=== PATIENT | female | born 1945 | race Caucasian/White ===

== ENCOUNTER 2016-10-25 20:34 | Inpatient (IN) | payer MEDICARE ==
[2016-10-25] MEDS ORDERED: PREDNISONE 20 MG TABLET PO ONE (21:24)
[2016-10-25] MEDS ORDERED: IPRATROPIUM/ALBUTEROL 0.5-2.5 MG/3 ML AMPUL NEB ONE (21:24)
[2016-10-25] MEDS ORDERED: ALBUTEROL SULFATE 0.083% NEB 2.5 MG/3 ML AMPUL NEB ONE ×2 (21:26→23:48)
--- NOTE | 2016-10-25 21:33 | ER Document Report ---
ED Respiratory Problem - General Mode of Arrival: Ambulatory Information source: Patient TRAVEL OUTSIDE OF THE [place] IN LAST 30 DAYS: No - HPI Patient complains to provider of: Short of breath Onset: Other - "couple days ago" Context: Hx COPD, Smoker - former Cough: Productive At home treatment: Inhaled steroids Associated symptoms: Other - see above <MARCELLO MURPHY - Last Filed: 10/25/16 21:56> <SHA DESAI - Last Filed: 10/25/16 23:57> - General Chief Complaint: Breathing Difficulty Stated Complaint: DIFFICULTY BREATHING Notes: 71 year old female with history of COPD (non-oxygen dependent), coronary artery disease, DM II, dyslipidemia, and hypertension presents to the ED complaining of shortness of breath that started "a few days ago". Patient sates that she had a fever of 101.4 F yesterday. Patient is also complaining of a non- productive cough, stating that she can the mucus congestion, but is unable to cough it up. Patient states that the last time she was on Prednisone was when she was last seen in the ED on 09/27/2016. Patient denies having a nebulizer at home, but states that she uses an albuterol inhaler. Patient's primary care provider is Dr. Sangita Rodriguez. (MARCELLO MURPHY) - Related Data Allergies/Adverse Reactions: Sulfa (Sulfonamide Antibiotics) Allergy (Unknown, Verified 10/25/16 20:54) levofloxacin [From Levaquin] Allergy (Verified 10/25/16 20:54) morphine [Morphine] Adverse Reaction (Severe, Verified 10/25/16 20:54) Past Medical History - General Information source: Patient - Social History Smoking Status: Former Smoker Family History: Reviewed & Not Pertinent - Past Medical History Cardiac Medical History: Reports: Hx Coronary Artery Disease, Hx Hypercholesterolemia, Hx Hypertension Pulmonary Medical History: Reports: Hx COPD Endocrine Medical History: Reports: Hx Diabetes Mellitus Type 2, Hx Hypothyroidism Renal/ Medical History: Reports: Hx End Stage Renal Disease GI Medical History: Reports: Hx Gastroesophageal Reflux Disease Musculoskeltal Medical History: Reports Hx Arthritis Skin Medical History: Reports Hx Eczema Psychiatric Medical History: Reports: Hx Depression Past Surgical History: Reports: Hx Hysterectomy, Other - Bilat cataract and ankle surgery. - Immunizations Hx Diphtheria, Pertussis, Tetanus Vaccination: No <MARCELLO MURPHY - Last Filed: 10/25/16 21:56> EENT Medical History: Reports: None Neurological Medical History: Reports: None Renal/ Medical History: Reports: Hx Renal Insufficiency. Denies: Hx End Stage Renal Disease <SHA DESAI - Last Filed: 10/25/16 23:57> Review of Systems - Review of Systems Constitutional: See HPI, Fever - 101.4F EENT: No symptoms reported Cardiovascular: No symptoms reported Respiratory: See HPI, Cough, Short of breath Gastrointestinal: No symptoms reported Genitourinary: No symptoms reported Female Genitourinary: No symptoms reported Musculoskeletal: No symptoms reported Skin: No symptoms reported Hematologic/Lymphatic: No symptoms reported Neurological/Psychological: No symptoms reported <MARCELLO MURPHY - Last Filed: 10/25/16 21:56> Physical Exam - General General appearance: Alert In distress: None - HEENT Head: Normocephalic, Atraumatic Eyes: Normal Extraocular movements intact: Yes Pupils: PERRL - Respiratory Breath sounds: Rhonchi - Diffuse inspiratory and expiratory. Worsened with coughing., Wheezing - Diffuse inspiratory and expiratory. Worsened with coughing.. No: Normal - Cardiovascular Rhythm: Regular Heart sounds: Normal auscultation - Abdominal Inspection: Normal - Back Back: Normal - Extremities General upper extremity: Normal inspection, Normal ROM General lower extremity: Normal inspection, Normal ROM - Neurological Neuro grossly intact: Yes - Psychological Associated symptoms: Normal affect, Normal mood - Skin Skin Temperature: Warm Skin Moisture: Dry Skin Color: Normal <MARCELLO MURPHY - Last Filed: 10/25/16 21:56> Course - Laboratory Result Diagrams: 10/25/16 22:15 10/25/16 22:15 - Diagnostic Test Radiology reviewed: Image reviewed, Reports reviewed - Chest x-ray shows stable cardiomegaly without failure and without infiltrate. There is no acute process noted. - Consults Dr. Guerra Time consulted: 23:55 Consulted provider: will come to ER <SHA DESAI - Last Filed: 10/25/16 23:57> - Vital Signs Vital signs: Temp Pulse Resp BP Pulse Ox 99.3 F 18 140/68 H 89 L 10/25/16 20:35 10/25/16 23:25 10/25/16 23:25 10/25/16 23:25 (MARCELLO MURPHY) (SHA DESAI) - Laboratory Laboratory results interpreted by me: 10/25/16 10/25/16 10/25/16 22:15 22:15 23:30 WBC 11.9 H Hgb 11.3 L Hct 34.0 L RDW 14.4 H Seg Neutrophils % 79.8 H Lymphocytes % 12.8 L Absolute Neutrophils 9.5 H Sodium 132.5 L Potassium 3.4 L Chloride 95 L BUN 24 H Creatinine 2.19 H Est GFR ( Amer) 27 L Est GFR (Non-Af Amer) 22 L Glucose 220 H Calcium 8.2 L Magnesium 1.3 L Creatine Kinase 288 H Urine Protein 100 H Ur Leukocyte Esterase SMALL H (SHA DESAI) Discharge <MARCELLO MURPHY - Last Filed: 10/25/16 21:56> - Discharge Admitting Provider: Hospitalist Unit Admitted: Telemetry <SHA DESAI - Last Filed: 10/25/16 23:57> - Discharge Clinical Impression: COPD with acute exacerbation, Hypoxia, Diabetes mellitus type 2 in obese, Renal insufficiency Hypothyroid Qualifiers: Hypothyroidism type: unspecified Qualified Code(s): E03.9 - Hypothyroidism, unspecified Condition: Stable Disposition: ADMITTED INPATIENT Scribe Attestation: 10/25/16 23:57 I personally performed the services described in the documentation, reviewed and edited the documentation which was dictated to the scribe in my presence, and it accurately records my words and actions. (SHA DESAI) Scribe Documentation - Scribe Written by Brian:: Brian Talbot, 10/25/2016 21:45 acting as scribe for :: Den <MARCELLO MURPHY - Last Filed: 10/25/16 21:56>
[2016-10-25 22:29] LABS: ABSOLUTE BASOPHILS # (AUTO) 0.1 10^3/uL (0.0-0.2); ABSOLUTE EOSINOPHILS # (AUTO) 0.3 10^3/uL (0.0-0.6); ABSOLUTE LYMPHOCYTES (AUTO) 1.5 10^3/uL (0.5-4.7); ABSOLUTE MONOCYTES (AUTO) 0.5 10^3/uL (0.1-1.4); ABSOLUTE NEUT (AUTO) 9.5 10^3/uL (1.7-8.2); BASOPHILS % (AUTO) 0.6 % (0-2); EOSINOPHILS % (AUTO) 2.4 % (0-6); HEMOGLOBIN 11.3 g/dL (12.0-15.5); HGB HCT DIFFERENCE -0.1; LYMPHOCYTES % (AUTO) 12.8 % (13-45); MEAN CORPUSCULAR HEMOGLOBIN 29.2 pg (27.0-33.4); MEAN CORPUSCULAR HGB CONC 33.1 g/dL (32.0-36.0); MEAN CORPUSCULAR VOLUME 88 fl (80-97); MONOCYTES % (AUTO) 4.4 % (3-13); RED BLOOD COUNT 3.85 10^6/uL (3.72-5.28); RED CELL DISTRIBUTION WIDTH 14.4 % (11.5-14.0); SEGMENTED NEUTROPHILS % (AUTO) 79.8 % (42-78); WHITE BLOOD COUNT 11.9 10^3/uL (4.0-10.5)
[2016-10-25 22:44] LABS: ALANINE AMINOTRANSFERASE 34 U/L (9-52); ALBUMIN 3.9 g/dL (3.5-5.0); ALKALINE PHOSPHATASE 116 U/L (38-126); ANION GAP 16 (5-19); ASPARTATE AMINO TRANSFERASE 29 U/L (14-36); BLOOD UREA NITROGEN 24 mg/dL (7-20); CALCIUM 8.2 mg/dL (8.4-10.2); CARBON DIOXIDE 22 mmol/L (22-30); CHLORIDE 95 mmol/L (98-107); CREATINE KINASE 288 U/L (30-135); CREATININE RESULT 2.19 mg/dL (0.52-1.25); GLUCOSE 220 mg/dL (75-110); MAGNESIUM 1.3 mg/dL (1.6-2.3); POTASSIUM 3.4 mmol/L (3.6-5.0); SODIUM 132.5 mmol/L (137-145); TOTAL PROTEIN 6.9 g/dL (6.3-8.2)
[2016-10-25 23:05] LABS: CREATINE KINASE MB 2.06 ng/mL (<4.55)
[2016-10-25 23:09] LABS: TROPONIN I < 0.012 ng/mL
[2016-10-25 23:48] LABS: APPEARANCE,URINE CLOUDY; BILIRUBIN,URINE NEGATIVE (NEGATIVE); GLUCOSE, URINE NEGATIVE (NEGATIVE); KETONES,URINE NEGATIVE (NEGATIVE); LEUKOCYTE ESTERASE,URINE SMALL (NEGATIVE); NITRITE,URINE NEGATIVE (NEGATIVE); PROTEIN,URINE 100 mg/dL (NEGATIVE); URINE SPECIFIC GRAVITY 1.014; UROBILINOGEN,URINE NEGATIVE mg/dL (<2.0)
[2016-10-26] MEDS ORDERED: DEXTROSE 50%-WATER 25 GM/50 ML DISP.SYRIN IV PRN ×6 (00:59→15:49)
[2016-10-26] MEDS ORDERED: INSULIN LISPRO 100 UNIT/ML 3 ML VIAL SUBCUT PRN (00:59)
[2016-10-26] MEDS ORDERED: DEXTROSE 40% GEL 15 GM TUBE PO PRN ×6 (00:59→15:49)
[2016-10-26] MEDS ORDERED: GLUCAGON,HUMAN RECOMB 1 MG INJ IM PRN ×3 (00:59→15:49)
[2016-10-26] MEDS ORDERED: POTASSIUM CHLORIDE 20 MEQ/15 ML UDCUP PO ONE (01:01)
[2016-10-26] MEDS ORDERED: ALBUTEROL SULFATE 0.083% NEB 2.5 MG/3 ML AMPUL NEB PRN (01:02)
[2016-10-26] MEDS ORDERED: PHARMACY COMMUNICATION ORDER MC SCH (01:15)
[2016-10-26] MEDS ORDERED: VANCOMYCIN HCL 0 MG in DEXTROSE 5%-WATER 250 ML IV NR (01:15)
[2016-10-26] MEDS ORDERED: CEFEPIME 2 GM/D5W RTU 50 ML IV SCH (01:15)
[2016-10-26] MEDS ORDERED: AZTREONAM 2 GM in DEXTROSE 5%-WATER 50 ML IV SCH (01:15)
--- NOTE | 2016-10-26 01:26 | PDOC H&P ---
History of Present Illness Admission Date/PCP: 10/26/16 00:14 REED Wilkerson 1st appt. 10/25/16; name?? Patient complains of: difficulty breathing History of Present Illness: WANG LAWSON is a 71 year old female with nonhome O2 dependent COPD, who presents to the emergency room for evaluation of above complaint. Patient has been discussed with emergency room physician who evaluated the patient. Describes a several day history of slowly progressive shortness of breath, in particular with much of any exertion. Nausea but no vomiting. Fever to 101.4 24 hours ago. Somewhat of a productive cough, but is not able to completely expectorate her sputum. No diarrhea or dysuria, chest or abdominal pain. Positive sick contacts in the persons of her grandchildren No underlying asthma. No prior intubation for respiratory difficulty. Scheduled for her initial office visit with pulmonology on the of this month. She is up-to-date with her flu vaccination; has had one Pneumovax in the past. Hospitalized on our service 09/27 through 09/28/2016, with final diagnoses including acute respiratory failure with hypoxemia, COPD exacerbation, and pneumonia, along with multiple other diagnoses. Discharged with prescriptions for doxycycline and prednisone, which patient states she took as prescribed. Copies of the history and physical and discharge summary have been reviewed. Concomitant medical problems include hypertension, mild depression without suicidal ideation, type II diabetes mellitus, hypothyroidism, overactive bladder , hyperlipidemia, arthritis, stage IV chronic kidney disease, eczema, easy bruising, and mild reflux. [facility] and are reviewed. X-ray summary results are listed below, with full report(s) reviewed. . EKG reviewed and compared to prior tracing from September 26 of last year. Social history/personal habits: . 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 No alcohol or illicit drug use. Family History : Son suffered a myocardial infarction along with a stroke. Patient is an only child. Father of lung cancer. Mother of " embolism in her stomach." Allergies/adverse reactions allergies are reviewed. Home medications are reviewed by discussion with patient and referral to her recent discharge summary and are to be reconciled by nursing staff in [facility]. Patient states medications are the same as those on discharge summary other than obviously the fact she has finished the doxycycline and prednisone. Home medications initially autopopulated into [email or web address] may not accurately reflect patient's true medications, dosages, and/or frequencies. REVIEW OF SYSTEMS: Constitutional: See history and present illness. Eyes: Wears glasses. ENT: No swallowing problems or complaints. No hearing problems or complaints. Pulmonary: See history and present illness. Cardiovascular: No current complaints, including chest pain. Gastrointestinal: See history and present illness. Skin: No current complaints, including rashes. Hematologic: Easy bruising. Neurologic: No current complaints, including numbness or tingling. Musculoskeletal: Joint pain from arthritis. Psychiatric: Mild depression; denies suicidal or homicidal ideation. Endocrine: No current complaints, including polyuria. Genitourinary: No current complaints, including dysuria. PHYSICAL EXAMINATION: Neither height nor weight are recorded on the chart. Temperature 99.3. Blood pressure 137/55. Pulse 107 and regular. 95% saturation on 2 L oxygen per nasal cannula. Respirations are 17 and unlabored. Obese somewhat chronically ill-appearing female who nevertheless appears approximately her stated age. Appears to feel a bit under the weather, so to speak, and perhaps slightly fatigued. Overall however pleasant awake alert and cooperative. No obvious distress otherwise other than perhaps mildly anxious. Daughter is present at her side; patient approves. Female emergency room nurse Nancy is present. Skin is warm and dry. No grossly obvious evidence of rash in areas of skin examined. No subcutaneous nodules palpated. ENT: Hearing grossly normal to normal conversation. Tongue midline on protrusion pink and slightly moist. Eyes: No scleral icterus. Pupils equal and reactive to light at 4 mm. [place] conjunctivae. Neck is supple and nontender to gentle active range of motion and palpation. Midline trachea. No palpable thyroid nodule mass enlargement or tenderness. Lymphatic: No palpable cervical or clavicular nodes. Neck and lymphatic exams limited by patient body habitus. Psychiatric: Reasonable insight into acute and chronic medical issues. Oriented to time location and why here. Lungs: Auscultation reveals equal breath sounds bilaterally. Brief mild expiratory wheezing and very slightly coarse breath sounds in the upper half of each hemithorax. No use of accessory respiratory muscles. Cardiovascular: Heart regular rate and rhythm, without gallop murmur or rub. No carotid or abdominal aortic bruits. No ankle or pedal edema. Faintly palpable dorsalis pedis pulses. Abdomen: soft, somewhat obese, nontender with positive bowel sounds. Unable to adequately evaluate abdomen for masses or organomegaly due to body habitus. Extremities: Feet are warm and dry. No calf tenderness to compression. No grossly obvious visual evidence of calf swelling. Gentle manipulation of lower extremities fails to reveal any obvious evidence of injury or instability to knees hips or ankles. Neurologic: Moves upper extremities grossly normally. Patellar reflexes absent. Absent Babinski. Light touch is intact at feet. Dorsiflexion and plantarflexion of feet 5 / 5 and symmetric. Past Medical History Past Medical History: For more complete description of her past medical history, please refer to history and physical from 09/26/2016. Cardiac Medical History: Reports: Coronary Artery Disease, Hyperlipidema, Hypertension Denies: Congestive Heart Failure, Myocardial Infarction, Heart Murmur Pulmonary Medical History: Reports: Chronic Obstructive Pulmonary Disease (COPD) Denies: Asthma, Bronchitis, Pneumonia, Tuberculosis EENT Medical History: Reports: None Neurological Medical History: Reports: None Denies: Seizures Endocrine Medical History: Reports: Diabetes Mellitus Type 2, Hypothyroidism Denies: Hyperthyroidism Renal/ Medical History: Denies: End Stage Renal Disease GI Medical History: Reports: Gastroesophageal Reflux Disease Denies: Cirrhosis, Hepatitis Musculoskeltal Medical History: Reports: Arthritis Skin Medical History: Reports: Eczema Psychiatric Medical History: Reports: Depression Hematology: Reports: Anemia Past Surgical History Past Surgical History: Reports: Hysterectomy, Other - Bilat cataract and ankle surgery. Denies: Pacemaker Social History Information Source: Patient, Relative, Emergency Med Personnel, [facility] Records Lives with: Family Smoking Status: Former Smoker Frequency of Alcohol Use: None Hx Recreational Drug Use: No Drugs: None - Advance Directive Resuscitation Status: Full Code Surrogate healthcare decision maker:: Her son Family History Family History: Reviewed & Not Pertinent Parental Family History Reviewed: Yes Children Family History Reviewed: Yes Sibling(s) Family History Reviewed.: NA Medication/Allergy Home Medications: RX: Benazepril HCl 1 tab PO DAILY 09/27/16 RX: Citalopram Hydrobromide [Celexa] 40 mg PO DAILY 09/27/16 RX: Fluticasone Furoate [Veramyst] 2 spray IH DAILY 09/27/16 RX: Gabapentin 400 mg PO ASDIR PRN 09/27/16 RX: Glimepiride [Amaryl] 2 mg PO BID 09/27/16 RX: Hydralazine HCl 25 mg PO ASDIR PRN 09/27/16 RX: Levothyroxine Sodium 88 mcg PO DAILY 09/27/16 RX: Methocarbamol 750 mg PO ASDIR PRN 09/27/16 RX: Omeprazole 20 mg PO DAILY 09/27/16 RX: Oxybutynin Chloride [Ditropan Xl] 10 mg PO DAILY 09/27/16 RX: Oxycodone HCl/Acetaminophen [Percocet 7.5-325 mg Tablet] 1 each PO ASDIR PRN 09/27/16 RX: Simvastatin 40 mg PO DAILY 09/27/16 RX: Acetaminophen [Tylenol 325 mg Tablet] 650 mg PO Q4HP PRN tablet 09/28/16 RX: Albuterol Sulfate [Proair HFA Inhalation Aerosol 8.5 gm MDI] 1 puff IH Q4 PRN #1 mdi 09/28/16 RX: Furosemide [Lasix 20 mg Tablet] 40 mg PO DAILY #30 tablet 09/28/16 RX: Prednisone [Deltasone 20 mg Tablet] 20 mg PO DAILY #3 tablet 09/28/16 Allergies/Adverse Reactions: Sulfa (Sulfonamide Antibiotics) Allergy (Unknown, Verified 10/25/16 20:54) levofloxacin [From Levaquin] Allergy (Verified 10/25/16 20:54) morphine [Morphine] Adverse Reaction (Severe, Verified 10/25/16 20:54) Physical Exam Vital Signs: Temp Pulse Resp BP Pulse Ox 99.3 F 18 140/68 H 89 L 10/25/16 20:35 10/25/16 23:25 10/25/16 23:25 10/25/16 23:25 Results Impressions: Chest X-Ray 10/25/16 21:25 IMPRESSION: Stable chest without acute cardiopulmonary disease. Assessment & Plan - Diagnosis (1) Abnormal urinalysis Is this a current diagnosis for this admission?: YesPlan: Urine culture. (2) COPD with acute exacerbation Is this a current diagnosis for this admission?: YesPlan: Patient will be admitted under COPD exacerbation and pneumonia protocol. Incentive spirometry twice a day. Scheduled DuoNeb's. PRN albuterol nebs daily prednisone. Prevacid for gastritis prophylaxis. Antibiotics will consist of intravenous vancomycin, along with cefepime and aztreonam, for suspected hospital-acquired pneumonia. Pharmacy to assist with dosing.. I strongly encouraged patient to notify staff should patient feel that respiratory status is worsening. Patient is a full code. I have strongly encouraged patient not to get out of bed without notifying staff , , to avoid a fall with injury. Knee high SCDs for DVT prophylaxis, along with subcutaneous heparin. Impression and plans were discussed with patient and daughter, both of whom concur. Time spent in evaluation and management of patient: 62 minutes. (3) Hypokalemia Is this a current diagnosis for this admission?: YesPlan: Potassium supplement along with follow-up chemistry. (4) Hypomagnesemia Is this a current diagnosis for this admission?: YesPlan: Magnesium supplement, along with follow-up chemistry. (5) Diabetes mellitus type 2 in obese Is this a current diagnosis for this admission?: YesPlan: Diabetic cardiac prerenal diet. Accu-Cheks with appropriate sliding scale coverage. Resume home medications as appropriate once these have been reviewed. (6) Chronic kidney disease (CKD), stage IV (severe) Is this a current diagnosis for this admission?: Yes (7) Hyperlipidemia Qualifiers: Hyperlipidemia type: unspecified Qualified Code(s): E78.5 - Hyperlipidemia, unspecified Is this a current diagnosis for this admission?: YesPlan: Resume home medications as appropriate once these have been reviewed. (8) Hypothyroid Qualifiers: Hypothyroidism type: unspecified Qualified Code(s): E03.9 - Hypothyroidism, unspecified Is this a current diagnosis for this admission?: YesPlan: TSH level is pending. Resume home medications as appropriate once these have been reviewed. (9) Pneumonia Qualifiers: Pneumonia type: due to unspecified organism Laterality: unspecified laterality Lung location: unspecified part of lung Qualified Code(s) : J18.9 - Pneumonia, unspecified organism Is this a current diagnosis for this admission?: Yes - Inpatient Certification Based on my medical assessment, after consideration of the patient's comorbidities, presenting symptoms, or acuity I expect that the services needed warrant INPATIENT care.: Yes I certify that my determination is in accordance with my understanding of Medicare's requirements for reasonable and necessary INPATIENT services [42 CFR 412.3e].: Yes Medical Necessity: Significant Comorbidiites Make Outpatient Treatment Too Risky , Need Close Monitoring Due to Risk of Patient Decompensation, Need For Continuous Telemetry Monitoring, Need for Nebulizer Therapy and Monitoring of Response, Need for IV Antibiotics, Risk of Complication if Not Cared For in Hospital Post Hospital Care: D/C or Transfer Summary
[2016-10-26] MEDS: MAGNESIUM SULFATE/D5W 100 ML IV SCH ×2 (01:43→04:12)
[2016-10-26] MEDS ORDERED: AZTREONAM INJ 1 GM VIAL INJ PRN (01:57)
[2016-10-26] MEDS ORDERED: AZTREONAM 2 GM in DEXTROSE 5%-WATER 50 ML IV ONE (02:00)
[2016-10-26] MEDS ORDERED: CEFEPIME 2 GM/D5W RTU 2 GM/50 ML RTUPB IV ONE (02:00)
[2016-10-26 05:22] LABS: HEMATOCRIT 32.1 % (36.0-47.0); HEMOGLOBIN 10.4 g/dL (12.0-15.5); HGB HCT DIFFERENCE -0.9; MEAN CORPUSCULAR HEMOGLOBIN 29.3 pg (27.0-33.4); MEAN CORPUSCULAR HGB CONC 32.5 g/dL (32.0-36.0); MEAN CORPUSCULAR VOLUME 90 fl (80-97); RED BLOOD COUNT 3.56 10^6/uL (3.72-5.28); RED CELL DISTRIBUTION WIDTH 14.6 % (11.5-14.0)
[2016-10-26 05:44] LABS: ANION GAP 17 (5-19); BLOOD UREA NITROGEN 28 mg/dL (7-20); CALCIUM 7.9 mg/dL (8.4-10.2); CARBON DIOXIDE 18 mmol/L (22-30); CHLORIDE 93 mmol/L (98-107); CREATININE RESULT 2.39 mg/dL (0.52-1.25); MAGNESIUM 2.2 mg/dL (1.6-2.3); POTASSIUM 3.9 mmol/L (3.6-5.0); SODIUM 128.1 mmol/L (137-145)
[2016-10-26 06:05] LABS: BASOPHILS % (MANUAL) 0 % (0-2); EOSINOPHILS % (MANUAL) 0 % (0-6); LYMPHOCYTES % (MANUAL) 3 % (13-45); TOTAL CELLS COUNTED 100
[2016-10-26 06:08] LABS: ACANTHOCYTES SLIGHT; ANISOCYTOSIS SLIGHT; BURR CELLS 1+; TOXIC GRANULATION SLIGHT
[2016-10-26 06:09] LABS: TEAR DROP CELLS 1+
[2016-10-26] MEDS ORDERED: CEFEPIME 1 GM/D5W RTU 1 GM/50 ML RTUPB IV ONE (06:18)
[2016-10-26] MEDS ORDERED: AZTREONAM INJ 1 GM VIAL ONE ×2 (06:19→06:39)
[2016-10-26] MEDS: LANSOPRAZOLE 30 MG TAB.RAP.DR PO SCH (07:06)
[2016-10-26 07:12] LABS: GLUCOSE 581 mg/dL (75-110)
[2016-10-26] MEDS: GLIMEPIRIDE 1 MG TABLET PO SCH ×2 (07:37→18:25)
[2016-10-26] MEDS: IPRATROPIUM/ALBUTEROL 0.5-2.5 MG/3 ML AMPUL NEB SCH ×3 (07:38→20:56)
[2016-10-26] MEDS ORDERED: NORMAL SALINE 100 ML with INSULIN REGULAR, HUMAN 100 UNIT IV PRN ×2 (07:44)
[2016-10-26] MEDS ORDERED: NORMAL SALINE 1000 ML 1,000 ML IV PRN ×2 (07:44→15:49)
--- NOTE | 2016-10-26 09:15 | EKG REPORT ---
SEVERITY:- ABNORMAL ECG - SINUS TACHYCARDIA LEFT ANTERIOR FASCICULAR BLOCK NONSPECIFIC T ABNORMALITIES, ANT-LAT LEADS : Confirmed by: Hetal Pat 26-Oct-2016 09:15:11
[2016-10-26] MEDS: OXYBUTYNIN CHLORIDE 5 MG TABLET PO SCH ×2 (09:20→21:37)
[2016-10-26] MEDS: CITALOPRAM HYDROBROMIDE 20 MG TABLET PO SCH (09:21)
[2016-10-26] MEDS: BENAZEPRIL HCL 20 MG TABLET PO SCH (09:21)
[2016-10-26] MEDS: LEVOTHYROXINE SODIUM 0.1 MG TABLET PO SCH (09:22)
[2016-10-26] MEDS: FUROSEMIDE 20 MG TABLET PO SCH (09:22)
[2016-10-26] MEDS: HEPARIN SOD (PORCINE) 5,000 UNIT/ML 1 ML SYRINGE SUBCUT SCH ×2 (09:29→21:34)
[2016-10-26] MEDS ORDERED: PREDNISONE 20 MG TABLET PO SCH ×2 (10:00→15:06)
[2016-10-26] MEDS ORDERED: FLUTICASONE FUROATE NASL SCH (10:00)
[2016-10-26] MEDS ORDERED: LEVOTHYROXINE SODIUM 0.088 MG TABLET PO SCH (10:00)
[2016-10-26 10:06] LABS: ANION GAP 18 (5-19); BLOOD UREA NITROGEN 30 mg/dL (7-20); CALCIUM 8.1 mg/dL (8.4-10.2); CARBON DIOXIDE 19 mmol/L (22-30); CHLORIDE 91 mmol/L (98-107); CREATININE RESULT 2.35 mg/dL (0.52-1.25); POTASSIUM 3.7 mmol/L (3.6-5.0); SODIUM 127.7 mmol/L (137-145)
[2016-10-26 10:19] LABS: GLUCOSE 602 mg/dL (75-110)
[2016-10-26] MEDS: ACETAMINOPHEN 325 MG TABLET PO PRN (10:56)
[2016-10-26] MEDS: AZITHROMYCIN 500 MG in DEXTROSE 5%-WATER 250 ML IV SCH (12:04)
[2016-10-26 12:07] LABS: ANION GAP 13 (5-19); BLOOD UREA NITROGEN 31 mg/dL (7-20); CALCIUM 8.2 mg/dL (8.4-10.2); CARBON DIOXIDE 22 mmol/L (22-30); CHLORIDE 94 mmol/L (98-107); POTASSIUM 3.7 mmol/L (3.6-5.0); SODIUM 129.2 mmol/L (137-145)
[2016-10-26 12:24] LABS: GLUCOSE 472 mg/dL (75-110)
--- NOTE | 2016-10-26 15:08 | PDOC PROGRESS REPORT ---
Subjective Progress Note for:: 10/26/16 Subjective:: Patient has continued cough and shortness of breath. She feels generally better than admission. She has had no fevers since admission. She has been hyperglycemic and started on insulin drip today. Physical Exam Vital Signs: Temp Pulse Resp BP Pulse Ox 97.9 F 90 20 125/61 97 10/26/16 11:27 10/26/16 13:33 10/26/16 13:33 10/26/16 11:27 10/26/16 13:33 Intake & Output 10/25/16 10/26/16 10/27/16 06:59 06:59 06:59 Intake Total 400 Balance 400 GENERAL: No acute distress HEENT: Conjunctiva clear, nonicteric, moist mucous membranes, no JVD, midline trachea RESPIRATORY: Bilateral wheezes and scattered rhonchi, good air excursion CARDIAC: Regular rate and rhythm, no murmurs/gallops/rubs ABDOMEN: Soft, nondistended, nontender, positive bowel sounds, no rebound, no guarding EXTREMETIES: No edema, cyanosis, clubbing NEUROLOGIC: Alert, oriented to person/place/time, CN's grossly intact, no focal deficits SKIN: No rash, wounds PSYCH: Normal mood, normal affect Results Laboratory Results: 10/26/16 04:55 10/26/16 11:47 10/26/16 10/26/16 10/26/16 04:55 04:55 08:47 WBC 11.0 H RBC 3.56 L Hgb 10.4 L Hct 32.1 L MCV 90 MCH 29.3 MCHC 32.5 RDW 14.6 H Plt Count 154 Seg Neutrophils % Not Reportable Lymphocytes % Not Reportable Monocytes % Not Reportable Eosinophils % Not Reportable Basophils % Not Reportable Absolute Neutrophils Not Reportable Absolute Lymphocytes Not Reportable Absolute Monocytes Not Reportable Absolute Eosinophils Not Reportable Absolute Basophils Not Reportable Sodium 128.1 L 127.7 L Potassium 3.9 3.7 Chloride 93 L 91 L Carbon Dioxide 18 L 19 L Anion Gap 17 18 BUN 28 H 30 H Creatinine 2.39 H 2.35 H Est GFR ( Amer) 24 L 25 L Est GFR (Non-Af Amer) 20 L 21 L Glucose 581 H* 602 H* Calcium 7.9 L 8.1 L Magnesium 2.2 10/26/16 11:47 WBC RBC Hgb Hct MCV MCH MCHC RDW Plt Count Seg Neutrophils % Lymphocytes % Monocytes % Eosinophils % Basophils % Absolute Neutrophils Absolute Lymphocytes Absolute Monocytes Absolute Eosinophils Absolute Basophils Sodium 129.2 L Potassium 3.7 Chloride 94 L Carbon Dioxide 22 Anion Gap 13 BUN 31 H Creatinine 2.30 H Est GFR ( Amer) 25 L Est GFR (Non-Af Amer) 21 L Glucose 472 H* Calcium 8.2 L Magnesium Impressions: Chest X-Ray 10/25/16 21:25 IMPRESSION: Stable chest without acute cardiopulmonary disease. Assessment & Plan - Diagnosis (1) Acute respiratory failure with hypoxemia Is this a current diagnosis for this admission?: YesPlan: Continue oxygen supplementation. Patient normally does not require home oxygen. (2) COPD with acute exacerbation Is this a current diagnosis for this admission?: YesPlan: Decrease prednisone to 40 mg daily secondary to hyperglycemia. Continue azithromycin. Discontinue cefepime. Continue albuterol. (3) Diabetes mellitus type 2 in obese Is this a current diagnosis for this admission?: YesPlan: Continue insulin drip until blood glucose at least below 200 and convert back to sliding scale coverage. Patient is normally well controlled on Amaryl. (4) Chronic kidney disease (CKD), stage IV (severe) Is this a current diagnosis for this admission?: YesPlan: Likely related to diabetes and hypertension. Continue NATACHA inhibitor. Kidney function about baseline. Patient is normally followed by Dr. Champion of nephrology as an outpatient. (5) Hypothyroid Qualifiers: Hypothyroidism type: unspecified Qualified Code(s): E03.9 - Hypothyroidism, unspecified Is this a current diagnosis for this admission?: YesPlan: Synthroid. (6) Hypertension Is this a current diagnosis for this admission?: YesPlan: Continue Lotensin. - Time Time Spent with patient: 35 or more minutes
[2016-10-26 17:27] LABS: ANION GAP 16 (5-19); BLOOD UREA NITROGEN 32 mg/dL (7-20); CALCIUM 8.3 mg/dL (8.4-10.2); CARBON DIOXIDE 20 mmol/L (22-30); CHLORIDE 96 mmol/L (98-107); CREATININE RESULT 2.18 mg/dL (0.52-1.25); GLUCOSE 191 mg/dL (75-110); POTASSIUM 3.3 mmol/L (3.6-5.0); SODIUM 132.2 mmol/L (137-145)
[2016-10-26] MEDS: INSULIN LISPRO 100 UNIT/ML 3 ML VIAL SUBCUT PRN ×2 (18:26→21:34)
[2016-10-26] MEDS: SIMVASTATIN 40 MG TABLET PO SCH (21:34)
[2016-10-27] MEDS ORDERED: PROMETHAZINE HCL INJ 25 MG/1 ML VIAL IV PRN (03:55)
[2016-10-27] MEDS: GUAIFENESIN SYRP 200 MG/10 ML UDC PO PRN (05:39)
[2016-10-27 05:52] LABS: HEMATOCRIT 31.5 % (36.0-47.0); HEMOGLOBIN 10.5 g/dL (12.0-15.5); MEAN CORPUSCULAR HEMOGLOBIN 29.1 pg (27.0-33.4); MEAN CORPUSCULAR HGB CONC 33.3 g/dL (32.0-36.0); MEAN CORPUSCULAR VOLUME 87 fl (80-97); RED BLOOD COUNT 3.61 10^6/uL (3.72-5.28); RED CELL DISTRIBUTION WIDTH 14.1 % (11.5-14.0)
[2016-10-27 05:56] LABS: ANION GAP 10 (5-19); BLOOD UREA NITROGEN 31 mg/dL (7-20); CALCIUM 8.1 mg/dL (8.4-10.2); CARBON DIOXIDE 23 mmol/L (22-30); CHLORIDE 100 mmol/L (98-107); CREATININE RESULT 1.97 mg/dL (0.52-1.25); GLUCOSE 236 mg/dL (75-110); POTASSIUM 4.1 mmol/L (3.6-5.0); SODIUM 133.1 mmol/L (137-145)
[2016-10-27 06:18] LABS: WHITE BLOOD COUNT 22.8 10^3/uL (4.0-10.5)
[2016-10-27 06:38] LABS: BAND NEUTROPHILS % (MANUAL) 6 % (3-5); BASOPHILS % (MANUAL) 0 % (0-2); EOSINOPHILS % (MANUAL) 0 % (0-6); LYMPHOCYTES % (MANUAL) 5 % (13-45); TOTAL CELLS COUNTED 100
[2016-10-27 06:39] LABS: ANISOCYTOSIS SLIGHT; OVALOCYTES SLIGHT; TOXIC GRANULATION 1+
[2016-10-27] MEDS: IPRATROPIUM/ALBUTEROL 0.5-2.5 MG/3 ML AMPUL NEB SCH ×3 (07:52→20:57)
[2016-10-27] MEDS: GLIMEPIRIDE 1 MG TABLET PO SCH ×2 (08:06→16:55)
[2016-10-27] MEDS: INSULIN LISPRO 100 UNIT/ML 3 ML VIAL SUBCUT PRN ×4 (08:06→21:13)
[2016-10-27] MEDS: BENAZEPRIL HCL 20 MG TABLET PO SCH (09:20)
[2016-10-27] MEDS: OXYBUTYNIN CHLORIDE 5 MG TABLET PO SCH ×2 (09:20→21:14)
[2016-10-27] MEDS: LEVOTHYROXINE SODIUM 0.1 MG TABLET PO SCH (09:20)
[2016-10-27] MEDS: CITALOPRAM HYDROBROMIDE 20 MG TABLET PO SCH (09:21)
[2016-10-27] MEDS: AZITHROMYCIN 500 MG in DEXTROSE 5%-WATER 250 ML IV SCH (09:21)
[2016-10-27] MEDS: FUROSEMIDE 20 MG TABLET PO SCH (09:21)
[2016-10-27] MEDS: HEPARIN SOD (PORCINE) 5,000 UNIT/ML 1 ML SYRINGE SUBCUT SCH ×2 (09:22→21:13)
[2016-10-27] MEDS ORDERED: (PENDING PHARMACY ID) (Oxycodone Hcl/Acetaminophen [Percocet 7.5-325 Mg Tablet] 1 EACH) PO PRN (11:41)
[2016-10-27] MEDS ORDERED: PHARMACY COMMUNICATION ORDER MC NR (11:45)
[2016-10-27] MEDS ORDERED: CEFTRIAXONE 1 GM/D5W RTU 1 GM/50 ML RTUPB IV ONE (13:00)
[2016-10-27] MEDS: METHYLPREDNISOLONE INJ 125 MG/2 ML SDV IV SCH ×2 (13:24→21:13)
[2016-10-27] MEDS: TRAMADOL HCL 50 MG TABLET PO PRN (16:55)
[2016-10-27] MEDS: INSULIN LISPRO 100 UNIT/ML 3 ML VIAL SUBCUT SCH (16:57)
[2016-10-27] MEDS: LACTOBACILLUS ACIDOPHILUS 250 MG TAB PO SCH (17:00)
[2016-10-27] MEDS ORDERED: ONDANSETRON 4 MG TAB.RAPDIS PO PRN (17:23)
[2016-10-27] MEDS ORDERED: PROMETHAZINE HCL 25 MG SUPP.RECT PR PRN (17:23)
[2016-10-27] MEDS ORDERED: HYDRALAZINE HCL 50 MG TABLET PO ONE (21:00)
[2016-10-27] MEDS: SIMVASTATIN 40 MG TABLET PO SCH (21:13)
[2016-10-27] MEDS: FLUTICASONE NASAL SPRAY 50 MCG/SPRY 120 SPRAY/16 GM NASL SCH (21:13)
[2016-10-27] MEDS: LORATADINE 10 MG TABLET PO SCH (21:13)
[2016-10-27] MEDS: GUAIFENESIN 600 MG TABLET.SA PO SCH (21:13)
[2016-10-27] MEDS: INSULIN GLARGINE,HUM.REC.ANLOG 1,000 UNIT/10 ML UNIT SUBCUT SCH (21:13)
[2016-10-27] MEDS ORDERED: INSULIN GLARGINE,HUM.REC.ANLOG 1,000 UNIT/10 ML UNIT SUBCUT SCH (22:00)
[2016-10-27] MEDS: ACETAMINOPHEN 325 MG TABLET PO PRN (23:53)
[2016-10-28] MEDS: HYDRALAZINE HCL 50 MG TABLET PO SCH ×3 (06:43→21:49)
[2016-10-28] MEDS: LANSOPRAZOLE 30 MG TAB.RAP.DR PO SCH (06:43)
[2016-10-28] MEDS: METHYLPREDNISOLONE INJ 125 MG/2 ML SDV IV SCH ×3 (06:43→21:50)
[2016-10-28] MEDS: GUAIFENESIN SYRP 200 MG/10 ML UDC PO PRN (06:43)
[2016-10-28] MEDS: GLIMEPIRIDE 1 MG TABLET PO SCH ×2 (07:29→16:59)
[2016-10-28] MEDS: INSULIN LISPRO 100 UNIT/ML 3 ML VIAL SUBCUT SCH ×3 (07:29→17:01)
[2016-10-28] MEDS: INSULIN LISPRO 100 UNIT/ML 3 ML VIAL SUBCUT PRN ×4 (07:41→21:51)
[2016-10-28] MEDS: OXYBUTYNIN CHLORIDE 5 MG TABLET PO SCH ×2 (09:27→21:52)
[2016-10-28] MEDS: GUAIFENESIN 600 MG TABLET.SA PO SCH ×2 (09:27→21:49)
[2016-10-28] MEDS: CITALOPRAM HYDROBROMIDE 20 MG TABLET PO SCH (09:27)
[2016-10-28] MEDS: FUROSEMIDE 20 MG TABLET PO SCH (09:27)
[2016-10-28] MEDS: CEFTRIAXONE 1 GM/D5W RTU 1 GM/50 ML RTUPB IV SCH (09:28)
[2016-10-28] MEDS: LEVOTHYROXINE SODIUM 0.1 MG TABLET PO SCH (09:28)
[2016-10-28] MEDS: FLUTICASONE NASAL SPRAY 50 MCG/SPRY 120 SPRAY/16 GM NASL SCH ×2 (09:28→21:50)
[2016-10-28] MEDS: LACTOBACILLUS ACIDOPHILUS 250 MG TAB PO SCH ×2 (09:28→17:00)
[2016-10-28] MEDS: HEPARIN SOD (PORCINE) 5,000 UNIT/ML 1 ML SYRINGE SUBCUT SCH ×2 (09:29→21:51)
[2016-10-28] MEDS: IPRATROPIUM/ALBUTEROL 0.5-2.5 MG/3 ML AMPUL NEB SCH ×3 (09:34→19:38)
[2016-10-28] MEDS: AZITHROMYCIN 500 MG in DEXTROSE 5%-WATER 250 ML IV SCH (10:08)
[2016-10-28] MEDS: TRAMADOL HCL 50 MG TABLET PO PRN ×2 (10:15→21:50)
[2016-10-28] MEDS: LORATADINE 10 MG TABLET PO SCH (21:49)
[2016-10-28] MEDS: SIMVASTATIN 40 MG TABLET PO SCH (21:49)
[2016-10-28] MEDS: BENZONATATE 100 MG CAPSULE PO PRN (21:49)
[2016-10-28] MEDS: BENAZEPRIL HCL 20 MG TABLET PO SCH (21:49)
[2016-10-28] MEDS: INSULIN GLARGINE,HUM.REC.ANLOG 1,000 UNIT/10 ML UNIT SUBCUT SCH (21:51)
[2016-10-28] MEDS ORDERED: PHARMACY COMMUNICATION ORDER MC NR (22:30)
[2016-10-28] MEDS ORDERED: LOPERAMIDE HCL 2 MG CAPSULE PO PRN (22:31)
--- NOTE | 2016-10-28 22:39 | PDOC PROGRESS REPORT ---
Subjective Progress Note for:: 10/27/16 Subjective:: Patient continues to have shortness of breath and pleurisy. She complains of cough. Patient denies abdominal pain, nausea, vomiting, fevers, chills, diarrhea, constipation, headache, new onset weakness. Physical Exam Vital Signs: Temp Pulse Resp BP Pulse Ox 98.7 F 88 16 167/64 H 93 10/27/16 03:23 10/27/16 07:52 10/27/16 07:52 10/27/16 03:23 10/27/16 07:52 Intake & Output 10/26/16 10/27/16 10/28/16 06:59 06:59 06:59 Intake Total 400 3776 Output Total 1 Balance 400 3775 Weight 97.5 kg Exam: General: Awake alert and oriented x3, mild respiratory distress HEENT: AT/NC, PERRL, EOMI, oropharynx is moist, pink, no scleral icterus, no conjunctival injection Neck: No JVD, trachea midline Chest: Bilateral diffuse end expiratory wheezes, bilateral rhonchi CV: Regular rate and rhythm, normal S1 and S2, no murmur, rub, or gallop Abdomen: Soft, nontender to palpation, nondistended, active bowel sounds; no rebound, rigidity, or guarding Extremities: No cyanosis, clubbing or edema Neuro: Cranial nerves II through XII are grossly intact without focal deficits; awake alert and oriented x3 Psych: Normal mood and affect Results Laboratory Results: 10/27/16 05:32 10/27/16 05:32 10/26/16 10/26/16 10/26/16 08:47 11:47 15:45 WBC RBC Hgb Hct MCV MCH MCHC RDW Plt Count Seg Neutrophils % Lymphocytes % Monocytes % Eosinophils % Basophils % Absolute Neutrophils Absolute Lymphocytes Absolute Monocytes Absolute Eosinophils Absolute Basophils Sodium 127.7 L 129.2 L 132.2 L Potassium 3.7 3.7 3.3 L Chloride 91 L 94 L 96 L Carbon Dioxide 19 L 22 20 L Anion Gap 18 13 16 BUN 30 H 31 H 32 H Creatinine 2.35 H 2.30 H 2.18 H Est GFR ( Amer) 25 L 25 L 27 L Est GFR (Non-Af Amer) 21 L 21 L 22 L Glucose 602 H* 472 H* 191 H Calcium 8.1 L 8.2 L 8.3 L 10/27/16 10/27/16 05:32 05:32 WBC 22.8 H D RBC 3.61 L Hgb 10.5 L Hct 31.5 L MCV 87 MCH 29.1 MCHC 33.3 RDW 14.1 H Plt Count 172 Seg Neutrophils % Not Reportable Lymphocytes % Not Reportable Monocytes % Not Reportable Eosinophils % Not Reportable Basophils % Not Reportable Absolute Neutrophils Not Reportable Absolute Lymphocytes Not Reportable Absolute Monocytes Not Reportable Absolute Eosinophils Not Reportable Absolute Basophils Not Reportable Sodium 133.1 L Potassium 4.1 Chloride 100 Carbon Dioxide 23 Anion Gap 10 BUN 31 H Creatinine 1.97 H Est GFR ( Amer) 30 L Est GFR (Non-Af Amer) 25 L Glucose 236 H Calcium 8.1 L Impressions: Chest X-Ray 10/25/16 21:25 IMPRESSION: Stable chest without acute cardiopulmonary disease. Assessment & Plan - Diagnosis (1) Pneumonia Qualifiers: Pneumonia type: due to unspecified organism Laterality: unspecified laterality Lung location: unspecified part of lung Qualified Code(s) : J18.9 - Pneumonia, unspecified organism Is this a current diagnosis for this admission?: YesPlan: Patient had recent admission for pneumonia from 01/03 4. Patient was discharged on doxycycline and quick steroid taper. We'll perform a chest CT to see if patient has underlying structural abnormality given her history of COPD and prior smoking. She reports never having a chest ct before. unable to have contrast secondary to renal failure. (2) COPD with acute exacerbation Is this a current diagnosis for this admission?: YesPlan: We'll place patient back on IV Solu-Medrol and stop oral prednisone. It appears as though patient had resolution of her symptomatology after discharge, but sounds as though she has contracted a viral illness leading to COPD exacerbation. (3) Hypertension Is this a current diagnosis for this admission?: YesPlan: Continue to monitor. Continue current medications including benazepril, Lasix, and will consider Norvasc if needed. (4) Hypokalemia Is this a current diagnosis for this admission?: YesPlan: Has been repleted (5) Hypomagnesemia Is this a current diagnosis for this admission?: Yes (6) Diabetes mellitus type 2 in obese Is this a current diagnosis for this admission?: YesPlan: Patient with hemoglobin A1c is 7.6. On Cglimiperide and have started patient on Lantus. (7) Chronic kidney disease (CKD), stage IV (severe) Is this a current diagnosis for this admission?: YesPlan: Renally adjust all medication (8) History of cerebral hemorrhage Is this a current diagnosis for this admission?: Yes - Time Time Spent with patient: 35 or more minutes Medications reviewed and adjusted accordingly: Yes
--- NOTE | 2016-10-28 22:45 | PDOC PROGRESS REPORT ---
Subjective Progress Note for:: 10/28/16 Subjective:: Patient reports she's feeling slightly better but still is short of breath and has pleuritic pain when she coughs. She reports her sinus congestion has improved somewhat. Patient does report some diarrhea. Patient denies abdominal pain, nausea, vomiting, fevers, chills, constipation, headache, new onset weakness. Physical Exam Vital Signs: Temp Pulse Resp BP Pulse Ox 98.1 F 88 19 146/57 H 96 10/28/16 05:36 10/28/16 07:00 10/28/16 05:36 10/28/16 05:36 10/28/16 05:36 Intake & Output 10/27/16 10/28/16 10/29/16 06:59 06:59 06:59 Intake Total 3776 1570 Output Total 1 500 Balance 3775 1070 Weight 97.5 kg Exam: General: Awake alert and oriented x3, mild respiratory distress HEENT: AT/NC, PERRL, EOMI, oropharynx is moist, pink, no scleral icterus, no conjunctival injection Neck: No JVD, trachea midline Chest: Bilateral end expiratory wheezes, bilateral rhonchi; slightly improved over yesterday, good air excursion CV: Regular rate and rhythm, normal S1 and S2, no murmur, rub, or gallop Abdomen: Soft, nontender to palpation, nondistended, active bowel sounds; no rebound, rigidity, or guarding Extremities: No cyanosis, clubbing or edema Neuro: Cranial nerves II through XII are grossly intact without focal deficits; awake alert and oriented x3 Psych: Normal mood and affect Results Laboratory Results: 10/27/16 05:32 10/27/16 05:32 Impressions: Chest X-Ray 10/25/16 21:25 IMPRESSION: Stable chest without acute cardiopulmonary disease. Chest CT 10/27/16 00:00 IMPRESSION: Bilateral airspace disease consistent with clinical history of pneumonia. Assessment & Plan - Diagnosis (1) Pneumonia Qualifiers: Pneumonia type: due to unspecified organism Laterality: unspecified laterality Lung location: unspecified part of lung Qualified Code(s) : J18.9 - Pneumonia, unspecified organism Is this a current diagnosis for this admission?: YesPlan: Concern for healthcare associated pneumonia. Repeat chest x-ray in a.m. feel the patient could also be getting volume overloaded secondary to steroid usage. Encourage sputum specimen. Continue will require toileting. Tessalon Perles and Hycodan for cough. Flutter and incentive spirometry. Jose Rocephin and azithromycin. (2) COPD with acute exacerbation Is this a current diagnosis for this admission?: YesPlan: Continue IV Solu-Medrol at this point. Given patient's severe wheezing, am disinclined to transition her to oral steroids at this point. Scheduled nebulized treatments. (3) Hypertension Qualifiers: Hypertension type: essential hypertension Qualified Code(s): I10 - Essential (primary) hypertension Is this a current diagnosis for this admission?: YesPlan: Add Norvasc (4) Diabetes mellitus type 2 in obese Is this a current diagnosis for this admission?: YesPlan: Patient with hemoglobin A1c is 7.6. On glimiperide and have increased Lantus and initiated every before meals lispro. (5) Acute respiratory failure with hypoxemia Is this a current diagnosis for this admission?: YesPlan: Oxygen as needed (6) Chronic kidney disease (CKD), stage IV (severe) Is this a current diagnosis for this admission?: YesPlan: Renally adjust all medication (7) History of cerebral hemorrhage Is this a current diagnosis for this admission?: Yes (8) Hyperlipidemia Qualifiers: Hyperlipidemia type: unspecified Qualified Code(s): E78.5 - Hyperlipidemia, unspecified Is this a current diagnosis for this admission?: Yes - Time Time Spent with patient: 25-34 minutes Medications reviewed and adjusted accordingly: Yes
[2016-10-29 06:37] LABS: HEMATOCRIT 32.2 % (36.0-47.0); HEMOGLOBIN 10.9 g/dL (12.0-15.5); HGB HCT DIFFERENCE 0.5; MEAN CORPUSCULAR HGB CONC 33.9 g/dL (32.0-36.0); MEAN CORPUSCULAR VOLUME 85 fl (80-97); RED BLOOD COUNT 3.77 10^6/uL (3.72-5.28); RED CELL DISTRIBUTION WIDTH 14.6 % (11.5-14.0); WHITE BLOOD COUNT 16.9 10^3/uL (4.0-10.5)
[2016-10-29 06:46] LABS: ANION GAP 11 (5-19); BLOOD UREA NITROGEN 38 mg/dL (7-20); CALCIUM 8.9 mg/dL (8.4-10.2); CARBON DIOXIDE 26 mmol/L (22-30); CHLORIDE 99 mmol/L (98-107); CREATININE RESULT 1.64 mg/dL (0.52-1.25); GLUCOSE 229 mg/dL (75-110); MAGNESIUM 1.8 mg/dL (1.6-2.3); POTASSIUM 3.8 mmol/L (3.6-5.0); SODIUM 135.7 mmol/L (137-145)
[2016-10-29] MEDS: LANSOPRAZOLE 30 MG TAB.RAP.DR PO SCH (06:57)
[2016-10-29] MEDS: HYDRALAZINE HCL 50 MG TABLET PO SCH ×3 (06:57→22:19)
[2016-10-29] MEDS: METHYLPREDNISOLONE INJ 125 MG/2 ML SDV IV SCH ×2 (06:57→14:08)
[2016-10-29] MEDS: HEPARIN SOD (PORCINE) 5,000 UNIT/ML 1 ML SYRINGE SUBCUT SCH ×3 (07:00→22:20)
[2016-10-29 07:38] LABS: ANISOCYTOSIS SLIGHT; BASOPHILS % (MANUAL) 0 % (0-2); EOSINOPHILS % (MANUAL) 0 % (0-6); LYMPHOCYTES % (MANUAL) 5 % (13-45); POIKILOCYTOSIS SLIGHT; TOTAL CELLS COUNTED 100; TOXIC GRANULATION 1+
[2016-10-29 07:39] LABS: OVALOCYTES SLIGHT
[2016-10-29] MEDS: INSULIN LISPRO 100 UNIT/ML 3 ML VIAL SUBCUT PRN ×4 (08:22→22:20)
[2016-10-29] MEDS: GLIMEPIRIDE 1 MG TABLET PO SCH ×2 (08:22→16:27)
[2016-10-29] MEDS: INSULIN LISPRO 100 UNIT/ML 3 ML VIAL SUBCUT SCH ×3 (08:22→16:28)
[2016-10-29] MEDS: IPRATROPIUM/ALBUTEROL 0.5-2.5 MG/3 ML AMPUL NEB SCH ×3 (08:40→20:40)
[2016-10-29] MEDS: CEFTRIAXONE 1 GM/D5W RTU 1 GM/50 ML RTUPB IV SCH (09:23)
[2016-10-29] MEDS: FLUTICASONE NASAL SPRAY 50 MCG/SPRY 120 SPRAY/16 GM NASL SCH ×2 (09:23→22:21)
[2016-10-29] MEDS: CITALOPRAM HYDROBROMIDE 20 MG TABLET PO SCH (09:24)
[2016-10-29] MEDS: AZITHROMYCIN 250 MG TABLET PO SCH (09:24)
[2016-10-29] MEDS: LACTOBACILLUS ACIDOPHILUS 250 MG TAB PO SCH ×2 (09:24→17:01)
[2016-10-29] MEDS: GUAIFENESIN 600 MG TABLET.SA PO SCH ×2 (09:24→22:19)
[2016-10-29] MEDS: OXYBUTYNIN CHLORIDE 5 MG TABLET PO SCH ×2 (09:28→22:19)
[2016-10-29] MEDS: LEVOTHYROXINE SODIUM 0.1 MG TABLET PO SCH (09:28)
[2016-10-29] MEDS: AMLODIPINE BESYLATE 5 MG TABLET PO SCH ×2 (09:29→22:19)
[2016-10-29] MEDS ORDERED: FUROSEMIDE 20 MG TABLET PO SCH (10:00)
[2016-10-29] MEDS ORDERED: FUROSEMIDE 40 MG TABLET PO SCH (18:00)
--- NOTE | 2016-10-29 18:57 | PDOC PROGRESS REPORT ---
Subjective Progress Note for:: 10/29/16 Subjective:: Patient reports she's feeling better but still is short of breath on exertion and has pleuritic pain when she coughs. She reports her sinus congestion has improved somewhat. Patient does report resolution of diarrhea. Patient denies abdominal pain, nausea, vomiting, fevers, chills, constipation, headache, new onset weakness. Physical Exam Vital Signs: Temp Pulse Resp BP Pulse Ox 98.5 F 103 H 18 164/79 H 96 10/29/16 03:45 10/29/16 07:00 10/29/16 03:45 10/29/16 03:45 10/29/16 03:45 Intake & Output 10/28/16 10/29/16 10/30/16 06:59 06:59 06:59 Intake Total 1570 1815 Output Total 500 Balance 1070 1815 Exam: General: Awake alert and oriented x3, mild respiratory distress HEENT: AT/NC, PERRL, EOMI, oropharynx is moist, pink, no scleral icterus, no conjunctival injection Neck: No JVD, trachea midline Chest: Occasional bilateral rhonchi good air excursion CV: Regular rate and rhythm, normal S1 and S2, no murmur, rub, or gallop Abdomen: Soft, nontender to palpation, nondistended, active bowel sounds; no rebound, rigidity, or guarding Extremities: No cyanosis, clubbing or edema Neuro: Cranial nerves II through XII are grossly intact without focal deficits; awake alert and oriented x3 Psych: Normal mood and affect Results Laboratory Results: 10/29/16 05:40 10/29/16 05:40 10/29/16 10/29/16 05:40 05:40 WBC 16.9 H RBC 3.77 Hgb 10.9 L Hct 32.2 L MCV 85 MCH 29.0 MCHC 33.9 RDW 14.6 H Plt Count 186 Seg Neutrophils % Not Reportable Lymphocytes % Not Reportable Monocytes % Not Reportable Eosinophils % Not Reportable Basophils % Not Reportable Absolute Neutrophils Not Reportable Absolute Lymphocytes Not Reportable Absolute Monocytes Not Reportable Absolute Eosinophils Not Reportable Absolute Basophils Not Reportable Sodium 135.7 L Potassium 3.8 Chloride 99 Carbon Dioxide 26 Anion Gap 11 BUN 38 H Creatinine 1.64 H Est GFR ( Amer) 38 L Est GFR (Non-Af Amer) 31 L Glucose 229 H Calcium 8.9 Magnesium 1.8 10/26/16 21:45 Clean Catch Midstream Urine Culture - Final 3,000 col/ml Impressions: Chest CT 10/27/16 00:00 IMPRESSION: Bilateral airspace disease consistent with clinical history of pneumonia. Assessment & Plan - Diagnosis (1) Pneumonia Qualifiers: Pneumonia type: due to unspecified organism Laterality: unspecified laterality Lung location: unspecified part of lung Qualified Code(s) : J18.9 - Pneumonia, unspecified organism Is this a current diagnosis for this admission?: YesPlan: Repeat chest x-ray reveals improvement in her consolidations. Encourage sputum specimen. Continue will require toileting. Tessalon Perles and Hycodan for cough. Flutter and incentive spirometry. on Rocephin and azithromycin. Have considered healthcare associated pneumonia although sounds as though less likely. (2) COPD with acute exacerbation Is this a current diagnosis for this admission?: YesPlan: Transition to oral prednisone. Scheduled nebulized treatments. Patient reports that she only uses her inhaler every soft and at home. That she's more comfortable treatments (3) Hypertension Qualifiers: Hypertension type: essential hypertension Qualified Code(s): I10 - Essential (primary) hypertension Is this a current diagnosis for this admission?: YesPlan: Improved control with the addition of Norvasc. (4) Diabetes mellitus type 2 in obese Is this a current diagnosis for this admission?: YesPlan: Patient with hemoglobin A1c is 7.6. Hope to see improved control after transitioning patient to oral steroids. (5) Acute respiratory failure with hypoxemia Is this a current diagnosis for this admission?: YesPlan: Oxygen as needed (6) Chronic kidney disease (CKD), stage IV (severe) Is this a current diagnosis for this admission?: YesPlan: Renally adjust all medication (7) History of cerebral hemorrhage Is this a current diagnosis for this admission?: Yes (8) Hyperlipidemia Qualifiers: Hyperlipidemia type: unspecified Qualified Code(s): E78.5 - Hyperlipidemia, unspecified Is this a current diagnosis for this admission?: Yes - Time Time Spent with patient: 25-34 minutes Medications reviewed and adjusted accordingly: Yes Anticipated discharge: Home with Homehealth
[2016-10-29] MEDS: TRAMADOL HCL 50 MG TABLET PO PRN (22:19)
[2016-10-29] MEDS: LORATADINE 10 MG TABLET PO SCH (22:19)
[2016-10-29] MEDS: INSULIN GLARGINE,HUM.REC.ANLOG 1,000 UNIT/10 ML UNIT SUBCUT SCH (22:19)
[2016-10-29] MEDS: BENAZEPRIL HCL 20 MG TABLET PO SCH (22:19)
[2016-10-29] MEDS: HYDROCODONE BIT/HOMATROPINE 5-1.5 MG TABLET PO PRN (23:56)
[2016-10-30] MEDS: LANSOPRAZOLE 30 MG TAB.RAP.DR PO SCH (06:22)
[2016-10-30] MEDS: HEPARIN SOD (PORCINE) 5,000 UNIT/ML 1 ML SYRINGE SUBCUT SCH ×3 (06:22→22:14)
[2016-10-30] MEDS: HYDRALAZINE HCL 50 MG TABLET PO SCH ×3 (06:22→22:14)
[2016-10-30] MEDS: INSULIN LISPRO 100 UNIT/ML 3 ML VIAL SUBCUT SCH ×3 (07:30→17:03)
[2016-10-30] MEDS: GLIMEPIRIDE 1 MG TABLET PO SCH ×2 (07:39→17:00)
[2016-10-30 07:40] LABS: BLOOD UREA NITROGEN 46 mg/dL (7-20); CALCIUM 8.8 mg/dL (8.4-10.2); GLUCOSE 82 mg/dL (75-110)
[2016-10-30 07:41] LABS: ANION GAP 12 (5-19); CARBON DIOXIDE 29 mmol/L (22-30); CHLORIDE 100 mmol/L (98-107); POTASSIUM 3.4 mmol/L (3.6-5.0); SODIUM 140.9 mmol/L (137-145)
[2016-10-30] MEDS ORDERED: DIPHENHYDRAMINE HCL 25 MG CAPSULE PO PRN (07:51)
[2016-10-30] MEDS: IPRATROPIUM/ALBUTEROL 0.5-2.5 MG/3 ML AMPUL NEB SCH ×3 (08:30→20:03)
[2016-10-30] MEDS: LEVOTHYROXINE SODIUM 0.1 MG TABLET PO SCH (09:40)
[2016-10-30] MEDS: CITALOPRAM HYDROBROMIDE 20 MG TABLET PO SCH (09:40)
[2016-10-30] MEDS: AMLODIPINE BESYLATE 5 MG TABLET PO SCH ×2 (09:40→22:14)
[2016-10-30] MEDS: LACTOBACILLUS ACIDOPHILUS 250 MG TAB PO SCH ×2 (09:40→17:01)
[2016-10-30] MEDS: CEFTRIAXONE 1 GM/D5W RTU 1 GM/50 ML RTUPB IV SCH (09:40)
[2016-10-30] MEDS: BUMETANIDE 1 MG TABLET PO SCH ×2 (09:41→17:00)
[2016-10-30] MEDS: AZITHROMYCIN 250 MG TABLET PO SCH (09:41)
[2016-10-30] MEDS: FLUTICASONE NASAL SPRAY 50 MCG/SPRY 120 SPRAY/16 GM NASL SCH ×2 (09:41→22:15)
[2016-10-30] MEDS: HYDROCODONE BIT/HOMATROPINE 5-1.5 MG TABLET PO PRN (09:44)
[2016-10-30] MEDS: OXYBUTYNIN CHLORIDE 5 MG TABLET PO SCH ×2 (09:44→22:14)
[2016-10-30] MEDS: GUAIFENESIN 600 MG TABLET.SA PO SCH ×2 (09:45→22:14)
[2016-10-30] MEDS: PREDNISONE 20 MG TABLET PO SCH ×2 (09:45→17:01)
[2016-10-30] MEDS: POTASSIUM CHLORIDE 10 MEQ TABLET.SA PO SCH (09:46)
[2016-10-30] MEDS: LORATADINE 10 MG TABLET PO SCH (22:14)
[2016-10-30] MEDS: BENAZEPRIL HCL 20 MG TABLET PO SCH (22:14)
[2016-10-30] MEDS: INSULIN GLARGINE,HUM.REC.ANLOG 1,000 UNIT/10 ML UNIT SUBCUT SCH (22:14)
[2016-10-30] MEDS: INSULIN LISPRO 100 UNIT/ML 3 ML VIAL SUBCUT PRN (22:16)
[2016-10-30] MEDS: BENZONATATE 100 MG CAPSULE PO PRN (22:28)
[2016-10-31] MEDS: HEPARIN SOD (PORCINE) 5,000 UNIT/ML 1 ML SYRINGE SUBCUT SCH ×3 (05:16→22:25)
[2016-10-31] MEDS: HYDRALAZINE HCL 50 MG TABLET PO SCH ×3 (05:16→22:24)
[2016-10-31] MEDS: LANSOPRAZOLE 30 MG TAB.RAP.DR PO SCH (05:16)
[2016-10-31] MEDS: BENZONATATE 100 MG CAPSULE PO PRN (06:53)
[2016-10-31] MEDS: IPRATROPIUM/ALBUTEROL 0.5-2.5 MG/3 ML AMPUL NEB SCH ×3 (07:19→19:47)
[2016-10-31 09:05] LABS: ANION GAP 11 (5-19); BLOOD UREA NITROGEN 51 mg/dL (7-20); CALCIUM 8.5 mg/dL (8.4-10.2); CARBON DIOXIDE 29 mmol/L (22-30); CHLORIDE 99 mmol/L (98-107); CREATININE RESULT 1.81 mg/dL (0.52-1.25); GLUCOSE 165 mg/dL (75-110); POTASSIUM 3.7 mmol/L (3.6-5.0); SODIUM 138.7 mmol/L (137-145)
[2016-10-31] MEDS: CITALOPRAM HYDROBROMIDE 20 MG TABLET PO SCH (09:28)
[2016-10-31] MEDS: LEVOTHYROXINE SODIUM 0.1 MG TABLET PO SCH (09:29)
[2016-10-31] MEDS: PREDNISONE 20 MG TABLET PO SCH ×2 (09:29→18:18)
[2016-10-31] MEDS: GUAIFENESIN 600 MG TABLET.SA PO SCH ×2 (09:29→22:23)
[2016-10-31] MEDS: GLIMEPIRIDE 1 MG TABLET PO SCH ×2 (09:29→18:18)
[2016-10-31] MEDS: AMLODIPINE BESYLATE 5 MG TABLET PO SCH ×2 (09:29→22:23)
[2016-10-31] MEDS: POTASSIUM CHLORIDE 10 MEQ TABLET.SA PO SCH (09:30)
[2016-10-31] MEDS: LACTOBACILLUS ACIDOPHILUS 250 MG TAB PO SCH ×2 (09:30→18:18)
[2016-10-31] MEDS: OXYBUTYNIN CHLORIDE 5 MG TABLET PO SCH ×2 (09:30→22:23)
[2016-10-31] MEDS: BUMETANIDE 1 MG TABLET PO SCH (09:30)
[2016-10-31] MEDS: AZITHROMYCIN 250 MG TABLET PO SCH (09:30)
[2016-10-31] MEDS: FLUTICASONE NASAL SPRAY 50 MCG/SPRY 120 SPRAY/16 GM NASL SCH ×2 (09:31→22:25)
[2016-10-31] MEDS: CEFTRIAXONE 1 GM/D5W RTU 1 GM/50 ML RTUPB IV SCH (09:31)
[2016-10-31] MEDS: INSULIN LISPRO 100 UNIT/ML 3 ML VIAL SUBCUT PRN ×2 (11:09→22:27)
--- NOTE | 2016-10-31 13:50 | PDOC PROGRESS REPORT ---
Subjective Progress Note for:: 10/30/16 Subjective:: Patient reports her shortness of breath is somewhat improved with increased diuresis. Patient denies abdominal pain, nausea, vomiting, fevers, chills, diarrhea, constipation, headache, new onset weakness. Physical Exam Vital Signs: Temp Pulse Resp BP Pulse Ox 98.6 F 90 19 146/66 H 94 10/30/16 03:34 10/30/16 03:34 10/30/16 03:34 10/30/16 03:34 10/30/16 03:34 Intake & Output 10/29/16 10/30/16 10/31/16 06:59 06:59 06:59 Intake Total 1815 1110 Balance 1815 1110 Exam: General: Awake alert and oriented x3, mild respiratory distress HEENT: AT/NC, PERRL, EOMI, oropharynx is moist, pink, no scleral icterus, no conjunctival injection Neck: No JVD, trachea midline Chest: Bilateral bibasilar crackles, scattered rhonchi CV: Regular rate and rhythm, normal S1 and S2, no murmur, rub, or gallop Abdomen: Soft, nontender to palpation, nondistended, active bowel sounds; no rebound, rigidity, or guarding Extremities: No cyanosis, clubbing; trace edema Neuro: Cranial nerves II through XII are grossly intact without focal deficits; awake alert and oriented x3 Psych: Normal mood and affect Results Laboratory Results: 10/29/16 05:40 10/30/16 06:36 10/30/16 06:36 Sodium 140.9 Potassium 3.4 L Chloride 100 Carbon Dioxide 29 Anion Gap 12 BUN 46 H Creatinine 1.70 H Est GFR ( Amer) 36 L Est GFR (Non-Af Amer) 30 L Glucose 82 Calcium 8.8 Impressions: Chest CT 10/27/16 00:00 IMPRESSION: Bilateral airspace disease consistent with clinical history of pneumonia. Chest X-Ray 10/29/16 06:00 IMPRESSION: No acute abnormality in the chest. Assessment & Plan - Diagnosis (1) Pneumonia Qualifiers: Pneumonia type: due to unspecified organism Laterality: unspecified laterality Lung location: unspecified part of lung Qualified Code(s) : J18.9 - Pneumonia, unspecified organism Is this a current diagnosis for this admission?: YesPlan: Repeat chest x-ray reveals improvement in her consolidations. Encourage sputum specimen. Continue pulmonary toileting. Tessalon Perles and Hycodan for cough. Flutter and incentive spirometry. On Rocephin and azithromycin. Have considered healthcare associated pneumonia although sounds as though less likely. (2) COPD with acute exacerbation Is this a current diagnosis for this admission?: YesPlan: Transition to oral prednisone. Scheduled nebulized treatments. (3) Hypertension Qualifiers: Hypertension type: essential hypertension Qualified Code(s): I10 - Essential (primary) hypertension Is this a current diagnosis for this admission?: YesPlan: Improved control with the addition of Norvasc. Continue Norvasc, Bumex, benazepril, and hydralazine. Consider adding Coreg. (4) Diabetes mellitus type 2 in obese Is this a current diagnosis for this admission?: YesPlan: Patient with hemoglobin A1c is 7.6. Blood sugar close to optimal this morning. Continue current (5) Acute respiratory failure with hypoxemia Is this a current diagnosis for this admission?: YesPlan: Oxygen as needed (6) Chronic kidney disease (CKD), stage IV (severe) Is this a current diagnosis for this admission?: YesPlan: Renally adjust all medication (7) History of cerebral hemorrhage Is this a current diagnosis for this admission?: Yes (8) Hyperlipidemia Qualifiers: Hyperlipidemia type: unspecified Qualified Code(s): E78.5 - Hyperlipidemia, unspecified Is this a current diagnosis for this admission?: Yes - Time Time Spent with patient: 25-34 minutes Medications reviewed and adjusted accordingly: Yes
--- NOTE | 2016-10-31 14:00 | PDOC PROGRESS REPORT ---
Subjective Progress Note for:: 10/31/16 Subjective:: Patient had episode of hypoglycemia down to the 30s this morning. Patient reports her breathing is about the same. Patient denies abdominal pain, nausea, vomiting, fevers, chills, diarrhea, constipation, headache, new onset weakness. Physical Exam Vital Signs: Temp Pulse Resp BP Pulse Ox 98.7 F 103 H 20 153/74 H 94 10/31/16 04:57 10/31/16 07:19 10/31/16 07:19 10/31/16 04:57 10/31/16 07:19 Intake & Output 10/30/16 10/31/16 11/01/16 06:59 06:59 06:59 Intake Total 1110 670 Balance 1110 670 Exam: General: Awake alert and oriented x3, mild respiratory distress HEENT: AT/NC, PERRL, EOMI, oropharynx is moist, pink, no scleral icterus, no conjunctival injection Neck: No JVD, trachea midline Chest: Coarse bilaterally CV: Regular rate and rhythm, normal S1 and S2, no murmur, rub, or gallop Abdomen: Soft, nontender to palpation, nondistended, active bowel sounds; no rebound, rigidity, or guarding Extremities: No cyanosis, clubbing; trace edema Neuro: Cranial nerves II through XII are grossly intact without focal deficits; awake alert and oriented x3 Psych: Normal mood and affect Results Laboratory Results: 10/29/16 05:40 10/30/16 06:36 10/26/16 01:55 Blood Blood Culture - Final NO GROWTH IN 5 DAYS Impressions: Chest CT 10/27/16 00:00 IMPRESSION: Bilateral airspace disease consistent with clinical history of pneumonia. Chest X-Ray 10/29/16 06:00 IMPRESSION: No acute abnormality in the chest. Assessment & Plan - Diagnosis (1) Pneumonia Qualifiers: Pneumonia type: due to unspecified organism Laterality: unspecified laterality Lung location: unspecified part of lung Qualified Code(s) : J18.9 - Pneumonia, unspecified organism Is this a current diagnosis for this admission?: YesPlan: Will repeat chest x-ray in the morning. Unable to obtain sputum specimen. Continue pulmonary toileting. Tessalon Perles and Hycodan for cough. Flutter and incentive spirometry. Transition to oral Augmentin and azithromycin. Have considered healthcare associated pneumonia although sounds as though less likely. (2) COPD with acute exacerbation Is this a current diagnosis for this admission?: YesPlan: Decrease oral prednisone. Scheduled nebulized treatments. (3) Hypertension Qualifiers: Hypertension type: essential hypertension Qualified Code(s): I10 - Essential (primary) hypertension Is this a current diagnosis for this admission?: YesPlan: Suboptimal control. Continue Norvasc, Bumex, benazepril, and hydralazine. Adding Coreg. (4) Diabetes mellitus type 2 in obese Is this a current diagnosis for this admission?: YesPlan: Discontinue AC insulin and decrease at bedtime Lantus. (5) Acute respiratory failure with hypoxemia Is this a current diagnosis for this admission?: YesPlan: Wean oxygen. (6) Chronic kidney disease (CKD), stage IV (severe) Is this a current diagnosis for this admission?: YesPlan: Renally adjust all medication (7) History of cerebral hemorrhage Is this a current diagnosis for this admission?: Yes (8) Hyperlipidemia Qualifiers: Hyperlipidemia type: unspecified Qualified Code(s): E78.5 - Hyperlipidemia, unspecified Is this a current diagnosis for this admission?: Yes - Time Time Spent with patient: 25-34 minutes Medications reviewed and adjusted accordingly: Yes Anticipated discharge: Home with Homehealth Within: within 48 hours
[2016-10-31] MEDS: AMOXICILLIN TR/POT CLAVULANATE 500-125 MG TAB PO SCH ×2 (15:02→22:21)
[2016-10-31] MEDS ORDERED: INSULIN GLARGINE,HUM.REC.ANLOG 1,000 UNIT/10 ML UNIT SUBCUT SCH ×2 (22:00)
[2016-10-31] MEDS: HYDROCODONE BIT/HOMATROPINE 5-1.5 MG TABLET PO PRN (22:21)
[2016-10-31] MEDS: BENAZEPRIL HCL 20 MG TABLET PO SCH (22:22)
[2016-10-31] MEDS: LORATADINE 10 MG TABLET PO SCH (22:24)
[2016-10-31] MEDS: CARVEDILOL 3.125 MG TABLET PO SCH (22:24)
[2016-11-01] MEDS: HEPARIN SOD (PORCINE) 5,000 UNIT/ML 1 ML SYRINGE SUBCUT SCH ×3 (05:10→21:27)
[2016-11-01] MEDS: HYDRALAZINE HCL 50 MG TABLET PO SCH ×3 (05:11→21:26)
[2016-11-01] MEDS: AMOXICILLIN TR/POT CLAVULANATE 500-125 MG TAB PO SCH ×3 (05:11→21:26)
[2016-11-01] MEDS: LANSOPRAZOLE 30 MG TAB.RAP.DR PO SCH (05:11)
[2016-11-01 05:46] LABS: ANION GAP 9 (5-19); BLOOD UREA NITROGEN 58 mg/dL (7-20); CALCIUM 8.7 mg/dL (8.4-10.2); CARBON DIOXIDE 30 mmol/L (22-30); CHLORIDE 102 mmol/L (98-107); CREATININE RESULT 1.78 mg/dL (0.52-1.25); GLUCOSE 142 mg/dL (75-110); POTASSIUM 4.2 mmol/L (3.6-5.0); SODIUM 141.3 mmol/L (137-145)
[2016-11-01] MEDS: IPRATROPIUM/ALBUTEROL 0.5-2.5 MG/3 ML AMPUL NEB SCH ×3 (08:09→19:53)
[2016-11-01] MEDS ORDERED: BUMETANIDE 1 MG TABLET PO SCH ×2 (10:00)
[2016-11-01] MEDS: GUAIFENESIN 600 MG TABLET.SA PO SCH ×2 (10:31→21:26)
[2016-11-01] MEDS: FLUTICASONE NASAL SPRAY 50 MCG/SPRY 120 SPRAY/16 GM NASL SCH ×2 (10:31→21:26)
[2016-11-01] MEDS: POTASSIUM CHLORIDE 10 MEQ TABLET.SA PO SCH (10:32)
[2016-11-01] MEDS: OXYBUTYNIN CHLORIDE 5 MG TABLET PO SCH ×2 (10:32→21:25)
[2016-11-01] MEDS: CITALOPRAM HYDROBROMIDE 20 MG TABLET PO SCH (10:32)
[2016-11-01] MEDS: LACTOBACILLUS ACIDOPHILUS 250 MG TAB PO SCH ×2 (10:32→17:56)
[2016-11-01] MEDS: AZITHROMYCIN 250 MG TABLET PO SCH (10:32)
[2016-11-01] MEDS: AMLODIPINE BESYLATE 5 MG TABLET PO SCH ×2 (10:33→21:26)
[2016-11-01] MEDS: GLIMEPIRIDE 1 MG TABLET PO SCH ×2 (10:33→17:56)
[2016-11-01] MEDS: CARVEDILOL 3.125 MG TABLET PO SCH ×2 (10:33→21:26)
[2016-11-01] MEDS: PREDNISONE 20 MG TABLET PO SCH ×2 (10:33→17:56)
[2016-11-01] MEDS: LEVOTHYROXINE SODIUM 0.1 MG TABLET PO SCH (10:34)
[2016-11-01] MEDS ORDERED: PHARMACY COMMUNICATION ORDER MC NR (10:45)
[2016-11-01] MEDS: ACYCLOVIR 200 MG CAPSULE PO SCH ×3 (13:53→21:27)
--- NOTE | 2016-11-01 16:37 | PDOC PROGRESS REPORT ---
Subjective Progress Note for:: 11/01/16 Subjective:: Patient denies chest pain, shortness of breath, abdominal pain, nausea, vomiting , fevers, chills, diarrhea, constipation, headache, new onset weakness. Physical Exam Vital Signs: Temp Pulse Resp BP Pulse Ox 97.9 F 86 16 138/74 H 94 11/01/16 04:32 11/01/16 04:32 11/01/16 04:32 11/01/16 04:32 11/01/16 04:50 Intake & Output 10/31/16 11/01/16 11/02/16 06:59 06:59 06:59 Intake Total 670 1013 Balance 670 1013 Exam: General: Awake alert and oriented x3, mild respiratory distress HEENT: AT/NC, PERRL, EOMI, oropharynx is moist, pink, no scleral icterus, no conjunctival injection Neck: No JVD, trachea midline Chest: Clear to auscultation bilaterally CV: Regular rate and rhythm, normal S1 and S2, no murmur, rub, or gallop Abdomen: Soft, nontender to palpation, nondistended, active bowel sounds; no rebound, rigidity, or guarding Extremities: No cyanosis, clubbing; trace edema Neuro: Cranial nerves II through XII are grossly intact without focal deficits; awake alert and oriented x3 Psych: Normal mood and affect Results Laboratory Results: 10/29/16 05:40 11/01/16 04:56 10/31/16 11/01/16 08:29 04:56 Sodium 138.7 141.3 Potassium 3.7 4.2 Chloride 99 102 Carbon Dioxide 29 30 Anion Gap 11 9 BUN 51 H 58 H Creatinine 1.81 H 1.78 H Est GFR ( Amer) 34 L 34 L Est GFR (Non-Af Amer) 28 L 28 L Glucose 165 H 142 H Calcium 8.5 8.7 Impressions: Chest CT 10/27/16 00:00 IMPRESSION: Bilateral airspace disease consistent with clinical history of pneumonia. Chest X-Ray 10/29/16 06:00 IMPRESSION: No acute abnormality in the chest. Assessment & Plan - Diagnosis (1) Pneumonia Qualifiers: Pneumonia type: due to unspecified organism Laterality: unspecified laterality Lung location: unspecified part of lung Qualified Code(s) : J18.9 - Pneumonia, unspecified organism Is this a current diagnosis for this admission?: YesPlan: Repeat chest x-ray reveals resolved failure with atelectasis. Unable to obtain sputum specimen. Continue pulmonary toileting. Tessalon Perles and Hycodan for cough. Flutter and incentive spirometry. Oral Augmentin and azithromycin. Have considered healthcare associated pneumonia although sounds as though less likely. (2) COPD with acute exacerbation Is this a current diagnosis for this admission?: YesPlan: Decrease oral prednisone. Scheduled nebulized treatments. Encourage patient for out of bed activity. (3) Acute on chronic diastolic (congestive) heart failure Is this a current diagnosis for this admission?: YesPlan: Echo done on 07/29/[address] Paulson's office reveals an EF of 65-70% with grade 1 diastolic dysfunction and mild pulmonary hypertension. (4) Hypertension Qualifiers: Hypertension type: essential hypertension Qualified Code(s): I10 - Essential (primary) hypertension Is this a current diagnosis for this admission?: YesPlan: Suboptimal control. Continue Norvasc, Bumex, benazepril, and hydralazine. Since patient is now out of acute failure on Coreg (5) Diabetes mellitus type 2 in obese Is this a current diagnosis for this admission?: YesPlan: Decrease at bedtime Lantus. (6) Acute respiratory failure with hypoxemia Is this a current diagnosis for this admission?: YesPlan: Wean oxygen. Will qualify patient for home oxygen tomorrow or discontinue altogether. (7) Chronic kidney disease (CKD), stage IV (severe) Is this a current diagnosis for this admission?: YesPlan: Renally adjust all medication (8) History of cerebral hemorrhage Is this a current diagnosis for this admission?: Yes (9) Hyperlipidemia Qualifiers: Hyperlipidemia type: unspecified Qualified Code(s): E78.5 - Hyperlipidemia, unspecified Is this a current diagnosis for this admission?: Yes - Time Time Spent with patient: 25-34 minutes Medications reviewed and adjusted accordingly: Yes Anticipated discharge: Home Within: within 24 hours
[2016-11-01] MEDS ORDERED: ACYCLOVIR 800 MG TABLET ONE (20:48)
[2016-11-01] MEDS ORDERED: ACYCLOVIR 200 MG CAPSULE ONE (21:04)
[2016-11-01] MEDS: BENAZEPRIL HCL 20 MG TABLET PO SCH (21:25)
[2016-11-01] MEDS: LORATADINE 10 MG TABLET PO SCH (21:26)
[2016-11-01] MEDS: INSULIN LISPRO 100 UNIT/ML 3 ML VIAL SUBCUT PRN (21:27)
[2016-11-01] MEDS ORDERED: INSULIN GLARGINE,HUM.REC.ANLOG 1,000 UNIT/10 ML UNIT SUBCUT SCH (22:00)
[2016-11-02] MEDS: AMOXICILLIN TR/POT CLAVULANATE 500-125 MG TAB PO SCH ×2 (06:36→13:27)
[2016-11-02] MEDS: LANSOPRAZOLE 30 MG TAB.RAP.DR PO SCH (06:37)
[2016-11-02] MEDS: HYDRALAZINE HCL 50 MG TABLET PO SCH ×2 (06:37→13:27)
[2016-11-02] MEDS: HEPARIN SOD (PORCINE) 5,000 UNIT/ML 1 ML SYRINGE SUBCUT SCH ×2 (06:37→13:27)
[2016-11-02] MEDS: IPRATROPIUM/ALBUTEROL 0.5-2.5 MG/3 ML AMPUL NEB SCH ×2 (07:55→13:11)
[2016-11-02] MEDS ORDERED: FUROSEMIDE 40 MG TABLET PO SCH (10:00)
[2016-11-02] MEDS: FLUTICASONE NASAL SPRAY 50 MCG/SPRY 120 SPRAY/16 GM NASL SCH (10:18)
[2016-11-02] MEDS: GUAIFENESIN 600 MG TABLET.SA PO SCH (10:19)
[2016-11-02] MEDS: GLIMEPIRIDE 1 MG TABLET PO SCH ×2 (10:19→16:04)
[2016-11-02] MEDS: POTASSIUM CHLORIDE 10 MEQ TABLET.SA PO SCH (10:19)
[2016-11-02] MEDS: LACTOBACILLUS ACIDOPHILUS 250 MG TAB PO SCH ×2 (10:19→17:36)
[2016-11-02] MEDS: CARVEDILOL 3.125 MG TABLET PO SCH (10:20)
[2016-11-02] MEDS: AMLODIPINE BESYLATE 5 MG TABLET PO SCH (10:20)
[2016-11-02] MEDS: LEVOTHYROXINE SODIUM 0.1 MG TABLET PO SCH (10:20)
[2016-11-02] MEDS: CITALOPRAM HYDROBROMIDE 20 MG TABLET PO SCH (10:21)
[2016-11-02] MEDS: PREDNISONE 20 MG TABLET PO SCH ×2 (10:21→17:36)
[2016-11-02] MEDS: OXYBUTYNIN CHLORIDE 5 MG TABLET PO SCH (10:21)
[2016-11-02] MEDS: ACYCLOVIR 200 MG CAPSULE PO SCH ×4 (10:27→16:04)
--- NOTE | 2016-11-02 11:00 | PDOC DISCHARGE SUMMARY ---
General - Admit/Disc Date/PCP Admission Date/Primary Care Provider: 10/26/16 01:03 REED Danisha JAIR Discharge Date: 11/02/16 - Discharge Diagnosis (1) Pneumonia Is this a current diagnosis for this admission?: Yes (2) COPD with acute exacerbation Is this a current diagnosis for this admission?: Yes (3) Acute on chronic diastolic (congestive) heart failure Is this a current diagnosis for this admission?: Yes (4) Hypertension Is this a current diagnosis for this admission?: Yes (5) Diabetes mellitus type 2 in obese Is this a current diagnosis for this admission?: Yes (6) Acute respiratory failure with hypoxemia Is this a current diagnosis for this admission?: Yes (7) Chronic kidney disease (CKD), stage IV (severe) Is this a current diagnosis for this admission?: Yes (8) History of cerebral hemorrhage Is this a current diagnosis for this admission?: Yes (9) Hyperlipidemia Is this a current diagnosis for this admission?: Yes (10) Morbid obesity Is this a current diagnosis for this admission?: Yes - Additional Information Resuscitation Status: Full Code Discharge Diet: Cardiac, Diabetic, Other (Comments) Discharge Activity: Activity As Tolerated, Slowly Increase Activity, Walk Frequently, Weigh Daily Home Medications: Benazepril HCl 1 tab PO DAILY 09/27/16 Citalopram Hydrobromide [Celexa] 40 mg PO DAILY 09/27/16 Fluticasone Furoate [Veramyst] 2 spray IH DAILY 09/27/16 Gabapentin 400 mg PO TID 09/27/16 Glimepiride [Amaryl] 2 mg PO BID 09/27/16 Hydralazine HCl 50 mg PO TID 09/27/16 Levothyroxine Sodium 88 mcg PO DAILY 09/27/16 Omeprazole 20 mg PO DAILY 09/27/16 Oxybutynin Chloride [Ditropan Xl] 10 mg PO DAILY 09/27/16 Acetaminophen [Tylenol 325 mg Tablet] 650 mg PO Q4HP PRN tablet 09/28/16 Furosemide [Lasix 20 mg Tablet] 40 mg PO DAILY #30 tablet 09/28/16 Acyclovir [Zovirax 200 mg Capsule] 400 mg PO 5XD #20 capsule 11/02/16 Albuterol Sulfate [Proair HFA Inhalation Aerosol 8.5 gm MDI] 1 puff IH Q4 PRN # 1 mdi 11/02/16 Amlodipine Besylate [Norvasc 5 mg Tablet] 5 mg PO Q12 #60 tablet 11/02/16 Amox Tr/Potassium Clavulanate [Augmentin "500" Tablet] 1 tab PO Q8 #9 tablet Azithromycin 500 mg PO DAILY #3 tablet 11/02/16 Benzonatate [Tessalon Perles 100 mg Capsule] 100 mg PO Q8HP PRN #10 capsule 07/11 Carvedilol [Coreg 3.125 mg Tablet] 3.125 mg PO Q12 #60 tablet 11/02/16 Loratadine [Claritin 10 mg Tablet] 10 mg PO QHS #30 tablet 11/02/16 Prednisone [Deltasone 20 mg Tablet] 20 mg PO BID #6 tablet 11/02/16 Walker [Folding Walker] 1 each MC ASDIR PRN #1 each 11/02/16 History of Present Illness History of Present Illness: Please see H&P for full history of present illness Hospital Course Hospital Course: Patient is a 71-year-old female who had previously been admitted for -09/28 for COPD exacerbation/pneumonia and was discharged on doxycycline and prednisone. Patient reports taking these as prescribed and had been doing well until several days preceding admission when she had increasing shortness of breath, and fever up to 101.4. Patient's grandchildren are sick and she is exposed daily. Patient was found to have healthcare associated pneumonia, COPD exacerbation, acute on chronic diastolic heart failure. Patient was initially started on Levaquin, vancomycin, and cefepime. Patient developed allergic reaction to Levaquin in the form of localized erythema and rash around her IV. This was discontinued and patient was placed on azithromycin and Rocephin. Patient was also transitioned to Rocephin and azithromycin on day 2. On admission, patient initially required IV Solu-Medrol and subsequent insulin drip due to her hyperglycemia. Patient's hyperglycemia rapidly improved by transitioning her to oral steroids. Patient was also placed on Lantus and sliding scale insulin at that time. Patient's he will an A1c was found to be 7.6 lending credence to the idea that this was related to her glucocorticoids. Patient continued to improve; however, she appeared to be quite volume overloaded. Patient admitted to steady increase in weight and leg swelling prior to admission. Echo done on 07/29/[address] Paulson's office reveals an EF of 65-70% with grade 1 diastolic dysfunction and mild pulmonary hypertension. Patient diuresed well with Bumex and was transitioned back to her home Lasix. CHF education was provided for patient and family. On day of discharge, patient was ambulated without oxygen and found not to require any oxygen either at rest or with ambulation. Patient however did have atelectasis on her chest x -ray and she was encouraged to use her incentive spirometer. Patient was discharged home in stable condition with all questions being answered to the best of my ability. Physical Exam Vital Signs: Temp Pulse Resp BP Pulse Ox 98.0 F 93 16 136/57 H 94 11/02/16 05:10 11/02/16 07:55 11/02/16 07:55 11/02/16 05:10 11/02/16 07:55 Intake & Output 11/01/16 11/02/16 11/03/16 06:59 06:59 06:59 Intake Total 1013 820 Balance 1013 820 Exam: General: Awake alert and oriented x3, no acute respiratory distress, obese HEENT: AT/NC, PERRL, EOMI, oropharynx is moist, pink, no scleral icterus, no conjunctival injection Neck: No JVD, trachea midline Chest: Clear to auscultation bilaterally CV: Regular rate and rhythm, normal S1 and S2, no murmur, rub, or gallop Abdomen: Soft, nontender to palpation, nondistended, active bowel sounds; no rebound, rigidity, or guarding Extremities: No cyanosis, clubbing; trace edema Neuro: Cranial nerves II through XII are grossly intact without focal deficits; awake alert and oriented x3 Psych: Normal mood and affect Results Laboratory Results: 10/29/16 05:40 11/01/16 04:56 Impressions: Chest CT 10/27/16 00:00 IMPRESSION: Bilateral airspace disease consistent with clinical history of pneumonia. Chest X-Ray 11/01/16 06:00 IMPRESSION: 1. Stable chest. Relatively similar appearance to prior radiographs, basilar subsegmental atelectasis. No developing or progressive infiltrates. Qualifiers PATEINT BEING DISCHARGED WITH ANY OF THE FOLLOWING DIAGNOSIS?: Heart Failure HF Pt being discharged on ACEI for LVEF less than 40%?: Yes HF Pt being discharged on ARBS for LVEF less than 40%?: No Reason(s) for not prescribing ARBS:: Not indicated - EF greater than 40 HF Pt with Afib discharged with Warfarin?: No Reason(s) for not prescribing Warfarin:: Not indicated - No fib HF Pt discharged on evidence-based Beta Carolyn?: Yes Plan Time Spent: Greater than 30 Minutes
[2016-11-02 17:19] VITALS: BP 142/57
== END 2016-11-02 18:16 | disposition home or self-care (01) | DRG 190 ==
LOC: ER 20:34 → EH 10-26 00:14 → UNDOADMIN 10-26 00:14 → EH 10-26 01:03 → 4S 10-26 02:32
PROVIDERS: ADMIT Family Medicine; ATTEND Family Medicine
DX: J44.0 Chronic obstructive pulmonary disease with (acute) lower respiratory infection (principal); I50.33 Acute on chronic diastolic (congestive) heart failure; J96.01 Acute respiratory failure with hypoxia; J18.1 Lobar pneumonia, unspecified organism; I13.0 Hypertensive heart and chronic kidney disease with heart failure and stage 1 through stage 4 chronic kidney disease, or unspecified chronic kidney disease; N18.4 Chronic kidney disease, stage 4 (severe); J44.1 Chronic obstructive pulmonary disease with (acute) exacerbation; E11.22 Type 2 diabetes mellitus with diabetic chronic kidney disease; I25.10 Atherosclerotic heart disease of native coronary artery without angina pectoris; E87.6 Hypokalemia; E83.42 Hypomagnesemia; E78.5 Hyperlipidemia, unspecified; E03.9 Hypothyroidism, unspecified; K21.9 Gastro-esophageal reflux disease without esophagitis; E66.01 Morbid (severe) obesity due to excess calories; Z68.38 Body mass index [BMI] 38.0-38.9, adult; Z79.84 Long term (current) use of oral hypoglycemic drugs; Z79.52 Long term (current) use of systemic steroids; Z88.2 Allergy status to sulfonamides; Z88.1 Allergy status to other antibiotic agents; Z88.5 Allergy status to narcotic agent; Z87.891 Personal history of nicotine dependence
CPT/HCPCS: 36415; 71010; 71020; 71250; 80048; 80053; 81001; 82550; 82553; 82962; 83036; 83735; 84443; 84484; 85025; 87040; 87086; 87804; 93005; 93010; 94640; 94799; 99285; G8978-GP; G8979-GP; G8980-GP; J0456; J0692; J0696; J1644; J1815; J2550; J2930; J3475; J3490; J7030; J7060; J7512; J7620

== ENCOUNTER → 2016-11-20 | Outpatient (CLI) | payer MEDICARE ==
[2016-11-20 17:11] LABS: APPEARANCE,URINE SLIGHTLY-CLOUDY; BILIRUBIN,URINE NEGATIVE (NEGATIVE); GLUCOSE, URINE NEGATIVE (NEGATIVE); KETONES,URINE NEGATIVE (NEGATIVE); LEUKOCYTE ESTERASE,URINE NEGATIVE (NEGATIVE); NITRITE,URINE NEGATIVE (NEGATIVE); PROTEIN,URINE NEGATIVE (NEGATIVE)
[2016-11-20 17:34] LABS: ANION GAP 9 (5-19); BLOOD UREA NITROGEN 40 mg/dL (7-20); CALCIUM 8.3 mg/dL (8.4-10.2); CARBON DIOXIDE 26 mmol/L (22-30); CHLORIDE 104 mmol/L (98-107); CREATININE RESULT 2.29 mg/dL (0.52-1.25); GLUCOSE 135 mg/dL (75-110); POTASSIUM 4.3 mmol/L (3.6-5.0); SODIUM 139.4 mmol/L (137-145)
[2016-11-22 07:38] LABS: CREATININE URINE 89.5 mg/dL (Not Estab.)
== END ==
LOC: OD 15:09
PROVIDERS: ATTEND Internal Medicine Nephrology
DX: I12.9 Hypertensive chronic kidney disease with stage 1 through stage 4 chronic kidney disease, or unspecified chronic kidney disease (principal); N18.4 Chronic kidney disease, stage 4 (severe); E11.9 Type 2 diabetes mellitus without complications; E87.5 Hyperkalemia
CPT/HCPCS: 36415; 80048; 81001; 82043; 82570

== ENCOUNTER → 2016-11-23 | Outpatient (CLI) | payer MEDICARE ==
[2016-11-23 17:03] LABS: HEMATOCRIT 33.5 % (36.0-47.0); HGB HCT DIFFERENCE -0.5; MEAN CORPUSCULAR HEMOGLOBIN 29.7 pg (27.0-33.4); RED BLOOD COUNT 3.72 10^6/uL (3.72-5.28); RED CELL DISTRIBUTION WIDTH 15.6 % (11.5-14.0); WHITE BLOOD COUNT 3.4 10^3/uL (4.0-10.5)
[2016-11-23 17:51] LABS: MEAN CORPUSCULAR VOLUME 90 fl (80-97)
== END ==
LOC: OD 15:52
PROVIDERS: ATTEND Internal Medicine Nephrology
DX: I12.9 Hypertensive chronic kidney disease with stage 1 through stage 4 chronic kidney disease, or unspecified chronic kidney disease (principal); N18.4 Chronic kidney disease, stage 4 (severe); E11.9 Type 2 diabetes mellitus without complications; E87.5 Hyperkalemia
CPT/HCPCS: 36415; 85027

== ENCOUNTER → 2017-01-15 | Outpatient (CLI) | payer MEDICARE ==
[2017-01-15 12:15] LABS: HEMATOCRIT 34.4 % (36.0-47.0); HEMOGLOBIN 11.4 g/dL (12.0-15.5); HGB HCT DIFFERENCE -0.2; MEAN CORPUSCULAR HGB CONC 33.2 g/dL (32.0-36.0); MEAN CORPUSCULAR VOLUME 87 fl (80-97); RED BLOOD COUNT 3.94 10^6/uL (3.72-5.28); RED CELL DISTRIBUTION WIDTH 14.7 % (11.5-14.0); WHITE BLOOD COUNT 6.5 10^3/uL (4.0-10.5)
[2017-01-15 12:34] LABS: APPEARANCE,URINE CLEAR; BILIRUBIN,URINE NEGATIVE (NEGATIVE); GLUCOSE, URINE NEGATIVE (NEGATIVE); KETONES,URINE NEGATIVE (NEGATIVE); LEUKOCYTE ESTERASE,URINE TRACE (NEGATIVE); NITRITE,URINE NEGATIVE (NEGATIVE); PROTEIN,URINE NEGATIVE (NEGATIVE); URINE SPECIFIC GRAVITY 1.005; UROBILINOGEN,URINE NEGATIVE mg/dL (<2.0)
[2017-01-15 12:37] LABS: ANION GAP 15 (5-19); BLOOD UREA NITROGEN 61 mg/dL (7-20); CALCIUM 9.5 mg/dL (8.4-10.2); CARBON DIOXIDE 27 mmol/L (22-30); CHLORIDE 100 mmol/L (98-107); CREATININE RESULT 2.31 mg/dL (0.52-1.25); GLUCOSE 111 mg/dL (75-110); POTASSIUM 4.2 mmol/L (3.6-5.0); SODIUM 142.3 mmol/L (137-145)
== END ==
LOC: OD 11:02
PROVIDERS: ATTEND Internal Medicine Nephrology
DX: I12.9 Hypertensive chronic kidney disease with stage 1 through stage 4 chronic kidney disease, or unspecified chronic kidney disease (principal); N18.4 Chronic kidney disease, stage 4 (severe); E87.5 Hyperkalemia; E83.42 Hypomagnesemia
CPT/HCPCS: 36415; 80048; 81001; 85027

== ENCOUNTER 2017-03-13 18:17 | Emergency (ER) | payer MEDICARE ==
[2017-03-13] MEDS ORDERED: FENTANYL CITRATE INJ/PF 100 MCG/2 ML AMPUL IV ONE (19:40)
[2017-03-13] MEDS ORDERED: ONDANSETRON HCL INJ/PF 4 MG/2 ML SDV IV ONE (19:40)
[2017-03-13] MEDS ORDERED: NORMAL SALINE 1000 ML 500 ML IV ONE (19:41)
--- NOTE | 2017-03-13 19:46 | ER Document Report ---
ED GI/ - General Chief Complaint: Abdominal Pain Stated Complaint: VOMITING/DIARRHEA Time Seen by Provider: 03/13/17 19:32 Notes: Patient is a 72-year-old female that comes emergency department tonight for chief complaint of abdominal pain and vomiting that started at 4 AM today, she states she has had several episodes of loose stools, she has vomited 8 times. She denies hematemesis or hematochezia. She denies flank pain or dysuria. She denies fever or chills. She has had an appendectomy, hysterectomy, normal colonoscopy 10 years ago. No obvious sick contacts, no recent antibiotics, no suspicious foods. Past medical history of chronic kidney disease, type 2 diabetes, CHF, CESILIA. TRAVEL OUTSIDE OF THE [place] IN LAST 30 DAYS: No - Related Data Allergies/Adverse Reactions: Sulfa (Sulfonamide Antibiotics) Allergy (Unknown, Verified 03/13/17 18:37) levofloxacin [From Levaquin] Allergy (Verified 03/13/17 18:37) morphine [Morphine] Adverse Reaction (Severe, Verified 03/13/17 18:37) aspirin Adverse Reaction (Verified 03/13/17 18:37) Past Medical History - General Information source: Patient - Social History Smoking Status: Never Smoker Frequency of alcohol use: None Drug Abuse: None Lives with: Family Family History: Reviewed & Not Pertinent Patient has suicidal ideation: No Patient has homicidal ideation: No - Past Medical History Cardiac Medical History: Reports: Hx Coronary Artery Disease, Hx Hypercholesterolemia, Hx Hypertension Denies: Hx Congestive Heart Failure, Hx Heart Attack, Hx Heart Murmur Pulmonary Medical History: Reports: Hx COPD Denies: Hx Asthma, Hx Bronchitis, Hx Pneumonia, Hx Tuberculosis Neurological Medical History: Denies: Hx Cerebrovascular Accident, Hx Seizures Endocrine Medical History: Reports: Hx Diabetes Mellitus Type 2, Hx Hypothyroidism. Denies: Hx Hyperthyroidism Renal/ Medical History: Reports: Hx Renal Insufficiency. Denies: Hx End Stage Renal Disease, Hx Peritoneal Dialysis GI Medical History: Reports: Hx Gastroesophageal Reflux Disease. Denies: Hx Cirrhosis, Hx Hepatitis Musculoskeltal Medical History: Reports Hx Arthritis Skin Medical History: Reports Hx Eczema Psychiatric Medical History: Reports: Hx Depression Infectious Medical History: Denies: Hx Hepatitis Past Surgical History: Reports: Hx Hysterectomy, Other - Bilat cataract and ankle surgery.. Denies: Hx Pacemaker - Immunizations Hx Diphtheria, Pertussis, Tetanus Vaccination: No Review of Systems - Review of Systems Constitutional: No symptoms reported EENT: No symptoms reported Cardiovascular: No symptoms reported Respiratory: No symptoms reported Gastrointestinal: See HPI Genitourinary: No symptoms reported Female Genitourinary: No symptoms reported Musculoskeletal: No symptoms reported Skin: No symptoms reported Hematologic/Lymphatic: No symptoms reported Neurological/Psychological: No symptoms reported Physical Exam - Vital signs Vitals: Temp Pulse Resp BP Pulse Ox 99.5 F 81 19 133/54 H 95 03/13/17 18:38 03/13/17 18:38 03/13/17 18:38 03/13/17 18:38 03/13/17 18:38 Interpretation: Normal - General General appearance: Appears well, Alert In distress: None - HEENT Head: Normocephalic, Atraumatic Eyes: Normal Conjunctiva: Normal Extraocular movements intact: Yes Eyelashes: Normal Pupils: PERRL Mouth/Lips: Normal Mucous membranes: Dry Pharynx: Erythema - mild Neck: Normal - Respiratory Respiratory status: No respiratory distress Chest status: Nontender Breath sounds: Normal. No: Decreased air movement, Wheezing Chest palpation: Normal - Cardiovascular Rhythm: Regular Heart sounds: Normal auscultation Murmur: No - Abdominal Inspection: Normal Distension: No distension Bowel sounds: Normal Tenderness: Tender - There is generalized tenderness of the abdomen, slightly increased in the mid to lower left quadrants, no distention or rigidity, no rebound tenderness, no guarding Organomegaly: No organomegaly - Back Back: Normal, Nontender. No: Tender - Extremities General upper extremity: Normal inspection, Nontender, Normal color, Normal ROM , Normal temperature General lower extremity: Normal inspection, Nontender, Normal color, Normal ROM , Normal temperature, Normal weight bearing. No: Abimael's sign - Neurological Neuro grossly intact: Yes Cognition: Normal Orientation: AAOx4 Handley Coma Scale Eye Opening: Spontaneous Cristin Coma Scale Verbal: Oriented Handley Coma Scale Motor: Obeys Commands Cristin Coma Scale Total: 15 Speech: Normal Cranial nerves: Normal Cerebellar coordination: Normal Motor strength normal: LUE, RUE, LLE, RLE Additional motor exam normals: Equal academic tutor Sensory: Normal - Psychological Associated symptoms: Normal affect, Normal mood - Skin Skin Temperature: Warm Skin Moisture: Dry Skin Color: Normal Course - Re-evaluation Re-evalutation: Patient with mild generalized abdominal pain on examination. Patient is reporting repeated vomiting. No fever, no tachycardia, no hypotension. No specific area of guarding. Slightly more tender in the left mid to lower abdomen. CBC unremarkable, chemistry shows chronic kidney disease at patient's baseline, urinalysis pending. Because of pain, patient will be given pain medicine, CAT scan will be performed to rule out inflammatory or obstructive pathology causing patient's symptoms. Cannot give patient contrast because of her renal functioning. Imaging with no acute abnormality. Urinalysis showing positive nitrites, some epithelials, some bacteria. I do not appreciate any CVA tenderness, patient on reevaluation is asymptomatic and before discussing results she and family are asking to leave. I did discuss results, patient agreed to stay and do a oral challenge and received Rocephin, urine culture placed. Patient tolerated a whole cup of water well, she denies any current symptoms, she states she feels good and she is ready to leave. Patient will be placed on antibiotics, given nausea meds, instructed to follow up with PCP within the next 2-3 days, and discussed return precautions including returned/worsening pain, vomiting, fever, or any other concerning symptoms. Patient and family state understanding and agreement. Discussed with Dr. Gipson. - Vital Signs Vital signs: Temp Pulse Resp BP Pulse Ox 99.5 F 81 21 H 130/54 H 97 03/13/17 18:38 03/13/17 18:38 03/14/17 01:41 03/14/17 01:41 03/14/17 01:41 - Laboratory Result Diagrams: 03/13/17 20:40 03/13/17 20:40 Laboratory results interpreted by me: 03/13/17 03/13/17 03/13/17 20:40 20:40 22:40 Hgb 11.5 L Hct 34.2 L RDW 14.6 H Seg Neutrophils % 88.1 H Lymphocytes % 6.4 L Absolute Neutrophils 8.4 H Sodium 134.3 L BUN 61 H Creatinine 2.20 H Est GFR ( Amer) 27 L Est GFR (Non-Af Amer) 22 L Direct Bilirubin 0.5 H Albumin 3.4 L Urine Nitrite POSITIVE H Ur Leukocyte Esterase SMALL H Discharge - Discharge Clinical Impression: Vomiting Qualifiers: Vomiting type: unspecified Vomiting Intractability: non-intractable Nausea presence: with nausea Qualified Code(s): R11.2 - Nausea with vomiting, unspecified Abdominal pain Qualifiers: Abdominal location: generalized Qualified Code(s): R10.84 - Generalized abdominal pain Urinary tract infection Qualifiers: Urinary tract infection type: site unspecified Hematuria presence: without hematuria Qualified Code(s): N39.0 - Urinary tract infection, site not specified Condition: Stable Disposition: HOME, SELF-CARE Additional Instructions: The CAT scan and workup does not show any abnormal findings except for a urinary tract infection. We have a urine culture pending. Please take the Keflex antibiotics as prescribed. Take the Zofran if needed for nausea or vomiting. Follow-up with your primary care within the next several days. Please return immediately if you worsen in any way including uncontrolled vomiting, fever, return or worsening abdominal pain, or any other concerning symptoms. Prescriptions: Cephalexin Monohydrate [Keflex 500 mg Capsule] 500 mg PO BID #14 capsule Ondansetron [Zofran Odt 4 mg Tablet] 1 - 2 tab PO Q4H PRN #15 tab.rapdis PRN Reason: For Nausea/Vomiting Referrals: Carlos Enrique QUINTERO MD [Primary Care Provider] - Follow up as needed
[2017-03-13 20:51] LABS: ABSOLUTE EOSINOPHILS # (AUTO) 0.2 10^3/uL (0.0-0.6); ABSOLUTE LYMPHOCYTES (AUTO) 0.6 10^3/uL (0.5-4.7); ABSOLUTE MONOCYTES (AUTO) 0.3 10^3/uL (0.1-1.4); ABSOLUTE NEUT (AUTO) 8.4 10^3/uL (1.7-8.2); BASOPHILS % (AUTO) 0.3 % (0-2); EOSINOPHILS % (AUTO) 1.9 % (0-6); HEMATOCRIT 34.2 % (36.0-47.0); HEMOGLOBIN 11.5 g/dL (12.0-15.5); HGB HCT DIFFERENCE 0.3; LYMPHOCYTES % (AUTO) 6.4 % (13-45); MEAN CORPUSCULAR HEMOGLOBIN 28.8 pg (27.0-33.4); MEAN CORPUSCULAR HGB CONC 33.5 g/dL (32.0-36.0); MEAN CORPUSCULAR VOLUME 86 fl (80-97); MONOCYTES % (AUTO) 3.3 % (3-13); RED BLOOD COUNT 3.99 10^6/uL (3.72-5.28); RED CELL DISTRIBUTION WIDTH 14.6 % (11.5-14.0); SEGMENTED NEUTROPHILS % (AUTO) 88.1 % (42-78); WHITE BLOOD COUNT 9.5 10^3/uL (4.0-10.5)
[2017-03-13 21:17] LABS: ALANINE AMINOTRANSFERASE 24 U/L (9-52); ALBUMIN 3.4 g/dL (3.5-5.0); ALKALINE PHOSPHATASE 94 U/L (38-126); ANION GAP 11 (5-19); ASPARTATE AMINO TRANSFERASE 19 U/L (14-36); BILIRUBIN,DIRECT 0.5 mg/dL (0.0-0.4); BILIRUBIN,TOTAL 0.8 mg/dL (0.2-1.3); BLOOD UREA NITROGEN 61 mg/dL (7-20); CALCIUM 8.5 mg/dL (8.4-10.2); CARBON DIOXIDE 22 mmol/L (22-30); CHLORIDE 101 mmol/L (98-107); GLUCOSE 96 mg/dL (75-110); LIPASE 118.9 U/L (23-300); POTASSIUM 4.7 mmol/L (3.6-5.0); SODIUM 134.3 mmol/L (137-145); TOTAL PROTEIN 6.6 g/dL (6.3-8.2)
[2017-03-13 23:12] LABS: APPEARANCE,URINE CLOUDY; BILIRUBIN,URINE NEGATIVE (NEGATIVE); GLUCOSE, URINE NEGATIVE (NEGATIVE); KETONES,URINE NEGATIVE (NEGATIVE); LEUKOCYTE ESTERASE,URINE SMALL (NEGATIVE); NITRITE,URINE POSITIVE (NEGATIVE); PROTEIN,URINE NEGATIVE (NEGATIVE); URINE SPECIFIC GRAVITY 1.015; UROBILINOGEN,URINE NEGATIVE mg/dL (<2.0)
[2017-03-13] MEDS ORDERED: CEFTRIAXONE 1 GM/D5W RTU 50 ML IV ONE (23:36)
[2017-03-14] MEDS ORDERED: ONDANSETRON ODT 4 MG TAB (6 TAB/DSPK) PO PRN (01:21)
[2017-03-14 01:43] VITALS: BP 130/54
--- NOTE | 2017-03-14 17:12 | EKG REPORT ---
SEVERITY:- OTHERWISE NORMAL ECG - SINUS RHYTHM BORDERLINE LEFT AXIS DEVIATION : Confirmed by: Aan Villasenor MD 14-Mar-2017 17:11:41
== END 2017-03-14 01:57 | disposition home or self-care (01) ==
LOC: ER 18:17
DX: N39.0 Urinary tract infection, site not specified (principal); R10.84 Generalized abdominal pain; R11.2 Nausea with vomiting, unspecified; R19.7 Diarrhea, unspecified; I12.9 Hypertensive chronic kidney disease with stage 1 through stage 4 chronic kidney disease, or unspecified chronic kidney disease; E11.22 Type 2 diabetes mellitus with diabetic chronic kidney disease; N18.9 Chronic kidney disease, unspecified; I25.10 Atherosclerotic heart disease of native coronary artery without angina pectoris; J44.9 Chronic obstructive pulmonary disease, unspecified; Z88.2 Allergy status to sulfonamides; Z88.1 Allergy status to other antibiotic agents; Z90.710 Acquired absence of both cervix and uterus; Z90.49 Acquired absence of other specified parts of digestive tract
CPT/HCPCS: 93005; 99284; 96375; 96365; 36415; 83690; 85025; 80053; 81001; 74176; 93010; J3010; J2405; J7030; J0696; A9270

== ENCOUNTER → 2017-07-12 | Outpatient (CLI) | payer MEDICARE ==
[2017-07-12 12:33] LABS: HEMATOCRIT 29.6 % (36.0-47.0); HEMOGLOBIN 10.1 g/dL (12.0-15.5); HGB HCT DIFFERENCE 0.7; MEAN CORPUSCULAR HEMOGLOBIN 29.9 pg (27.0-33.4); MEAN CORPUSCULAR VOLUME 88 fl (80-97); RED BLOOD COUNT 3.37 10^6/uL (3.72-5.28); RED CELL DISTRIBUTION WIDTH 14.8 % (11.5-14.0); WHITE BLOOD COUNT 6.2 10^3/uL (4.0-10.5)
[2017-07-12 12:45] LABS: APPEARANCE,URINE CLOUDY; BILIRUBIN,URINE NEGATIVE (NEGATIVE); GLUCOSE, URINE NEGATIVE (NEGATIVE); KETONES,URINE NEGATIVE (NEGATIVE); LEUKOCYTE ESTERASE,URINE SMALL (NEGATIVE); NITRITE,URINE POSITIVE (NEGATIVE); PROTEIN,URINE NEGATIVE (NEGATIVE); URINE SPECIFIC GRAVITY 1.006; UROBILINOGEN,URINE NEGATIVE mg/dL (<2.0)
[2017-07-12 13:03] LABS: ANION GAP 10 (5-19); BLOOD UREA NITROGEN 68 mg/dL (7-20); CALCIUM 8.7 mg/dL (8.4-10.2); CARBON DIOXIDE 26 mmol/L (22-30); CHLORIDE 101 mmol/L (98-107); GLUCOSE 147 mg/dL (75-110); POTASSIUM 4.5 mmol/L (3.6-5.0)
[2017-07-12 13:04] LABS: CREATININE RESULT 2.72 mg/dL (0.52-1.25)
[2017-07-13 13:38] LABS: CREATININE URINE 54.6 mg/dL (Not Estab.); MICROALBUMIN URINE 6.7 ug/mL (Not Estab.)
== END ==
LOC: OD 11:42
PROVIDERS: ATTEND Internal Medicine Nephrology
DX: E11.22 Type 2 diabetes mellitus with diabetic chronic kidney disease (principal); N18.4 Chronic kidney disease, stage 4 (severe); E87.5 Hyperkalemia; I50.9 Heart failure, unspecified; D64.9 Anemia, unspecified
CPT/HCPCS: 36415; 80048; 81001; 82043; 82570; 85027

== ENCOUNTER → 2017-07-19 | Outpatient (CLI) | payer MEDICARE ==
[2017-07-19 10:04] LABS: ABSOLUTE BASOPHILS # (AUTO) 0.1 10^3/uL (0.0-0.2); ABSOLUTE EOSINOPHILS # (AUTO) 0.2 10^3/uL (0.0-0.6); ABSOLUTE MONOCYTES (AUTO) 0.5 10^3/uL (0.1-1.4); ABSOLUTE NEUT (AUTO) 4.8 10^3/uL (1.7-8.2); BASOPHILS % (AUTO) 1.2 % (0-2); EOSINOPHILS % (AUTO) 3.5 % (0-6); HEMATOCRIT 30.8 % (36.0-47.0); HEMOGLOBIN 10.4 g/dL (12.0-15.5); HGB HCT DIFFERENCE 0.4; LYMPHOCYTES % (AUTO) 15.3 % (13-45); MEAN CORPUSCULAR HEMOGLOBIN 29.8 pg (27.0-33.4); MEAN CORPUSCULAR HGB CONC 33.6 g/dL (32.0-36.0); MEAN CORPUSCULAR VOLUME 89 fl (80-97); MONOCYTES % (AUTO) 7.3 % (3-13); RED BLOOD COUNT 3.48 10^6/uL (3.72-5.28); RED CELL DISTRIBUTION WIDTH 14.3 % (11.5-14.0); SEGMENTED NEUTROPHILS % (AUTO) 72.7 % (42-78); WHITE BLOOD COUNT 6.6 10^3/uL (4.0-10.5)
[2017-07-19 10:26] LABS: ALANINE AMINOTRANSFERASE 24 U/L (9-52); ALBUMIN 3.7 g/dL (3.5-5.0); ALKALINE PHOSPHATASE 89 U/L (38-126); ANION GAP 8 (5-19); ASPARTATE AMINO TRANSFERASE 21 U/L (14-36); BILIRUBIN,DIRECT 0.4 mg/dL (0.0-0.4); BILIRUBIN,TOTAL 0.6 mg/dL (0.2-1.3); BLOOD UREA NITROGEN 44 mg/dL (7-20); CARBON DIOXIDE 27 mmol/L (22-30); CHLORIDE 104 mmol/L (98-107); CHOLESTEROL 239.03 mg/dL (0-200); CREATININE RESULT 2.09 mg/dL (0.52-1.25); Direct HDL 41 mg/dL (>40); GLUCOSE 63 mg/dL (75-110); POTASSIUM 4.5 mmol/L (3.6-5.0); SODIUM 138.7 mmol/L (137-145); TRIGLYCERIDES 231 mg/dL (<150)
[2017-07-19 10:37] LABS: DIRECT LDL 126 mg/dL (<100)
[2017-07-19 10:39] LABS: VLDL CHOLESTEROL 46.2 mg/dL (10-31)
[2017-07-19 10:55] LABS: THYROID STIMULATING HORMONE 1.5 uIU/mL (0.47-4.68)
== END ==
LOC: OD 09:12
PROVIDERS: ATTEND Family Medicine
DX: E78.2 Mixed hyperlipidemia (principal); E07.9 Disorder of thyroid, unspecified; I10 Essential (primary) hypertension
CPT/HCPCS: 36415; 80053; 80061; 84439; 84443; 85025

== ENCOUNTER 2017-08-29 12:31 | Inpatient (IN) | payer MEDICARE ==
[2017-08-29 13:18] LABS: ABSOLUTE BASOPHILS # (AUTO) 0.1 10^3/uL (0.0-0.2); ABSOLUTE EOSINOPHILS # (AUTO) 0.4 10^3/uL (0.0-0.6); ABSOLUTE LYMPHOCYTES (AUTO) 0.8 10^3/uL (0.5-4.7); ABSOLUTE MONOCYTES (AUTO) 0.6 10^3/uL (0.1-1.4); ABSOLUTE NEUT (AUTO) 7.6 10^3/uL (1.7-8.2); BASOPHILS % (AUTO) 0.6 % (0-2); EOSINOPHILS % (AUTO) 3.8 % (0-6); HEMATOCRIT 32.5 % (36.0-47.0); HEMOGLOBIN 10.8 g/dL (12.0-15.5); HGB HCT DIFFERENCE -0.1; LYMPHOCYTES % (AUTO) 8.2 % (13-45); MEAN CORPUSCULAR HEMOGLOBIN 29.9 pg (27.0-33.4); MEAN CORPUSCULAR HGB CONC 33.4 g/dL (32.0-36.0); MEAN CORPUSCULAR VOLUME 90 fl (80-97); MONOCYTES % (AUTO) 6.2 % (3-13); RED BLOOD COUNT 3.62 10^6/uL (3.72-5.28); RED CELL DISTRIBUTION WIDTH 14.5 % (11.5-14.0); SEGMENTED NEUTROPHILS % (AUTO) 81.2 % (42-78); WHITE BLOOD COUNT 9.4 10^3/uL (4.0-10.5)
[2017-08-29 13:26] LABS: APPEARANCE,URINE CLOUDY; BILIRUBIN,URINE NEGATIVE (NEGATIVE); GLUCOSE, URINE NEGATIVE (NEGATIVE); KETONES,URINE NEGATIVE (NEGATIVE); LEUKOCYTE ESTERASE,URINE MODERATE (NEGATIVE); NITRITE,URINE POSITIVE (NEGATIVE); PROTEIN,URINE 100 mg/dL (NEGATIVE); URINE SPECIFIC GRAVITY 1.014; UROBILINOGEN,URINE NEGATIVE mg/dL (<2.0)
[2017-08-29 13:35] LABS: ALANINE AMINOTRANSFERASE 25 U/L (9-52); ALBUMIN 3.6 g/dL (3.5-5.0); ALKALINE PHOSPHATASE 82 U/L (38-126); ANION GAP 13 (5-19); ASPARTATE AMINO TRANSFERASE 22 U/L (14-36); BILIRUBIN,DIRECT 0.6 mg/dL (0.0-0.4); BILIRUBIN,TOTAL 0.7 mg/dL (0.2-1.3); BLOOD UREA NITROGEN 23 mg/dL (7-20); CALCIUM 7.9 mg/dL (8.4-10.2); CARBON DIOXIDE 20 mmol/L (22-30); CHLORIDE 108 mmol/L (98-107); CREATININE RESULT 2.13 mg/dL (0.52-1.25); GLUCOSE 93 mg/dL (75-110); POTASSIUM 4.1 mmol/L (3.6-5.0); SODIUM 140.6 mmol/L (137-145); TOTAL PROTEIN 6.3 g/dL (6.3-8.2)
[2017-08-29] MEDS ORDERED: CEFTRIAXONE 1 GM/D5W RTU 1 GM/50 ML RTUPB IV ONE (13:55)
[2017-08-29] MEDS ORDERED: IPRATROPIUM/ALBUTEROL 0.5-2.5 MG/3 ML AMPUL NEB ONE (13:59)
--- NOTE | 2017-08-29 15:04 | EKG REPORT ---
SEVERITY:- ABNORMAL ECG - SINUS RHYTHM MULTIPLE VENTRICULAR PREMATURE COMPLEXES LEFT ANTERIOR FASCICULAR BLOCK : Confirmed by: Hetal Pat 29-Aug-2017 15:03:53
--- NOTE | 2017-08-29 15:15 | RADIOLOGY REPORT (SQ) ---
EXAM DESCRIPTION: CHEST SINGLE VIEW COMPLETED DATE/TIME: 08/29/2017 3:05 pm REASON FOR STUDY: hypoxia COMPARISON: 11/01/2016 NUMBER OF VIEWS: One view. TECHNIQUE: Single frontal radiographic view of the chest acquired. LIMITATIONS: None. FINDINGS: LUNGS AND PLEURA: Interstitial edema in the lower lungs. MEDIASTINUM AND HILAR STRUCTURES: No masses or contour abnormality. HEART AND VASCULATURE: Cardiac enlargement. Vascular congestion. BONES: No acute findings. HARDWARE: None in the chest. OTHER: No other significant finding. IMPRESSION: Congestive heart failure. TECHNICAL DOCUMENTATION: JOB ID: [id number] [employer]- All Rights Reserved
--- NOTE | 2017-08-29 15:19 | ER Document Report ---
ED General - General Chief Complaint: General Weakness Stated Complaint: GENERAL WEAKNESS Time Seen by Provider: 08/29/17 12:52 TRAVEL OUTSIDE OF THE [place] IN LAST 30 DAYS: No - HPI Patient complains to provider of: Generalized weakness Notes: Patient coming in for generalized weakness. Patient states generalized weakness for 1 week. Patient called EMS and was found to be hyper glycemic with a blood sugar in the 50s was given half an amp of D50 patient states feeling better at the time however continues with shortness of breath congestion patient states has been compliant with her CPAP at home. Has a history of COPD recurrent UTIs. Denies fevers chills nausea vomiting abdominal pain. Patient resting comfortably upon my evaluation also noted by EMS with hypoxia patient was placed on nasal cannula upon my evaluation patient stating 97% on 2 L no home use of oxygen - Related Data Allergies/Adverse Reactions: Sulfa (Sulfonamide Antibiotics) Allergy (Unknown, Verified 08/29/17 12:40) levofloxacin [From Levaquin] Allergy (Verified 08/29/17 12:40) morphine [Morphine] Adverse Reaction (Severe, Verified 08/29/17 12:40) aspirin Adverse Reaction (Verified 08/29/17 12:40) Past Medical History - Social History Smoking Status: Never Smoker Frequency of alcohol use: None Drug Abuse: None Family History: Reviewed & Not Pertinent Patient has suicidal ideation: No Patient has homicidal ideation: No - Past Medical History Cardiac Medical History: Reports: Hx Coronary Artery Disease, Hx Hypercholesterolemia, Hx Hypertension Denies: Hx Congestive Heart Failure, Hx Heart Attack, Hx Heart Murmur Pulmonary Medical History: Reports: Hx COPD Denies: Hx Asthma, Hx Bronchitis, Hx Pneumonia, Hx Tuberculosis Neurological Medical History: Denies: Hx Cerebrovascular Accident, Hx Seizures Endocrine Medical History: Reports: Hx Diabetes Mellitus Type 1, Hx Diabetes Mellitus Type 2, Hx Hypothyroidism. Denies: Hx Hyperthyroidism Renal/ Medical History: Reports: Hx Renal Insufficiency. Denies: Hx End Stage Renal Disease, Hx Peritoneal Dialysis GI Medical History: Reports: Hx Gastroesophageal Reflux Disease. Denies: Hx Cirrhosis, Hx Hepatitis Musculoskeltal Medical History: Reports Hx Arthritis Skin Medical History: Reports Hx Eczema Psychiatric Medical History: Reports: Hx Depression Infectious Medical History: Denies: Hx Hepatitis Past Surgical History: Reports: Hx Appendectomy, Hx Hysterectomy, Hx Orthopedic Surgery - b.l feet, Other - Bilat cataract and ankle surgery.. Denies: Hx Pacemaker - Immunizations Hx Diphtheria, Pertussis, Tetanus Vaccination: No Review of Systems - Review of Systems Constitutional: Weakness EENT: No symptoms reported Cardiovascular: No symptoms reported Respiratory: Short of breath Gastrointestinal: No symptoms reported Genitourinary: No symptoms reported Female Genitourinary: No symptoms reported Musculoskeletal: No symptoms reported Skin: No symptoms reported Hematologic/Lymphatic: No symptoms reported Neurological/Psychological: No symptoms reported -: Yes All other systems reviewed and negative Physical Exam - Vital signs Vitals: Resp Pulse Ox 22 H 88 L 08/29/17 12:34 08/29/17 12:34 Interpretation: Normal - General General appearance: Appears well, Alert - HEENT Head: Normocephalic, Atraumatic Eyes: Normal Pupils: PERRL - Respiratory Respiratory status: No respiratory distress Chest status: Nontender Breath sounds: Rhonchi Chest palpation: Normal - Cardiovascular Rhythm: Regular Heart sounds: Normal auscultation Murmur: No - Abdominal Inspection: Normal Distension: No distension Bowel sounds: Normal Tenderness: Nontender Organomegaly: No organomegaly - Back Back: Normal, Nontender - Extremities General upper extremity: Normal inspection, Nontender, Normal color, Normal ROM , Normal temperature General lower extremity: Normal inspection, Nontender, Normal color, Normal ROM , Normal temperature, Normal weight bearing. No: Abimael's sign - Neurological Neuro grossly intact: Yes Cognition: Normal Orientation: AAOx4 [place] Coma Scale Eye Opening: Spontaneous [place] Coma Scale Verbal: Oriented Cristin Coma Scale Motor: Obeys Commands Cristin Coma Scale Total: 15 Speech: Normal Motor strength normal: LUE, RUE, LLE, RLE Sensory: Normal - Psychological Associated symptoms: Normal affect, Normal mood - Skin Skin Temperature: Warm Skin Moisture: Dry Skin Color: Normal Course - Re-evaluation Re-evalutation: 08/29/17 16:24 Despite breathing treatments patient continued to require oxygen. Urinalysis positive for urinary tract infection and placed on Rocephin patient been sensitive to Rocephin in the past normally grows out Klebsiella. Laboratory studies not revealing of significant pathology chronic changes. Discussed with hospitalist will admit for COPD exacerbation. - Vital Signs Vital signs: Temp Pulse Resp BP Pulse Ox 98.7 F 96 15 165/64 H 100 08/29/17 12:39 08/29/17 12:39 08/29/17 16:01 08/29/17 16:01 08/29/17 16:02 - Laboratory Result Diagrams: 08/29/17 12:57 08/29/17 12:57 Laboratory results interpreted by me: 08/29/17 08/29/17 08/29/17 12:57 12:57 13:05 RBC 3.62 L Hgb 10.8 L Hct 32.5 L RDW 14.5 H Plt Count 141 L Seg Neutrophils % 81.2 H Lymphocytes % 8.2 L Chloride 108 H Carbon Dioxide 20 L BUN 23 H Creatinine 2.13 H Est GFR ( Amer) 28 L Est GFR (Non-Af Amer) 23 L Calcium 7.9 L Direct Bilirubin 0.6 H Urine Protein 100 H Urine Nitrite POSITIVE H Ur Leukocyte Esterase MODERATE H Discharge - Discharge Clinical Impression: Hypoxia, COPD with acute exacerbation, Renal insufficiency UTI (urinary tract infection) Qualifiers: Urinary tract infection type: site unspecified Hematuria presence: without hematuria Qualified Code(s): N39.0 - Urinary tract infection, site not specified Condition: Stable Disposition: ADMITTED INPATIENT Admitting Provider: Hospitalist - [facility] Admitted: Telemetry
[2017-08-29] MEDS ORDERED: ALBUTEROL SULFATE HFA (90 MCG/PUFF) 200 PUFF/8.5 GM MDI IH PRN (16:47)
[2017-08-29] MEDS ORDERED: IPRATROPIUM/ALBUTEROL 0.5-2.5 MG/3 ML AMPUL NEB PRN (16:54)
[2017-08-29] MEDS ORDERED: DEXTROSE 50%-WATER 25 GM/50 ML DISP.SYRIN IV ONE (17:09)
[2017-08-29] MEDS ORDERED: INFLUENZA ADLT QUAD (36MOS+) 2017-18 VAC 0.5 ML SYR IM PRN (17:54)
--- NOTE | 2017-08-29 18:11 | PDOC H&P ---
History of Present Illness Admission Date/PCP: 08/29/17 15:44 REED ADAM Patient complains of: Shortness of breath, hypoglycemia History of Present Illness: WNAG LAWSON is a 72 year old female presented to the ED with complaint of generalized weakness for 1 week. Patient reports having had recent cold. She has been having poor oral intake and continued to take her diabetes medications. Last night she got worse and felt terrible and called EMS. Glucose was 50 and patient received D50. She was brought to the emergency room. She was also found to be hypoxic in the 80s. She was treated with nebulizers with improvement, but oxygenation continues to drop. She was referred for admission. When the patient, she has been intubated. Reports history of diastolic CHF. His history concerning for possible CHF. She reports cough productive of whitish phlegm. Denies fever or chills, no chest pain or palpitations. Has intermittent lower extremity swelling. Denies orthopnea or PND. She has obstructive sleep apnea uses CPAP at home. She is not sure she has history of COPD. She has distant history of smoking. Past Medical History Cardiac Medical History: Reports: Congestive Heart Failure, Myocardial Infarction, Hyperlipidema, Hypertension, Heart Murmur Pulmonary Medical History: Reports: Asthma, Bronchitis, Pneumonia, Tuberculosis , Other - Possible COPD. Neurological Medical History: Reports: Seizures Endocrine Medical History: Reports: Diabetes Mellitus Type 2, Hyperthyroidism, Hypothyroidism Renal/ Medical History: Reports: End Stage Renal Disease GI Medical History: Reports: Cirrhosis, Gastroesophageal Reflux Disease, Hepatitis Musculoskeltal Medical History: Reports: Arthritis Skin Medical History: Reports: Eczema Psychiatric Medical History: Reports: Depression Hematology: Reports: Anemia Past Surgical History Past Surgical History: Reports: Appendectomy, Hysterectomy, Orthopedic Surgery - b.l feet, Pacemaker, Other - Bilat cataract and ankle surgery. Social History Smoking Status: Former Smoker Frequency of Alcohol Use: None Hx Recreational Drug Use: No Drugs: None Hx Prescription Drug Abuse: No - Advance Directive Resuscitation Status: Full Code Family History Family History: Hypertension, Other - Aneurysm in the mother, lung cancer in the father Parental Family History Reviewed: Yes Children Family History Reviewed: Yes Sibling(s) Family History Reviewed.: Yes Medication/Allergy Home Medications: Albuterol Sulfate [Proair Hfa Inhalation Aerosol 8.5 gm Mdi] 1 puff IH Q4HP PRN 08/29/17 Benazepril HCl [Lotensin 20 mg Tablet] 20 mg PO QHS 08/29/17 Carvedilol [Coreg 3.125 mg Tablet] 3.125 mg PO Q12 08/29/17 Citalopram Hydrobromide [Celexa 40 mg Tablet] 40 mg PO DAILY 08/29/17 Fluticasone Propionate [Flonase Nasal Coats 50 Mcg/Coats 16 gm] 2 sprays NASL DAILY 08/29/17 Furosemide [Lasix 20 mg Tablet] 20 mg PO BID 08/29/17 Gabapentin [Neurontin 400 mg Capsule] 400 mg PO Q12 08/29/17 Glimepiride [Amaryl] 2 mg PO BID 08/29/17 Hydralazine HCl [Apresoline 50 mg Tablet] 50 mg PO Q8 08/29/17 Levothyroxine Sodium [Synthroid 0.088 mg Tablet] 88 mcg PO DAILY 08/29/17 Omeprazole 20 mg PO DAILY 08/29/17 Oxycodone HCl/Acetaminophen [Percocet 7.5-325 mg Tablet] 1 tab PO Q8HP PRN MDD 75 TABS PER 30 DAYS 08/29/17 Allergies/Adverse Reactions: Sulfa (Sulfonamide Antibiotics) Allergy (Unknown, Verified 08/29/17 12:40) levofloxacin [From Levaquin] Allergy (Verified 08/29/17 12:40) morphine [Morphine] Adverse Reaction (Severe, Verified 08/29/17 12:40) aspirin Adverse Reaction (Verified 08/29/17 12:40) Review of Systems All systems: reviewed and no additional remarkable complaints except as stated - In the HPI Physical Exam Vital Signs: Temp Pulse Resp BP Pulse Ox 98.7 F 96 15 165/64 H 100 08/29/17 12:39 08/29/17 12:39 08/29/17 16:01 08/29/17 16:01 08/29/17 16:02 General appearance: PRESENT: cooperative, mild distress Head exam: PRESENT: atraumatic, normocephalic Eye exam: PRESENT: EOMI, PERRLA Mouth exam: PRESENT: moist Neck exam: PRESENT: full ROM. ABSENT: JVD Respiratory exam: PRESENT: crackles, wheezes. ABSENT: accessory muscle use, stridor, unlabored Cardiovascular exam: PRESENT: RRR, +S1 Pulses: PRESENT: normal carotid pulses, +2 pedal pulses bilateral GI/Abdominal exam: PRESENT: normal bowel sounds, soft. ABSENT: distended, rebound, tenderness Extremities exam: PRESENT: pedal edema, +1 edema Musculoskeletal exam: PRESENT: full ROM. ABSENT: tenderness Neurological exam: PRESENT: alert, oriented to person, oriented to place, oriented to time, CN II-XII grossly intact Psychiatric exam: PRESENT: appropriate affect, normal mood Skin exam: PRESENT: intact, normal color. ABSENT: abrasion, cyanosis Results Impressions: Chest X-Ray 08/29/17 14:17 IMPRESSION: Congestive heart failure. Assessment & Plan - Diagnosis (1) Reactive airway disease with acute exacerbation Qualifiers: Asthma severity: severe Plan: Likely secondary to recent URI. Will treat with prednisone 40 mg daily. Will also treat with nebulizer. Will treat with Zithromax to cover possible infection. Patient not sure about COPD. Recommend patient follow-up with PCP at discharge and PFTs done as outpatient if not already done. (2) UTI (urinary tract infection) Qualifiers: Urinary tract infection type: site unspecified Hematuria presence: without hematuria Qualified Code(s): N39.0 - Urinary tract infection, site not specified Plan: We will also treat with Rocephin to cover UTI. (3) Acute on chronic diastolic (congestive) heart failure Plan: Advised low-salt diet. We will also treat with Lasix 40 mg p.o. twice daily. Patient was on 20 mg as outpatient. Follow-up chest x-ray in a.m. we will check BMP, serial troponins to rule out HI. Check echocardiogram. (4) Hypoxia Plan: We will treat with O2. Also BiPAP at at bedtime. Nebulizers as in RAD exacerbation. (5) Hypoglycemia Plan: Likely secondary to presenting illness and continue to take oral hypoglycemic. Will hold glimepiride. Sliding scale insulin with coverage as needed. D50 for further hypoglycemic episodes. (6) Diabetes mellitus type 2 in obese Plan: As an hypoglycemia. Check hemoglobin A1c in a.m. (7) Chronic kidney disease (CKD), stage IV (severe) Plan: Creatinine appears stable. Creatinine from 07/19/17 was 2.09. Will follow Chem- 7. (8) Anemia in chronic kidney disease (CKD) Plan: Stable from 07/19/17. We will continue to trend. - Inpatient Certification Based on my medical assessment, after consideration of the patient's comorbidities, presenting symptoms, or acuity I expect that the services needed warrant INPATIENT care.: Yes I certify that my determination is in accordance with my understanding of Medicare's requirements for reasonable and necessary INPATIENT services [42 CFR 412.3e].: Yes Medical Necessity: Need Close Monitoring Due to Risk of Patient Decompensation
[2017-08-29] MEDS ORDERED: FUROSEMIDE 40 MG TABLET PO SCH (18:15)
[2017-08-29] MEDS: HYDRALAZINE HCL 50 MG TABLET PO SCH (21:47)
[2017-08-29] MEDS: CARVEDILOL 3.125 MG TABLET PO SCH (21:48)
[2017-08-29] MEDS: BENAZEPRIL HCL 20 MG TABLET PO SCH (21:48)
[2017-08-29] MEDS: GABAPENTIN 400 MG CAPSULE PO SCH (21:48)
[2017-08-29] MEDS ORDERED: GLUCAGON,HUMAN RECOMB 1 MG INJ IM PRN (22:17)
[2017-08-29] MEDS ORDERED: ONDANSETRON 4 MG TAB.RAPDIS PO PRN (22:17)
[2017-08-29] MEDS ORDERED: DEXTROSE 50%-WATER 25 GM/50 ML DISP.SYRIN IV PRN (22:17)
[2017-08-29] MEDS ORDERED: DEXTROSE 40% GEL 15 GM TUBE PO PRN ×2 (22:17)
[2017-08-29] MEDS ORDERED: AZITHROMYCIN INJ 500 MG VIAL IV ONE (23:16)
[2017-08-29] MEDS: AZITHROMYCIN 500 MG in DEXTROSE 5%-WATER 250 ML IV SCH (23:26)
[2017-08-29] MEDS: INSULIN LISPRO 100 UNIT/ML 3 ML VIAL SUBCUT PRN (23:49)
[2017-08-30] MEDS: HYDRALAZINE HCL 50 MG TABLET PO SCH ×3 (05:34→22:38)
[2017-08-30 06:30] LABS: ANION GAP 8 (5-19); BLOOD UREA NITROGEN 29 mg/dL (7-20); CALCIUM 8.3 mg/dL (8.4-10.2); CARBON DIOXIDE 22 mmol/L (22-30); CHLORIDE 108 mmol/L (98-107); CREATININE RESULT 2.51 mg/dL (0.52-1.25); GLUCOSE 245 mg/dL (75-110); POTASSIUM 4.9 mmol/L (3.6-5.0); SODIUM 138.4 mmol/L (137-145)
[2017-08-30 06:48] LABS: ABSOLUTE LYMPHOCYTES (AUTO) 0.6 10^3/uL (0.5-4.7); ABSOLUTE MONOCYTES (AUTO) 0.2 10^3/uL (0.1-1.4); ABSOLUTE NEUT (AUTO) 10.4 10^3/uL (1.7-8.2); BASOPHILS % (AUTO) 0.4 % (0-2); EOSINOPHILS % (AUTO) 0.1 % (0-6); HEMATOCRIT 30.1 % (36.0-47.0); HGB HCT DIFFERENCE -0.1; LYMPHOCYTES % (AUTO) 5.2 % (13-45); MEAN CORPUSCULAR HEMOGLOBIN 29.3 pg (27.0-33.4); MEAN CORPUSCULAR VOLUME 89 fl (80-97); MONOCYTES % (AUTO) 1.7 % (3-13); RED CELL DISTRIBUTION WIDTH 14.4 % (11.5-14.0); SEGMENTED NEUTROPHILS % (AUTO) 92.6 % (42-78); WHITE BLOOD COUNT 11.2 10^3/uL (4.0-10.5)
--- NOTE | 2017-08-30 07:41 | RADIOLOGY REPORT (SQ) ---
EXAM DESCRIPTION: CHEST PA/LAT COMPLETED DATE/TIME: 08/30/2017 7:33 am REASON FOR STUDY: Hypoxia, sob COMPARISON: 11/01/2016 EXAM PARAMETERS: NUMBER OF VIEWS: two views TECHNIQUE: Digital Frontal and Lateral radiographic views of the chest acquired. RADIATION DOSE: NA LIMITATIONS: none FINDINGS: LUNGS AND PLEURA: Stable chronic changes at the lung bases. New patchy airspace disease r ight greater than left upper lobes. MEDIASTINUM AND HILAR STRUCTURES: No masses or contour abnormalities. HEART AND VASCULAR STRUCTURES: Heart stable in size. No evidence for failure. BONES: No acute findings. HARDWARE: None in the chest. OTHER: No other significant finding. IMPRESSION: NEW PATCHY AIRSPACE OPACITIES WITHIN THE RIGHT GREATER THAN LEFT UPPER LOBE SUGGESTIVE O F DEVELOPING PNEUMONIA. TECHNICAL DOCUMENTATION: JOB ID: [id number] [employer]- All Rights Reserved
[2017-08-30] MEDS: OXYCODONE-ACETAMINOPHEN 5-325 MG TABLET PO PRN ×2 (09:24→17:08)
[2017-08-30] MEDS: LANSOPRAZOLE 30 MG TAB.RAP.DR PO SCH (09:25)
[2017-08-30] MEDS: CARVEDILOL 3.125 MG TABLET PO SCH ×2 (09:25→22:38)
[2017-08-30] MEDS: GABAPENTIN 400 MG CAPSULE PO SCH ×2 (09:26→22:38)
[2017-08-30] MEDS: LEVOTHYROXINE SODIUM 0.088 MG TABLET PO SCH (09:26)
[2017-08-30] MEDS: CITALOPRAM HYDROBROMIDE 20 MG TABLET PO SCH (09:27)
[2017-08-30] MEDS: PREDNISONE 20 MG TABLET PO SCH ×2 (09:27→17:09)
[2017-08-30] MEDS: ENOXAPARIN SODIUM INJ 40 MG/0.4 ML DISP.SYRIN SUBCUT SCH (09:28)
[2017-08-30] MEDS: CEFTRIAXONE 1 GM/D5W RTU 1 GM/50 ML RTUPB IV SCH (09:29)
[2017-08-30] MEDS: FLUTICASONE NASAL SPRAY 50 MCG/SPRY 120 SPRAY/16 GM NASL SCH (09:30)
--- NOTE | 2017-08-30 12:01 | PDOC PROGRESS REPORT ---
Subjective Progress Note for:: 08/30/17 Subjective:: Doing a little better. No more hypoglycemic episodes. Shortness of breath improving. No chest pain or palpitations. Denies fever chills, no flank pain, dysuria improved. Physical Exam Vital Signs: Temp Pulse Resp BP Pulse Ox 98.8 F 91 18 143/53 H 98 08/30/17 07:40 08/30/17 07:40 08/30/17 07:40 08/30/17 07:40 08/30/17 07:40 Intake & Output 08/29/17 08/30/17 08/31/17 06:59 06:59 06:59 Intake Total 695 Balance 695 Weight 99 kg Exam: GENERAL: Well-developed, no acute distress CARDIOVASCULAR: RRR, normal S1-S2 LUNGS: Few crackles bilaterally ABDOMEN: Soft, NT, NL bowel sounds EXTREMITIES: 1+ edema bilateral lower extremities, no clubbing or cyanosis NEUROLOGICAL: Alert, oriented x 3 Results Laboratory Results: 08/30/17 04:49 08/30/17 04:49 08/30/17 08/30/17 04:49 04:49 WBC 11.2 H RBC 3.40 L Hgb 10.0 L Hct 30.1 L MCV 89 MCH 29.3 MCHC 33.0 RDW 14.4 H Plt Count 137 L Seg Neutrophils % 92.6 H Lymphocytes % 5.2 L Monocytes % 1.7 L Eosinophils % 0.1 Basophils % 0.4 Absolute Neutrophils 10.4 H Absolute Lymphocytes 0.6 Absolute Monocytes 0.2 Absolute Eosinophils 0.0 Absolute Basophils 0.0 Sodium 138.4 Potassium 4.9 Chloride 108 H Carbon Dioxide 22 Anion Gap 8 BUN 29 H Creatinine 2.51 H Est GFR ( Amer) 23 L Est GFR (Non-Af Amer) 19 L Glucose 245 H Calcium 8.3 L 08/29/17 08/29/17 18:20 23:30 Troponin I 0.029 0.021 Impressions: Chest X-Ray 08/30/17 06:00 IMPRESSION: NEW PATCHY AIRSPACE OPACITIES WITHIN THE RIGHT GREATER THAN LEFT UPPER LOBE SUGGESTIVE OF DEVELOPING PNEUMONIA. Assessment & Plan - Diagnosis (1) Reactive airway disease with acute exacerbation Is this a current diagnosis for this admission?: Yes Plan: Likely secondary to recent URI. Will continue with prednisone 40 mg daily, continue with nebulizer. Will treat with Zithromax to cover possible infection , also Rocephin for UTI. Patient not sure about COPD. Recommend patient follow -up with PCP at discharge and PFTs done as outpatient if not already done. Follow-up chest x-ray in a.m. (2) Community acquired bacterial pneumonia Plan: On Rocephin and Zithromax. Follow clinically and possible repeat chest x-ray in a couple of days. Continue O2. (3) UTI (urinary tract infection) Qualifiers: Urinary tract infection type: site unspecified Hematuria presence: without hematuria Qualified Code(s): N39.0 - Urinary tract infection, site not specified Is this a current diagnosis for this admission?: Yes Plan: We will also treat with Rocephin to cover UTI. (4) Acute on chronic diastolic (congestive) heart failure Is this a current diagnosis for this admission?: Yes Plan: Improvement repeat chest x-ray today. We will discontinue Lasix 40 mg p.o. twice daily started last night, as increased BUN and creatinine today and chest x-ray repeat today and no obvious failure and possible early pneumonia. Patient was on Lasix 20 mg twice a day as outpatient. BMP pending. Serial troponins negative for SC. Echocardiogram ordered. Please restart Lasix if signs of failure. (5) Hypoxia Is this a current diagnosis for this admission?: Yes Plan: Continue with O2. Also BiPAP at bedtime. Nebulizers as in reactive airways disease exacerbation. (6) Hypoglycemia Is this a current diagnosis for this admission?: Yes Plan: Likely secondary to presenting illness and continue to take oral hypoglycemic. Improved and now hyperglycemic with steroids. We will resume glimepiride at once a day. Will continue sliding scale insulin with coverage as needed. D50 as needed for further hypoglycemic episodes. Check hemoglobin A1c. (7) Diabetes mellitus type 2 in obese Is this a current diagnosis for this admission?: Yes Plan: As an hypoglycemia. Check hemoglobin A1c. (8) Chronic kidney disease (CKD), stage IV (severe) Plan: Creatinine slightly worse today. Will follow Chem-7. Will hold Lasix for now as repeat chest x-ray PA/lateral not impressive for CHF. (9) Anemia in chronic kidney disease (CKD) Is this a current diagnosis for this admission?: Yes Plan: Stable. We will continue to trend.
--- NOTE | 2017-08-30 12:41 | Physician Advisory Note ---
Physician Advisor ProgressNote .: Pursuant to the plan for [facility], I have reviewed the medical record for this patient. Physician Advisor Statement: Very nice documentation of suspected Acute on Chronic diastolic CHF, CKD stage 4 , anemia of CKD. Please consider documenting, if you agree: 1. "Acute Renal Failure, suspect due to ____" [diuresis?] - (Cr up to 2.51) 2. "Possible pneumonia, suspect ___ type" (gram positive? gram negative? ... ) 3. Type of chronic asthma present (see below*) 4. Please document supporting evidence for dx.s of Acute __ CHF & Pneumonia, whenever they are dx'd. (see below) Status: Pt with prior intubation, asthma, possible COPD, chronic diastolic CHF , CESILIA, CAD, came in w/SOB felt to be combo of RAD acute exacerbation & Acute on chronic diastolic CHF, bad enough to cause hypoxemia into the 80s without O2 when at baseline she does not need O2. Since arrival, she continues to need O2 , has developed ARF which may worsen with continued diuresis attempts. She also has evidence of acute PNA now which was likely present on arrival but not yet visualized on CXR (or was actual cause of CXR #1's findings?) She is at high risk for additional decompensation given her acute & chronic co- morbidities & difficulty with diagnostic clarity from presentation. APpropriate for Inpatient status. Discussion: Noah Casas pt with underlying asthma, CESIILA, CAD, chronic diastolic CHF, possible COPD, - presented w/weakness, SOB, congestion, hypoglycemia, hypoxemia in the 80s tachycardia, tachypnea. ED dr documented rhonchi, hypoxemia, CXR consistent with CHF acute with cardiomegaly & acute interstitial pulmonary edema, attending documented productive cough, crackles, ... Dx.s - supporting evidence: - Pt met more than 2 Major Roebuck criteria for dx of acute CHF (rales, cardiomegaly, acute pulmonary edema). - Pt also met guidelines for dx of pneumonia: she had common clinical features of pneumonia (cough, sputum - no fever but that is frequently absent in older patients), with dyspnea, tachycardia, crackles & rhonchi on exam, and evidence of pneumonia showing up on 2nd CXR (1st CXR can be falsely negative in some patients) . *Dx of type of chronic asthma is based on worst category in which pt has at least 1 of following s/s present at baseline: A. Mild Intermittent: only needs albuterol occasionally. B. Mild Persistent: sx >2x/wk, nocturnal sx up to 4x/mo, FEV1 80+% predicted C. Mod Persistent: sx (or albuterol) daily, nocturnal sx >1x/wk, FEV1 60-80% predicted D. Severe Persistent: activities curtailed, frequent exacerbations, noct sx frequent, FEV1 <60% predicted.
[2017-08-30 12:46] LABS: ABSOLUTE LYMPHOCYTES (AUTO) 0.8 10^3/uL (0.5-4.7); ABSOLUTE MONOCYTES (AUTO) 0.5 10^3/uL (0.1-1.4); BASOPHILS % (AUTO) 0.2 % (0-2); EOSINOPHILS % (AUTO) 0.1 % (0-6); HEMATOCRIT 31.9 % (36.0-47.0); HEMOGLOBIN 10.4 g/dL (12.0-15.5); HGB HCT DIFFERENCE -0.7; LYMPHOCYTES % (AUTO) 7.1 % (13-45); MEAN CORPUSCULAR HEMOGLOBIN 29.2 pg (27.0-33.4); MEAN CORPUSCULAR HGB CONC 32.7 g/dL (32.0-36.0); MEAN CORPUSCULAR VOLUME 89 fl (80-97); MONOCYTES % (AUTO) 4.7 % (3-13); RED BLOOD COUNT 3.57 10^6/uL (3.72-5.28); RED CELL DISTRIBUTION WIDTH 14.5 % (11.5-14.0); SEGMENTED NEUTROPHILS % (AUTO) 87.9 % (42-78); WHITE BLOOD COUNT 11.3 10^3/uL (4.0-10.5)
[2017-08-30 13:06] LABS: ANION GAP 13 (5-19); BLOOD UREA NITROGEN 30 mg/dL (7-20); CALCIUM 8.8 mg/dL (8.4-10.2); CARBON DIOXIDE 21 mmol/L (22-30); CHLORIDE 106 mmol/L (98-107); CREATININE RESULT 2.35 mg/dL (0.52-1.25); GLUCOSE 198 mg/dL (75-110); POTASSIUM 4.4 mmol/L (3.6-5.0); SODIUM 140.3 mmol/L (137-145)
--- NOTE | 2017-08-30 16:29 | XCELERA REPORT ---
[address] [address] Transthoracic Echocardiogram Report Name: WANG LAWSON Age: 72 yrs Gender: Female : 1945 Patient Status: Inpatient Patient Location: [address] [place], [place] [id number] Study Date: 08/30/2017 02:17 PM Height: 63 in Weight: 224 lb BSA: 2.0 m2 Procedure: A two-dimensional transthoracic echocardiogram with color flow and Doppler was performed. The study was technically difficult with many images being suboptimal in quality. Study Quality: Technically suboptimal. Reason For Study: Dyspnea, hypoxia History: Dyspnea, hypoxia. Ordering Physician: TENA MONTES Performed By: Nancy Aly Interpretation Summary Dyspnea, hypoxia The left ventricle is normal in size. There is normal left ventricular wall thickness. LV EF is 60% Left ventricular systolic function is normal. Doppler measurements suggest normal left ventricular diastolic function The left ventricular wall motion is normal. There is no thrombus. The right ventricle is grossly normal size. The left atrial size is normal. There is no vegetation seen on the mitral valve. There is no mitral valve stenosis. There is no mitral regurgitation noted. There is no aortic valvular vegetation. There is mild aortic stenosis There is a peak gradient of 27 mm of Hg. There is no LVOT obstruction. No aortic regurgitation is present. There is no tricuspid stenosis. There is a mild amount of tricuspid regurgitation There is mild pulmonary hypertension by echo RVSP is 47 mm of Hg ,with RA mean of 5. There is no pericardial effusion. MMode/2D Measurements & Calculations RVDd: 2.9 cm LVIDd: 5.6 cm FS: 32.1 % Ao root diam: 2.5 cm IVSd: 0.91 cm LVIDs: 3.8 cm EDV(Teich): 151.8 ml LVPWd: 0.93 cmESV(Teich): 61.2 ml Ao root area: 4.8 cm2 EF(Teich): 59.7 % LA dimension: 3.0 cm LVOT diam: 2.0 cm LVOT area: 3.2 cm2 Doppler Measurements & Calculations MV E max kuldeep: MV P1/2t max kuldeep: Ao V2 max: LV V1 max P.0 cm/sec 129.6 cm/sec 260.0 cm/sec 3.5 mmHg MV A max kuldeep: MV P1/2t: 52.8 msec Ao max PG: LV V1 mean P.6 cm/sec MVA(P1/2t): 4.2 cm2 27.0 mmHg 1.6 mmHg MV E/A: 1.3 MV dec slope: Ao V2 mean: LV V1 max: 718.1 cm/sec2 182.5 cm/sec 93.8 cm/sec Ao mean PG: LV V1 mean: 15.0 mmHg 56.8 cm/sec Ao V2 VTI: LV V1 VTI: 68.8 cm 23.4 cm DORIE(I,D): 1.1 cm2 DORIE(V,D): 1.2 cm2 SV(LVOT): 74.6 ml PA V2 max: TR max kuldeep: 112.9 cm/sec 321.7 cm/sec PA max P.1 mmHg TR max P.4 mmHg Left Ventricle The left ventricle is normal in size. There is normal left ventricular wall thickness. LV EF is 60%. Left ventricular systolic function is normal. Doppler measurements suggest normal left ventricular diastolic function. The left ventricular wall motion is normal. There is no ventricular septal defect visualized. There is no thrombus. Right Ventricle The right ventricle is grossly normal size. Atria The right atrium is normal. The left atrial size is normal. The interatrial septum is intact with no evidence for an atrial septal defect. Mitral Valve There is no evidence of mitral valve prolapse. There is no vegetation seen on the mitral valve. There is no mitral valve stenosis. There is no mitral regurgitation noted. Aortic Valve There is no aortic valvular vegetation. There is mild aortic stenosis. There is a peak gradient of 27 mm of Hg. There is no LVOT obstruction. No aortic regurgitation is present. Tricuspid Valve There is no tricuspid stenosis. There is a mild amount of tricuspid regurgitation. There is mild pulmonary hypertension by echo. RVSP is 47 mm of Hg ,with RA mean of 5. Pulmonic Valve The pulmonic valve is not well visualized. Great Vessels The aortic root is normal size. Effusions There is no pericardial effusion. : TENA MONTES > Ana Villasenor
[2017-08-30] MEDS: BENAZEPRIL HCL 20 MG TABLET PO SCH (22:38)
[2017-08-30] MEDS: AZITHROMYCIN 500 MG in DEXTROSE 5%-WATER 250 ML IV SCH (22:48)
[2017-08-31] MEDS: HYDRALAZINE HCL 50 MG TABLET PO SCH ×3 (05:43→21:16)
[2017-08-31] MEDS: LANSOPRAZOLE 30 MG TAB.RAP.DR PO SCH (09:05)
[2017-08-31] MEDS: GABAPENTIN 400 MG CAPSULE PO SCH ×2 (09:06→21:16)
[2017-08-31] MEDS: PREDNISONE 20 MG TABLET PO SCH ×2 (09:06→18:58)
[2017-08-31] MEDS: LEVOTHYROXINE SODIUM 0.088 MG TABLET PO SCH (09:06)
[2017-08-31] MEDS: CITALOPRAM HYDROBROMIDE 20 MG TABLET PO SCH (09:06)
[2017-08-31] MEDS: ENOXAPARIN SODIUM INJ 40 MG/0.4 ML DISP.SYRIN SUBCUT SCH (09:07)
[2017-08-31] MEDS: FLUTICASONE NASAL SPRAY 50 MCG/SPRY 120 SPRAY/16 GM NASL SCH (09:16)
[2017-08-31] MEDS: CARVEDILOL 3.125 MG TABLET PO SCH ×2 (09:20→21:16)
[2017-08-31] MEDS: CEFTRIAXONE 1 GM/D5W RTU 1 GM/50 ML RTUPB IV SCH (09:21)
--- NOTE | 2017-08-31 12:45 | PDOC PROGRESS REPORT ---
Subjective Progress Note for:: 08/31/17 Subjective:: Complains of some shortness of breath. Physical Exam Vital Signs: Temp Pulse Resp BP Pulse Ox 98.8 F 63 19 130/49 H 100 08/31/17 08:20 08/31/17 08:20 08/31/17 08:20 08/31/17 08:20 08/31/17 08:20 Intake & Output 08/30/17 08/31/17 09/01/17 06:59 06:59 06:59 Intake Total 695 1366 Balance 695 1366 Weight 99 kg 100.7 kg General appearance: PRESENT: no acute distress Eye exam: PRESENT: conjunctiva pink. ABSENT: scleral icterus Mouth exam: PRESENT: moist, tongue midline Neck exam: ABSENT: JVD Respiratory exam: PRESENT: crackles - Right basilar crackles., wheezes - Scattered expiratory wheezes. ABSENT: rales, rhonchi Cardiovascular exam: PRESENT: RRR. ABSENT: diastolic murmur, rubs, systolic murmur GI/Abdominal exam: PRESENT: normal bowel sounds, soft. ABSENT: distended, guarding, mass, organolmegaly, rebound, tenderness Extremities exam: ABSENT: calf tenderness, clubbing, pedal edema Neurological exam: PRESENT: alert, awake, oriented to person, oriented to place , oriented to time, oriented to situation, CN II-XII grossly intact. ABSENT: motor sensory deficit Psychiatric exam: PRESENT: appropriate affect Skin exam: PRESENT: dry, intact, warm. ABSENT: cyanosis, rash Results Laboratory Results: 08/30/17 12:35 08/30/17 12:35 08/30/17 08/30/17 12:35 12:35 WBC 11.3 H RBC 3.57 L Hgb 10.4 L Hct 31.9 L MCV 89 MCH 29.2 MCHC 32.7 RDW 14.5 H Plt Count 171 Seg Neutrophils % 87.9 H Lymphocytes % 7.1 L Monocytes % 4.7 Eosinophils % 0.1 Basophils % 0.2 Absolute Neutrophils 10.0 H Absolute Lymphocytes 0.8 Absolute Monocytes 0.5 Absolute Eosinophils 0.0 Absolute Basophils 0.0 Sodium 140.3 Potassium 4.4 Chloride 106 Carbon Dioxide 21 L Anion Gap 13 BUN 30 H Creatinine 2.35 H Est GFR ( Amer) 25 L Est GFR (Non-Af Amer) 20 L Glucose 198 H Calcium 8.8 08/29/17 08/29/17 08/30/17 18:20 23:30 12:35 Troponin I 0.029 0.021 NT-Pro-B Natriuret Pep 4290 H Impressions: Chest X-Ray 08/30/17 06:00 IMPRESSION: NEW PATCHY AIRSPACE OPACITIES WITHIN THE RIGHT GREATER THAN LEFT UPPER LOBE SUGGESTIVE OF DEVELOPING PNEUMONIA. Assessment & Plan - Diagnosis (1) Reactive airway disease with acute exacerbation Is this a current diagnosis for this admission?: Yes Plan: Secondary to the underlying pneumonia. We will continue with the steroids as well as the Zithromax and Rocephin. (2) Pneumonia Qualifiers: Pneumonia type: due to unspecified organism Laterality: unspecified laterality Lung location: unspecified part of lung Qualified Code(s): J18.9 - Pneumonia, unspecified organism Is this a current diagnosis for this admission?: Yes Plan: Patient most likely has gram-positive pneumonia. Will continue with Rocephin and Zithromax. (3) Renal insufficiency Is this a current diagnosis for this admission?: Yes Plan: Patient has acute on chronic renal failure stage IV. Possibly secondary to diuresis. (4) Acute on chronic diastolic (congestive) heart failure Is this a current diagnosis for this admission?: Yes Plan: The patient has symptoms consistent with congestive heart failure including pulmonary edema, cardiomegaly but echocardiogram shows no evidence for systolic or diastolic dysfunction. (5) UTI (urinary tract infection) Qualifiers: Urinary tract infection type: site unspecified Hematuria presence: without hematuria Qualified Code(s): N39.0 - Urinary tract infection, site not specified Is this a current diagnosis for this admission?: Yes Plan: Patient is growing out E. coli. Continue with Rocephin. (6) Hypertension Qualifiers: Hypertension type: essential hypertension Qualified Code(s): I10 - Essential (primary) hypertension Is this a current diagnosis for this admission?: Yes Plan: Patient's blood pressure is stable. (7) Morbid obesity Is this a current diagnosis for this admission?: Yes (8) Diabetes mellitus type 2 in obese Is this a current diagnosis for this admission?: Yes Plan: Continue with sliding scale insulin. (9) Hyperlipidemia Qualifiers: Hyperlipidemia type: unspecified Qualified Code(s): E78.5 - Hyperlipidemia , unspecified Is this a current diagnosis for this admission?: Yes - Time Time Spent with patient: 25-34 minutes - Inpatient Certification Medical Necessity: Need for IV Antibiotics
[2017-08-31] MEDS: BENAZEPRIL HCL 20 MG TABLET PO SCH (21:16)
[2017-08-31] MEDS: AZITHROMYCIN 500 MG in DEXTROSE 5%-WATER 250 ML IV SCH (21:22)
[2017-09-01 04:53] LABS: ABSOLUTE LYMPHOCYTES (AUTO) 0.9 10^3/uL (0.5-4.7); ABSOLUTE MONOCYTES (AUTO) 0.4 10^3/uL (0.1-1.4); ABSOLUTE NEUT (AUTO) 12.3 10^3/uL (1.7-8.2); BASOPHILS % (AUTO) 0.1 % (0-2); HEMATOCRIT 28.8 % (36.0-47.0); HEMOGLOBIN 9.7 g/dL (12.0-15.5); HGB HCT DIFFERENCE 0.3; LYMPHOCYTES % (AUTO) 6.7 % (13-45); MEAN CORPUSCULAR HEMOGLOBIN 29.5 pg (27.0-33.4); MEAN CORPUSCULAR HGB CONC 33.6 g/dL (32.0-36.0); MEAN CORPUSCULAR VOLUME 88 fl (80-97); MONOCYTES % (AUTO) 2.7 % (3-13); RED BLOOD COUNT 3.27 10^6/uL (3.72-5.28); RED CELL DISTRIBUTION WIDTH 14.3 % (11.5-14.0); SEGMENTED NEUTROPHILS % (AUTO) 90.5 % (42-78); WHITE BLOOD COUNT 13.6 10^3/uL (4.0-10.5)
[2017-09-01 05:14] LABS: ANION GAP 8 (5-19); BLOOD UREA NITROGEN 50 mg/dL (7-20); CALCIUM 8.7 mg/dL (8.4-10.2); CARBON DIOXIDE 22 mmol/L (22-30); CHLORIDE 102 mmol/L (98-107); CREATININE RESULT 2.49 mg/dL (0.52-1.25); GLUCOSE 198 mg/dL (75-110); POTASSIUM 5.7 mmol/L (3.6-5.0); SODIUM 132.1 mmol/L (137-145)
[2017-09-01] MEDS: HYDRALAZINE HCL 50 MG TABLET PO SCH ×3 (06:30→21:43)
[2017-09-01] MEDS: LANSOPRAZOLE 30 MG TAB.RAP.DR PO SCH (10:36)
[2017-09-01] MEDS: ENOXAPARIN SODIUM INJ 40 MG/0.4 ML DISP.SYRIN SUBCUT SCH (10:36)
[2017-09-01] MEDS: CITALOPRAM HYDROBROMIDE 20 MG TABLET PO SCH (10:36)
[2017-09-01] MEDS: PREDNISONE 20 MG TABLET PO SCH ×2 (10:37→17:10)
[2017-09-01] MEDS: CEFTRIAXONE 1 GM/D5W RTU 1 GM/50 ML RTUPB IV SCH (10:37)
[2017-09-01] MEDS: CARVEDILOL 3.125 MG TABLET PO SCH ×2 (10:37→21:43)
[2017-09-01] MEDS: FLUTICASONE NASAL SPRAY 50 MCG/SPRY 120 SPRAY/16 GM NASL SCH (10:37)
[2017-09-01] MEDS: GABAPENTIN 400 MG CAPSULE PO SCH ×2 (10:37→21:43)
[2017-09-01] MEDS: LEVOTHYROXINE SODIUM 0.088 MG TABLET PO SCH (10:37)
--- NOTE | 2017-09-01 11:57 | PDOC PROGRESS REPORT ---
Subjective Progress Note for:: 09/01/17 Subjective:: Complains of some shortness of breath. Physical Exam Vital Signs: Temp Pulse Resp BP Pulse Ox 98.3 F 66 16 164/66 H 99 09/01/17 07:21 09/01/17 09:56 09/01/17 09:56 09/01/17 07:21 09/01/17 09:56 Intake & Output 08/31/17 09/01/17 09/02/17 06:59 06:59 06:59 Intake Total 1366 1321 Balance 1366 1321 Weight 100.7 kg 100.6 kg General appearance: PRESENT: no acute distress Eye exam: PRESENT: conjunctiva pink. ABSENT: scleral icterus Mouth exam: PRESENT: moist, tongue midline Neck exam: ABSENT: JVD Respiratory exam: PRESENT: clear to auscultation apollo. ABSENT: rales, rhonchi, wheezes Cardiovascular exam: PRESENT: RRR, systolic murmur - 2/6 systolic murmur.. ABSENT: diastolic murmur, rubs GI/Abdominal exam: PRESENT: normal bowel sounds, soft. ABSENT: distended, guarding, mass, organolmegaly, rebound, tenderness Extremities exam: ABSENT: calf tenderness, clubbing, pedal edema Neurological exam: PRESENT: alert, awake, oriented to person, oriented to place , oriented to time, oriented to situation, CN II-XII grossly intact. ABSENT: motor sensory deficit Psychiatric exam: PRESENT: appropriate affect Skin exam: PRESENT: dry, intact, warm. ABSENT: cyanosis, rash Results Laboratory Results: 09/01/17 04:02 09/01/17 04:02 09/01/17 09/01/17 04:02 04:02 WBC 13.6 H RBC 3.27 L Hgb 9.7 L Hct 28.8 L MCV 88 MCH 29.5 MCHC 33.6 RDW 14.3 H Plt Count 171 Seg Neutrophils % 90.5 H Lymphocytes % 6.7 L Monocytes % 2.7 L Eosinophils % 0.0 Basophils % 0.1 Absolute Neutrophils 12.3 H Absolute Lymphocytes 0.9 Absolute Monocytes 0.4 Absolute Eosinophils 0.0 Absolute Basophils 0.0 Sodium 132.1 L Potassium 5.7 H Chloride 102 Carbon Dioxide 22 Anion Gap 8 BUN 50 H Creatinine 2.49 H Est GFR ( Amer) 23 L Est GFR (Non-Af Amer) 19 L Glucose 198 H Calcium 8.7 08/29/17 08/29/17 08/30/17 18:20 23:30 12:35 Troponin I 0.029 0.021 NT-Pro-B Natriuret Pep 4290 H Impressions: Chest X-Ray 08/30/17 06:00 IMPRESSION: NEW PATCHY AIRSPACE OPACITIES WITHIN THE RIGHT GREATER THAN LEFT UPPER LOBE SUGGESTIVE OF DEVELOPING PNEUMONIA. Assessment & Plan - Diagnosis (1) Reactive airway disease with acute exacerbation Is this a current diagnosis for this admission?: Yes Plan: Secondary to the underlying pneumonia. We will continue with the steroids as well as the Zithromax and Rocephin. (2) Pneumonia Qualifiers: Pneumonia type: due to unspecified organism Laterality: unspecified laterality Lung location: unspecified part of lung Qualified Code(s): J18.9 - Pneumonia, unspecified organism Is this a current diagnosis for this admission?: Yes Plan: Patient most likely has gram-positive pneumonia. Will continue with Rocephin and Zithromax. If she continues to improve we can hopefully discharge home tomorrow. (3) Renal insufficiency Is this a current diagnosis for this admission?: Yes Plan: Patient has acute on chronic renal failure stage IV. Probably secondary to diuresis. Renal function remained stable. (4) Acute on chronic diastolic (congestive) heart failure Is this a current diagnosis for this admission?: Yes Plan: The patient has symptoms consistent with congestive heart failure including pulmonary edema, cardiomegaly but echocardiogram shows no evidence for systolic or diastolic dysfunction. (5) UTI (urinary tract infection) Qualifiers: Urinary tract infection type: site unspecified Hematuria presence: without hematuria Qualified Code(s): N39.0 - Urinary tract infection, site not specified Is this a current diagnosis for this admission?: Yes Plan: Patient is growing out E. coli. Continue with Rocephin. (6) Hypertension Qualifiers: Hypertension type: essential hypertension Qualified Code(s): I10 - Essential (primary) hypertension Is this a current diagnosis for this admission?: Yes Plan: Patient's blood pressure is stable. (7) Morbid obesity Is this a current diagnosis for this admission?: Yes (8) Diabetes mellitus type 2 in obese Is this a current diagnosis for this admission?: Yes Plan: Continue with sliding scale insulin. (9) Hyperlipidemia Qualifiers: Hyperlipidemia type: unspecified Qualified Code(s): E78.5 - Hyperlipidemia , unspecified Is this a current diagnosis for this admission?: Yes - Time Time Spent with patient: 25-34 minutes - Inpatient Certification Medical Necessity: Need for IV Antibiotics - Plan Summary Plan Summary: If the patient does well we can hopefully discharge home tomorrow. Will have physical therapy come by and see the patient will be able to go home or will need to go to rehab.
[2017-09-01] MEDS: INSULIN LISPRO 100 UNIT/ML 3 ML VIAL SUBCUT PRN ×2 (17:35→23:51)
[2017-09-01] MEDS: BENAZEPRIL HCL 20 MG TABLET PO SCH (21:43)
[2017-09-01] MEDS ORDERED: AZITHROMYCIN 250 MG TABLET PO SCH (22:00)
[2017-09-02] MEDS: HYDRALAZINE HCL 50 MG TABLET PO SCH ×2 (05:50→16:05)
[2017-09-02 06:43] LABS: ANION GAP 9 (5-19); BLOOD UREA NITROGEN 45 mg/dL (7-20); CALCIUM 8.6 mg/dL (8.4-10.2); CARBON DIOXIDE 22 mmol/L (22-30); CHLORIDE 103 mmol/L (98-107); GLUCOSE 177 mg/dL (75-110); POTASSIUM 5.5 mmol/L (3.6-5.0)
[2017-09-02 07:01] LABS: HEMATOCRIT 28.7 % (36.0-47.0); HEMOGLOBIN 9.7 g/dL (12.0-15.5); HGB HCT DIFFERENCE 0.4; MEAN CORPUSCULAR HEMOGLOBIN 29.7 pg (27.0-33.4); MEAN CORPUSCULAR HGB CONC 33.7 g/dL (32.0-36.0); MEAN CORPUSCULAR VOLUME 88 fl (80-97); RED BLOOD COUNT 3.26 10^6/uL (3.72-5.28); RED CELL DISTRIBUTION WIDTH 13.9 % (11.5-14.0)
[2017-09-02 07:44] LABS: BAND NEUTROPHILS % (MANUAL) 1 % (3-5); BASOPHILS % (MANUAL) 0 % (0-2); EOSINOPHILS % (MANUAL) 0 % (0-6); LYMPHOCYTES % (MANUAL) 9 % (13-45); TOTAL CELLS COUNTED 100; TOXIC GRANULATION 2+; TOXIC VACUOLATION PRESENT
[2017-09-02 07:45] LABS: RBC MORPHOLOGY COMMENT NORMO-CYTIC/CHROMIC
[2017-09-02] MEDS: CITALOPRAM HYDROBROMIDE 20 MG TABLET PO SCH (09:51)
[2017-09-02] MEDS: CARVEDILOL 3.125 MG TABLET PO SCH (09:52)
[2017-09-02] MEDS: PREDNISONE 20 MG TABLET PO SCH (09:52)
[2017-09-02] MEDS: FLUTICASONE NASAL SPRAY 50 MCG/SPRY 120 SPRAY/16 GM NASL SCH (09:54)
[2017-09-02] MEDS: GABAPENTIN 400 MG CAPSULE PO SCH (09:57)
[2017-09-02] MEDS: LANSOPRAZOLE 30 MG TAB.RAP.DR PO SCH (09:58)
[2017-09-02] MEDS: CEFTRIAXONE 1 GM/D5W RTU 1 GM/50 ML RTUPB IV SCH (09:59)
[2017-09-02] MEDS: ENOXAPARIN SODIUM INJ 40 MG/0.4 ML DISP.SYRIN SUBCUT SCH (10:02)
[2017-09-02] MEDS: LEVOTHYROXINE SODIUM 0.088 MG TABLET PO SCH (10:38)
[2017-09-02] MEDS ORDERED: IPRATROPIUM/ALBUTEROL 0.5-2.5 MG/3 ML AMPUL NEB PRN (11:00)
--- NOTE | 2017-09-02 16:30 | PDOC DISCHARGE SUMMARY ---
General - Admit/Disc Date/PCP Admission Date/Primary Care Provider: 08/29/17 16:55 REED Danisha JAIR Discharge Date: 09/02/17 - Discharge Diagnosis (1) Reactive airway disease with acute exacerbation Is this a current diagnosis for this admission?: Yes (2) Pneumonia Is this a current diagnosis for this admission?: Yes (3) Renal insufficiency Is this a current diagnosis for this admission?: Yes Summary: Chronic renal failure stage III (4) Acute on chronic diastolic (congestive) heart failure Is this a current diagnosis for this admission?: Yes Summary: The patient had symptoms consistent with congestive heart failure however echocardiogram showed normal systolic and diastolic function. (5) UTI (urinary tract infection) Is this a current diagnosis for this admission?: Yes Summary: Patient is growing E. coli from the urine culture (6) Hypertension Is this a current diagnosis for this admission?: Yes (7) Morbid obesity Is this a current diagnosis for this admission?: Yes (8) Diabetes mellitus type 2 in obese Is this a current diagnosis for this admission?: Yes (9) Hyperlipidemia Is this a current diagnosis for this admission?: Yes - Additional Information Resuscitation Status: Full Code Discharge Diet: Cardiac, Diabetic Discharge Activity: Activity As Tolerated, Balance Activity w/Rest, Weigh Daily Home Medications: Albuterol Sulfate [Proair HFA Inhalation Aerosol 8.5 gm MDI] 1 puff IH Q4HP PRN 08/29/17 Benazepril HCl [Lotensin 20 mg Tablet] 20 mg PO QHS 08/29/17 Carvedilol [Coreg 3.125 mg Tablet] 3.125 mg PO Q12 08/29/17 Citalopram Hydrobromide [Celexa 40 mg Tablet] 40 mg PO DAILY 08/29/17 Fluticasone Propionate [Flonase Nasal [place] 50 Mcg/[place] 16 gm] 2 sprays NASL DAILY 08/29/17 Furosemide [Lasix 20 mg Tablet] 20 mg PO BID 08/29/17 Gabapentin [Neurontin 400 mg Capsule] 400 mg PO Q12 08/29/17 Glimepiride [Amaryl] 2 mg PO BID 08/29/17 Hydralazine HCl [Apresoline 50 mg Tablet] 50 mg PO Q8 08/29/17 Levothyroxine Sodium [Synthroid 0.088 mg Tablet] 88 mcg PO DAILY 08/29/17 Omeprazole 20 mg PO DAILY 08/29/17 Cefuroxime Axetil [Ceftin 500 mg Tablet] 1 tab PO BID #20 tablet 09/02/17 Flu Vacc [id number] 36Mos Up/Pf [Fluzone Adlt Quad [id number] Vac 0.5 ml Syr] 0.5 ml IM .DISCHARGE PRN disp.syrin 09/02/17 Oxycodone HCl/Acetaminophen [Percocet 5-325 mg Tablet] 1.5 tab PO Q8HP PRN #7 tablet 09/02/17 Prednisone [Deltasone 20 mg Tablet] 10 mg PO DAILY #39 tablet 09/02/17 History of Present Illness History of Present Illness: WANG LAWSON is a 72 year old female who presents with a one-week history of feeling weak and tired. The patient also has had problems with shortness of breath and was found to be hypoxic in the 80s when she presented. The patient has a history of reactive airway disease also. She also reports a history of congestive heart failure and has had some weight gain. Patient also does have sleep apnea and uses a CPAP at home. Patient is admitted for treatment of the hypoxia and presumed pneumonia. Hospital Course Hospital Course: 72-year-old female admitted with pneumonia and reactive airway disease. The patient was started on IV antibiotics and her sputum and blood cultures were negative. Patient also was given IV steroids and had improvement in her respiratory status. There was concern over her reported history of congestive heart failure and echocardiogram was done. Echocardiogram showed normal systolic and diastolic function. The patient with IV steroids and antibiotics improved on the day of discharge she was back to her baseline respiratory status. She does have a history of obstructive sleep apnea and her echocardiogram did show some mild pulmonary hypertension which may be contributing to some of her shortness of breath. Patient's other medical problems including diabetes and hypertension were stable during his hospitalization. Physical Exam Vital Signs: Temp Pulse Resp BP Pulse Ox 98.5 F 64 28 H 153/47 H 96 09/02/17 11:36 09/02/17 11:36 09/02/17 11:36 09/02/17 11:36 09/02/17 11:36 Intake & Output 09/01/17 09/02/17 09/03/17 06:59 06:59 06:59 Intake Total 1321 1324 Balance 1321 1324 Weight 100.6 kg 96.3 kg General appearance: PRESENT: no acute distress Eye exam: PRESENT: conjunctiva pink. ABSENT: scleral icterus Mouth exam: PRESENT: moist, tongue midline Neck exam: ABSENT: JVD Respiratory exam: PRESENT: clear to auscultation apollo. ABSENT: rales, rhonchi, wheezes Cardiovascular exam: PRESENT: RRR. ABSENT: diastolic murmur, rubs, systolic murmur GI/Abdominal exam: PRESENT: normal bowel sounds, soft. ABSENT: distended, guarding, mass, organolmegaly, rebound, tenderness Extremities exam: ABSENT: calf tenderness, clubbing, pedal edema Neurological exam: PRESENT: alert, awake, oriented to person, oriented to place , oriented to time, oriented to situation, CN II-XII grossly intact. ABSENT: motor sensory deficit Psychiatric exam: PRESENT: appropriate affect Skin exam: PRESENT: dry, intact, warm. ABSENT: cyanosis, rash Results Laboratory Results: 09/02/17 05:46 09/02/17 05:46 09/02/17 09/02/17 05:46 05:46 WBC 12.0 H RBC 3.26 L Hgb 9.7 L Hct 28.7 L MCV 88 MCH 29.7 MCHC 33.7 RDW 13.9 Plt Count 162 Seg Neutrophils % Not Reportable Lymphocytes % Not Reportable Monocytes % Not Reportable Eosinophils % Not Reportable Basophils % Not Reportable Absolute Neutrophils Not Reportable Absolute Lymphocytes Not Reportable Absolute Monocytes Not Reportable Absolute Eosinophils Not Reportable Absolute Basophils Not Reportable Sodium 134.0 L Potassium 5.5 H Chloride 103 Carbon Dioxide 22 Anion Gap 9 BUN 45 H Creatinine 1.70 H Est GFR ( Amer) 36 L Est GFR (Non-Af Amer) 30 L Glucose 177 H Calcium 8.6 08/29/17 08/29/17 08/30/17 18:20 23:30 12:35 Troponin I 0.029 0.021 NT-Pro-B Natriuret Pep 4290 H Impressions: Chest X-Ray 08/30/17 06:00 IMPRESSION: NEW PATCHY AIRSPACE OPACITIES WITHIN THE RIGHT GREATER THAN LEFT UPPER LOBE SUGGESTIVE OF DEVELOPING PNEUMONIA. Qualifiers PATEINT BEING DISCHARGED WITH ANY OF THE FOLLOWING DIAGNOSIS?: No Plan Discharge Plan: Patient is discharged home with follow-up with her primary care in 2 weeks. Time Spent: Greater than 30 Minutes
[2017-09-02] MEDS: INSULIN LISPRO 100 UNIT/ML 3 ML VIAL SUBCUT PRN (16:31)
[2017-09-02 16:49] VITALS: BP 153/59
[2017-09-03] MEDS ORDERED: LEVOTHYROXINE SODIUM 0.088 MG TABLET PO SCH (06:00)
[2017-09-03] MEDS ORDERED: LANSOPRAZOLE 30 MG TAB.RAP.DR PO SCH (06:00)
== END 2017-09-02 17:37 | disposition home or self-care (01) | DRG 291 ==
LOC: ER 12:31 → EH 15:44 → UNDOADMIN 15:44 → EH 16:55 → 3N 17:28 → 4W 09-01 18:25
PROVIDERS: ADMIT Pediatrics; ATTEND Pediatrics
PROC: 3E0F73Z Introduction of Anti-inflammatory into Respiratory Tract, Via Natural or Artificial Opening (ICD-10-PCS; principal; 2017-08-29)
PROC: 3E0234Z Introduction of Serum, Toxoid and Vaccine into Muscle, Percutaneous Approach (ICD-10-PCS; 2017-09-02)
DX: I13.0 Hypertensive heart and chronic kidney disease with heart failure and stage 1 through stage 4 chronic kidney disease, or unspecified chronic kidney disease (principal); I50.33 Acute on chronic diastolic (congestive) heart failure; J15.9 Unspecified bacterial pneumonia; J45.901 Unspecified asthma with (acute) exacerbation; N39.0 Urinary tract infection, site not specified; N18.4 Chronic kidney disease, stage 4 (severe); B96.20 Unspecified Escherichia coli [E. coli] as the cause of diseases classified elsewhere; Z66 Do not resuscitate; I27.20 Pulmonary hypertension, unspecified; E78.5 Hyperlipidemia, unspecified; E66.01 Morbid (severe) obesity due to excess calories; Z68.37 Body mass index [BMI] 37.0-37.9, adult; L30.9 Dermatitis, unspecified; M19.90 Unspecified osteoarthritis, unspecified site; F32.9 Major depressive disorder, single episode, unspecified; D63.1 Anemia in chronic kidney disease; E11.649 Type 2 diabetes mellitus with hypoglycemia without coma; K21.9 Gastro-esophageal reflux disease without esophagitis; Z88.3 Allergy status to other anti-infective agents; Z79.84 Long term (current) use of oral hypoglycemic drugs; Z88.2 Allergy status to sulfonamides; Z88.6 Allergy status to analgesic agent; Z23 Encounter for immunization; Z79.899 Other long term (current) drug therapy; Z87.891 Personal history of nicotine dependence; I25.2 Old myocardial infarction; Z86.11 Personal history of tuberculosis; Z90.710 Acquired absence of both cervix and uterus; Z82.49 Family history of ischemic heart disease and other diseases of the circulatory system; Z80.1 Family history of malignant neoplasm of trachea, bronchus and lung
CPT/HCPCS: 36415; 71010; 71020; 80048; 80053; 81001; 82962; 83036; 83880; 84443; 84484; 85025; 87040; 87086; 87088; 87186; 90686; 93005; 93010; 93306; 94640; 96365; 99285; G8978-GP; G8979-GP; J0456; J0696; J1650; J1815; J3490; J7060; J7512; J7620; S0119

== ENCOUNTER → 2017-10-08 | Outpatient (CLI) | payer MEDICARE ==
--- NOTE | 2017-10-08 17:06 | RADIOLOGY REPORT (SQ) ---
EXAM DESCRIPTION: CHEST PA/LATERAL COMPLETED DATE/TIME: 10/08/2017 4:54 pm REASON FOR STUDY: PNEUMONIA, UNSPECIFIED ORGANISM COMPARISON: Two-view chest 08/30/2017, 08/29/2017, 10/25/2016 CT chest 10/27/2016 EXAM PARAMETERS: NUMBER OF VIEWS: two views TECHNIQUE: Digital Frontal and Lateral radiographic views of the chest acquired. RADIATION DOSE: NA LIMITATIONS: none FINDINGS: LUNGS AND PLEURA: There is bandlike airspace disease at both bases likely atelectasis. Baker perimposed pneumonia could not entirely be excluded. No pleural effusions. No pneumothorax. No perihilar airspace disease worrisome for pulmonary edema. MEDIASTINUM AND HILAR STRUCTURES: No masses or contour abnormalities. HEART AND VASCULAR STRUCTURES: Heart normal size. No evidence for failure. BONES: No acute findings. HARDWARE: None in the chest. OTHER: No other significant finding. IMPRESSION: Bibasilar bandlike atelectasis. Pneumonia could not entirely be excluded TECHNICAL DOCUMENTATION: JOB ID: [id number] [employer]- All Rights Reserved
== END ==
LOC: OD 16:31
PROVIDERS: ATTEND Family Medicine
DX: J18.9 Pneumonia, unspecified organism (principal)
CPT/HCPCS: 71020

== ENCOUNTER 2017-12-10 14:03 | Inpatient (IN) | payer MEDICARE ==
[2017-12-10] MEDS ORDERED: ALBUTEROL SULFATE 0.083% NEB 2.5 MG/3 ML AMPUL NEB ONE (14:43)
[2017-12-10] MEDS ORDERED: AZITHROMYCIN INJ 500 MG VIAL IV ONE (14:44)
--- NOTE | 2017-12-10 14:45 | ER Document Report ---
ED Fall - General Chief Complaint: Fever Stated Complaint: FALL,FEVER Time Seen by Provider: 12/10/17 14:31 Mode of Arrival: Medic Information source: Patient Notes: Patient is a 72-year-old female with COPD who lives at home with her granddaughter who presents to the ER today for shortness of breath since this morning, cough for approximately 2-3 days that has been dry and being altered per granddaughter this morning. Granddaughter states that she was slower to answer questions and at first would not answer any of her questions and just seemed confused. Patient is not normally like this at all. She denies any burning with urination, abdominal pain, fever or chills. She had a fever when the ambulance brought her in of 103.5F and they gave her Tylenol on the ambulance. She did not realize she had a fever but admits to some chills. Granddaughter states that she did slide out of her bed and had a mild fall but patient denies pain anywhere. Patient does not really remember this. TRAVEL OUTSIDE OF THE [place] IN LAST 30 DAYS: No - Related data Allergies/Adverse Reactions: Sulfa (Sulfonamide Antibiotics) Allergy (Unknown, Verified 08/29/17 12:40) levofloxacin [From Levaquin] Allergy (Verified 08/29/17 12:40) morphine [Morphine] Adverse Reaction (Severe, Verified 08/29/17 12:40) aspirin Adverse Reaction (Verified 08/29/17 12:40) Past Medical History - General Information source: Patient, Relative - Social History Smoking Status: Former Smoker Family History: Hypertension, Other - Aneurysm in the mother, lung cancer in the father - Past Medical History Cardiac Medical History: Reports: Hx Congestive Heart Failure, Hx Coronary Artery Disease, Hx Heart Attack, Hx Hypercholesterolemia, Hx Hypertension, Hx Heart Murmur Pulmonary Medical History: Reports: Hx Asthma, Hx Bronchitis, Hx COPD, Hx Pneumonia, Hx Tuberculosis Neurological Medical History: Reports: Hx Seizures. Denies: Hx Cerebrovascular Accident Endocrine Medical History: Reports: Hx Diabetes Mellitus Type 1, Hx Diabetes Mellitus Type 2, Hx Hyperthyroidism, Hx Hypothyroidism Renal/ Medical History: Reports: Hx End Stage Renal Disease, Hx Renal Insufficiency. Denies: Hx Peritoneal Dialysis GI Medical History: Reports: Hx Cirrhosis, Hx Gastroesophageal Reflux Disease, Hx Hepatitis Musculoskeltal Medical History: Reports Hx Arthritis Skin Medical History: Reports Hx Eczema Psychiatric Medical History: Reports: Hx Depression Infectious Medical History: Reports: Hx Hepatitis Past Surgical History: Reports: Hx Appendectomy, Hx Hysterectomy, Hx Orthopedic Surgery - b.l feet, Hx Pacemaker, Other - Bilat cataract and ankle surgery. - Immunizations Hx Diphtheria, Pertussis, Tetanus Vaccination: No Review of Systems - Review of Systems Constitutional: See HPI EENT: No symptoms reported Cardiovascular: No symptoms reported Respiratory: See HPI Gastrointestinal: No symptoms reported Genitourinary: No symptoms reported Female Genitourinary: No symptoms reported Musculoskeletal: No symptoms reported Skin: No symptoms reported Hematologic/Lymphatic: No symptoms reported Neurological/Psychological: No symptoms reported Physical Exam - Vital signs Vitals: Temp Resp Pulse Ox 102.7 F H 16 95 12/10/17 14:54 12/10/17 14:54 12/10/17 14:54 - Notes Notes: PHYSICAL EXAMINATION: GENERAL: Chronically ill-appearing, mildly acutely ill-appearing, but in no acute distress. HEAD: Atraumatic, normocephalic. EYES: Pupils equal round and reactive to light, extraocular movements intact, sclera anicteric, conjunctiva are normal. ENT: ear canals without erythema or foreign body, TMs pearly santizo with good bony landmarks, nares patent, oropharynx clear without exudates. Moist mucous membranes. Airway patent NECK: Normal range of motion, supple without lymphadenopathy LUNGS: Mild expiratory wheezing throughout, no rales or rhonchi. HEART: Regular rate and rhythm without murmurs ABDOMEN: Soft, no tenderness. No guarding, no rebound BACK: no vertebral tenderness, normal ROM GI/: no CVA tenderness EXTREMITIES: Normal range of motion, no pitting edema. No cyanosis. NEUROLOGICAL: Cranial nerves grossly intact. Normal sensory/motor exams. PSYCH: Normal mood, normal affect. SKIN: Warm, Dry, normal turgor, no rashes or lesions noted Course - Re-evaluation Re-evalutation: 12/10/17 15:47 27 white blood cells and small leukocytes on urinalysis reveals urinary tract infection, urine was very strong smelling in the room, chest x-ray reports a right lower lobe pneumonia. Patient is on 2 L of oxygen here, and was picked up to 86% on room air by ambulance. Azithromycin and Rocephin both given here in the emergency department to treat for pneumonia and UTI. Patient given fluids. Patient given albuterol treatment and doing a little better. Patient is alert and oriented 3, answering all my questions appropriately. Dr. Rose, hospitalist agrees to admit at this time. - Vital Signs Vital signs: Temp Pulse Resp BP Pulse Ox 102.7 F H 15 97 12/10/17 14:54 12/10/17 15:00 12/10/17 15:00 - Laboratory Result Diagrams: 12/10/17 14:46 12/10/17 14:46 Laboratory results interpreted by me: 12/10/17 12/10/17 12/10/17 14:46 14:46 14:46 RBC 3.47 L Hgb 10.5 L Hct 30.7 L Plt Count 122 L Seg Neutrophils % 81.6 H Lymphocytes % 9.3 L Sodium 135.7 L BUN 55 H Creatinine 2.26 H Est GFR ( Amer) 26 L Est GFR (Non-Af Amer) 21 L Glucose 215 H Direct Bilirubin 0.6 H Total Protein 6.0 L Albumin 3.3 L Urine Protein 100 H Ur Leukocyte Esterase SMALL H Discharge - Discharge Clinical Impression: Pneumonia Qualifiers: Pneumonia type: due to unspecified organism Laterality: right Lung location: lower lobe of lung Qualified Code(s): J18.1 - Lobar pneumonia, unspecified organism UTI (urinary tract infection) Qualifiers: Urinary tract infection type: site unspecified Hematuria presence: without hematuria Qualified Code(s): N39.0 - Urinary tract infection, site not specified Condition: Stable Disposition: ADMITTED INPATIENT Admitting Provider: Hospitalist - Dr. Rose Unit Admitted: Medical Floor
[2017-12-10 15:06] LABS: VENOUS BLOOD BASE EXCESS 1.3 mmol/L; VENOUS BLOOD PCO2 52.7 mmHg (35-63); VENOUS BLOOD PH 7.34 (7.30-7.42)
[2017-12-10 15:13] LABS: APPEARANCE,URINE SLIGHTLY-CLOUDY; BILIRUBIN,URINE NEGATIVE (NEGATIVE); COLOR,URINE YELLOW; GLUCOSE, URINE NEGATIVE (NEGATIVE); KETONES,URINE NEGATIVE (NEGATIVE); LEUKOCYTE ESTERASE,URINE SMALL (NEGATIVE); NITRITE,URINE NEGATIVE (NEGATIVE); PROTEIN,URINE 100 mg/dL (NEGATIVE); URINE SPECIFIC GRAVITY 1.012; UROBILINOGEN,URINE NEGATIVE mg/dL (<2.0)
[2017-12-10 15:14] LABS: ABSOLUTE BASOPHILS # (AUTO) 0.1 10^3/uL (0.0-0.2); ABSOLUTE EOSINOPHILS # (AUTO) 0.1 10^3/uL (0.0-0.6); ABSOLUTE LYMPHOCYTES (AUTO) 0.7 10^3/uL (0.5-4.7); ABSOLUTE MONOCYTES (AUTO) 0.6 10^3/uL (0.1-1.4); ABSOLUTE NEUT (AUTO) 6.1 10^3/uL (1.7-8.2); BASOPHILS % (AUTO) 0.8 % (0-2); EOSINOPHILS % (AUTO) 0.9 % (0-6); HEMATOCRIT 30.7 % (36.0-47.0); HEMOGLOBIN 10.5 g/dL (12.0-15.5); LYMPHOCYTES % (AUTO) 9.3 % (13-45); MEAN CORPUSCULAR HEMOGLOBIN 30.1 pg (27.0-33.4); MEAN CORPUSCULAR HGB CONC 34.1 g/dL (32.0-36.0); MEAN CORPUSCULAR VOLUME 88 fl (80-97); MONOCYTES % (AUTO) 7.4 % (3-13); PLATELET COUNT 122 10^3/uL (150-450); RED BLOOD COUNT 3.47 10^6/uL (3.72-5.28); RED CELL DISTRIBUTION WIDTH 13.7 % (11.5-14.0); SEGMENTED NEUTROPHILS % (AUTO) 81.6 % (42-78); TOTAL CELLS COUNTED % (AUTO) 100 %; WHITE BLOOD COUNT 7.5 10^3/uL (4.0-10.5)
[2017-12-10] MEDS ORDERED: CEFTRIAXONE 1 GM/D5W RTU 1 GM/50 ML RTUPB IV ONE (15:22)
[2017-12-10 15:24] LABS: ALANINE AMINOTRANSFERASE 16 U/L (9-52); ALBUMIN 3.3 g/dL (3.5-5.0); ALKALINE PHOSPHATASE 70 U/L (38-126); ANION GAP 8 (5-19); ASPARTATE AMINO TRANSFERASE 21 U/L (14-36); BILIRUBIN,DIRECT 0.6 mg/dL (0.0-0.4); BILIRUBIN,TOTAL 0.8 mg/dL (0.2-1.3); BLOOD UREA NITROGEN 55 mg/dL (7-20); CALCIUM 8.6 mg/dL (8.4-10.2); CARBON DIOXIDE 27 mmol/L (22-30); CHLORIDE 101 mmol/L (98-107); CREATINE KINASE 108 U/L (30-135); GLUCOSE 215 mg/dL (75-110); SODIUM 135.7 mmol/L (137-145)
--- NOTE | 2017-12-10 15:31 | RADIOLOGY REPORT (SQ) ---
EXAM DESCRIPTION: CHEST SINGLE VIEW COMPLETED DATE/TIME: 12/10/2017 3:21 pm REASON FOR STUDY: fall, fever COMPARISON: 10/08/2017 EXAM PARAMETERS: NUMBER OF VIEWS: One view. TECHNIQUE: Single frontal radiographic view of the chest acquired. RADIATION DOSE: NA LIMITATIONS: None. FINDINGS: LUNGS AND PLEURA: Segmental airspace disease in the right lower lung, either lower lobe or lateral segment of the middle lobe. Left lung is clear. No large effusions. MEDIASTINUM AND HILAR STRUCTURES: No masses. Contour normal. HEART AND VASCULAR STRUCTURES: Stable cardiomegaly. BONES: No acute findings. HARDWARE: None in the chest. OTHER: No other significant finding. IMPRESSION: Right lower lobe pneumonia. TECHNICAL DOCUMENTATION: JOB ID: [id number] [employer]- All Rights Reserved
[2017-12-10] MEDS ORDERED: CEFTRIAXONE INJ 1000 MG VIAL ONE (15:40)
[2017-12-10 15:43] LABS: TROPONIN I 0.025 ng/mL
[2017-12-10] MEDS ORDERED: ALBUTEROL SULFATE 0.083% NEB 2.5 MG/3 ML AMPUL NEB PRN (15:43)
[2017-12-10] MEDS ORDERED: ZOLPIDEM TARTRATE 5 MG TABLET PO PRN (15:43)
[2017-12-10 15:44] LABS: CREATINE KINASE MB < 0.22 ng/mL (<4.55)
[2017-12-10] MEDS ORDERED: GLUCAGON,HUMAN RECOMB 1 MG INJ IM PRN (15:51)
[2017-12-10] MEDS ORDERED: DEXTROSE 40% GEL 15 GM TUBE PO PRN ×2 (15:51)
[2017-12-10] MEDS ORDERED: DEXTROSE 50%-WATER 25 GM/50 ML DISP.SYRIN IV PRN ×2 (15:51)
[2017-12-10] MEDS ORDERED: PIPERACILLIN/TAZOBACTAM 3.375 GM VIAL IV SCH (16:00)
--- NOTE | 2017-12-10 16:24 | PDOC H&P ---
History of Present Illness Patient complains of: Weakness for a couple of days History of Present Illness: WANG LAWSON is a 72 year old female arrived to emergency room via ambulance and accompanied by daughter. Patient states that she had been getting weak for the past couple of days. Weakness had been so severe that she had fallen on her knees. She denies hitting her head. She also denies losing consciousness. When EMS arrived to her house with him pressure was 103 and pulse ox was 88%. She has been having cough which has been worse at night. She also admits that sometimes she chokes on food. Patient complains of pain in her chest and points to the mid epigastric area and has been getting some chills. She has a history of pneumonia, diabetes and high blood pressure. She also has a history of congestive heart failure. During the course of evaluation in emergency room chest x-ray demonstrated a right lower lobe pneumonia and patient persisted being hypoxic prompting to consult the hospitalist service. Patient was evaluated and admitted for further management Past Medical History Cardiac Medical History: Reports: Congestive Heart Failure, Coronary Artery Disease, Myocardial Infarction, Hyperlipidema, Hypertension, Heart Murmur Pulmonary Medical History: Reports: Asthma, Bronchitis, Chronic Obstructive Pulmonary Disease (COPD), Pneumonia, Tuberculosis EENT Medical History: Reports: None Neurological Medical History: Reports: None, Seizures Endocrine Medical History: Reports: Diabetes Mellitus Type 2, Hypothyroidism Renal/ Medical History: Reports: End Stage Renal Disease GI Medical History: Reports: Cirrhosis, Gastroesophageal Reflux Disease, Hepatitis Musculoskeltal Medical History: Reports: Arthritis Skin Medical History: Reports: Eczema Psychiatric Medical History: Reports: Depression Traumatic Medical History: Reports: None Hematology: Reports: Anemia Infectious Medical History: Reports: None Past Surgical History Past Surgical History: Reports: Appendectomy, Hysterectomy, Orthopedic Surgery - b.l feet, Pacemaker, Other - Bilat cataract and ankle surgery. Social History Smoking Status: Former Smoker Frequency of Alcohol Use: None Hx Recreational Drug Use: No Drugs: None Hx Prescription Drug Abuse: No - Advance Directive Resuscitation Status: Do Not Resuscitate Family History Family History: Hypertension, Other - Aneurysm in the mother, lung cancer in the father Parental Family History Reviewed: Yes Children Family History Reviewed: Yes Sibling(s) Family History Reviewed.: Yes Medication/Allergy Home Medications: Albuterol Sulfate [Proair HFA Inhalation Aerosol 8.5 gm MDI] 1 puff IH Q4HP PRN 08/29/17 Benazepril HCl [Lotensin 20 mg Tablet] 20 mg PO QHS 08/29/17 Carvedilol [Coreg 3.125 mg Tablet] 3.125 mg PO Q12 08/29/17 Citalopram Hydrobromide [Celexa 40 mg Tablet] 40 mg PO DAILY 08/29/17 Fluticasone Propionate [Flonase Nasal [place] 50 Mcg/[place] 16 gm] 2 sprays NASL DAILY 08/29/17 Furosemide [Lasix 20 mg Tablet] 20 mg PO BID 08/29/17 Gabapentin [Neurontin 400 mg Capsule] 400 mg PO Q12 08/29/17 Glimepiride [Amaryl] 2 mg PO BID 08/29/17 Hydralazine HCl [Apresoline 50 mg Tablet] 50 mg PO Q8 08/29/17 Levothyroxine Sodium [Synthroid 0.088 mg Tablet] 88 mcg PO DAILY 08/29/17 Omeprazole 20 mg PO DAILY 08/29/17 Cefuroxime Axetil [Ceftin 500 mg Tablet] 1 tab PO BID #20 tablet 09/02/17 Flu Vacc [id number] Up/Pf [Fluzone Adlt Quad [id number] Vac 0.5 ml Syr] 0.5 ml IM .DISCHARGE PRN disp.syrin 09/02/17 Oxycodone HCl/Acetaminophen [Percocet 5-325 mg Tablet] 1.5 tab PO Q8HP PRN #7 tablet 09/02/17 Prednisone [Deltasone 20 mg Tablet] 10 mg PO DAILY #39 tablet 09/02/17 Allergies/Adverse Reactions: Sulfa (Sulfonamide Antibiotics) Allergy (Unknown, Verified 08/29/17 12:40) levofloxacin [From Levaquin] Allergy (Verified 08/29/17 12:40) morphine [Morphine] Adverse Reaction (Severe, Verified 08/29/17 12:40) aspirin Adverse Reaction (Verified 08/29/17 12:40) Review of Systems Constitutional: PRESENT: chills, fever(s) Eyes: ABSENT: visual disturbances Ears: ABSENT: hearing changes Nose, Mouth, and Throat: ABSENT: mouth pain, sore throat Cardiovascular: PRESENT: chest pain, edema. ABSENT: palpitations Respiratory: PRESENT: cough. ABSENT: dyspnea, hemoptysis Gastrointestinal: ABSENT: abdominal pain, nausea, vomiting Genitourinary: ABSENT: difficulty urinating, dysuria, hematuria Musculoskeletal: PRESENT: deformity, muscle weakness. ABSENT: back pain Neurological: PRESENT: dizziness, frequent falls, weakness Endocrine: ABSENT: polyphagia, polyuria Physical Exam Vital Signs: Temp Pulse Resp BP Pulse Ox 102.7 F H 15 97 12/10/17 14:54 12/10/17 15:00 12/10/17 15:00 General appearance: PRESENT: cooperative, obese Head exam: PRESENT: atraumatic, normocephalic Eye exam: PRESENT: conjunctiva pink, EOMI, PERRLA Ear exam: PRESENT: normal external ear exam Mouth exam: PRESENT: moist Neck exam: PRESENT: full ROM. ABSENT: JVD, lymphadenopathy, tenderness Respiratory exam: PRESENT: crackles, other - Adequate movement of air Cardiovascular exam: PRESENT: RRR, systolic murmur. ABSENT: diastolic murmur Vascular exam: PRESENT: normal capillary refill GI/Abdominal exam: PRESENT: normal bowel sounds, soft. ABSENT: tenderness Extremities exam: PRESENT: full ROM, +2 edema Musculoskeletal exam: PRESENT: ambulatory Neurological exam: PRESENT: alert, awake, oriented to person, oriented to place , oriented to time, oriented to situation Psychiatric exam: PRESENT: appropriate affect, normal mood Skin exam: PRESENT: normal color Results Laboratory Results: 12/10/17 14:46 12/10/17 14:46 12/10/17 12/10/17 12/10/17 14:46 14:46 14:46 WBC 7.5 RBC 3.47 L Hgb 10.5 L Hct 30.7 L MCV 88 MCH 30.1 MCHC 34.1 RDW 13.7 Plt Count 122 L Seg Neutrophils % 81.6 H Lymphocytes % 9.3 L Monocytes % 7.4 Eosinophils % 0.9 Basophils % 0.8 Absolute Neutrophils 6.1 Absolute Lymphocytes 0.7 Absolute Monocytes 0.6 Absolute Eosinophils 0.1 Absolute Basophils 0.1 VBG pH VBG pCO2 VBG HCO3 VBG Base Excess Sodium 135.7 L Potassium 4.0 Chloride 101 Carbon Dioxide 27 Anion Gap 8 BUN 55 H Creatinine 2.26 H Est GFR ( Amer) 26 L Est GFR (Non-Af Amer) 21 L Glucose 215 H Lactic Acid 1.1 Calcium 8.6 Total Bilirubin 0.8 AST 21 ALT 16 Alkaline Phosphatase 70 Total Protein 6.0 L Albumin 3.3 L Urine Color Urine Appearance Urine pH Ur Specific [place] Urine Protein Urine Glucose (UA) Urine Ketones Urine Blood Urine Nitrite Ur Leukocyte Esterase Urine WBC (Auto) Urine RBC (Auto) 12/10/17 12/10/17 14:46 14:46 WBC RBC Hgb Hct MCV MCH MCHC RDW Plt Count Seg Neutrophils % Lymphocytes % Monocytes % Eosinophils % Basophils % Absolute Neutrophils Absolute Lymphocytes Absolute Monocytes Absolute Eosinophils Absolute Basophils VBG pH 7.34 VBG pCO2 52.7 VBG HCO3 28.0 VBG Base Excess 1.3 Sodium Potassium Chloride Carbon Dioxide Anion Gap BUN Creatinine Est GFR ( Amer) Est GFR (Non-Af Amer) Glucose Lactic Acid Calcium Total Bilirubin AST ALT Alkaline Phosphatase Total Protein Albumin Urine Color YELLOW Urine Appearance SLIGHTLY-CLOUDY Urine pH 6.0 Ur Specific [place] 1.012 Urine Protein 100 H Urine Glucose (UA) NEGATIVE Urine Ketones NEGATIVE Urine Blood NEGATIVE Urine Nitrite NEGATIVE Ur Leukocyte Esterase SMALL H Urine WBC (Auto) 27 Urine RBC (Auto) 0 12/10/17 12/10/17 14:46 14:46 Creatine Kinase 108 CK-MB (CK-2) < 0.22 Troponin I 0.025 Impressions: Chest X-Ray 12/10/17 14:32 IMPRESSION: Right lower lobe pneumonia. Assessment & Plan - Diagnosis (1) Acute on chronic kidney failure Qualifiers: Chronic kidney disease stage: stage 3 (moderate) Is this a current diagnosis for this admission?: Yes Plan: Will gently hydrate and trend (2) Pneumonia Qualifiers: Pneumonia type: due to unspecified organism Laterality: right Lung location: lower lobe of lung Qualified Code(s): J18.1 - Lobar pneumonia, unspecified organism Is this a current diagnosis for this admission?: Yes Plan: Patient will be placed on Zyvox and Zosyn due to relatively recent hospital admission. Will consult speech therapy to evaluate swallowing (3) Acute respiratory failure with hypoxemia Is this a current diagnosis for this admission?: Yes Plan: Will continue oxygen supplementation and will wean as tolerated (4) Anemia in chronic kidney disease (CKD) Qualifiers: Chronic kidney disease stage: stage 3 (moderate) Qualified Code(s): N18.3 - Chronic kidney disease, stage 3 (moderate); D63.1 - Anemia in chronic kidney disease; D63.1 - Anemia in chronic kidney disease Is this a current diagnosis for this admission?: Yes Plan: Will trend (5) COPD exacerbation Is this a current diagnosis for this admission?: Yes Plan: Patient will be placed on nebulizer treatment, IV steroids and Mucinex (6) Knee contusion Qualifiers: Encounter type: initial encounter Laterality: unspecified laterality Qualified Code(s): S80.00XA - Contusion of unspecified knee, initial encounter Is this a current diagnosis for this admission?: Yes Plan: Patient will need pain management and likely will need physical therapy (7) Diabetes Qualifiers: Diabetes mellitus type: type 2 Diabetes mellitus complication status: with unspecified complications Diabetes mellitus rat exterminator insulin use: without prison use Qualified Code(s): E11.8 - Type 2 diabetes mellitus with unspecified complications Is this a current diagnosis for this admission?: Yes Plan: Patient will be placed on Humalog sliding scale with bedside glucose before meals and at bedtime (8) Morbid obesity with BMI of 45.0-49.9, adult Is this a current diagnosis for this admission?: Yes Plan: Recommend lifestyle modification - Time Time Spent: 50 to 70 Minutes Medications reviewed and adjusted accordingly: Yes Anticipated discharge: Home with Homehealth Within: within 72 hours - Inpatient Certification Based on my medical assessment, after consideration of the patient's comorbidities, presenting symptoms, or acuity I expect that the services needed warrant INPATIENT care.: Yes I certify that my determination is in accordance with my understanding of Medicare's requirements for reasonable and necessary INPATIENT services [42 CFR 412.3e].: Yes Medical Necessity: Need For IV Fluids, Need for Nebulizer Therapy and Monitoring of Response, Need for IV Antibiotics
[2017-12-10] MEDS: NORMAL SALINE 1000 ML 1,000 ML IV PRN (16:36)
[2017-12-10] MEDS: GUAIFENESIN 600 MG TABLET.SA PO SCH (18:51)
[2017-12-10] MEDS: METHYLPREDNISOLONE INJ 40 MG/1 ML SDV IV SCH (18:52)
[2017-12-10] MEDS: ONDANSETRON HCL INJ/PF 4 MG/2 ML SDV IV PRN (19:13)
[2017-12-10] MEDS: OXYCODONE-ACETAMINOPHEN 5-325 MG TABLET PO PRN (19:14)
[2017-12-10] MEDS: IPRATROPIUM/ALBUTEROL 0.5-2.5 MG/3 ML AMPUL NEB SCH (20:27)
[2017-12-10] MEDS ORDERED: LINEZOLID 600 MG TABLET ONE (22:52)
[2017-12-10] MEDS ORDERED: PIPERACILLIN/TAZOBACTAM 3.375 GM VIAL IV ONE (22:53)
[2017-12-10] MEDS: PIPERACILLIN SODIUM/TAZOBACTAM 3.375 GM in NORMAL SALINE 100 ML IV SCH (23:32)
[2017-12-10] MEDS: LINEZOLID 600 MG TABLET PO SCH (23:47)
[2017-12-11] MEDS: METHYLPREDNISOLONE INJ 40 MG/1 ML SDV IV SCH ×4 (04:57→21:20)
[2017-12-11 05:11] LABS: ABSOLUTE LYMPHOCYTES (AUTO) 0.5 10^3/uL (0.5-4.7); ABSOLUTE MONOCYTES (AUTO) 0.1 10^3/uL (0.1-1.4); ABSOLUTE NEUT (AUTO) 6.9 10^3/uL (1.7-8.2); BASOPHILS % (AUTO) 0.2 % (0-2); HEMATOCRIT 31.3 % (36.0-47.0); HEMOGLOBIN 10.5 g/dL (12.0-15.5); LYMPHOCYTES % (AUTO) 6.8 % (13-45); MEAN CORPUSCULAR HGB CONC 33.5 g/dL (32.0-36.0); MEAN CORPUSCULAR VOLUME 90 fl (80-97); MONOCYTES % (AUTO) 1.3 % (3-13); PLATELET COUNT 128 10^3/uL (150-450); RED CELL DISTRIBUTION WIDTH 13.7 % (11.5-14.0); SEGMENTED NEUTROPHILS % (AUTO) 91.7 % (42-78); TOTAL CELLS COUNTED % (AUTO) 100 %; WHITE BLOOD COUNT 7.5 10^3/uL (4.0-10.5)
[2017-12-11 05:27] LABS: ANION GAP 11 (5-19); BLOOD UREA NITROGEN 50 mg/dL (7-20); CARBON DIOXIDE 26 mmol/L (22-30); CHLORIDE 99 mmol/L (98-107); GLUCOSE 287 mg/dL (75-110); POTASSIUM 4.4 mmol/L (3.6-5.0); SODIUM 135.8 mmol/L (137-145)
[2017-12-11] MEDS: PIPERACILLIN SODIUM/TAZOBACTAM 3.375 GM in NORMAL SALINE 100 ML IV SCH ×3 (06:15→21:20)
[2017-12-11] MEDS: ONDANSETRON HCL INJ/PF 4 MG/2 ML SDV IV PRN (07:55)
[2017-12-11] MEDS: INSULIN LISPRO 100 UNIT/ML 3 ML VIAL SUBCUT PRN ×4 (08:19→21:33)
[2017-12-11] MEDS: IPRATROPIUM/ALBUTEROL 0.5-2.5 MG/3 ML AMPUL NEB SCH ×3 (09:15→20:07)
--- NOTE | 2017-12-11 09:55 | EKG REPORT ---
SEVERITY:- OTHERWISE NORMAL ECG - SINUS RHYTHM LEFT AXIS DEVIATION : Confirmed by: Hetal Pat 11-Dec-2017 09:55:05
[2017-12-11] MEDS ORDERED: ENOXAPARIN SODIUM INJ 40 MG/0.4 ML DISP.SYRIN SUBCUT SCH (10:00)
[2017-12-11] MEDS: ENOXAPARIN SODIUM INJ 30 MG/0.3 ML DISP.SYRIN SUBCUT SCH (10:14)
[2017-12-11] MEDS: LINEZOLID 600 MG TABLET PO SCH ×2 (10:17→21:20)
[2017-12-11] MEDS: DOCUSATE SODIUM 100 MG CAPSULE PO SCH (10:17)
[2017-12-11] MEDS: GUAIFENESIN 600 MG TABLET.SA PO SCH ×2 (10:17→17:43)
[2017-12-11] MEDS: NORMAL SALINE 1000 ML 1,000 ML IV PRN (10:18)
--- NOTE | 2017-12-11 13:54 | PDOC PROGRESS REPORT ---
Subjective Progress Note for:: 12/11/17 Subjective:: SUMMARY: Per H&P - "WANG LAWSON is a 72 year old female arrived to emergency room via ambulance and accompanied by daughter. Patient states that she had been getting weak for the past couple of days. Weakness had been so severe that she had fallen on her knees. She denies hitting her head. She also denies losing consciousness. When EMS arrived to her house with him pressure was 103 and pulse ox was 88%. She has been having cough which has been worse at night. She also admits that sometimes she chokes on food. Patient complains of pain in her chest and points to the mid epigastric area and has been getting some chills. She has a history of pneumonia, diabetes and high blood pressure. She also has a history of congestive heart failure. During the course of evaluation in emergency room chest x-ray demonstrated a right lower lobe pneumonia and patient persisted being hypoxic prompting to consult the hospitalist service. Patient was evaluated and admitted for further management " reports she is feeling some better this morning. still with cough, fatigue and breathlessness with minimal movement. denies chest pain, palpitations, fever/ chills, abd pain, n/v/d. ROS: all systems reviewedd, see above , remaining systems negative. Reason For Visit: PNEUMONIA Physical Exam Vital Signs: Temp Pulse Resp BP Pulse Ox 97.7 F 58 L 16 154/45 H 97 12/11/17 11:49 12/11/17 11:49 12/11/17 11:49 12/11/17 11:49 12/11/17 11:49 Intake & Output 12/10/17 12/11/17 12/12/17 06:59 06:59 06:59 Intake Total 100 36 Output Total 500 Balance -400 36 Weight 90.7 kg General appearance: PRESENT: no acute distress, obese, well-developed Head exam: PRESENT: atraumatic, normocephalic Eye exam: ABSENT: conjunctival injection, scleral icterus Neck exam: PRESENT: full ROM. ABSENT: tenderness Respiratory exam: PRESENT: rales - R>L, unlabored. ABSENT: accessory muscle use , wheezes Cardiovascular exam: PRESENT: RRR, systolic murmur Pulses: PRESENT: normal radial pulses GI/Abdominal exam: PRESENT: normal bowel sounds, soft. ABSENT: tenderness Extremities exam: PRESENT: pedal edema - trace. ABSENT: calf tenderness Neurological exam: PRESENT: alert, awake, oriented to person, oriented to place , oriented to situation Psychiatric exam: PRESENT: appropriate affect, normal mood Skin exam: PRESENT: warm Results Laboratory Results: 12/11/17 03:54 12/11/17 03:54 12/11/17 12/11/17 03:54 03:54 WBC 7.5 RBC 3.50 L Hgb 10.5 L Hct 31.3 L MCV 90 MCH 30.0 MCHC 33.5 RDW 13.7 Plt Count 128 L Seg Neutrophils % 91.7 H Lymphocytes % 6.8 L Monocytes % 1.3 L Eosinophils % 0.0 Basophils % 0.2 Absolute Neutrophils 6.9 Absolute Lymphocytes 0.5 Absolute Monocytes 0.1 Absolute Eosinophils 0.0 Absolute Basophils 0.0 Sodium 135.8 L Potassium 4.4 Chloride 99 Carbon Dioxide 26 Anion Gap 11 BUN 50 H Creatinine 2.13 H Est GFR ( Amer) 28 L Est GFR (Non-Af Amer) 23 L Glucose 287 H Calcium 9.0 Magnesium 1.8 Impressions: Chest X-Ray 12/10/17 14:32 IMPRESSION: Right lower lobe pneumonia. Status: Imported from PACS Assessment & Plan - Diagnosis (1) Acute on chronic kidney failure Qualifiers: Chronic kidney disease stage: stage 3 (moderate) Is this a current diagnosis for this admission?: Yes Plan: improved with IVFs and back to baseline. (2) Diabetes Qualifiers: Diabetes mellitus type: type 2 Diabetes mellitus complication status: with unspecified complications Diabetes mellitus correction insulin use: without terminal gauger use Qualified Code(s): E11.8 - Type 2 diabetes mellitus with unspecified complications Is this a current diagnosis for this admission?: Yes Plan: worse, BSs elevated due to systemic steroids use and sulfonylurea on hold due to worsening renal function. add low dose basal insulin and monitor for response (3) Knee contusion Qualifiers: Encounter type: initial encounter Laterality: unspecified laterality Qualified Code(s): S80.00XA - Contusion of unspecified knee, initial encounter Is this a current diagnosis for this admission?: Yes Plan: topical care and PT as tolerated (4) Pneumonia Qualifiers: Pneumonia type: due to unspecified organism Laterality: right Lung location: lower lobe of lung Qualified Code(s): J18.1 - Lobar pneumonia, unspecified organism Is this a current diagnosis for this admission?: Yes Plan: agree with broad spectrum abx, initial cultures still pending, de-escalate abx as her cultures and condition will allow. (5) Acute respiratory failure with hypoxemia Is this a current diagnosis for this admission?: Yes Plan: oimproved but not back to baseline; continue towean O2 as tolerated (6) Anemia in chronic kidney disease (CKD) Qualifiers: Chronic kidney disease stage: stage 3 (moderate) Qualified Code(s): N18.3 - Chronic kidney disease, stage 3 (moderate); D63.1 - Anemia in chronic kidney disease; D63.1 - Anemia in chronic kidney disease Is this a current diagnosis for this admission?: Yes Plan: stable H/H - Time Time Spent with patient: 35 or more minutes Medications reviewed and adjusted accordingly: Yes - Plan Summary Plan Summary: last echo reviewed 08/2017 shows EF 60% and only mild valvular HD
[2017-12-11] MEDS: INSULIN GLARGINE,HUM.REC.ANLOG 300 UNIT/3 ML INSULN.PEN SUBCUT SCH (21:20)
[2017-12-11] MEDS: ACETAMINOPHEN 325 MG TABLET PO PRN (21:33)
[2017-12-12] MEDS: METHYLPREDNISOLONE INJ 40 MG/1 ML SDV IV SCH ×3 (06:15→23:01)
[2017-12-12] MEDS: PIPERACILLIN SODIUM/TAZOBACTAM 3.375 GM in NORMAL SALINE 100 ML IV SCH ×3 (06:15→23:01)
[2017-12-12] MEDS: INSULIN LISPRO 100 UNIT/ML 3 ML VIAL SUBCUT PRN ×4 (06:33→23:21)
[2017-12-12] MEDS: IPRATROPIUM/ALBUTEROL 0.5-2.5 MG/3 ML AMPUL NEB SCH ×3 (08:58→20:40)
[2017-12-12] MEDS: ENOXAPARIN SODIUM INJ 30 MG/0.3 ML DISP.SYRIN SUBCUT SCH (09:46)
[2017-12-12] MEDS: GUAIFENESIN 600 MG TABLET.SA PO SCH ×2 (09:46→17:22)
[2017-12-12] MEDS: DOCUSATE SODIUM 100 MG CAPSULE PO SCH (09:46)
[2017-12-12] MEDS: LINEZOLID 600 MG TABLET PO SCH ×2 (09:46→23:01)
[2017-12-12] MEDS ORDERED: POLYVINYL ALCOHOL 1.4% OPH SOLN 15 ML OU PRN (10:54)
[2017-12-12] MEDS: HYDRALAZINE HCL 50 MG TABLET PO SCH ×2 (13:38→23:00)
[2017-12-12] MEDS ORDERED: HYDRALAZINE HCL 25 MG TABLET PO SCH (14:00)
--- NOTE | 2017-12-12 15:06 | PDOC PROGRESS REPORT ---
Subjective Progress Note for:: 12/12/17 Subjective:: SUMMARY: Per H&P - "WANG LAWSON is a 72 year old female arrived to emergency room via ambulance and accompanied by daughter. Patient states that she had been getting weak for the past couple of days. Weakness had been so severe that she had fallen on her knees. She denies hitting her head. She also denies losing consciousness. When EMS arrived to her house with him pressure was 103 and pulse ox was 88%. She has been having cough which has been worse at night. She also admits that sometimes she chokes on food. Patient complains of pain in her chest and points to the mid epigastric area and has been getting some chills. She has a history of pneumonia, diabetes and high blood pressure. She also has a history of congestive heart failure. During the course of evaluation in emergency room chest x-ray demonstrated a right lower lobe pneumonia and patient persisted being hypoxic prompting to consult the hospitalist service. Patient was evaluated and admitted for further management " reports she is feeling some better again this morning. still with cough, fatigue and breathlessness with minimal movement though she is getting out of bed to toilet with minimal assistance. denies chest pain, palpitations, fever/ chills, abd pain, n/v/d. c/o dry eyes ROS: all systems reviewed, see above , remaining systems negative. Reason For Visit: PNEUMONIA Physical Exam Vital Signs: Temp Pulse Resp BP Pulse Ox 97.9 F 66 18 167/61 H 98 12/12/17 12:01 12/12/17 12:01 12/12/17 12:01 12/12/17 12:01 12/12/17 12:01 Intake & Output 12/11/17 12/12/17 12/13/17 06:59 06:59 06:59 Intake Total 100 1601 0 Output Total 500 1450 Balance -400 151 0 Weight 90.7 kg 101.7 kg General appearance: PRESENT: no acute distress, obese, well-developed Head exam: PRESENT: atraumatic, normocephalic Eye exam: ABSENT: conjunctival injection, scleral icterus Neck exam: PRESENT: full ROM. ABSENT: tenderness Respiratory exam: PRESENT: rales - R>L, unlabored. ABSENT: accessory muscle use , wheezes and rhonchi Cardiovascular exam: PRESENT: RRR, systolic murmur as before Pulses: PRESENT: normal radial pulses GI/Abdominal exam: PRESENT: normal bowel sounds, soft. ABSENT: tenderness Extremities exam: PRESENT: pedal edema - trace. ABSENT: calf tenderness Neurological exam: PRESENT: alert, awake, oriented to person, oriented to place , oriented to situation Psychiatric exam: PRESENT: appropriate affect, normal mood Skin exam: PRESENT: warm Results Laboratory Results: 12/11/17 03:54 12/11/17 03:54 Assessment & Plan - Diagnosis (1) Pneumonia Qualifiers: Pneumonia type: due to unspecified organism Laterality: right Lung location: lower lobe of lung Qualified Code(s): J18.1 - Lobar pneumonia, unspecified organism Is this a current diagnosis for this admission?: Yes Plan: agree with broad spectrum abx (zosyn/zyvox), initial cultures still pending with 1 of 2 blood showing GPC, de-escalate abx as her cultures and condition will allow. repeat bld cultures pending (2) Acute on chronic kidney failure Qualifiers: Chronic kidney disease stage: stage 3 (moderate) Is this a current diagnosis for this admission?: Yes Plan: improved with IVFs and likely back to baseline; saline lock IVFS and ck again in am. (3) Acute respiratory failure with hypoxemia Is this a current diagnosis for this admission?: Yes Plan: improved but not back to baseline; continue steroids, nebs and wean O2 as tolerated (4) Diabetes Qualifiers: Diabetes mellitus type: type 2 Diabetes mellitus complication status: with unspecified complications Diabetes mellitus longterm insulin use: without longterm use Qualified Code(s): E11.8 - Type 2 diabetes mellitus with unspecified complications Is this a current diagnosis for this admission?: Yes (5) Knee contusion Qualifiers: Encounter type: initial encounter Laterality: unspecified laterality Qualified Code(s): S80.00XA - Contusion of unspecified knee, initial encounter Is this a current diagnosis for this admission?: Yes (6) Anemia in chronic kidney disease (CKD) Qualifiers: Chronic kidney disease stage: stage 3 (moderate) Qualified Code(s): N18.3 - Chronic kidney disease, stage 3 (moderate); D63.1 - Anemia in chronic kidney disease; D63.1 - Anemia in chronic kidney disease Is this a current diagnosis for this admission?: Yes (7) UTI due to Klebsiella species Is this a current diagnosis for this admission?: Yes Plan: asymptomatic; should be covered by current abx, f/u on final susc's - Time Time Spent with patient: 25-34 minutes - Plan Summary Plan Summary: may need rehab depending on how she progressed with PT when they arrive to see her starting Wednesday; will need rolling walker at least
[2017-12-12] MEDS: CARVEDILOL 3.125 MG TABLET PO SCH (23:00)
[2017-12-12] MEDS: GABAPENTIN 300 MG CAPSULE PO SCH (23:00)
[2017-12-12] MEDS: INSULIN GLARGINE,HUM.REC.ANLOG 300 UNIT/3 ML INSULN.PEN SUBCUT SCH (23:01)
[2017-12-12] MEDS: ACETAMINOPHEN 325 MG TABLET PO PRN (23:21)
[2017-12-13] MEDS: LEVOTHYROXINE SODIUM 0.088 MG TABLET PO SCH (06:50)
[2017-12-13] MEDS: HYDRALAZINE HCL 50 MG TABLET PO SCH ×3 (06:50→23:00)
[2017-12-13] MEDS: METHYLPREDNISOLONE INJ 40 MG/1 ML SDV IV SCH ×3 (06:52→23:03)
[2017-12-13] MEDS: PIPERACILLIN SODIUM/TAZOBACTAM 3.375 GM in NORMAL SALINE 100 ML IV SCH ×3 (06:52→23:03)
[2017-12-13 07:27] LABS: HEMATOCRIT 28.3 % (36.0-47.0); HEMOGLOBIN 9.6 g/dL (12.0-15.5); MEAN CORPUSCULAR HEMOGLOBIN 29.9 pg (27.0-33.4); MEAN CORPUSCULAR HGB CONC 33.9 g/dL (32.0-36.0); MEAN CORPUSCULAR VOLUME 88 fl (80-97); PLATELET COUNT 161 10^3/uL (150-450); RED CELL DISTRIBUTION WIDTH 13.9 % (11.5-14.0); WHITE BLOOD COUNT 10.5 10^3/uL (4.0-10.5)
[2017-12-13 07:50] LABS: ANION GAP 8 (5-19); BLOOD UREA NITROGEN 43 mg/dL (7-20); CALCIUM 8.9 mg/dL (8.4-10.2); CARBON DIOXIDE 24 mmol/L (22-30); CHLORIDE 107 mmol/L (98-107); GLUCOSE 170 mg/dL (75-110); POTASSIUM 4.6 mmol/L (3.6-5.0); SODIUM 139.2 mmol/L (137-145)
[2017-12-13] MEDS: INSULIN LISPRO 100 UNIT/ML 3 ML VIAL SUBCUT PRN ×3 (08:29→17:30)
[2017-12-13] MEDS: IPRATROPIUM/ALBUTEROL 0.5-2.5 MG/3 ML AMPUL NEB SCH ×3 (08:38→20:46)
[2017-12-13] MEDS: GUAIFENESIN 600 MG TABLET.SA PO SCH ×2 (10:52→17:17)
[2017-12-13] MEDS: CARVEDILOL 3.125 MG TABLET PO SCH ×2 (10:52→23:02)
[2017-12-13] MEDS: ENOXAPARIN SODIUM INJ 30 MG/0.3 ML DISP.SYRIN SUBCUT SCH (10:52)
[2017-12-13] MEDS: LINEZOLID 600 MG TABLET PO SCH ×2 (10:52→23:01)
[2017-12-13] MEDS: GABAPENTIN 300 MG CAPSULE PO SCH ×2 (10:52→23:02)
[2017-12-13] MEDS: DOCUSATE SODIUM 100 MG CAPSULE PO SCH (11:09)
--- NOTE | 2017-12-13 20:40 | PDOC PROGRESS REPORT ---
Subjective Progress Note for:: 12/13/17 Subjective:: This is a follow-up visit for pneumonia. Patient states she is feeling better this evening. No acute events overnight. Reason For Visit: PNEUMONIA Physical Exam Vital Signs: Temp Pulse Resp BP Pulse Ox 98.0 F 76 16 132/57 H 100 12/13/17 15:24 12/13/17 15:24 12/13/17 15:24 12/13/17 15:24 12/13/17 15:24 Intake & Output 12/12/17 12/13/17 12/14/17 06:59 06:59 06:59 Intake Total 1601 1390 1514 Output Total 1450 Balance 151 1390 1514 Weight 101.7 kg 102.6 kg GENERAL: This is a well-developed obese white female resting in bed currently in no acute distress. HEART: Regular rate and rhythm. 2 out of 6 systolic ejection murmur. No rubs or gallops. LUNGS: Bibasilar crackles with equal rise and fall of the chest. ABDOMEN: Soft, nontender, nondistended with normoactive bowel sounds EXTREMETIES: No clubbing, cyanosis or edema. 2+ peripheral pulses bilaterally. NEURO: Awake, alert and oriented 3. Cranial nerves II through XII are grossly intact. Results Laboratory Results: 12/13/17 06:44 12/13/17 06:44 12/13/17 12/13/17 06:44 06:44 WBC 10.5 RBC 3.20 L Hgb 9.6 L Hct 28.3 L MCV 88 MCH 29.9 MCHC 33.9 RDW 13.9 Plt Count 161 Sodium 139.2 Potassium 4.6 Chloride 107 Carbon Dioxide 24 Anion Gap 8 BUN 43 H Creatinine 1.94 H Est GFR ( Amer) 31 L Est GFR (Non-Af Amer) 26 L Glucose 170 H Calcium 8.9 Impressions: Chest X-Ray 12/10/17 14:32 IMPRESSION: Right lower lobe pneumonia. Assessment & Plan - Diagnosis (1) Pneumonia Qualifiers: Pneumonia type: due to unspecified organism Laterality: right Lung location: lower lobe of lung Qualified Code(s): J18.1 - Lobar pneumonia, unspecified organism Is this a current diagnosis for this admission?: Yes Plan: Continue Linezolid, Solu-Medrol and Zosyn. This is due to gram-negative organisms. The patient does have recent admissions to the hospital. (2) Acute on chronic kidney failure Qualifiers: Chronic kidney disease stage: stage 3 (moderate) Is this a current diagnosis for this admission?: Yes Plan: Improved with fluids. Continue to monitor. (3) Diabetes Qualifiers: Diabetes mellitus type: type 2 Diabetes mellitus complication status: with neurologic complications Diabetes mellitus complication detail: with polyneuropathy Diabetes mellitus oysterman insulin use: without senior care use Qualified Code(s): E11.42 - Type 2 diabetes mellitus with diabetic polyneuropathy Is this a current diagnosis for this admission?: Yes Plan: Continue Lantus, sliding scale insulin and ADA diet. (4) Knee contusion Qualifiers: Encounter type: initial encounter Laterality: unspecified laterality Qualified Code(s): S80.00XA - Contusion of unspecified knee, initial encounter Is this a current diagnosis for this admission?: Yes Plan: Supportive care. (5) Morbid obesity with BMI of 45.0-49.9, adult Is this a current diagnosis for this admission?: Yes Plan: Weight loss with dietary changes and exercise as tolerated. (6) UTI due to Klebsiella species Is this a current diagnosis for this admission?: Yes Plan: Empiric coverage for pneumonia should also cover for Klebsiella. (7) Anemia in chronic kidney disease (CKD) Qualifiers: Chronic kidney disease stage: stage 3 (moderate) Qualified Code(s): N18.3 - Chronic kidney disease, stage 3 (moderate); D63.1 - Anemia in chronic kidney disease; D63.1 - Anemia in chronic kidney disease Is this a current diagnosis for this admission?: Yes Plan: Stable. - Time Time Spent with patient: 15-24 minutes
[2017-12-13] MEDS: INSULIN GLARGINE,HUM.REC.ANLOG 300 UNIT/3 ML INSULN.PEN SUBCUT SCH (22:00)
[2017-12-13] MEDS: ONDANSETRON HCL INJ/PF 4 MG/2 ML SDV IV PRN (23:42)
[2017-12-13] MEDS: OXYCODONE-ACETAMINOPHEN 5-325 MG TABLET PO PRN (23:42)
[2017-12-14] MEDS: INSULIN LISPRO 100 UNIT/ML 3 ML VIAL SUBCUT PRN ×4 (00:02→18:29)
[2017-12-14] MEDS: LEVOTHYROXINE SODIUM 0.088 MG TABLET PO SCH (06:29)
[2017-12-14] MEDS: HYDRALAZINE HCL 50 MG TABLET PO SCH ×2 (06:30→14:49)
[2017-12-14] MEDS: METHYLPREDNISOLONE INJ 40 MG/1 ML SDV IV SCH (06:31)
[2017-12-14] MEDS: PIPERACILLIN SODIUM/TAZOBACTAM 3.375 GM in NORMAL SALINE 100 ML IV SCH ×2 (06:31→13:12)
[2017-12-14 07:12] LABS: ABSOLUTE LYMPHOCYTES (AUTO) 0.8 10^3/uL (0.5-4.7); ABSOLUTE MONOCYTES (AUTO) 0.4 10^3/uL (0.1-1.4); ABSOLUTE NEUT (AUTO) 7.2 10^3/uL (1.7-8.2); BASOPHILS % (AUTO) 0.2 % (0-2); HEMATOCRIT 29.3 % (36.0-47.0); HEMOGLOBIN 9.8 g/dL (12.0-15.5); LYMPHOCYTES % (AUTO) 9.6 % (13-45); MEAN CORPUSCULAR HEMOGLOBIN 29.9 pg (27.0-33.4); MEAN CORPUSCULAR HGB CONC 33.5 g/dL (32.0-36.0); MEAN CORPUSCULAR VOLUME 89 fl (80-97); MONOCYTES % (AUTO) 4.8 % (3-13); PLATELET COUNT 170 10^3/uL (150-450); RED BLOOD COUNT 3.29 10^6/uL (3.72-5.28); RED CELL DISTRIBUTION WIDTH 14.4 % (11.5-14.0); SEGMENTED NEUTROPHILS % (AUTO) 85.4 % (42-78); TOTAL CELLS COUNTED % (AUTO) 100 %; WHITE BLOOD COUNT 8.4 10^3/uL (4.0-10.5)
[2017-12-14 07:26] LABS: ANION GAP 8 (5-19); BLOOD UREA NITROGEN 42 mg/dL (7-20); CALCIUM 8.5 mg/dL (8.4-10.2); CARBON DIOXIDE 25 mmol/L (22-30); CHLORIDE 106 mmol/L (98-107); GLUCOSE 164 mg/dL (75-110); SODIUM 139.4 mmol/L (137-145)
[2017-12-14] MEDS: IPRATROPIUM/ALBUTEROL 0.5-2.5 MG/3 ML AMPUL NEB SCH ×3 (09:28→21:02)
[2017-12-14] MEDS: GUAIFENESIN 600 MG TABLET.SA PO SCH ×2 (11:16→17:26)
[2017-12-14] MEDS: CARVEDILOL 3.125 MG TABLET PO SCH (11:17)
[2017-12-14] MEDS: LINEZOLID 600 MG TABLET PO SCH (11:17)
[2017-12-14] MEDS: ENOXAPARIN SODIUM INJ 30 MG/0.3 ML DISP.SYRIN SUBCUT SCH (11:17)
[2017-12-14] MEDS: GABAPENTIN 300 MG CAPSULE PO SCH (11:17)
[2017-12-14] MEDS ORDERED: INSULIN GLARGINE,HUM.REC.ANLOG 300 UNIT/3 ML INSULN.PEN SUBCUT SCH (11:46)
[2017-12-14] MEDS: DOCUSATE SODIUM 100 MG CAPSULE PO SCH (11:59)
--- NOTE | 2017-12-14 12:00 | PDOC PROGRESS REPORT ---
Subjective Progress Note for:: 12/14/17 Subjective:: Pt states that she is doing better. Pt states that she did not have to use oxygen this morning. Pt states that she took oxygen off today. Pt was sitting in recliner. Reason For Visit: PNEUMONIA Physical Exam Vital Signs: Temp Pulse Resp BP Pulse Ox 98.0 F 63 18 163/76 H 100 12/14/17 08:43 12/14/17 09:28 12/14/17 09:28 12/14/17 08:43 12/14/17 09:28 Intake & Output 12/13/17 12/14/17 12/15/17 06:59 06:59 06:59 Intake Total 1390 1764 Balance 1390 1764 Weight 102.6 kg 104.9 kg General appearance: PRESENT: no acute distress, well-developed, well-nourished, other - sitting in recliner. Head exam: PRESENT: atraumatic, normocephalic Eye exam: PRESENT: conjunctiva pink, EOMI. ABSENT: scleral icterus Ear exam: PRESENT: normal external ear exam Mouth exam: PRESENT: moist, tongue midline Neck exam: ABSENT: carotid bruit, JVD, lymphadenopathy, thyromegaly Respiratory exam: PRESENT: other - Good breath sounds heard in upper lobes, diminished at bases.. ABSENT: rales, rhonchi, wheezes Cardiovascular exam: PRESENT: RRR. ABSENT: diastolic murmur, rubs, systolic murmur Pulses: PRESENT: normal dorsalis pedis pul Vascular exam: PRESENT: normal capillary refill GI/Abdominal exam: PRESENT: normal bowel sounds, soft. ABSENT: distended, guarding, mass, organolmegaly, rebound, tenderness Rectal exam: PRESENT: deferred Extremities exam: PRESENT: full ROM. ABSENT: calf tenderness, clubbing, pedal edema Musculoskeletal exam: PRESENT: full ROM Neurological exam: PRESENT: alert, awake, oriented to person, oriented to place , oriented to time, oriented to situation, CN II-XII grossly intact. ABSENT: motor sensory deficit Psychiatric exam: PRESENT: appropriate affect, normal mood. ABSENT: homicidal ideation, suicidal ideation Skin exam: PRESENT: dry, intact, warm. ABSENT: cyanosis, rash Results Laboratory Results: 12/14/17 06:53 12/14/17 06:53 12/14/17 12/14/17 06:53 06:53 WBC 8.4 RBC 3.29 L Hgb 9.8 L Hct 29.3 L MCV 89 MCH 29.9 MCHC 33.5 RDW 14.4 H Plt Count 170 Seg Neutrophils % 85.4 H Lymphocytes % 9.6 L Monocytes % 4.8 Eosinophils % 0.0 Basophils % 0.2 Absolute Neutrophils 7.2 Absolute Lymphocytes 0.8 Absolute Monocytes 0.4 Absolute Eosinophils 0.0 Absolute Basophils 0.0 Sodium 139.4 Potassium 5.0 Chloride 106 Carbon Dioxide 25 Anion Gap 8 BUN 42 H Creatinine 1.82 H Est GFR ( Amer) 33 L Est GFR (Non-Af Amer) 27 L Glucose 164 H Calcium 8.5 Magnesium 2.0 Impressions: Chest X-Ray 12/10/17 14:32 IMPRESSION: Right lower lobe pneumonia. Assessment & Plan - Diagnosis (1) Acute on chronic kidney failure Qualifiers: Chronic kidney disease stage: stage 3 (moderate) Is this a current diagnosis for this admission?: Yes Plan: Baseline Cr 1.8: Resolved. (2) Diabetes Qualifiers: Diabetes mellitus type: type 2 Diabetes mellitus complication status: with neurologic complications Diabetes mellitus complication detail: with polyneuropathy Diabetes mellitus detention insulin use: without detention use Qualified Code(s): E11.42 - Type 2 diabetes mellitus with diabetic polyneuropathy Is this a current diagnosis for this admission?: Yes Plan: Will wean steroids to Q12 hours and increase lantus to 25 units SQ QHS. Will continue SSI. (3) Knee contusion Qualifiers: Encounter type: initial encounter Laterality: unspecified laterality Qualified Code(s): S80.00XA - Contusion of unspecified knee, initial encounter Is this a current diagnosis for this admission?: Yes Plan: Supportive care. (4) Morbid obesity with BMI of 45.0-49.9, adult Is this a current diagnosis for this admission?: Yes Plan: Encourage dietary changes. (5) Pneumonia Qualifiers: Pneumonia type: due to unspecified organism Laterality: right Lung location: lower lobe of lung Qualified Code(s): J18.1 - Lobar pneumonia, unspecified organism Is this a current diagnosis for this admission?: Yes Plan: Will continue current antibiotic. (6) UTI due to Klebsiella species Is this a current diagnosis for this admission?: Yes Plan: Will continue current treatment. (7) Acute respiratory failure with hypoxemia Is this a current diagnosis for this admission?: Yes Plan: Secondary to Pneumonia: Resolved. (8) Anemia in chronic kidney disease (CKD) Qualifiers: Chronic kidney disease stage: stage 3 (moderate) Qualified Code(s): N18.3 - Chronic kidney disease, stage 3 (moderate); D63.1 - Anemia in chronic kidney disease; D63.1 - Anemia in chronic kidney disease Is this a current diagnosis for this admission?: Yes Plan: Will continue to monitor. (9) COPD exacerbation Is this a current diagnosis for this admission?: Yes Plan: Will continue breathing treatments, wean steroids, and continue antibiotics - Time Time Spent with patient: 15-24 minutes - Plan for discharge tomorrow.
[2017-12-15] MEDS: GABAPENTIN 300 MG CAPSULE PO SCH ×2 (00:17→09:01)
[2017-12-15] MEDS: LINEZOLID 600 MG TABLET PO SCH ×2 (00:17→09:01)
[2017-12-15] MEDS: CARVEDILOL 3.125 MG TABLET PO SCH ×2 (00:18→09:01)
[2017-12-15] MEDS: HYDRALAZINE HCL 50 MG TABLET PO SCH ×2 (00:18→05:33)
[2017-12-15] MEDS: METHYLPREDNISOLONE INJ 40 MG/1 ML SDV IV SCH ×2 (00:20→09:01)
[2017-12-15] MEDS: PIPERACILLIN SODIUM/TAZOBACTAM 3.375 GM in NORMAL SALINE 100 ML IV SCH ×2 (00:20→05:33)
[2017-12-15] MEDS: ACETAMINOPHEN 325 MG TABLET PO PRN (02:44)
[2017-12-15] MEDS: LEVOTHYROXINE SODIUM 0.088 MG TABLET PO SCH (05:32)
[2017-12-15 08:08] LABS: ABSOLUTE LYMPHOCYTES (AUTO) 0.9 10^3/uL (0.5-4.7); ABSOLUTE MONOCYTES (AUTO) 0.3 10^3/uL (0.1-1.4); ABSOLUTE NEUT (AUTO) 9.7 10^3/uL (1.7-8.2); BASOPHILS % (AUTO) 0.2 % (0-2); HEMATOCRIT 31.4 % (36.0-47.0); HEMOGLOBIN 10.5 g/dL (12.0-15.5); MEAN CORPUSCULAR HEMOGLOBIN 29.9 pg (27.0-33.4); MEAN CORPUSCULAR HGB CONC 33.4 g/dL (32.0-36.0); MEAN CORPUSCULAR VOLUME 90 fl (80-97); MONOCYTES % (AUTO) 2.6 % (3-13); PLATELET COUNT 182 10^3/uL (150-450); RED BLOOD COUNT 3.49 10^6/uL (3.72-5.28); RED CELL DISTRIBUTION WIDTH 14.3 % (11.5-14.0); SEGMENTED NEUTROPHILS % (AUTO) 89.2 % (42-78); TOTAL CELLS COUNTED % (AUTO) 100 %; WHITE BLOOD COUNT 10.9 10^3/uL (4.0-10.5)
[2017-12-15] MEDS: IPRATROPIUM/ALBUTEROL 0.5-2.5 MG/3 ML AMPUL NEB SCH (08:23)
[2017-12-15 08:24] LABS: ALANINE AMINOTRANSFERASE 29 U/L (9-52); ALBUMIN 3.2 g/dL (3.5-5.0); ALKALINE PHOSPHATASE 48 U/L (38-126); ANION GAP 11 (5-19); ASPARTATE AMINO TRANSFERASE 23 U/L (14-36); BILIRUBIN,DIRECT 0.3 mg/dL (0.0-0.4); BILIRUBIN,TOTAL 0.6 mg/dL (0.2-1.3); BLOOD UREA NITROGEN 45 mg/dL (7-20); CALCIUM 8.5 mg/dL (8.4-10.2); CARBON DIOXIDE 22 mmol/L (22-30); CHLORIDE 108 mmol/L (98-107); GLUCOSE 150 mg/dL (75-110); POTASSIUM 5.1 mmol/L (3.6-5.0); TOTAL PROTEIN 5.1 g/dL (6.3-8.2)
[2017-12-15 08:50] VITALS: BP 150/53
[2017-12-15] MEDS: INSULIN LISPRO 100 UNIT/ML 3 ML VIAL SUBCUT PRN (09:00)
[2017-12-15] MEDS: GUAIFENESIN 600 MG TABLET.SA PO SCH (09:01)
[2017-12-15] MEDS: ENOXAPARIN SODIUM INJ 30 MG/0.3 ML DISP.SYRIN SUBCUT SCH (09:01)
[2017-12-15] MEDS: DOCUSATE SODIUM 100 MG CAPSULE PO SCH (09:02)
--- NOTE | 2017-12-31 16:51 | PDOC DISCHARGE SUMMARY ---
General - Admit/Disc Date/PCP Admission Date/Primary Care Provider: 12/10/17 16:00 Discharge Date: 12/15/17 - Discharge Diagnosis (1) Acute on chronic kidney failure Is this a current diagnosis for this admission?: Yes Summary: Resolved patient's kidney function is at baseline. (2) Diabetes Is this a current diagnosis for this admission?: Yes Summary: We will continue patient's current regimen. (3) Knee contusion Is this a current diagnosis for this admission?: Yes Summary: Supportive care (4) Morbid obesity with BMI of 45.0-49.9, adult Is this a current diagnosis for this admission?: Yes Summary: Encourage dietary changes (5) Pneumonia Is this a current diagnosis for this admission?: Yes (6) UTI due to Klebsiella species Is this a current diagnosis for this admission?: Yes Summary: She discharged home on antibiotic (7) Acute respiratory failure with hypoxemia Is this a current diagnosis for this admission?: Yes (8) Anemia in chronic kidney disease (CKD) Is this a current diagnosis for this admission?: Yes (9) COPD exacerbation Is this a current diagnosis for this admission?: Yes - Additional Information Resuscitation Status: Do Not Resuscitate Discharge Diet: Cardiac, Diabetic Discharge Activity: Activity As Tolerated Home Medications: Benazepril HCl [Lotensin 20 mg Tablet] 20 mg PO QHS 12/30/17 Carvedilol [Coreg 3.125 mg Tablet] 3.125 mg PO Q12 12/30/17 Glimepiride [Amaryl 4 mg Tablet] 4 mg PO QAM 12/30/17 Glimepiride [Amaryl] 2 mg PO QPM 12/30/17 Hydralazine HCl [Apresoline 25 mg Tablet] 50 mg PO Q8 12/30/17 Levothyroxine Sodium [Synthroid] 0.088 mg PO Q6AM 12/30/17 Omeprazole 20 mg PO DAILY 12/30/17 Oxycodone HCl/Acetaminophen [Percocet 7.5-325 mg Tablet] 1 tab PO BIDP PRN 12/30 Sitagliptin Phosphate [Januvia 50 mg Tablet] 50 mg PO DAILY 12/30/17 History of Present Illness Patient complains of: Weakness for the last few days. History of Present Illness: WANG LAWSON is a 72 year old female Patient is a 72-year-old female that presents to our facility with complaint of weakness for the last few days. Patient was found to have a urinary tract infection and pneumonia. Patient was placed on antibiotics and symptoms improved. She was noted to have acute renal injury however with IV fluid hydration renal function returned to baseline. Patient was discharged home and has done well. Hospital Course Hospital Course: Patient is a 72-year-old female that presents to our facility with complaint of weakness for the last few days. Patient was found to have a urinary tract infection and pneumonia. Patient was placed on antibiotics and symptoms improved. She was noted to have acute renal injury however with IV fluid hydration renal function returned to baseline. Patient was discharged home and has done well. Physical Exam Vital Signs: Temp Pulse Resp BP Pulse Ox 98.1 F 63 18 150/53 H 93 12/15/17 07:47 12/15/17 08:23 12/15/17 08:23 12/15/17 07:47 12/15/17 08:23 General appearance: PRESENT: no acute distress, well-developed, well-nourished Head exam: PRESENT: atraumatic, normocephalic Eye exam: PRESENT: conjunctiva pink, EOMI. ABSENT: scleral icterus Ear exam: PRESENT: normal external ear exam Mouth exam: PRESENT: moist, tongue midline Neck exam: ABSENT: carotid bruit, JVD, lymphadenopathy, thyromegaly Respiratory exam: PRESENT: clear to auscultation apollo. ABSENT: rales, rhonchi, wheezes Cardiovascular exam: PRESENT: RRR. ABSENT: diastolic murmur, rubs, systolic murmur Pulses: PRESENT: normal dorsalis pedis pul Vascular exam: PRESENT: normal capillary refill GI/Abdominal exam: PRESENT: normal bowel sounds, soft. ABSENT: distended, guarding, mass, organolmegaly, rebound, tenderness Rectal exam: PRESENT: deferred Extremities exam: PRESENT: full ROM. ABSENT: calf tenderness, clubbing, pedal edema Neurological exam: PRESENT: alert, awake, oriented to person, oriented to place , oriented to time, oriented to situation, CN II-XII grossly intact. ABSENT: motor sensory deficit Psychiatric exam: PRESENT: appropriate affect, normal mood. ABSENT: homicidal ideation, suicidal ideation Skin exam: PRESENT: dry, intact, warm. ABSENT: cyanosis, rash Results Laboratory Results: 12/15/17 07:17 12/15/17 07:17 Impressions: Chest X-Ray 12/10/17 14:32 IMPRESSION: Right lower lobe pneumonia. Qualifiers - * PATEINT BEING DISCHARGED WITH ANY OF THE FOLLOWING DIAGNOSIS?: No Plan Time Spent: Greater than 30 Minutes
== END 2017-12-15 14:02 | disposition home or self-care (01) | DRG 193 ==
LOC: ER 14:03 → EH 16:00 → 4N 22:34 → 2N 12-13 01:06
PROVIDERS: ADMIT Family Medicine; ATTEND Family Medicine
PROC: 3E0F73Z Introduction of Anti-inflammatory into Respiratory Tract, Via Natural or Artificial Opening (ICD-10-PCS; principal; 2017-12-10)
DX: J18.9 Pneumonia, unspecified organism (principal); J96.01 Acute respiratory failure with hypoxia; N17.9 Acute kidney failure, unspecified; N39.0 Urinary tract infection, site not specified; Z68.42 Body mass index [BMI] 45.0-49.9, adult; J44.1 Chronic obstructive pulmonary disease with (acute) exacerbation; I13.0 Hypertensive heart and chronic kidney disease with heart failure and stage 1 through stage 4 chronic kidney disease, or unspecified chronic kidney disease; I50.9 Heart failure, unspecified; D63.1 Anemia in chronic kidney disease; E66.01 Morbid (severe) obesity due to excess calories; N18.3 Chronic kidney disease, stage 3 (moderate); E11.42 Type 2 diabetes mellitus with diabetic polyneuropathy; E11.22 Type 2 diabetes mellitus with diabetic chronic kidney disease; I25.10 Atherosclerotic heart disease of native coronary artery without angina pectoris; E78.5 Hyperlipidemia, unspecified; M19.90 Unspecified osteoarthritis, unspecified site; B96.1 Klebsiella pneumoniae [K. pneumoniae] as the cause of diseases classified elsewhere; F32.9 Major depressive disorder, single episode, unspecified; L30.9 Dermatitis, unspecified; I25.2 Old myocardial infarction; Z90.49 Acquired absence of other specified parts of digestive tract; Z66 Do not resuscitate; Z88.2 Allergy status to sulfonamides; S80.00XA Contusion of unspecified knee, initial encounter; Z88.6 Allergy status to analgesic agent; Z88.1 Allergy status to other antibiotic agents; W18.30XA Fall on same level, unspecified, initial encounter; Y93.9 Activity, unspecified; Y92.009 Unspecified place in unspecified non-institutional (private) residence as the place of occurrence of the external cause
CPT/HCPCS: 36415; 71045; 80048; 80053; 81001; 82550; 82553; 82803; 82962; 83605; 83735; 83880; 84484; 85025; 85027; 87040; 87077; 87086; 87088; 87186; 93005; 93010; 94640; 96365; 99285; G8978-GP; G8979-GP; G8996-GN; G8997-GN; G8998-GN; J0456; J0696; J1650; J1815; J2405; J2543; J2920; J3490; J7030; J7620

== ENCOUNTER 2017-12-30 15:14 | Inpatient (IN) | payer MEDICARE ==
--- NOTE | 2017-12-30 15:46 | ER Document Report ---
ED General - General Chief Complaint: Shortness Of Breath Stated Complaint: SHORTNESS OF BREATH Time Seen by Provider: 12/30/17 15:32 Mode of Arrival: Wheelchair Information source: Patient, Relative Notes: 72-year-old female for previous episodes of pneumonia presents hypoxic from home. Patient was noted to be satting 80-83%. Admits to ocugh,pt isnot on oxygen at home. Patient has a history of COPD TRAVEL OUTSIDE OF THE [place] IN LAST 30 DAYS: No - HPI Onset: Other Onset/Duration: Persistent Quality of pain: No pain Severity: Mild Pain Level: Denies Associated symptoms: Nonproductive cough, Shortness of breath, Other Exacerbated by: Movement, Walking Relieved by: Denies Similar symptoms previously: No Recently seen / treated by doctor: No - Related Data Allergies/Adverse Reactions: Sulfa (Sulfonamide Antibiotics) Allergy (Unknown, Verified 12/30/17 19:05) levofloxacin [From Levaquin] Allergy (Verified 12/30/17 19:05) morphine [Morphine] Adverse Reaction (Severe, Verified 12/30/17 19:05) aspirin Adverse Reaction (Verified 12/30/17 19:05) Past Medical History - Social History Smoking Status: Never Smoker Cigarette use (# per day): No Chew tobacco use (# tins/day): No Smoking Education Provided: No Family History: Hypertension, Other - Aneurysm in the mother, lung cancer in the father - Past Medical History Cardiac Medical History: Reports: Hx Congestive Heart Failure, Hx Coronary Artery Disease, Hx Heart Attack, Hx Hypercholesterolemia, Hx Hypertension, Hx Heart Murmur Pulmonary Medical History: Reports: Hx Asthma, Hx Bronchitis, Hx COPD, Hx Pneumonia, Hx Tuberculosis Neurological Medical History: Reports: Hx Seizures. Denies: Hx Cerebrovascular Accident Endocrine Medical History: Reports: Hx Diabetes Mellitus Type 1, Hx Diabetes Mellitus Type 2, Hx Hyperthyroidism, Hx Hypothyroidism Renal/ Medical History: Reports: Hx End Stage Renal Disease, Hx Renal Insufficiency. Denies: Hx Peritoneal Dialysis GI Medical History: Reports: Hx Cirrhosis, Hx Gastroesophageal Reflux Disease, Hx Hepatitis Musculoskeltal Medical History: Reports Hx Arthritis Skin Medical History: Reports Hx Eczema Psychiatric Medical History: Denies: Hx Depression Infectious Medical History: Reports: Hx Hepatitis Past Surgical History: Reports: Hx Appendectomy, Hx Hysterectomy, Hx Orthopedic Surgery - b.l feet, Hx Pacemaker, Other - Bilat cataract and ankle surgery. - Immunizations Hx Diphtheria, Pertussis, Tetanus Vaccination: No Review of Systems - Review of Systems Notes: REVIEW OF SYSTEMS: CONSTITUTIONAL : Denies fever, chills, or sweats. Denies recent illness. EENT: Denies eye, ear, throat, or mouth pain or symptoms. Denies nasal or sinus congestion or discharge. Denies throat, tongue, or mouth swelling or difficulty swallowing. CARDIOVASCULAR: Denies chest pain. Denies palpitations or racing or irregular heart beat. Denies ankle edema. RESPIRATORY: Admits to shortness breath difficulty breathing GASTROINTESTINAL: Denies abdominal pain or distention. Denies nausea, vomiting , or diarrhea. Denies blood in vomitus, stools, or per rectum. Denies black, tarry stools. Denies constipation. GENITOURINARY: Denies difficulty urinating, painful urination, burning, frequency, blood in urine, or discharge. FEMALE GENITOURINARY: Denies vaginal bleeding, heavy or abnormal periods, irregular periods. Denies vaginal discharge or odor. MUSCULOSKELETAL: Denies back or neck pain or stiffness. Denies joint pain or swelling. SKIN: Denies rash, lesions or sores. HEMATOLOGIC : Denies easy bruising or bleeding. LYMPHATIC: Denies swollen, enlarged glands. NEUROLOGICAL: Denies confusion or altered mental status. Denies passing out or loss of consciousness. Denies dizziness or lightheadedness. Denies headache. Denies weakness or paralysis or loss of use of either side. Denies problems with gait or speech. Denies sensory loss, numbness, or tingling. Denies seizures. PSYCHIATRIC: Denies anxiety or stress. Denies depression, suicidal ideation, or homicidal ideation. ALL OTHER SYSTEMS REVIEWED AND NEGATIVE. PHYSICAL EXAMINATION: GENERAL: Well-appearing, well-nourished and in no acute distress. HEAD: Atraumatic, normocephalic. EYES: Pupils equal round and reactive to light, extraocular movements intact, conjunctiva are normal. ENT: Nares patent, oropharynx clear without exudates. Moist mucous membranes. NECK: Normal range of motion, supple without lymphadenopathy LUNGS:crackles intermittent HEART: Regular rate and rhythm without murmurs ABDOMEN: Soft, nontender, nondistended abdomen. No guarding, no rebound. No masses appreciated. Female : deferred Musculoskeletal: Normal range of motion, no pitting or edema. No cyanosis. NEUROLOGICAL: Cranial nerves grossly intact. Normal speech, normal gait. Normal sensory, motor exams PSYCH: Normal mood, normal affect. SKIN: Warm, Dry, normal turgor, no rashes or lesions noted. Dictation was performed using [employer] voice recognition software Physical Exam - Vital signs Vitals: Temp Pulse BP Pulse Ox 99.8 F 73 129/53 H 83 L 12/30/17 15:23 12/30/17 15:23 12/30/17 15:23 12/30/17 15:23 Course - Re-evaluation Re-evalutation: Patient immediately placed on oxygen, on cardiac monitoring 12/30/17 18:18 pt creatinine in 3.55 , cta cancelled, vq scan ordered Dr Sorensen called, he accepts for the overnight physician 12/30/17 18:22 Patient was given breathing treatments IV fluids steroids and is stable at this time VQ scan was negative 12/30/17 20:15 - Vital Signs Vital signs: Temp Pulse Resp BP Pulse Ox 99.8 F 73 21 H 129/53 H 100 12/30/17 15:23 12/30/17 15:23 12/30/17 16:00 12/30/17 15:23 12/30/17 16:00 - Laboratory Result Diagrams: 12/30/17 17:10 12/30/17 17:10 Laboratory results interpreted by me: 12/30/17 12/30/17 12/30/17 17:10 17:10 17:10 RBC 3.50 L Hgb 10.3 L Hct 31.8 L RDW 14.6 H VBG pH VBG pCO2 VBG HCO3 BUN 32 H Creatinine 3.55 H Est GFR ( Amer) 15 L Est GFR (Non-Af Amer) 13 L Glucose 118 H Lactic Acid 0.6 L Total Protein 6.0 L 12/30/17 17:10 RBC Hgb Hct RDW VBG pH 7.29 L VBG pCO2 75.8 H* VBG HCO3 35.5 H BUN Creatinine Est GFR ( Amer) Est GFR (Non-Af Amer) Glucose Lactic Acid Total Protein - Diagnostic Test Radiology reviewed: Image reviewed, Reports reviewed - EKG Interpretation by Me EKG shows normal: Sinus rhythm, [place], Intervals, QRS Complexes Rate: Tachycardia Critical Care Note - Critical Care Note Total time excluding time spent on procedures (mins): 47 Comments: minutes of critical care time spent in direct contact evaluating and reevaluating the patient, treating symptoms, reviewing labs and studies and speaking with family and consultants excluding any procedures Discharge - Discharge Clinical Impression: COPD with acute exacerbation, Acute respiratory failure with hypoxemia, Hypoxemia Acute on chronic kidney failure Qualifiers: Acute renal failure type: unspecified Chronic kidney disease stage: stage 4 ( severe) Qualified Code(s): N17.9 - Acute kidney failure, unspecified; N18.4 - Chronic kidney disease, stage 4 (severe); N18.4 - Chronic kidney disease, stage 4 (severe); N18.4 - Chronic kidney disease, stage 4 (severe); N18.4 - Chronic kidney disease, stage 4 (severe) Condition: Stable Disposition: ADMITTED INPATIENT Admitting Provider: Hospitalist Unit Admitted: Telemetry
--- NOTE | 2017-12-30 16:45 | RADIOLOGY REPORT (SQ) ---
EXAM DESCRIPTION: CHEST PA/LAT COMPLETED DATE/TIME: 12/30/2017 4:38 pm REASON FOR STUDY: hypoxemia COMPARISON: 12/10/2017. NUMBER OF VIEWS: Two view. TECHNIQUE: Frontal and lateral radiographic views of the chest acquired. LIMITATIONS: None. FINDINGS: LUNGS AND PLEURA: Improved aeration in the right lower lobe with residual streaky linear d ensities. Left lung clear. No pleural effusion. MEDIASTINUM AND HILAR STRUCTURES: No masses. No contour abnormalities. HEART AND VASCULAR STRUCTURES: Heart enlarged without failure. Aorta normal for age. BONES: No acute findings. HARDWARE: None in the chest. OTHER: No other significant finding. IMPRESSION: CARDIAC ENLARGEMENT WITHOUT FAILURE. RIGHT LOWER LOBE INFILTRATE HAS ALMOST CLEARED. T HERE ARE A FEW RESIDUAL STREAKY LINEAR DENSITIES. TECHNICAL DOCUMENTATION: JOB ID: [id number] [employer]- All Rights Reserved Reading location - IP/workstation name: [email or web address]
[2017-12-30 17:30] LABS: ABSOLUTE BASOPHILS # (AUTO) 0.1 10^3/uL (0.0-0.2); ABSOLUTE EOSINOPHILS # (AUTO) 0.3 10^3/uL (0.0-0.6); ABSOLUTE LYMPHOCYTES (AUTO) 1.4 10^3/uL (0.5-4.7); ABSOLUTE MONOCYTES (AUTO) 0.4 10^3/uL (0.1-1.4); ABSOLUTE NEUT (AUTO) 3.7 10^3/uL (1.7-8.2); BASOPHILS % (AUTO) 1.5 % (0-2); EOSINOPHILS % (AUTO) 4.3 % (0-6); HEMATOCRIT 31.8 % (36.0-47.0); HEMOGLOBIN 10.3 g/dL (12.0-15.5); LYMPHOCYTES % (AUTO) 23.9 % (13-45); MEAN CORPUSCULAR HEMOGLOBIN 29.4 pg (27.0-33.4); MEAN CORPUSCULAR HGB CONC 32.5 g/dL (32.0-36.0); MEAN CORPUSCULAR VOLUME 91 fl (80-97); MONOCYTES % (AUTO) 7.4 % (3-13); PLATELET COUNT 216 10^3/uL (150-450); RED CELL DISTRIBUTION WIDTH 14.6 % (11.5-14.0); SEGMENTED NEUTROPHILS % (AUTO) 62.9 % (42-78); TOTAL CELLS COUNTED % (AUTO) 100 %; WHITE BLOOD COUNT 5.9 10^3/uL (4.0-10.5)
[2017-12-30 17:38] LABS: INTERNATIONAL RATION (INR) 0.87; PROTHROMBIN TIME 12.5 SEC (11.4-15.4)
[2017-12-30 17:47] LABS: VENOUS BLOOD BASE EXCESS 6.4 mmol/L; VENOUS BLOOD HCO3 35.5 mmol/L (20-32); VENOUS BLOOD PH 7.29 (7.30-7.42)
[2017-12-30 17:48] LABS: VENOUS BLOOD PCO2 75.8 mmHg (35-63)
[2017-12-30] MEDS: NORMAL SALINE 1000 ML 1,000 ML IV PRN ×3 (18:07→22:56)
[2017-12-30 18:08] LABS: ALANINE AMINOTRANSFERASE 27 U/L (9-52); ALBUMIN 3.7 g/dL (3.5-5.0); ALKALINE PHOSPHATASE 76 U/L (38-126); ANION GAP 9 (5-19); ASPARTATE AMINO TRANSFERASE 17 U/L (14-36); BILIRUBIN,DIRECT 0.2 mg/dL (0.0-0.4); BILIRUBIN,TOTAL 0.5 mg/dL (0.2-1.3); BLOOD UREA NITROGEN 32 mg/dL (7-20); CALCIUM 8.8 mg/dL (8.4-10.2); CARBON DIOXIDE 30 mmol/L (22-30); CHLORIDE 99 mmol/L (98-107); GLUCOSE 118 mg/dL (75-110); POTASSIUM 4.5 mmol/L (3.6-5.0); SODIUM 137.9 mmol/L (137-145)
[2017-12-30] MEDS ORDERED: IPRATROPIUM/ALBUTEROL 0.5-2.5 MG/3 ML AMPUL NEB ONE ×2 (18:21→18:22)
[2017-12-30] MEDS ORDERED: METHYLPREDNISOLONE INJ 125 MG/2 ML SDV IV ONE (18:21)
[2017-12-30] MEDS ORDERED: NORMAL SALINE 1000 ML 1,000 ML IV ONE (18:22)
[2017-12-30] MEDS ORDERED: PROMETHAZINE HCL INJ 25 MG/1 ML VIAL IV PRN (18:58)
[2017-12-30] MEDS ORDERED: ALBUTEROL SULFATE 0.083% NEB 2.5 MG/3 ML AMPUL NEB PRN (18:58)
--- NOTE | 2017-12-30 20:07 | RADIOLOGY REPORT (SQ) ---
EXAM DESCRIPTION: NM LUNG VENT/PERF SCAN COMPLETED DATE/TIME: 12/30/2017 7:47 pm REASON FOR STUDY: hypxemia COMPARISON: Chest x-ray dated 12/30/2017. RADIONUCLIDE AND DOSE: 5.37 millicuries TC-99m MAA Intravenous 30.5 millicuries TC-99m DTPA Inhaled aerosol TECHNIQUE: Six views of the lungs acquired post ventilation of DTPA aerosol. Six matching views of the lungs acquired following injection of MAA. LIMITATIONS: None. FINDINGS: VENTILATION: Symmetric and homogeneous distribution of DTPA aerosol during ventilatory pha se. No significant areas of photopenia. PERFUSION: Perfusion images with normal homogenous activity and no wedge-shaped or segmental defects. No ventilation-perfusion mismatches. OTHER: No other significant finding. IMPRESSION: NORMAL VENTILATION-PERFUSION LUNG SCAN. NEGATIVE FOR PULMONARY EMBOLI. TECHNICAL DOCUMENTATION: JOB ID: [id number] [employer]- All Rights Reserved Reading location - IP/workstation name: [email or web address]
[2017-12-30] MEDS: IPRATROPIUM/ALBUTEROL 0.5-2.5 MG/3 ML AMPUL NEB SCH (21:00)
[2017-12-30] MEDS ORDERED: DEXTROSE 50%-WATER 25 GM/50 ML DISP.SYRIN IV PRN ×2 (21:54)
[2017-12-30] MEDS ORDERED: GLUCAGON,HUMAN RECOMB 1 MG INJ IM PRN (21:54)
[2017-12-30] MEDS ORDERED: DEXTROSE 40% GEL 15 GM TUBE PO PRN ×2 (21:54)
[2017-12-30] MEDS ORDERED: DOXYCYCLINE HYCLATE 100 MG TABLET PO SCH (22:00)
--- NOTE | 2017-12-30 22:03 | EKG REPORT ---
SEVERITY:- OTHERWISE NORMAL ECG - SINUS RHYTHM LEFT AXIS DEVIATION : Confirmed by: Hetal Pat 30-Dec-2017 22:02:33
[2017-12-30 22:53] LABS: APPEARANCE,URINE CLOUDY; BILIRUBIN,URINE NEGATIVE (NEGATIVE); COLOR,URINE YELLOW; GLUCOSE, URINE NEGATIVE (NEGATIVE); KETONES,URINE NEGATIVE (NEGATIVE); LEUKOCYTE ESTERASE,URINE MODERATE (NEGATIVE); NITRITE,URINE NEGATIVE (NEGATIVE); PROTEIN,URINE 30 mg/dL (NEGATIVE); UROBILINOGEN,URINE NEGATIVE mg/dL (<2.0)
[2017-12-30] MEDS: DOCUSATE SODIUM 100 MG CAPSULE PO PRN (22:56)
[2017-12-30] MEDS: METHYLPREDNISOLONE INJ 40 MG/1 ML SDV IV SCH (22:56)
[2017-12-30] MEDS: HEPARIN SOD (PORCINE) 5,000 UNIT/ML 1 ML SYRINGE SUBCUT SCH (22:56)
--- NOTE | 2017-12-31 00:42 | PDOC H&P ---
History of Present Illness Admission Date/PCP: 12/30/17 18:32 NO LOCALMD Patient complains of: Worsening shortness of breath and increased congestion for the last few days. History of Present Illness: WANG LAWSON is a 72 year old obese female with history of COPD (not on home oxygen), CAD/CHF, CESILIA (on CPAP) and type 2 diabetes mellitus was admitted with above-mentioned complaints. The patient was last hospitalized here from 2017 to 12/15/2017 with COPD exacerbation/pneumonia and acute on chronic renal failure. According to the patient, her breathing got worse in the last few days. She denies any fever, cough or sputum and she always has chills. She said that her great-granddaughter has strep throat but she denies any sore throat or runny nose. She said that she feels congested. She also had chest pain yesterday. It was nonradiating and lasted about a minute while at rest, no relieving or aggravating factors. She is up-to-date with her flu and pneumonia vaccine. She is not on nebulizer treatments at home and she only used her rescue inhaler twice today. In the ED, her temperature was 99.8, heart rate 73, respiratory rate 17 and her blood pressure was 133/54 with oxygen saturation of 83% on room air. Her WBC was 5.9 with hemoglobin of 10.3 and her BUN/creatinine was 32/3.55 (up from 45/ 1.66 on 12/15/2017. A chest x-ray was done which did not show any acute findings. VQ scan is still pending. She received 2 DuoNeb treatments and 125 IV Solu-Medrol x1 with improvement in her breathing. Past Medical History Medical History: Other - According to the patient and based on previous records. Cardiac Medical History: Reports: Congestive Heart Failure, Coronary Artery Disease, Myocardial Infarction, Hyperlipidema, Hypertension, Heart Murmur Pulmonary Medical History: Reports: Asthma, Bronchitis, Chronic Obstructive Pulmonary Disease (COPD), Pneumonia, Tuberculosis Neurological Medical History: Reports: Seizures Endocrine Medical History: Reports: Diabetes Mellitus Type 2, Hyperthyroidism, Hypothyroidism Renal/ Medical History: Reports: Chronic Kidney Disease GI Medical History: Reports: Cirrhosis, Gastroesophageal Reflux Disease, Hepatitis Musculoskeltal Medical History: Reports: Arthritis Skin Medical History: Reports: Eczema Psychiatric Medical History: Denies: Depression Hematology: Reports: Anemia Past Surgical History Past Surgical History: Reports: Appendectomy, Hysterectomy, Orthopedic Surgery - b.l feet and right elbow surgery, Pacemaker, Other - Bilat cataract and ankle surgery. Social History Smoking Status: Former Smoker Cigarettes Packs Per Day: 0 - 1 ppd for 20 years. Quit 1995. Frequency of Alcohol Use: None Hx Recreational Drug Use: No Drugs: None Hx Prescription Drug Abuse: No - Advance Directive Resuscitation Status: Full Code Family History Family History: Hypertension, Other - Aneurysm in the mother, lung cancer in the father Parental Family History Reviewed: Yes - Mother: diabetes Children Family History Reviewed: No Sibling(s) Family History Reviewed.: Yes Medication/Allergy Home Medications: Benazepril HCl [Lotensin 20 mg Tablet] 20 mg PO QHS 12/30/17 Carvedilol [Coreg 3.125 mg Tablet] 3.125 mg PO Q12 12/30/17 Glimepiride [Amaryl 4 mg Tablet] 4 mg PO QAM 12/30/17 Glimepiride [Amaryl] 2 mg PO QPM 12/30/17 Hydralazine HCl [Apresoline 25 mg Tablet] 50 mg PO Q8 12/30/17 Levothyroxine Sodium [Synthroid] 0.088 mg PO Q6AM 12/30/17 Omeprazole 20 mg PO DAILY 12/30/17 Oxycodone HCl/Acetaminophen [Percocet 7.5-325 mg Tablet] 1 tab PO BIDP PRN 12/30 Sitagliptin Phosphate [Januvia 50 mg Tablet] 50 mg PO DAILY 12/30/17 Allergies/Adverse Reactions: Sulfa (Sulfonamide Antibiotics) Allergy (Unknown, Verified 12/30/17 19:05) levofloxacin [From Levaquin] Allergy (Verified 12/30/17 19:05) morphine [Morphine] Adverse Reaction (Severe, Verified 12/30/17 19:05) aspirin Adverse Reaction (Verified 12/30/17 19:05) Review of Systems ROS unobtainable: Other - Pertinent positives and negatives as detailed in the HPI. The patient nausea, vomiting 2 days ago, the vomitus of was of food consistency. She denied any abdominal pain, diarrhea or constipation. She complains of lower leg weakness. Ambulates using a walker. Physical Exam Vital Signs: Temp Pulse Resp BP Pulse Ox 99.8 F 73 21 H 129/53 H 100 12/30/17 15:23 12/30/17 15:23 12/30/17 16:00 12/30/17 15:23 12/30/17 16:00 General appearance: PRESENT: no acute distress, well-developed, well-nourished Head exam: PRESENT: atraumatic, normocephalic Eye exam: PRESENT: conjunctiva pink, PERRLA Ear exam: PRESENT: normal external ear exam Mouth exam: PRESENT: moist, tongue midline Neck exam: PRESENT: full ROM. ABSENT: JVD Respiratory exam: PRESENT: decreased breath sounds. ABSENT: rales, rhonchi, wheezes Cardiovascular exam: PRESENT: RRR - S1 S2 normal.. ABSENT: rubs Pulses: PRESENT: normal dorsalis pedis pul GI/Abdominal exam: PRESENT: normal bowel sounds, soft. ABSENT: distended, rebound, tenderness Rectal exam: PRESENT: deferred Extremities exam: PRESENT: full ROM. ABSENT: pedal edema Musculoskeletal exam: PRESENT: full ROM Neurological exam: PRESENT: alert, awake, oriented to person, oriented to place , oriented to time, oriented to situation, motor sensory deficit - chronic left leg numbness. Skin exam: PRESENT: dry, intact, warm. ABSENT: cyanosis, rash Results Laboratory Results: CBC: WBC 5.9, hemoglobin 10.3, hematocrit 31.8, MCV 91, RDW 32.5, platelets 216. PT/INR: 12.5/0.87 ABG: PH 7.29/PCO2 75.8/HCO3 35.5. CMP: Sodium 137.9, potassium 4.5, chloride 99, bicarb 30, anion gap 9, BUN 32, creatinine 3.55, glucose 118. Lactic acid: 0.6. UA: equivical \ EKG Comments: Efrain EKG: Sinus rhythm, ventricular rate 65, axis -40, QTc prolongation, poor R -wave propagation, no acute changes. Similar when compared to previous 12-lead EKG done on 12/10/2017 with normal QTC. Impressions: Chest X-Ray 12/30/17 16:18 IMPRESSION: CARDIAC ENLARGEMENT WITHOUT FAILURE. RIGHT LOWER LOBE INFILTRATE HAS ALMOST CLEARED. THERE ARE A FEW RESIDUAL STREAKY LINEAR DENSITIES. Assessment & Plan - Diagnosis (1) Acute and chronic respiratory failure, unspecified whether with hypoxia or hypercapnia Qualifiers: Respiratory failure complication: hypoxia and hypercapnia Qualified Code(s) : J96.21 - Acute and chronic respiratory failure with hypoxia; J96.22 - Acute and chronic respiratory failure with hypercapnia; J96.22 - Acute and chronic respiratory failure with hypercapnia; J96.22 - Acute and chronic respiratory failure with hypercapnia Is this a current diagnosis for this admission?: Yes Plan: Given tachypnea with oxygen saturation of 83% on room air and PCO2 of 75.8, secondary to COPD exacerbation most likely, less likely cardiac. CXR reviewed. VQ scan and rapid strep test pending. We will cycle cardiac enzymes and continue scheduled DuoNebs and IV Solu-Medrol in addition to doxycycline. Will follow up with VQ scan. We will consult case management to provide her with a nebulizer machine. She may need to be tested for home oxygen prior to discharge. (2) Acute renal failure superimposed on stage 3 chronic kidney disease Qualifiers: Acute renal failure type: unspecified Qualified Code(s): N17.9 - Acute kidney failure, unspecified; N18.3 - Chronic kidney disease, stage 3 (moderate) ; N18.3 - Chronic kidney disease, stage 3 (moderate) Is this a current diagnosis for this admission?: Yes Plan: We will check urine studies and kidney US. Will continue hydration for now and avoid any nephrotoxic medications. Holding Benazepril for now. (3) Type 2 diabetes mellitus Qualifiers: Diabetes mellitus complication status: with unspecified complications Is this a current diagnosis for this admission?: No Plan: The patient apparently was switched from Glimpride to Januvia since her blood sugar is not controlled. We will check A1c and start Humalog sliding scale. (5) CAD (coronary artery disease) Is this a current diagnosis for this admission?: No Plan: will resume coreg. Her medications' list needs to be clarified - Time Time Spent: Greater than 70 Minutes Anticipated discharge: Home - Inpatient Certification Based on my medical assessment, after consideration of the patient's comorbidities, presenting symptoms, or acuity I expect that the services needed warrant INPATIENT care.: Yes I certify that my determination is in accordance with my understanding of Medicare's requirements for reasonable and necessary INPATIENT services [42 CFR 412.3e].: Yes
[2017-12-31] MEDS: IPRATROPIUM/ALBUTEROL 0.5-2.5 MG/3 ML AMPUL NEB SCH ×4 (02:41→19:54)
[2017-12-31 06:57] LABS: HEMATOCRIT 28.2 % (36.0-47.0); HEMOGLOBIN 9.5 g/dL (12.0-15.5); MEAN CORPUSCULAR HEMOGLOBIN 30.4 pg (27.0-33.4); MEAN CORPUSCULAR HGB CONC 33.7 g/dL (32.0-36.0); MEAN CORPUSCULAR VOLUME 90 fl (80-97); PLATELET COUNT 170 10^3/uL (150-450); RED BLOOD COUNT 3.12 10^6/uL (3.72-5.28); RED CELL DISTRIBUTION WIDTH 13.8 % (11.5-14.0); WHITE BLOOD COUNT 4.4 10^3/uL (4.0-10.5)
[2017-12-31 07:20] LABS: ANION GAP 8 (5-19); BLOOD UREA NITROGEN 35 mg/dL (7-20); CALCIUM 8.1 mg/dL (8.4-10.2); CARBON DIOXIDE 23 mmol/L (22-30); CHLORIDE 104 mmol/L (98-107); GLUCOSE 397 mg/dL (75-110); POTASSIUM 5.3 mmol/L (3.6-5.0); SODIUM 134.9 mmol/L (137-145)
[2017-12-31] MEDS: HYDRALAZINE HCL 25 MG TABLET PO SCH ×3 (07:56→22:35)
[2017-12-31] MEDS: METHYLPREDNISOLONE INJ 40 MG/1 ML SDV IV SCH ×2 (07:56→15:04)
[2017-12-31] MEDS: LEVOTHYROXINE SODIUM 0.088 MG TABLET PO SCH (07:57)
[2017-12-31] MEDS: INSULIN LISPRO 100 UNIT/ML 3 ML VIAL SUBCUT PRN ×4 (07:57→22:35)
[2017-12-31] MEDS: HEPARIN SOD (PORCINE) 5,000 UNIT/ML 1 ML SYRINGE SUBCUT SCH ×3 (07:58→22:35)
[2017-12-31] MEDS ORDERED: DOXYCYCLINE HYCLATE 100 MG TABLET PO SCH (10:00)
[2017-12-31] MEDS: CARVEDILOL 3.125 MG TABLET PO SCH ×2 (10:36→22:35)
[2017-12-31] MEDS: GUAIFENESIN 600 MG TABLET.SA PO SCH ×2 (10:37→22:35)
[2017-12-31] MEDS: DOCUSATE SODIUM 100 MG CAPSULE PO PRN ×2 (10:38→17:03)
[2017-12-31] MEDS ORDERED: DEXTROSE 40% GEL 15 GM TUBE PO PRN ×2 (12:17)
[2017-12-31] MEDS ORDERED: GLUCAGON,HUMAN RECOMB 1 MG INJ IM PRN (12:17)
[2017-12-31] MEDS ORDERED: DEXTROSE 50%-WATER 25 GM/50 ML DISP.SYRIN IV PRN ×2 (12:17)
[2017-12-31 12:22] LABS: URINE CREATININE 138.1 mg/dL (15-278); URINE PROTEIN 30.3 mg/dL (<12)
[2017-12-31] MEDS ORDERED: (PENDING PHARMACY ID) (Oxycodone Hcl/Acetaminophen [Percocet 7.5-325 Mg Tablet] 1 TAB) PO PRN (13:31)
[2017-12-31] MEDS: POLYMYXIN B SULFATE/TMP OPH SOLN 10 ML OU SCH ×3 (15:11→22:52)
[2017-12-31] MEDS ORDERED: OXYCODONE-ACETAMINOPHEN 5-325 MG TABLET PO PRN (15:22)
[2017-12-31] MEDS ORDERED: OXYCODONE HCL IR 5 MG TABLET PO PRN (15:23)
[2017-12-31] MEDS: INSULIN LISPRO 100 UNIT/ML 3 ML VIAL SUBCUT SCH (16:54)
[2017-12-31] MEDS: NYSTATIN CREAM 15 GM TP SCH (17:02)
--- NOTE | 2017-12-31 17:54 | PDOC PROGRESS REPORT ---
Subjective Progress Note for:: 12/31/17 Subjective:: Pt is breathing some better, she does not produce any sputum, no fevers or chills, no nausea or vomiting, no abd pain. Reason For Visit: COPD EXACERBATION Physical Exam Vital Signs: Temp Pulse Resp BP Pulse Ox 98.2 F 71 18 150/56 H 96 12/31/17 15:00 12/31/17 15:00 12/31/17 15:00 12/31/17 15:00 12/31/17 15:00 Intake & Output 12/30/17 12/31/17 01/01/18 06:59 06:59 06:59 Intake Total 1070 Output Total 500 Balance 570 Weight 95.5 kg General appearance: PRESENT: no acute distress, cooperative, morbidly obese Head exam: PRESENT: atraumatic, normocephalic Eye exam: PRESENT: conjunctival injection, EOMI Ear exam: PRESENT: normal external ear exam Mouth exam: PRESENT: neck supple Respiratory exam: PRESENT: decreased breath sounds, wheezes. ABSENT: rales, rhonchi, unlabored Cardiovascular exam: PRESENT: RRR. ABSENT: systolic murmur Pulses: PRESENT: normal radial pulses GI/Abdominal exam: PRESENT: normal bowel sounds, soft. ABSENT: distended, guarding, tenderness Rectal exam: PRESENT: deferred Musculoskeletal exam: PRESENT: normal inspection Neurological exam: PRESENT: alert, awake, oriented to person, oriented to place , oriented to situation, CN II-XII grossly intact Psychiatric exam: PRESENT: appropriate affect. ABSENT: anxious Skin exam: PRESENT: dry, warm Results Laboratory Results: 12/31/17 06:27 12/31/17 06:27 12/30/17 12/31/17 12/31/17 22:05 06:27 06:27 WBC 4.4 RBC 3.12 L Hgb 9.5 L Hct 28.2 L MCV 90 MCH 30.4 MCHC 33.7 RDW 13.8 Plt Count 170 Sodium 134.9 L Potassium 5.3 H Chloride 104 Carbon Dioxide 23 Anion Gap 8 BUN 35 H Creatinine 3.10 H Est GFR ( Amer) 18 L Est GFR (Non-Af Amer) 15 L Glucose 397 H Calcium 8.1 L Magnesium 1.8 Urine Color YELLOW Urine Appearance CLOUDY Urine pH 5.0 Ur Specific [place] 1.010 Urine Protein 30 H Urine Glucose (UA) NEGATIVE Urine Ketones NEGATIVE Urine Blood NEGATIVE Urine Nitrite NEGATIVE Ur Leukocyte Esterase MODERATE H Urine WBC (Auto) 69 Urine RBC (Auto) 2 12/31/17 10:35 WBC RBC Hgb Hct MCV MCH MCHC RDW Plt Count Sodium Potassium Chloride Carbon Dioxide Anion Gap BUN Creatinine Est GFR ( Amer) Est GFR (Non-Af Amer) Glucose Calcium Magnesium Urine Color Urine Appearance Urine pH Ur Specific [place] 1.018 Urine Protein Urine Glucose (UA) Urine Ketones Urine Blood Urine Nitrite Ur Leukocyte Esterase Urine WBC (Auto) Urine RBC (Auto) 12/31/17 12/31/17 12/31/17 00:48 06:27 13:08 Troponin I < 0.012 < 0.012 < 0.012 Impressions: Chest X-Ray 12/30/17 16:18 IMPRESSION: CARDIAC ENLARGEMENT WITHOUT FAILURE. RIGHT LOWER LOBE INFILTRATE HAS ALMOST CLEARED. THERE ARE A FEW RESIDUAL STREAKY LINEAR DENSITIES. Lung Scan-VQ NM 12/30/17 18:17 IMPRESSION: NORMAL VENTILATION-PERFUSION LUNG SCAN. NEGATIVE FOR PULMONARY EMBOLI. Assessment & Plan - Diagnosis (1) COPD with acute exacerbation Is this a current diagnosis for this admission?: Yes Plan: Clinically patient is improving. Continue current care quitting doxycycline 100 mg p.o. every 12 hours, bronchodilators, will wean Solu-Medrol to 60 mg IV every 12 hours and consider transition to oral prednisone tomorrow. Patient's oxygen duration is improving on 2 L of nasal cannula oxygen and we will wean as she tolerates. (2) Conjunctivitis Qualifiers: Conjunctivitis type: acute Is this a current diagnosis for this admission?: Yes Plan: I started patient on antibiotic eyedrops for bilateral conjunctivitis. Polymyxin B/trimethoprim 1 drop in each eye every 4 hours. (3) Acute respiratory failure with hypoxemia Is this a current diagnosis for this admission?: Yes Plan: Secondary to COPD exacerbation. This problem is improving with treatment for COPD exacerbation. (4) CAD (coronary artery disease) Is this a current diagnosis for this admission?: No Plan: Continue her Coreg and NATACHA inhibitor.. (5) Type 2 diabetes mellitus Qualifiers: Diabetes mellitus complication status: with unspecified complications Is this a current diagnosis for this admission?: Yes Plan: Patient CBGs have been elevated secondary to steroids. I have added a meal dose , to be added to the before meals bolus of short acting insulin. Titrate up as needed to bring her CBGs down to a safer level. New diabetic diet. She is on glimepiride at home this is on hold so as to prevent hypoglycemia. - Time Time Spent with patient: 25-34 minutes Anticipated discharge: Home - Inpatient Certification Based on my medical assessment, after consideration of the patient's comorbidities, presenting symptoms, or acuity I expect that the services needed warrant INPATIENT care.: Yes I certify that my determination is in accordance with my understanding of Medicare's requirements for reasonable and necessary INPATIENT services [42 CFR 412.3e].: Yes Medical Necessity: Need Close Monitoring Due to Risk of Patient Decompensation, Risk of Complication if Not Cared For in Hospital
[2017-12-31] MEDS: NORMAL SALINE 1000 ML 1,000 ML IV PRN (18:08)
[2017-12-31] MEDS ORDERED: CEFTRIAXONE 1 GM/D5W RTU 1 GM/50 ML RTUPB IV SCH (19:00)
[2017-12-31] MEDS: CEFTRIAXONE SODIUM 1,000 MG in NORMAL SALINE 100 ML IV SCH (22:35)
[2017-12-31] MEDS: METHYLPREDNISOLONE INJ 125 MG/2 ML SDV IV SCH (22:35)
[2017-12-31] MEDS: BENAZEPRIL HCL 20 MG TABLET PO SCH (22:35)
--- NOTE | 2018-01-01 00:22 | RADIOLOGY REPORT (SQ) ---
EXAM DESCRIPTION: U/S RETROPERITON (RENAL/AORTA) COMPLETED DATE/TIME: 12/31/2017 10:09 pm REASON FOR STUDY: [employer] COMPARISON: None. TECHNIQUE: Dynamic and static grayscale images acquired of the kidneys and bladder and recorded on P ACS. Additional selected color Doppler and spectral images recorded. LIMITATIONS: None. FINDINGS: RIGHT KIDNEY: Possible small amount of adjacent free fluid. Normal size. Increased cortic al echogenicity. No solid or suspicious masses. No hydronephrosis. No calcifications. LEFT KIDNEY: Normal size. Increased cortical echogenicity. No solid or suspicious masses. No hydrone phrosis. No calcifications. BLADDER: No masses. OTHER: No other significant finding. IMPRESSION: Possible small amount of adjacent free fluid next to the right kidney.CHRONIC MEDICAL RE NAL DISEASE. NO HYDRONEPHROSIS. TECHNICAL DOCUMENTATION: JOB ID: [id number] [employer]- All Rights Reserved Reading location - IP/workstation name: [employer]
[2018-01-01] MEDS: POLYMYXIN B SULFATE/TMP OPH SOLN 10 ML OU SCH ×6 (02:05→21:10)
[2018-01-01] MEDS: IPRATROPIUM/ALBUTEROL 0.5-2.5 MG/3 ML AMPUL NEB SCH ×4 (02:38→20:30)
[2018-01-01] MEDS: HYDRALAZINE HCL 25 MG TABLET PO SCH ×3 (06:43→21:11)
[2018-01-01] MEDS: LANSOPRAZOLE 15 MG TAB.RAP.DR PO SCH (06:43)
[2018-01-01] MEDS: LEVOTHYROXINE SODIUM 0.088 MG TABLET PO SCH (06:44)
[2018-01-01] MEDS: HEPARIN SOD (PORCINE) 5,000 UNIT/ML 1 ML SYRINGE SUBCUT SCH ×3 (06:44→21:10)
[2018-01-01] MEDS: INSULIN LISPRO 100 UNIT/ML 3 ML VIAL SUBCUT SCH ×3 (07:28→16:48)
[2018-01-01] MEDS: INSULIN LISPRO 100 UNIT/ML 3 ML VIAL SUBCUT PRN ×4 (07:28→22:10)
[2018-01-01] MEDS: DOCUSATE SODIUM 100 MG CAPSULE PO PRN ×2 (09:47→17:09)
[2018-01-01] MEDS: CARVEDILOL 3.125 MG TABLET PO SCH ×2 (09:47→21:11)
[2018-01-01] MEDS: GUAIFENESIN 600 MG TABLET.SA PO SCH ×2 (09:47→21:11)
[2018-01-01] MEDS: NYSTATIN CREAM 15 GM TP SCH ×2 (09:48→17:09)
[2018-01-01] MEDS: METHYLPREDNISOLONE INJ 125 MG/2 ML SDV IV SCH (09:48)
[2018-01-01] MEDS: SITAGLIPTIN PHOSPHATE 50 MG TABLET PO SCH (09:48)
[2018-01-01] MEDS: ACETAMINOPHEN 325 MG TABLET PO PRN (12:37)
[2018-01-01] MEDS ORDERED: SODIUM CHLORIDE NASAL SPRAY 44 ML NASL ONE (13:00)
[2018-01-01 13:01] LABS: ANION GAP 11 (5-19); BLOOD UREA NITROGEN 41 mg/dL (7-20); CALCIUM 8.7 mg/dL (8.4-10.2); CARBON DIOXIDE 19 mmol/L (22-30); CHLORIDE 103 mmol/L (98-107); GLUCOSE 291 mg/dL (75-110); POTASSIUM 5.4 mmol/L (3.6-5.0); SODIUM 132.6 mmol/L (137-145)
[2018-01-01] MEDS: SODIUM CHLORIDE NASAL SPRAY 44 ML NASL SCH ×2 (16:47→21:10)
[2018-01-01] MEDS: NORMAL SALINE 1000 ML 1,000 ML IV PRN (17:09)
[2018-01-01] MEDS ORDERED: PREDNISONE 20 MG TABLET PO SCH (18:00)
[2018-01-01] MEDS ORDERED: SODIUM POLYSTYRENE SULFONATE 15 GM/60 ML PO ONE (18:49)
[2018-01-01] MEDS ORDERED: DEXTROSE 50%-WATER 25 GM/50 ML DISP.SYRIN IV PRN ×2 (18:51)
[2018-01-01] MEDS ORDERED: GLUCAGON,HUMAN RECOMB 1 MG INJ IM PRN (18:51)
[2018-01-01] MEDS ORDERED: DEXTROSE 40% GEL 15 GM TUBE PO PRN ×2 (18:51)
--- NOTE | 2018-01-01 18:59 | PDOC PROGRESS REPORT ---
Subjective Progress Note for:: 01/01/18 Subjective:: Patient is breathing better today. She is feeling overall weak and kind of depleted. Her appetite is fine. She has been able to get up a little bit to the chair and perhaps is why she is so tired right now. No chest pain. No phlegm production. No nausea vomiting diarrhea or constipation. No dysuria. Reason For Visit: COPD EXACERBATION Physical Exam Vital Signs: Temp Pulse Resp BP Pulse Ox 97.9 F 66 18 140/53 H 99 01/01/18 15:39 01/01/18 15:39 01/01/18 15:39 01/01/18 15:39 01/01/18 15:39 Intake & Output 12/31/17 01/01/18 01/02/18 06:59 06:59 07:59 Intake Total 1070 4356 1676 Output Total 500 900 Balance 570 3456 1676 Weight 95.5 kg General appearance: PRESENT: no acute distress, morbidly obese Head exam: PRESENT: atraumatic, normocephalic Eye exam: PRESENT: conjunctiva pink Ear exam: PRESENT: normal external ear exam Teeth exam: PRESENT: poor dentation Respiratory exam: PRESENT: clear to auscultation apollo, unlabored. ABSENT: rales , rhonchi, wheezes Cardiovascular exam: PRESENT: RRR. ABSENT: systolic murmur GI/Abdominal exam: PRESENT: normal bowel sounds, soft. ABSENT: distended, tenderness Extremities exam: ABSENT: pedal edema Neurological exam: PRESENT: alert, awake, oriented to person, oriented to place , oriented to situation, CN II-XII grossly intact Psychiatric exam: PRESENT: appropriate affect. ABSENT: anxious Skin exam: PRESENT: dry, warm Results Laboratory Results: 12/31/17 06:27 01/01/18 12:25 12/31/17 01/01/18 18:20 12:25 Sodium 132.6 L Potassium 5.4 H 5.4 H Chloride 103 Carbon Dioxide 19 L Anion Gap 11 BUN 41 H Creatinine 2.10 H Est GFR ( Amer) 28 L Est GFR (Non-Af Amer) 23 L Glucose 291 H Calcium 8.7 12/31/17 12/31/17 12/31/17 00:48 06:27 13:08 Troponin I < 0.012 < 0.012 < 0.012 Impressions: Chest X-Ray 12/30/17 16:18 IMPRESSION: CARDIAC ENLARGEMENT WITHOUT FAILURE. RIGHT LOWER LOBE INFILTRATE HAS ALMOST CLEARED. THERE ARE A FEW RESIDUAL STREAKY LINEAR DENSITIES. Lung Scan-VQ NM 12/30/17 18:17 IMPRESSION: NORMAL VENTILATION-PERFUSION LUNG SCAN. NEGATIVE FOR PULMONARY EMBOLI. Renal Ultrasound 12/31/17 00:00 IMPRESSION: Possible small amount of adjacent free fluid next to the right kidney.CHRONIC MEDICAL RENAL DISEASE. NO HYDRONEPHROSIS. Assessment & Plan - Diagnosis (1) COPD with acute exacerbation Is this a current diagnosis for this admission?: Yes Plan: Improving. We will titrate his own to 40 mg daily. Continue bronchodilators. (2) Conjunctivitis Qualifiers: Conjunctivitis type: acute Is this a current diagnosis for this admission?: Yes Plan: Improved significantly with antibiotic eyedrops. (3) Acute respiratory failure with hypoxemia Is this a current diagnosis for this admission?: Yes Plan: Proving. Titrate steroids. Otherwise continue care. (4) CAD (coronary artery disease) Is this a current diagnosis for this admission?: No Plan: Stable, no changes. (5) Type 2 diabetes mellitus Qualifiers: Diabetes mellitus complication status: with unspecified complications Is this a current diagnosis for this admission?: Yes Plan: Probably secondary to steroids her CBG is persistently elevated. I am going to increase her meal dose short acting insulin and continue her other medications unchanged. (6) Hyperkalemia Is this a current diagnosis for this admission?: Yes Plan: Potassium 5.4 persistently. I have ordered a dose of Kayexalate. We will recheck electrolytes in the morning. (7) Chronic kidney disease Is this a current diagnosis for this admission?: Yes Plan: She has chronic medical renal disease. She is slightly hyperkalemic today. - Time Time Spent with patient: 15-24 minutes Medications reviewed and adjusted accordingly: Yes - Inpatient Certification Medical Necessity: Need Close Monitoring Due to Risk of Patient Decompensation, Risk of Complication if Not Cared For in Hospital
[2018-01-01] MEDS: CEFTRIAXONE SODIUM 1,000 MG in NORMAL SALINE 100 ML IV SCH (19:28)
[2018-01-01 19:37] LABS: ANION GAP 10 (5-19); BLOOD UREA NITROGEN 42 mg/dL (7-20); CALCIUM 8.8 mg/dL (8.4-10.2); CARBON DIOXIDE 22 mmol/L (22-30); CHLORIDE 101 mmol/L (98-107); GLUCOSE 279 mg/dL (75-110); POTASSIUM 5.8 mmol/L (3.6-5.0); SODIUM 133.2 mmol/L (137-145)
[2018-01-01] MEDS: BENAZEPRIL HCL 20 MG TABLET PO SCH (21:11)
[2018-01-02] MEDS: POLYMYXIN B SULFATE/TMP OPH SOLN 10 ML OU SCH (03:12)
[2018-01-02 05:14] LABS: ANION GAP 10 (5-19); BLOOD UREA NITROGEN 42 mg/dL (7-20); CALCIUM 8.3 mg/dL (8.4-10.2); CARBON DIOXIDE 21 mmol/L (22-30); CHLORIDE 104 mmol/L (98-107); GLUCOSE 228 mg/dL (75-110); POTASSIUM 5.3 mmol/L (3.6-5.0); SODIUM 135.3 mmol/L (137-145)
[2018-01-02] MEDS: LEVOTHYROXINE SODIUM 0.088 MG TABLET PO SCH (06:13)
[2018-01-02] MEDS: NORMAL SALINE 1000 ML 1,000 ML IV PRN (06:13)
[2018-01-02] MEDS: HYDRALAZINE HCL 25 MG TABLET PO SCH (06:13)
[2018-01-02] MEDS: LANSOPRAZOLE 15 MG TAB.RAP.DR PO SCH (06:13)
[2018-01-02] MEDS: HEPARIN SOD (PORCINE) 5,000 UNIT/ML 1 ML SYRINGE SUBCUT SCH ×3 (06:13→22:01)
[2018-01-02] MEDS ORDERED: SODIUM POLYSTYRENE SULFONATE 15 GM/60 ML PO ONE (07:40)
[2018-01-02] MEDS: IPRATROPIUM/ALBUTEROL 0.5-2.5 MG/3 ML AMPUL NEB SCH ×2 (07:58→13:53)
[2018-01-02] MEDS: INSULIN LISPRO 100 UNIT/ML 3 ML VIAL SUBCUT SCH ×3 (08:10→16:27)
[2018-01-02] MEDS: INSULIN LISPRO 100 UNIT/ML 3 ML VIAL SUBCUT PRN ×3 (08:10→22:15)
[2018-01-02] MEDS: SODIUM CHLORIDE NASAL SPRAY 44 ML NASL SCH ×4 (08:11→22:01)
[2018-01-02] MEDS: CARVEDILOL 3.125 MG TABLET PO SCH ×2 (09:33→22:01)
[2018-01-02] MEDS: SITAGLIPTIN PHOSPHATE 50 MG TABLET PO SCH (09:33)
[2018-01-02] MEDS: GUAIFENESIN 600 MG TABLET.SA PO SCH ×2 (09:33→22:01)
[2018-01-02] MEDS: NYSTATIN CREAM 15 GM TP SCH ×2 (09:34→17:12)
[2018-01-02 09:58] LABS: FREE T4 (FREE THYROXINE) 1.64 ng/dL (0.78-2.19)
[2018-01-02] MEDS ORDERED: PREDNISONE 10 MG TABLET PO SCH (10:00)
[2018-01-02 10:12] LABS: THYROID STIMULATING HORMONE 0.3 uIU/mL (0.47-4.68)
[2018-01-02] MEDS: FLUTICASONE NASAL SPRAY 50 MCG/SPRY 120 SPRAY/16 GM NASL SCH (11:12)
[2018-01-02] MEDS: SENNOSIDES/DOCUSATE 8.6-50 MG 1 EACH TABLET PO SCH (11:12)
[2018-01-02] MEDS: CETIRIZINE 10 MG TABLET PO SCH (11:12)
[2018-01-02] MEDS: SIMETHICONE 80 MG TAB.CHEW PO PRN ×2 (11:19→22:02)
[2018-01-02 17:23] LABS: ANION GAP 11 (5-19); BLOOD UREA NITROGEN 39 mg/dL (7-20); CALCIUM 8.3 mg/dL (8.4-10.2); CARBON DIOXIDE 23 mmol/L (22-30); CHLORIDE 105 mmol/L (98-107); GLUCOSE 153 mg/dL (75-110); POTASSIUM 4.8 mmol/L (3.6-5.0); SODIUM 138.5 mmol/L (137-145)
[2018-01-02] MEDS ORDERED: IPRATROPIUM/ALBUTEROL 0.5-2.5 MG/3 ML AMPUL NEB PRN (18:14)
--- NOTE | 2018-01-02 18:19 | PDOC PROGRESS REPORT ---
Subjective Reason For Visit: COPD EXACERBATION Physical Exam Vital Signs: Temp Pulse Resp BP Pulse Ox 97.9 F 84 18 151/57 H 99 01/02/18 15:51 01/02/18 15:51 01/02/18 15:51 01/02/18 15:51 01/02/18 15:51 Intake & Output 01/01/18 01/02/18 01/03/18 05:59 06:59 06:59 Intake Total Output Total Balance Results Laboratory Results: 12/31/17 06:27 01/02/18 16:45 01/01/18 01/02/18 01/02/18 19:00 04:02 04:02 Sodium 133.2 L 135.3 L Potassium 5.8 H 5.3 H Chloride 101 104 Carbon Dioxide 22 21 L Anion Gap 10 10 BUN 42 H 42 H Creatinine 2.19 H 1.96 H Est GFR ( Amer) 27 L 31 L Est GFR (Non-Af Amer) 22 L 25 L Glucose 279 H 228 H Calcium 8.8 8.3 L TSH 0.30 L Free T4 1.64 01/02/18 16:45 Sodium 138.5 Potassium 4.8 Chloride 105 Carbon Dioxide 23 Anion Gap 11 BUN 39 H Creatinine 1.75 H Est GFR ( Amer) 35 L Est GFR (Non-Af Amer) 29 L Glucose 153 H Calcium 8.3 L TSH Free T4 12/30/17 22:05 Clean Catch Midstream Urine Culture - Final Klebsiella Pneumoniae Urogenital Kellen 12/31/17 04:40 Throat Throat Culture - Final NORMAL KELLEN 12/31/17 12/31/17 12/31/17 00:48 06:27 13:08 Troponin I < 0.012 < 0.012 < 0.012 Impressions: Chest X-Ray 12/30/17 16:18 IMPRESSION: CARDIAC ENLARGEMENT WITHOUT FAILURE. RIGHT LOWER LOBE INFILTRATE HAS ALMOST CLEARED. THERE ARE A FEW RESIDUAL STREAKY LINEAR DENSITIES. Lung Scan-VQ NM 12/30/17 18:17 IMPRESSION: NORMAL VENTILATION-PERFUSION LUNG SCAN. NEGATIVE FOR PULMONARY EMBOLI. Renal Ultrasound 12/31/17 00:00 IMPRESSION: Possible small amount of adjacent free fluid next to the right kidney.CHRONIC MEDICAL RENAL DISEASE. NO HYDRONEPHROSIS. Assessment & Plan - Diagnosis (1) COPD with acute exacerbation Is this a current diagnosis for this admission?: Yes Plan: Patient improved considerably. No wheezing and good air movement on lung exam today. I will change her bronchodilators to every 4 hours as needed with albuterol and ipratropium. We will titrate prednisone to 40 mg daily tomorrow. (2) Conjunctivitis Qualifiers: Conjunctivitis type: acute Is this a current diagnosis for this admission?: Yes Plan: This has improved significantly with her antibiotic eyedrops. Will continue for now. (3) Acute respiratory failure with hypoxemia Is this a current diagnosis for this admission?: Yes Plan: Patient is still using nasal cannula oxygen. I have spoken with her nurse today about titrating the O2 down as she is able. We will check her room air sat today at rest and also with ambulation. (4) CAD (coronary artery disease) Is this a current diagnosis for this admission?: No Plan: Stable from this perspective. No chest pain. Continue to monitor. (5) Type 2 diabetes mellitus Qualifiers: Diabetes mellitus complication status: with unspecified complications Is this a current diagnosis for this admission?: Yes Plan: CBGs have improved with addition of mealtime insulin dose. Will continue current care. (6) Hyperkalemia Is this a current diagnosis for this admission?: Yes Plan: She received 2 doses of Kayexalate. Her potassium this afternoon is 4.8. We will recheck her electrolytes in the morning. Of note her renal function is improving to what appears to be closer to her baseline. (7) Chronic kidney disease Is this a current diagnosis for this admission?: Yes Plan: BUN and creatinine improving. She has chronic medical renal disease and does not know what her baseline BUN and creatinine are. (8) Allergic rhinitis Is this a current diagnosis for this admission?: Yes Plan: I have added Zyrtec, Flonase, nasal saline. We will reassess her allergy symptoms tomorrow. - Time Time Spent with patient: 25-34 minutes Medications reviewed and adjusted accordingly: Yes - Inpatient Certification Based on my medical assessment, after consideration of the patient's comorbidities, presenting symptoms, or acuity I expect that the services needed warrant INPATIENT care.: Yes I certify that my determination is in accordance with my understanding of Medicare's requirements for reasonable and necessary INPATIENT services [42 CFR 412.3e].: Yes Medical Necessity: Need Close Monitoring Due to Risk of Patient Decompensation, Risk of Complication if Not Cared For in Hospital
[2018-01-02] MEDS: BENAZEPRIL HCL 20 MG TABLET PO SCH (22:01)
[2018-01-02] MEDS: CEPHALEXIN 500 MG CAPSULE PO SCH (22:01)
[2018-01-03] MEDS: ACETAMINOPHEN 325 MG TABLET PO PRN (00:28)
[2018-01-03 04:27] LABS: HEMATOCRIT 28.6 % (36.0-47.0); HEMOGLOBIN 9.6 g/dL (12.0-15.5); MEAN CORPUSCULAR HGB CONC 33.5 g/dL (32.0-36.0); MEAN CORPUSCULAR VOLUME 90 fl (80-97); PLATELET COUNT 196 10^3/uL (150-450); RED CELL DISTRIBUTION WIDTH 14.4 % (11.5-14.0); WHITE BLOOD COUNT 7.9 10^3/uL (4.0-10.5)
[2018-01-03 05:01] LABS: ANION GAP 9 (5-19); BLOOD UREA NITROGEN 39 mg/dL (7-20); CALCIUM 8.4 mg/dL (8.4-10.2); CARBON DIOXIDE 23 mmol/L (22-30); CHLORIDE 110 mmol/L (98-107); GLUCOSE 104 mg/dL (75-110); POTASSIUM 3.9 mmol/L (3.6-5.0); SODIUM 142.1 mmol/L (137-145)
[2018-01-03] MEDS: LANSOPRAZOLE 15 MG TAB.RAP.DR PO SCH (05:08)
[2018-01-03] MEDS: HEPARIN SOD (PORCINE) 5,000 UNIT/ML 1 ML SYRINGE SUBCUT SCH (05:08)
[2018-01-03] MEDS: LEVOTHYROXINE SODIUM 0.088 MG TABLET PO SCH (05:09)
[2018-01-03] MEDS: SODIUM CHLORIDE NASAL SPRAY 44 ML NASL SCH (08:53)
[2018-01-03] MEDS: INSULIN LISPRO 100 UNIT/ML 3 ML VIAL SUBCUT SCH (08:53)
[2018-01-03] MEDS: NYSTATIN CREAM 15 GM TP SCH (09:19)
[2018-01-03] MEDS: GUAIFENESIN 600 MG TABLET.SA PO SCH (09:19)
[2018-01-03] MEDS: FLUTICASONE NASAL SPRAY 50 MCG/SPRY 120 SPRAY/16 GM NASL SCH (09:19)
[2018-01-03] MEDS: CARVEDILOL 3.125 MG TABLET PO SCH (09:20)
[2018-01-03] MEDS: SITAGLIPTIN PHOSPHATE 50 MG TABLET PO SCH (09:20)
[2018-01-03] MEDS: CETIRIZINE 10 MG TABLET PO SCH (09:20)
[2018-01-03] MEDS: CEPHALEXIN 500 MG CAPSULE PO SCH (09:20)
[2018-01-03] MEDS: SIMETHICONE 80 MG TAB.CHEW PO PRN (09:24)
[2018-01-03] MEDS: SENNOSIDES/DOCUSATE 8.6-50 MG 1 EACH TABLET PO SCH (09:26)
[2018-01-03 09:46] VITALS: BP 160/82
[2018-01-03] MEDS ORDERED: PREDNISONE 20 MG TABLET PO SCH (10:00)
[2018-01-03] MEDS ORDERED: HYDRALAZINE HCL 50 MG TABLET PO SCH (14:00)
--- NOTE | 2018-01-03 23:37 | PDOC DISCHARGE SUMMARY ---
General - Admit/Disc Date/PCP Admission Date/Primary Care Provider: 12/30/17 18:32 NO LOCALNM Discharge Date: 01/03/18 - Discharge Diagnosis (1) COPD with acute exacerbation Is this a current diagnosis for this admission?: Yes Summary: Patient was treated with steroids with taper, discharged on several more days of prednisone. She was treated with bronchodilators. She initially had hypoxemic respiratory failure but was weaned off of oxygen for discharge. She is very close to her baseline on discharge. (2) Conjunctivitis Is this a current diagnosis for this admission?: Yes Summary: His prior to admission patient had been started on antibiotic eyedrops and so we continued eyedrops here. Her conjunctivitis improved significantly. She did not get discharged on antibiotic eyedrops as she will continue her home medication. (3) Acute respiratory failure with hypoxemia Is this a current diagnosis for this admission?: Yes Summary: Resolved with treatment of COPD. She no longer requires oxygen, not discharged on oxygen (4) CAD (coronary artery disease) Is this a current diagnosis for this admission?: No Summary: Table, continue home meds (5) Type 2 diabetes mellitus Is this a current diagnosis for this admission?: Yes Summary: Patient was discharged on her regular diabetic regimen. (6) Hyperkalemia Is this a current diagnosis for this admission?: Yes Summary: This is related to her acute kidney injury on chronic kidney disease. Treated with 2 doses of Kayexalate. Potassium was normal for several checks prior to discharge. (7) Chronic kidney disease Is this a current diagnosis for this admission?: Yes Summary: Stable on discharge. (8) Allergic rhinitis Is this a current diagnosis for this admission?: Yes Summary: She was treated with Flonase, Zyrtec, nasal saline. Her symptoms resolved significantly. - Additional Information Resuscitation Status: Full Code Discharge Diet: Cardiac, Diabetic Discharge Activity: Balance Activity w/Rest Prescriptions: Cephalexin Monohydrate [Keflex 500 mg Capsule] 500 mg PO Q12 4 Days #8 capsule Prednisone [Deltasone 20 mg Tablet] 20 mg PO DAILY 3 Days #3 tablet Sennosides/Docusate 8.6-50 mg [Senna Plus Tablet] 1 each PO DAILY 30 Days #30 tablet Home Medications: Benazepril HCl [Lotensin 20 mg Tablet] 20 mg PO QHS 12/30/17 Carvedilol [Coreg 3.125 mg Tablet] 3.125 mg PO Q12 12/30/17 Glimepiride [Amaryl 4 mg Tablet] 4 mg PO QAM 12/30/17 Glimepiride [Amaryl] 2 mg PO QPM 12/30/17 Hydralazine HCl [Apresoline 25 mg Tablet] 50 mg PO Q8 12/30/17 Levothyroxine Sodium [Synthroid] 0.088 mg PO Q6AM 12/30/17 Omeprazole 20 mg PO DAILY 12/30/17 Oxycodone HCl/Acetaminophen [Percocet 7.5-325 mg Tablet] 1 tab PO BIDP PRN 12/30 Sitagliptin Phosphate [Januvia 50 mg Tablet] 50 mg PO DAILY 12/30/17 Cephalexin Monohydrate [Keflex 500 mg Capsule] 500 mg PO Q12 4 Days #8 capsule 01/03/18 Prednisone [Deltasone 20 mg Tablet] 20 mg PO DAILY 3 Days #3 tablet 01/03/18 Sennosides/Docusate 8.6-50 mg [Senna Plus Tablet] 1 each PO DAILY 30 Days #30 tablet 01/03/18 History of Present Illness Patient complains of: Chest congestion History of Present Illness: WANG LAWSON is a 72 year old female WANG LAWSON is a 72 year old obese female with history of COPD (not on home oxygen), CAD/CHF, CESILIA (on CPAP) and type 2 diabetes mellitus was admitted with above-mentioned complaints. The patient was last hospitalized here from 2017 to 12/15/2017 with COPD exacerbation/pneumonia and acute on chronic renal failure. According to the patient, her breathing got worse in the last few days. She denies any fever, cough or sputum and she always has chills. She said that her great-granddaughter has strep throat but she denies any sore throat or runny nose. She said that she feels congested. She also had chest pain yesterday. It was nonradiating and lasted about a minute while at rest, no relieving or aggravating factors. She is up-to-date with her flu and pneumonia vaccine. She is not on nebulizer treatments at home and she only used her rescue inhaler twice today. In the ED, her temperature was 99.8, heart rate 73, respiratory rate 17 and her blood pressure was 133/54 with oxygen saturation of 83% on room air. Her WBC was 5.9 with hemoglobin of 10.3 and her BUN/creatinine was 32/3.55 (up from 45/ 1.66 on 12/15/2017. A chest x-ray was done which did not show any acute findings. VQ scan is still pending. She received 2 DuoNeb treatments and 125 IV Solu-Medrol x1 with improvement in her breathing. Hospital Course Hospital Course: Please see hospital course by problem list Physical Exam Vital Signs: Temp Pulse Resp BP Pulse Ox 97.9 F 81 18 160/82 H 98 01/03/18 09:42 01/03/18 09:42 01/03/18 09:42 01/03/18 09:42 01/03/18 09:42 Intake & Output 01/02/18 01/03/18 01/04/18 06:59 06:59 06:59 Intake Total 2145 Balance 2145 General appearance: PRESENT: no acute distress, cooperative, obese Head exam: PRESENT: atraumatic, normocephalic Eye exam: PRESENT: conjunctiva pink, EOMI Ear exam: PRESENT: normal external ear exam Mouth exam: PRESENT: moist, tongue midline Respiratory exam: PRESENT: clear to auscultation apollo, unlabored. ABSENT: rales , rhonchi, wheezes Cardiovascular exam: PRESENT: RRR. ABSENT: systolic murmur GI/Abdominal exam: PRESENT: normal bowel sounds, soft. ABSENT: distended, tenderness Extremities exam: ABSENT: calf tenderness, pedal edema Neurological exam: PRESENT: alert, awake, oriented to person, oriented to place , oriented to situation, CN II-XII grossly intact Skin exam: PRESENT: dry, intact, warm Results Laboratory Results: 01/03/18 03:55 01/03/18 03:55 01/03/18 01/03/18 03:55 03:55 WBC 7.9 RBC 3.20 L Hgb 9.6 L Hct 28.6 L MCV 90 MCH 30.0 MCHC 33.5 RDW 14.4 H Plt Count 196 Sodium 142.1 Potassium 3.9 Chloride 110 H Carbon Dioxide 23 Anion Gap 9 BUN 39 H Creatinine 1.64 H Est GFR ( Amer) 37 L Est GFR (Non-Af Amer) 31 L Glucose 104 Calcium 8.4 12/31/17 12/31/17 12/31/17 00:48 06:27 13:08 Troponin I < 0.012 < 0.012 < 0.012 Impressions: Chest X-Ray 12/30/17 16:18 IMPRESSION: CARDIAC ENLARGEMENT WITHOUT FAILURE. RIGHT LOWER LOBE INFILTRATE HAS ALMOST CLEARED. THERE ARE A FEW RESIDUAL STREAKY LINEAR DENSITIES. Lung Scan-VQ NM 12/30/17 18:17 IMPRESSION: NORMAL VENTILATION-PERFUSION LUNG SCAN. NEGATIVE FOR PULMONARY EMBOLI. Renal Ultrasound 12/31/17 00:00 IMPRESSION: Possible small amount of adjacent free fluid next to the right kidney.CHRONIC MEDICAL RENAL DISEASE. NO HYDRONEPHROSIS. Qualifiers - * PATEINT BEING DISCHARGED WITH ANY OF THE FOLLOWING DIAGNOSIS?: No
== END 2018-01-03 11:01 | disposition home or self-care (01) | DRG 189 ==
LOC: ER 15:14 → EH 18:32 → 5 21:53
PROVIDERS: ADMIT Emergency Medicine; ATTEND Emergency Medicine
PROC: 5A09457 Assistance with Respiratory Ventilation, 24-96 Consecutive Hours, Continuous Positive Airway Pressure (ICD-10-PCS; principal; 2017-12-30)
DX: J96.01 Acute respiratory failure with hypoxia (principal); J44.1 Chronic obstructive pulmonary disease with (acute) exacerbation; I13.0 Hypertensive heart and chronic kidney disease with heart failure and stage 1 through stage 4 chronic kidney disease, or unspecified chronic kidney disease; N17.9 Acute kidney failure, unspecified; J96.22 Acute and chronic respiratory failure with hypercapnia; I25.10 Atherosclerotic heart disease of native coronary artery without angina pectoris; E11.22 Type 2 diabetes mellitus with diabetic chronic kidney disease; N18.3 Chronic kidney disease, stage 3 (moderate); I50.9 Heart failure, unspecified; G47.33 Obstructive sleep apnea (adult) (pediatric); I25.2 Old myocardial infarction; E78.5 Hyperlipidemia, unspecified; R01.1 Cardiac murmur, unspecified; H10.33 Unspecified acute conjunctivitis, bilateral; K21.9 Gastro-esophageal reflux disease without esophagitis; E87.5 Hyperkalemia; M19.90 Unspecified osteoarthritis, unspecified site; J30.9 Allergic rhinitis, unspecified; L30.9 Dermatitis, unspecified; E66.9 Obesity, unspecified; K74.60 Unspecified cirrhosis of liver; Z90.49 Acquired absence of other specified parts of digestive tract; Z90.710 Acquired absence of both cervix and uterus; Z87.891 Personal history of nicotine dependence; Z88.2 Allergy status to sulfonamides; Z79.899 Other long term (current) drug therapy; Z88.3 Allergy status to other anti-infective agents; Z88.6 Allergy status to analgesic agent; Z79.84 Long term (current) use of oral hypoglycemic drugs; Z68.37 Body mass index [BMI] 37.0-37.9, adult; Z82.49 Family history of ischemic heart disease and other diseases of the circulatory system; Z86.19 Personal history of other infectious and parasitic diseases; Z86.11 Personal history of tuberculosis
CPT/HCPCS: 36415; 71046; 76770; 78582; 80048; 80053; 81001; 81002; 82570; 82803; 82962; 83036; 83605; 83735; 84132; 84156; 84300; 84439; 84443; 84484; 85025; 85027; 85610; 87040; 87070; 87086; 87088; 87186; 87880; 93005; 93010; 94660; 99291; A9540; A9567; J0696; J1644; J1815; J2550; J2920; J2930; J3490; J7030; J7512; J7620; Q9969

== ENCOUNTER → 2018-01-11 | Outpatient (CLI) | payer MEDICARE ==
[2018-01-11 16:10] LABS: HEMATOCRIT 32.5 % (36.0-47.0); HEMOGLOBIN 10.7 g/dL (12.0-15.5); MEAN CORPUSCULAR HEMOGLOBIN 29.4 pg (27.0-33.4); MEAN CORPUSCULAR HGB CONC 32.8 g/dL (32.0-36.0); MEAN CORPUSCULAR VOLUME 90 fl (80-97); PLATELET COUNT 219 10^3/uL (150-450); RED BLOOD COUNT 3.62 10^6/uL (3.72-5.28); RED CELL DISTRIBUTION WIDTH 15.2 % (11.5-14.0); WHITE BLOOD COUNT 11.4 10^3/uL (4.0-10.5)
[2018-01-11 16:25] LABS: AMORPHOUS SEDIMENT,URINE TRACE /HPF; APPEARANCE,URINE CLOUDY; BILIRUBIN,URINE NEGATIVE (NEGATIVE); COLOR,URINE YELLOW; GLUCOSE, URINE NEGATIVE (NEGATIVE); KETONES,URINE NEGATIVE (NEGATIVE); LEUKOCYTE ESTERASE,URINE LARGE (NEGATIVE); NITRITE,URINE NEGATIVE (NEGATIVE); PROTEIN,URINE 30 mg/dL (NEGATIVE); URINE SPECIFIC GRAVITY 1.006; UROBILINOGEN,URINE NEGATIVE mg/dL (<2.0)
[2018-01-11 16:30] LABS: ANION GAP 6 (5-19); BLOOD UREA NITROGEN 28 mg/dL (7-20); CALCIUM 8.4 mg/dL (8.4-10.2); CARBON DIOXIDE 28 mmol/L (22-30); CHLORIDE 103 mmol/L (98-107); GLUCOSE 185 mg/dL (75-110); SODIUM 137.4 mmol/L (137-145)
== END ==
LOC: OD 15:26
PROVIDERS: ATTEND Internal Medicine Nephrology
DX: I12.9 Hypertensive chronic kidney disease with stage 1 through stage 4 chronic kidney disease, or unspecified chronic kidney disease (principal); N18.3 Chronic kidney disease, stage 3 (moderate); E87.5 Hyperkalemia; E11.9 Type 2 diabetes mellitus without complications; D64.9 Anemia, unspecified
CPT/HCPCS: 36415; 80048; 81001; 85027

== ENCOUNTER → 2018-02-16 | Outpatient (CLI) | payer MEDICARE ==
--- NOTE | 2018-02-16 15:28 | RADIOLOGY REPORT (SQ) ---
EXAM DESCRIPTION: CT CHEST WITHOUT COMPLETED DATE/TIME: 02/16/2018 1:00 pm REASON FOR STUDY: R91.8 OTHER NONSPECIFIC ABNORMAL FINDING OF LUNG FIELD R91.8 OTHER NONSPECIFIC AB NORMAL FINDING OF LUNG FIELD J32.9 CHRONIC SINUSITIS, UNSPECIFIED COMPARISON: CT chest 10/27/2016 TECHNIQUE: CT scan performed of the chest without intravenous contrast. Images reviewed with lung, soft tissue and bone windows. Reconstructed coronal and sagittal MPR images reviewed. All images st ored on PACS. All CT scanners at this facility use dose modulation, iterative reconstruction, and/or weight based d osing when appropriate to reduce radiation dose to as low as reasonably achievable (ALARA). [facility]: Dose Right [facility]: CareDose [facility]: Dose Right [facility]: Teradose 4D [facility]: Teak RADIATION DOSE: CT Rad equipment meets quality standard of care and radiation dose reduction techniq ues were employed. CTDIvol: 13.4 mGy. DLP: 516 mGy-cm. mGy. LIMITATIONS: No technical limitations. FINDINGS: LUNGS AND PLEURA: No fluffy alveolar infiltrates worrisome for pulmonary edema or pneumoni a. Mild bandlike atelectasis in the lingula and left lower lobe, similar compared to 10/27/2016. No pleural effusions. No pneumothorax. Airways are patent. Mild hyperlucency at the apices from obstructive disease. HILAR AND MEDIASTINAL STRUCTURES: No identified masses or abnormal nodes. No obvious aneurysm. HEART AND VASCULAR STRUCTURES: No aneurysm. No pericardial effusion. Calcified aortic valve UPPER ABDOMEN: No significant findings. Limited exam. THYROID AND OTHER SOFT TISSUES: Post right lobe thyroidectomy. BONES: Stable central upper endplate depression at L1 HARDWARE: None in the chest. OTHER: No other significant findings. IMPRESSION: Stable bandlike scarring or atelectasis in the lingula and left lower lobe TECHNICAL DOCUMENTATION: JOB ID: [id number] Quality ID # [id number]: Final reports with documentation of one or more dose reduction techniques (e.g., Au tomated exposure control, adjustment of the mA and/or kV according to patient size, use of iterative reconstruction technique) 2010 [employer]- All Rights Reserved Reading location - IP/workstation name: [email or web address]
--- NOTE | 2018-02-16 15:51 | RADIOLOGY REPORT (SQ) ---
EXAM DESCRIPTION: CT FACIAL AREA WITHOUT COMPLETED DATE/TIME: 02/16/2018 1:01 pm REASON FOR STUDY: R91.8 OTHER NONSPECIFIC ABNORMAL FINDING OF LUNG FIELD J32.9 CHRONIC SINUSI R91.8 OTHER NONSPECIFIC ABNORMAL FINDING OF LUNG FIELD J32.9 CHRONIC SINUSITIS, UNSPECIFIED COMPARISON: CT brain 03/15/2011 TECHNIQUE: Noncontrasted images through the facial bones and orbits windowed for bone and soft tissu e. Additional coronal and sagittal reconstructed images reviewed. All images stored on PACS. All CT scanners at this facility use dose modulation, iterative reconstruction, and/or weight based d osing when appropriate to reduce radiation dose to as low as reasonably achievable (ALARA). [facility]: Dose Right [facility]: CareDose [facility]: Dose Right [facility]: Teradose 4D [facility]: Velocomp RADIATION DOSE: 44.31 mGy. LIMITATIONS: None. FINDINGS: FACIAL BONES: No fracture or bone lesion. ORBITS: Intact. No fracture. Symmetric intact globes and retroorbital soft tissues. Post bilateral cataract surgery PARANASAL SINUSES: Mucous membrane thickening left maxillary sinus. Opacified left maxillary outlet on coronal images 17-21. Right maxillary sinus and maxillary outlet are clear Trace fluid in the left ethmoid air cells. Paranasal sinuses are otherwise unremarkable. SOFT TISSUES: No mass or edema. INFERIOR BRAIN: Limited view. No acute findings. OTHER: No other significant finding. IMPRESSION: Mucous membrane thickening left maxillary sinus with opacified left maxillary outlet TECHNICAL DOCUMENTATION: JOB ID: [id number] Quality ID # [id number]: Final reports with documentation of one or more dose reduction techniques (e.g., Au tomated exposure control, adjustment of the mA and/or kV according to patient size, use of iterative reconstruction technique) 2010 [employer]- All Rights Reserved Reading location - IP/workstation name: [email or web address]
== END ==
LOC: RAD 13:48
PROVIDERS: ATTEND Internal Medicine Critical Care Medicine
DX: R91.8 Other nonspecific abnormal finding of lung field (principal); J32.9 Chronic sinusitis, unspecified; J98.4 Other disorders of lung; R09.02 Hypoxemia; G47.33 Obstructive sleep apnea (adult) (pediatric); R06.09 Other forms of dyspnea; R94.2 Abnormal results of pulmonary function studies; J45.990 Exercise induced bronchospasm; Z87.01 Personal history of pneumonia (recurrent); Z86.79 Personal history of other diseases of the circulatory system; Z87.891 Personal history of nicotine dependence
CPT/HCPCS: 70486; 71250

== ENCOUNTER → 2018-05-05 | Outpatient (CLI) | payer MEDICARE ==
[2018-05-05 15:04] LABS: HEMATOCRIT 26.4 % (36.0-47.0); HEMOGLOBIN 9.1 g/dL (12.0-15.5); MEAN CORPUSCULAR HEMOGLOBIN 29.6 pg (27.0-33.4); MEAN CORPUSCULAR HGB CONC 34.5 g/dL (32.0-36.0); MEAN CORPUSCULAR VOLUME 86 fl (80-97); PLATELET COUNT 272 10^3/uL (150-450); RED BLOOD COUNT 3.07 10^6/uL (3.72-5.28); RED CELL DISTRIBUTION WIDTH 14.3 % (11.5-14.0); WHITE BLOOD COUNT 8.7 10^3/uL (4.0-10.5)
[2018-05-05 15:19] LABS: APPEARANCE,URINE SLIGHTLY-CLOUDY; BILIRUBIN,URINE NEGATIVE (NEGATIVE); COLOR,URINE YELLOW; GLUCOSE, URINE NEGATIVE (NEGATIVE); KETONES,URINE NEGATIVE (NEGATIVE); LEUKOCYTE ESTERASE,URINE MODERATE (NEGATIVE); NITRITE,URINE POSITIVE (NEGATIVE); PROTEIN,URINE NEGATIVE (NEGATIVE); URINE SPECIFIC GRAVITY 1.011; UROBILINOGEN,URINE NEGATIVE mg/dL (<2.0)
[2018-05-05 15:28] LABS: ANION GAP 13 (5-19); BLOOD UREA NITROGEN 50 mg/dL (7-20); CALCIUM 9.3 mg/dL (8.4-10.2); CARBON DIOXIDE 28 mmol/L (22-30); CHLORIDE 99 mmol/L (98-107); GLUCOSE 168 mg/dL (75-110); POTASSIUM 4.4 mmol/L (3.6-5.0); SODIUM 139.8 mmol/L (137-145)
[2018-05-06 08:29] LABS: IRON(TIBC) 21.8 ug/dL (37-170)
== END ==
LOC: OD 14:09
PROVIDERS: ATTEND Physician Assistant Medical
DX: N18.4 Chronic kidney disease, stage 4 (severe) (principal); D63.1 Anemia in chronic kidney disease; E11.9 Type 2 diabetes mellitus without complications; D64.9 Anemia, unspecified; E83.42 Hypomagnesemia
CPT/HCPCS: 36415; 80048; 81001; 82728; 83540; 83550; 83735; 83970; 84100; 85027

== ENCOUNTER 2018-05-19 13:03 | Outpatient (CLI) | payer MEDICARE ==
[~2018-05-19 13:03] MED LIST: FERUMOXYTOL (NON-ESRD) 510 MG/NS 100 ML IV PRN
[2018-05-19 14:13] VITALS: BP 157/56
== END 2018-05-19 14:31 | disposition home or self-care (01) ==
LOC: II 13:03 → 5TH 13:04 → II 14:31
PROVIDERS: ATTEND Internal Medicine Nephrology
PROC: 3E033GC Introduction of Other Therapeutic Substance into Peripheral Vein, Percutaneous Approach (ICD-10-PCS; principal; 2018-05-19)
DX: D50.9 Iron deficiency anemia, unspecified (principal); N18.9 Chronic kidney disease, unspecified
CPT/HCPCS: 96365; Q0138

== ENCOUNTER 2018-05-26 12:56 | Outpatient (CLI) | payer MEDICARE ==
[~2018-05-26 12:56] MED LIST changes: +FERUMOXYTOL (ESRD) 510 MG/NS 100 ML IV PRN; -FERUMOXYTOL (NON-ESRD) 510 MG/NS 100 ML IV PRN
[2018-05-26 13:31] VITALS: BP 144/48
== END 2018-05-26 14:39 | disposition home or self-care (01) ==
LOC: II 12:56 → 5TH 13:01 → II 14:39
PROVIDERS: ATTEND Internal Medicine Nephrology
PROC: 3E033GC Introduction of Other Therapeutic Substance into Peripheral Vein, Percutaneous Approach (ICD-10-PCS; principal; 2018-05-26)
DX: D50.8 Other iron deficiency anemias (principal); N18.9 Chronic kidney disease, unspecified
CPT/HCPCS: 96365; Q0139

== ENCOUNTER 2018-06-03 23:07 | Inpatient (IN) | payer MEDICARE ==
[2018-06-03] MEDS ORDERED: RINGERS SOLUTION,LACTATED 1,000 ML IV ONE (23:32)
[2018-06-03 23:39] LABS: ABSOLUTE BASOPHILS # (AUTO) 0.1 10^3/uL (0.0-0.2); ABSOLUTE EOSINOPHILS # (AUTO) 0.1 10^3/uL (0.0-0.6); ABSOLUTE LYMPHOCYTES (AUTO) 1.4 10^3/uL (0.5-4.7); ABSOLUTE MONOCYTES (AUTO) 0.8 10^3/uL (0.1-1.4); ABSOLUTE NEUT (AUTO) 12.1 10^3/uL (1.7-8.2); BASOPHILS % (AUTO) 0.5 % (0-2); EOSINOPHILS % (AUTO) 0.5 % (0-6); HEMATOCRIT 30.9 % (36.0-47.0); LYMPHOCYTES % (AUTO) 9.5 % (13-45); MEAN CORPUSCULAR HEMOGLOBIN 28.9 pg (27.0-33.4); MEAN CORPUSCULAR HGB CONC 32.4 g/dL (32.0-36.0); MEAN CORPUSCULAR VOLUME 89 fl (80-97); MONOCYTES % (AUTO) 5.5 % (3-13); PLATELET COUNT 196 10^3/uL (150-450); RED BLOOD COUNT 3.46 10^6/uL (3.72-5.28); TOTAL CELLS COUNTED % (AUTO) 100 %; WHITE BLOOD COUNT 14.4 10^3/uL (4.0-10.5)
[2018-06-03 23:43] LABS: INTERNATIONAL RATION (INR) 0.98; PROTHROMBIN TIME 13.5 SEC (11.4-15.4)
[2018-06-03 23:52] LABS: ALANINE AMINOTRANSFERASE 16 U/L (9-52); ALBUMIN 4.2 g/dL (3.5-5.0); ALKALINE PHOSPHATASE 72 U/L (38-126); ANION GAP 17 (5-19); ASPARTATE AMINO TRANSFERASE 25 U/L (14-36); BILIRUBIN,DIRECT 0.5 mg/dL (0.0-0.4); BILIRUBIN,TOTAL 0.6 mg/dL (0.2-1.3); BLOOD UREA NITROGEN 77 mg/dL (7-20); CALCIUM 9.2 mg/dL (8.4-10.2); CARBON DIOXIDE 26 mmol/L (22-30); CHLORIDE 97 mmol/L (98-107); GLUCOSE 133 mg/dL (75-110); POTASSIUM 4.4 mmol/L (3.6-5.0); SODIUM 140.3 mmol/L (137-145); TOTAL PROTEIN 8.3 g/dL (6.3-8.2)
[2018-06-04 00:01] LABS: TROPONIN I 0.014 ng/mL
--- NOTE | 2018-06-04 00:07 | EKG REPORT ---
SEVERITY:- ABNORMAL ECG - SINUS RHYTHM LEFT ANTERIOR FASCICULAR BLOCK BORDERLINE T ABNORMALITIES, ANT-LAT LEADS : Confirmed by: Ana Villasenor MD 04-Jun-2018 00:07:04
[2018-06-04 00:17] LABS: VENOUS BLOOD BASE EXCESS 3.1 mmol/L; VENOUS BLOOD HCO3 27.3 mmol/L (20-32); VENOUS BLOOD PCO2 40.1 mmHg (35-63); VENOUS BLOOD PH 7.45 (7.30-7.42)
[2018-06-04 00:45] LABS: LIPASE 299.5 U/L (23-300)
--- NOTE | 2018-06-04 00:46 | RADIOLOGY REPORT (SQ) ---
CXR Clinical History: 73-year-old female with fever. Comparison: CT dated 16 February 2018 Technique: 2 view of the chest submitted for review. Findings: Interstitial opacity in the right lower lobe. The lungs are hyperaerated with increased retrosternal airspace and flattening of the hemidiaphragms. The cardiac silhouette measures within normal. Pulmonary vascularity is unremarkable. Osseous structures are normal for age. Impression: Pulmonary hyperinflation with interstitial opacity in the right lower lobe. Please correlate for pneumonia.
[2018-06-04 01:00] LABS: APPEARANCE,URINE SLIGHTLY-CLOUDY; BILIRUBIN,URINE NEGATIVE (NEGATIVE); COLOR,URINE YELLOW; GLUCOSE, URINE NEGATIVE (NEGATIVE); KETONES,URINE NEGATIVE (NEGATIVE); LEUKOCYTE ESTERASE,URINE MODERATE (NEGATIVE); NITRITE,URINE POSITIVE (NEGATIVE); PROTEIN,URINE 30 mg/dL (NEGATIVE); URINE SPECIFIC GRAVITY 1.011; UROBILINOGEN,URINE NEGATIVE mg/dL (<2.0)
[2018-06-04] MEDS ORDERED: CEFTRIAXONE 1 GM/D5W RTU 1 GM/50 ML RTUPB IV ONE (01:11)
[2018-06-04] MEDS ORDERED: AZITHROMYCIN INJ 500 MG VIAL IV ONE (01:58)
[2018-06-04] MEDS ORDERED: CEFTRIAXONE INJ 1000 MG VIAL ONE (02:01)
--- NOTE | 2018-06-04 02:41 | ER Document Report ---
ED General - General Chief Complaint: General Weakness Stated Complaint: FEVER Time Seen by Provider: 06/03/18 23:23 TRAVEL OUTSIDE OF THE [place] IN LAST 30 DAYS: No - HPI Patient complains to provider of: Generalized weakness and fever Notes: Patient here for evaluation of fever and generalized weakness. Patient states symptoms started today. Patient denies any prior she is feeling fine with regarding her activities without any issues. Patient denies any recent antibiotics denies any recent travel. Patient denies any chest pain abdominal pain nausea vomiting diarrhea. His denies any shortness of breath denies any shortness of breath however is requiring some oxygen - Related Data Allergies/Adverse Reactions: Sulfa (Sulfonamide Antibiotics) Allergy (Unknown, Verified 06/03/18 23:31) heparin Allergy (Verified 06/03/18 23:31) levofloxacin [From Levaquin] Allergy (Verified 06/03/18 23:31) prednisone Allergy (Verified 06/03/18 23:31) morphine [Morphine] Adverse Reaction (Severe, Verified 06/03/18 23:31) aspirin Adverse Reaction (Verified 06/03/18 23:31) Past Medical History - Social History Smoking Status: Former Smoker Chew tobacco use (# tins/day): No Frequency of alcohol use: None Drug Abuse: None Family History: Hypertension, Other - Aneurysm in the mother, lung cancer in the father Patient has suicidal ideation: No Patient has homicidal ideation: No - Past Medical History Cardiac Medical History: Reports: Hx Congestive Heart Failure, Hx Coronary Artery Disease, Hx Heart Attack, Hx Hypercholesterolemia, Hx Hypertension, Hx Heart Murmur Pulmonary Medical History: Reports: Hx Asthma, Hx Bronchitis, Hx COPD, Hx Pneumonia, Hx Tuberculosis Neurological Medical History: Reports: Hx Seizures. Denies: Hx Cerebrovascular Accident Endocrine Medical History: Reports: Hx Diabetes Mellitus Type 1, Hx Diabetes Mellitus Type 2, Hx Hyperthyroidism, Hx Hypothyroidism Renal/ Medical History: Reports: Hx End Stage Renal Disease, Hx Renal Insufficiency. Denies: Hx Peritoneal Dialysis GI Medical History: Reports: Hx Cirrhosis, Hx Gastroesophageal Reflux Disease, Hx Hepatitis Musculoskeletal Medical History: Reports Hx Arthritis Skin Medical History: Reports Hx Eczema Psychiatric Medical History: Denies: Hx Depression Infectious Medical History: Reports: Hx Hepatitis Past Surgical History: Reports: Hx Appendectomy, Hx Hysterectomy, Hx Orthopedic Surgery - b.l feet and right elbow surgery, Hx Pacemaker, Other - Bilat cataract and ankle surgery. - Immunizations Hx Diphtheria, Pertussis, Tetanus Vaccination: No Review of Systems - Review of Systems Constitutional: Fever, Weakness EENT: No symptoms reported Cardiovascular: No symptoms reported Respiratory: No symptoms reported Gastrointestinal: No symptoms reported Genitourinary: No symptoms reported Female Genitourinary: No symptoms reported Musculoskeletal: No symptoms reported Skin: No symptoms reported Hematologic/Lymphatic: No symptoms reported Neurological/Psychological: No symptoms reported -: Yes All other systems reviewed and negative Physical Exam - Vital signs Vitals: Resp BP Pulse Ox 21 H 151/48 H 96 06/03/18 23:15 06/03/18 23:15 06/03/18 23:15 Interpretation: Tachypneic, Febrile - General General appearance: Appears well, Alert - HEENT Head: Normocephalic, Atraumatic Eyes: Normal Pupils: PERRL - Respiratory Respiratory status: No respiratory distress Chest status: Nontender Breath sounds: Normal Chest palpation: Normal - Cardiovascular Rhythm: Regular Heart sounds: Normal auscultation Murmur: No - Abdominal Inspection: Normal Distension: No distension Bowel sounds: Normal Tenderness: Nontender Organomegaly: No organomegaly - Back Back: Normal, Nontender - Extremities General upper extremity: Normal inspection, Nontender, Normal color, Normal ROM , Normal temperature General lower extremity: Normal inspection, Nontender, Normal color, Normal ROM , Normal temperature, Normal weight bearing. No: Abimael's sign - Neurological Neuro grossly intact: Yes Cognition: Normal Orientation: AAOx4 Cristin Coma Scale Eye Opening: Spontaneous [place] Coma Scale Verbal: Oriented [place] Coma Scale Motor: Obeys Commands Cristin Coma Scale Total: 15 Speech: Normal Motor strength normal: LUE, RUE, LLE, RLE Sensory: Normal - Psychological Associated symptoms: Normal affect, Normal mood - Skin Skin Temperature: Warm Skin Moisture: Dry Skin Color: Normal Course - Re-evaluation Re-evalutation: 06/04/18 06:10 Patient acute on chronic renal failure also with leukocytosis urinalysis showing urinary tract infection along with chest x-ray showing possible pneumonia. There is no antibiotics to recent hospitalization patient was to have a community acquired pneumonia we will treat with Rocephin and Zithromax. Discussed with hospitalist will admit the patient for further evaluation. - Vital Signs Vital signs: Temp Pulse Resp BP Pulse Ox 99.9 F 15 129/41 H 97 06/03/18 23:18 06/04/18 04:02 06/04/18 04:02 06/04/18 04:02 - Laboratory Result Diagrams: 06/03/18 22:39 06/03/18 22:39 Laboratory results interpreted by me: 06/03/18 06/03/18 06/03/18 22:39 22:39 22:39 WBC 14.4 H RBC 3.46 L Hgb 10.0 L Hct 30.9 L RDW 16.0 H Seg Neutrophils % 84.0 H Lymphocytes % 9.5 L Absolute Neutrophils 12.1 H VBG pH Chloride 97 L BUN 77 H Creatinine 3.25 H Est GFR ( Amer) 17 L Est GFR (Non-Af Amer) 14 L Glucose 133 H POC Glucose Direct Bilirubin 0.5 H NT-Pro-B Natriuret Pep 999 H Total Protein 8.3 H Urine Protein Urine Nitrite Ur Leukocyte Esterase 06/03/18 06/04/18 06/04/18 23:57 00:10 00:48 WBC RBC Hgb Hct RDW Seg Neutrophils % Lymphocytes % Absolute Neutrophils VBG pH 7.45 H Chloride BUN Creatinine Est GFR ( Amer) Est GFR (Non-Af Amer) Glucose POC Glucose 212 H Direct Bilirubin NT-Pro-B Natriuret Pep Total Protein Urine Protein 30 H Urine Nitrite POSITIVE H Ur Leukocyte Esterase MODERATE H Discharge - Discharge Clinical Impression: Fever, Pneumonia, Weakness Condition: Good Disposition: ADMITTED INPATIENT Admitting Provider: Reji - [facility] Admitted: Telemetry
[2018-06-04] MEDS ORDERED: PROMETHAZINE HCL INJ 25 MG/1 ML VIAL IV PRN (02:43)
[2018-06-04] MEDS ORDERED: GLUCAGON,HUMAN RECOMB 1 MG INJ IM PRN ×2 (02:43→02:54)
[2018-06-04] MEDS ORDERED: NORMAL SALINE 1000 ML 1,000 ML IV PRN (02:43)
[2018-06-04] MEDS ORDERED: ACETAMINOPHEN 325 MG TABLET PO PRN (02:43)
[2018-06-04] MEDS ORDERED: DEXTROSE 40% GEL 15 GM TUBE PO PRN ×4 (02:43→02:54)
[2018-06-04] MEDS ORDERED: MAG HYDROX/AL HYDROX/SIMETH SUSP 30 ML UDCUP PO PRN (02:43)
[2018-06-04] MEDS ORDERED: DEXTROSE 50%-WATER 25 GM/50 ML DISP.SYRIN IV PRN ×4 (02:43→02:54)
--- NOTE | 2018-06-04 03:39 | PDOC H&P ---
History of Present Illness Admission Date/PCP: 06/04/18 02:54 REED ADAM Patient complains of: Generalized weakness History of Present Illness: WANG LAWSON is a 73 year old female with chronic respiratory failure on 2 L oxygen at home. Patient tells me that Greyson morning she was feeling good, in the afternoon she was sitting on the chair and she could not get up to go to the bathroom, her granddaughter help her but she was extremely weak, also noticed worsening shortness of breath, denies wheezing, cough, phlegm, new chest pain/tells me she has old ache chest pain. Temperature was 99 at home, denies chills, nausea, vomiting, abdominal pain, diarrhea, dysuria, hematuria but noticed frequency. Chest x-ray in the ED shows right lower lobe opacity and urinalysis came back positive. Acute renal failure. Past Medical History Cardiac Medical History: Reports: Congestive Heart Failure, Coronary Artery Disease, Myocardial Infarction, Hyperlipidema, Hypertension, Heart Murmur Pulmonary Medical History: Reports: Asthma, Bronchitis, Chronic Obstructive Pulmonary Disease (COPD), Pneumonia, Tuberculosis Neurological Medical History: Reports: Seizures Endocrine Medical History: Reports: Diabetes Mellitus Type 1, Diabetes Mellitus Type 2, Hyperthyroidism, Hypothyroidism Renal/ Medical History: Reports: End Stage Renal Disease GI Medical History: Reports: Cirrhosis, Gastroesophageal Reflux Disease, Hepatitis Musculoskeltal Medical History: Reports: Arthritis Skin Medical History: Reports: Eczema Psychiatric Medical History: Denies: Depression Hematology: Reports: Anemia Past Surgical History Past Surgical History: Reports: Appendectomy, Hysterectomy, Orthopedic Surgery - b.l feet and right elbow surgery, Pacemaker, Other - Bilat cataract and ankle surgery. Social History Smoking Status: Former Smoker Frequency of Alcohol Use: None Hx Recreational Drug Use: No Drugs: None Hx Prescription Drug Abuse: No Family History Family History: Hypertension, Other - Aneurysm in the mother, lung cancer in the father Parental Family History Reviewed: No Children Family History Reviewed: NA Sibling(s) Family History Reviewed.: NA Medication/Allergy Home Medications: Benazepril HCl [Lotensin 20 mg Tablet] 20 mg PO QHS 12/30/17 Carvedilol [Coreg 3.125 mg Tablet] 3.125 mg PO Q12 12/30/17 Glimepiride [Amaryl 4 mg Tablet] 4 mg PO QAM 12/30/17 Glimepiride [Amaryl] 2 mg PO QPM 12/30/17 Hydralazine HCl [Apresoline 25 mg Tablet] 50 mg PO Q8 12/30/17 Levothyroxine Sodium [Synthroid] 0.088 mg PO Q6AM 12/30/17 Omeprazole 20 mg PO DAILY 12/30/17 Oxycodone HCl/Acetaminophen [Percocet 7.5-325 mg Tablet] 1 tab PO BIDP PRN 12/30 Sitagliptin Phosphate [Januvia 50 mg Tablet] 50 mg PO DAILY 12/30/17 Cephalexin Monohydrate [Keflex 500 mg Capsule] 500 mg PO Q12 4 Days #8 capsule 01/03/18 Prednisone [Deltasone 20 mg Tablet] 20 mg PO DAILY 3 Days #3 tablet 01/03/18 Sennosides/Docusate 8.6-50 mg [Senna Plus Tablet] 1 each PO DAILY 30 Days #30 tablet 01/03/18 Allergies/Adverse Reactions: Sulfa (Sulfonamide Antibiotics) Allergy (Unknown, Verified 06/03/18 23:31) heparin Allergy (Verified 06/03/18 23:31) levofloxacin [From Levaquin] Allergy (Verified 06/03/18 23:31) prednisone Allergy (Verified 06/03/18 23:31) morphine [Morphine] Adverse Reaction (Severe, Verified 06/03/18 23:31) aspirin Adverse Reaction (Verified 06/03/18 23:31) Review of Systems Review of Systems: As outlined above, all others negative Physical Exam Vital Signs: Temp Pulse Resp BP Pulse Ox 99.9 F 15 150/58 H 98 06/03/18 23:18 06/04/18 02:00 06/04/18 00:01 06/04/18 02:00 Additional comments: General appearance: Elderly, debilitated, alert and cooperative, and appears to be in no acute distress, wearing nasal cannula. Head: Normocephalic Eyes: PEERL, EOMI, vision is grossly intact. Ears: External auditory canal and tympanic membranes clear, hearing grossly intact. Nose: No nasal discharge. Throat: Oral cavity and pharynx normal. No inflammation, swelling, exudate or lesions. Neck: Neck supple, nontender without lymphadenopathy, masses or thyromegaly. Cardiac: Normal S1 and S2. No S3, S4 or murmurs. Rhythm is regular. There is no peripheral edema, cyanosis or pallor. Extremities are warm and well perfused. Capillary refill is less than 2 seconds. No carotid bruits. Lungs: Bilateral coarse rales, do not appreciate rhonchi or wheezing, bilateral diminished breath sounds. Not using accessory muscles. Abdomen: Positive bowel sounds. Soft. Nondistended, nontender. No guarding or rebound. No masses. No hepatosplenomegaly Extremities: No significant deformity or joint abnormality. No edema. Peripheral pulses intact. Neurological: Cranial nerves II through XII grossly intact. Strength and sensation symmetric and intact throughout. Reflexes 2+ throughout. Skin: Skin normal color, texture and turgor with no lesions or eruptions, warm and dry. Psychiatric: The mental examination revealed the patient was oriented to person , place, and time. The patient was able to demonstrate good judgment on recent , without hallucinations, abnormal affect or abnormal behaviors. Results Laboratory Results: 06/03/18 06/03/18 06/03/18 22:39 22:39 22:39 WBC 14.4 H RBC 3.46 L Hgb 10.0 L Hct 30.9 L MCV 89 MCH 28.9 MCHC 32.4 RDW 16.0 H Plt Count 196 Seg Neutrophils % 84.0 H Lymphocytes % 9.5 L Monocytes % 5.5 Eosinophils % 0.5 Basophils % 0.5 Absolute Neutrophils 12.1 H Absolute Lymphocytes 1.4 Absolute Monocytes 0.8 Absolute Eosinophils 0.1 Absolute Basophils 0.1 PT 13.5 INR 0.98 VBG pH VBG pCO2 VBG HCO3 VBG Base Excess Sodium 140.3 Potassium 4.4 Chloride 97 L Carbon Dioxide 26 Anion Gap 17 BUN 77 H Creatinine 3.25 H Est GFR ( Amer) 17 L Est GFR (Non-Af Amer) 14 L Glucose 133 H POC Glucose Lactic Acid Calcium 9.2 Total Bilirubin 0.6 Direct Bilirubin 0.5 H AST 25 ALT 16 Alkaline Phosphatase 72 Troponin I NT-Pro-B Natriuret Pep Total Protein 8.3 H Albumin 4.2 Lipase 299.5 Urine Color Urine Appearance Urine pH Ur Specific [place] Urine Protein Urine Glucose (UA) Urine Ketones Urine Blood Urine Nitrite Urine Bilirubin Urine Urobilinogen Ur Leukocyte Esterase Urine WBC (Auto) Urine RBC (Auto) U Hyaline Cast (Auto) Urine Bacteria (Auto) Squamous Epi Cells Auto Urine Mucus (Auto) Urine Ascorbic Acid 06/03/18 06/03/18 06/03/18 22:39 23:57 23:57 WBC RBC Hgb Hct MCV MCH MCHC RDW Plt Count Seg Neutrophils % Lymphocytes % Monocytes % Eosinophils % Basophils % Absolute Neutrophils Absolute Lymphocytes Absolute Monocytes Absolute Eosinophils Absolute Basophils PT INR VBG pH 7.45 H VBG pCO2 40.1 VBG HCO3 27.3 VBG Base Excess 3.1 Sodium Potassium Chloride Carbon Dioxide Anion Gap BUN Creatinine Est GFR ( Amer) Est GFR (Non-Af Amer) Glucose POC Glucose Lactic Acid 1.1 Calcium Total Bilirubin Direct Bilirubin AST ALT Alkaline Phosphatase Troponin I 0.014 NT-Pro-B Natriuret Pep 999 H Total Protein Albumin Lipase Urine Color Urine Appearance Urine pH Ur Specific [place] Urine Protein Urine Glucose (UA) Urine Ketones Urine Blood Urine Nitrite Urine Bilirubin Urine Urobilinogen Ur Leukocyte Esterase Urine WBC (Auto) Urine RBC (Auto) U Hyaline Cast (Auto) Urine Bacteria (Auto) Squamous Epi Cells Auto Urine Mucus (Auto) Urine Ascorbic Acid 06/04/18 06/04/18 00:10 00:48 WBC RBC Hgb Hct MCV MCH MCHC RDW Plt Count Seg Neutrophils % Lymphocytes % Monocytes % Eosinophils % Basophils % Absolute Neutrophils Absolute Lymphocytes Absolute Monocytes Absolute Eosinophils Absolute Basophils PT INR VBG pH VBG pCO2 VBG HCO3 VBG Base Excess Sodium Potassium Chloride Carbon Dioxide Anion Gap BUN Creatinine Est GFR ( Amer) Est GFR (Non-Af Amer) Glucose POC Glucose 212 H Lactic Acid Calcium Total Bilirubin Direct Bilirubin AST ALT Alkaline Phosphatase Troponin I NT-Pro-B Natriuret Pep Total Protein Albumin Lipase Urine Color YELLOW Urine Appearance SLIGHTLY-CLOUDY Urine pH 5.0 Ur Specific [place] 1.011 Urine Protein 30 H Urine Glucose (UA) NEGATIVE Urine Ketones NEGATIVE Urine Blood NEGATIVE Urine Nitrite POSITIVE H Urine Bilirubin NEGATIVE Urine Urobilinogen NEGATIVE Ur Leukocyte Esterase MODERATE H Urine WBC (Auto) 51 Urine RBC (Auto) 1 U Hyaline Cast (Auto) 1 Urine Bacteria (Auto) 3+ Squamous Epi Cells Auto 5 Urine Mucus (Auto) RARE Urine Ascorbic Acid NEGATIVE Assessment & Plan - Diagnosis (1) Community acquired pneumonia Qualifiers: Laterality: right Is this a current diagnosis for this admission?: Yes Plan: Patient comes with generalized weakness and shortness of breath, chest x-ray shows right lower lobe opacity, will start the patient on IV Rocephin and IV azithromycin. Please follow blood cultures. Nebulizer treatments as needed. Incentive spirometry. Do not feel the patient needs to be on the steroids. Telemetry monitoring. Leukocytosis with white blood cells 14.4 with left shift. Will recheck CBC with differential in the morning. (2) UTI (urinary tract infection) Qualifiers: Urinary tract infection type: site unspecified Hematuria presence: without hematuria Qualified Code(s): N39.0 - Urinary tract infection, site not specified Is this a current diagnosis for this admission?: Yes Plan: Patient complains only of frequency. Last 2 urine cultures grew Klebsiella sensitive to Rocephin. Please follow urine cultures. (3) Chronic respiratory failure Is this a current diagnosis for this admission?: Yes Plan: Patient with chronic respiratory failure secondary to COPD, wears 2 L oxygen at home. Do not feel she is on exacerbation. As per assessment #1. (4) CAD (coronary artery disease) Is this a current diagnosis for this admission?: Yes Plan: No cardiac symptomatology. Continue with home medications (5) COPD (chronic obstructive pulmonary disease) Is this a current diagnosis for this admission?: Yes Plan: Do not feel she is on acute exacerbation, continue with home bronchodilators. DuoNeb nebulizer treatments as needed. Continue with oxygen protocol. (6) Diabetes mellitus type 2 in obese Is this a current diagnosis for this admission?: Yes Plan: Accu-Cheks q. before meals and at bedtime, insulin lispro sliding scale, hypoglycemia protocol. Continue with glimepiride and Januvia. (7) Hypertension Qualifiers: Hypertension type: essential hypertension Qualified Code(s): I10 - Essential (primary) hypertension (8) Acute renal failure superimposed on stage 4 chronic kidney disease Is this a current diagnosis for this admission?: Yes Plan: BUN 77 and creatinine 3.25, patient has receiving some IV fluids, will reassess this in the morning. Apparently she has progressed from CKD stage III-IV. Hold benazepril. Avoid nephrotoxic drugs. (9) Chronic diastolic CHF (congestive heart failure) Is this a current diagnosis for this admission?: Yes Plan: Seems to be compensated, we will monitor for urinary edema/congestion. BNP 999, better than before, on November was 3210 - Time Time Spent: 30 to 50 Minutes - Inpatient Certification Based on my medical assessment, after consideration of the patient's comorbidities, presenting symptoms, or acuity I expect that the services needed warrant INPATIENT care.: Yes I certify that my determination is in accordance with my understanding of Medicare's requirements for reasonable and necessary INPATIENT services [42 CFR 412.3e].: Yes Medical Necessity: Risk of Diagnosis Which Will Require Inpatient Eval/Care/ Monitoring
[2018-06-04 06:27] LABS: ABSOLUTE EOSINOPHILS # (AUTO) 0.1 10^3/uL (0.0-0.6); ABSOLUTE MONOCYTES (AUTO) 0.9 10^3/uL (0.1-1.4); ABSOLUTE NEUT (AUTO) 11.7 10^3/uL (1.7-8.2); BASOPHILS % (AUTO) 0.3 % (0-2); EOSINOPHILS % (AUTO) 0.5 % (0-6); HEMOGLOBIN 8.5 g/dL (12.0-15.5); LYMPHOCYTES % (AUTO) 13.6 % (13-45); MEAN CORPUSCULAR HEMOGLOBIN 30.3 pg (27.0-33.4); MEAN CORPUSCULAR HGB CONC 34.1 g/dL (32.0-36.0); MEAN CORPUSCULAR VOLUME 89 fl (80-97); MONOCYTES % (AUTO) 5.9 % (3-13); PLATELET COUNT 157 10^3/uL (150-450); RED BLOOD COUNT 2.81 10^6/uL (3.72-5.28); RED CELL DISTRIBUTION WIDTH 15.7 % (11.5-14.0); SEGMENTED NEUTROPHILS % (AUTO) 79.7 % (42-78); TOTAL CELLS COUNTED % (AUTO) 100 %; WHITE BLOOD COUNT 14.7 10^3/uL (4.0-10.5)
[2018-06-04 06:44] LABS: ANION GAP 14 (5-19); BLOOD UREA NITROGEN 72 mg/dL (7-20); CALCIUM 8.5 mg/dL (8.4-10.2); CARBON DIOXIDE 24 mmol/L (22-30); CHLORIDE 100 mmol/L (98-107); GLUCOSE 195 mg/dL (75-110); PHOSPHORUS 3.6 mg/dL (2.5-4.5); POTASSIUM 3.9 mmol/L (3.6-5.0); SODIUM 137.6 mmol/L (137-145)
[2018-06-04] MEDS: INSULIN LISPRO 100 UNIT/ML 3 ML VIAL SUBCUT PRN ×2 (09:30→13:17)
[2018-06-04] MEDS: HYDRALAZINE HCL 25 MG TABLET PO SCH (21:11)
[2018-06-04] MEDS: CARVEDILOL 3.125 MG TABLET PO SCH (21:12)
[2018-06-04] MEDS: GABAPENTIN 400 MG CAPSULE PO SCH (21:12)
[2018-06-04] MEDS: AZITHROMYCIN 500 MG in DEXTROSE 5%-WATER 250 ML IV SCH (21:16)
[2018-06-04] MEDS: BENAZEPRIL HCL 20 MG TABLET PO SCH (21:22)
[2018-06-04] MEDS ORDERED: CEFTRIAXONE 1 GM/D5W RTU 1 GM/50 ML RTUPB IV SCH (22:00)
[2018-06-04] MEDS ORDERED: CEFTRIAXONE INJ 500 MG VIAL ONE (23:04)
[2018-06-05] MEDS ORDERED: KETOROLAC TROMETHAMINE INJ/PF 30 MG/1 ML SDV IV PRN (02:37)
[2018-06-05] MEDS: HYDRALAZINE HCL 25 MG TABLET PO SCH ×3 (06:24→22:38)
[2018-06-05] MEDS: LEVOTHYROXINE SODIUM 0.075 MG TABLET PO SCH (06:25)
[2018-06-05] MEDS: LANSOPRAZOLE 15 MG TAB.RAP.DR PO SCH (06:25)
[2018-06-05 08:44] LABS: HEMATOCRIT 26.6 % (36.0-47.0); MEAN CORPUSCULAR HEMOGLOBIN 30.2 pg (27.0-33.4); MEAN CORPUSCULAR VOLUME 89 fl (80-97); PLATELET COUNT 152 10^3/uL (150-450); RED BLOOD COUNT 2.99 10^6/uL (3.72-5.28); WHITE BLOOD COUNT 9.2 10^3/uL (4.0-10.5)
[2018-06-05 09:04] LABS: ANION GAP 12 (5-19); BLOOD UREA NITROGEN 53 mg/dL (7-20); CARBON DIOXIDE 26 mmol/L (22-30); CHLORIDE 105 mmol/L (98-107); GLUCOSE 147 mg/dL (75-110); PHOSPHORUS 4.5 mg/dL (2.5-4.5); POTASSIUM 4.4 mmol/L (3.6-5.0); SODIUM 142.5 mmol/L (137-145)
[2018-06-05] MEDS: GABAPENTIN 400 MG CAPSULE PO SCH ×2 (09:49→22:39)
[2018-06-05] MEDS: FENOFIBRATE NANOCRYSTALLIZED 48 MG TABLET PO SCH (09:49)
[2018-06-05] MEDS: CARVEDILOL 3.125 MG TABLET PO SCH ×2 (09:50→22:39)
[2018-06-05] MEDS ORDERED: FENOFIBRATE 54 MG PO SCH (10:00)
[2018-06-05] MEDS: ACETAMINOPHEN 325 MG TABLET PO PRN ×2 (11:43→22:46)
[2018-06-05] MEDS: INSULIN LISPRO 100 UNIT/ML 3 ML VIAL SUBCUT PRN (12:52)
[2018-06-05] MEDS: FUROSEMIDE 20 MG TABLET PO SCH ×2 (12:52→18:41)
--- NOTE | 2018-06-05 14:51 | PDOC PROGRESS REPORT ---
Subjective Progress Note for:: 06/05/18 Subjective:: 73 y.o. F with a PMH of chronic respiratory failure on 2 L home oxygen, CHF, CAD , IA, HLD, HTN, COPD, bronchitis, asthma, pneumonia, history of tuberculosis, seizures, diabetes, thyroid disorder, CKD, GERD. She presented to the emergency department 06/04/2018 for generalized weakness and shortness of breath. Admit to hospitalist service for community-acquired pneumonia and UTI. Patient was seen this morning on rounds she is resting comfortably in bed on supplemental oxygen via nasal cannula. The patient states that she feels weak and fatigued today and she is having a hard time breathing. Her symptoms of dyspnea are mild, she is able to answer all questions without pause, able to get out of bed to the commode without difficulty and her oxygen requirements have not increased (she is still currently on her home dose). The patient is awake, alert and oriented x 3. Upon assessment, faint crackles can be heard bilaterally. S1-S2 with systolic murmur. Generalized trace edema. + Mild periorbital edema. Palpable pulses in the upper and lower extremities. Plan to resume home dose lasix. BNP increased from 999->3810. Reason For Visit: CAP/UTI Physical Exam Vital Signs: Temp Pulse Resp BP Pulse Ox 98.2 F 79 18 153/48 H 97 06/05/18 11:50 06/05/18 11:50 06/05/18 11:50 06/05/18 11:50 06/05/18 11:50 Intake & Output 06/04/18 06/05/18 06/06/18 06:59 06:59 06:59 Intake Total 2338 Output Total 900 Balance 1438 Weight 95.8 kg General appearance: PRESENT: morbidly obese Head exam: PRESENT: atraumatic Eye exam: PRESENT: conjunctiva pink, PERRLA Mouth exam: PRESENT: moist, tongue midline Neck exam: PRESENT: full ROM Respiratory exam: PRESENT: clear to auscultation apollo, symmetrical, unlabored Cardiovascular exam: PRESENT: RRR, +S1, +S2 Pulses: PRESENT: normal radial pulses, normal dorsalis pedis pul GI/Abdominal exam: PRESENT: normal bowel sounds, soft. ABSENT: tenderness Rectal exam: PRESENT: deferred Extremities exam: PRESENT: full ROM, +1 edema - generalized Musculoskeletal exam: PRESENT: ambulatory, full ROM Neurological exam: PRESENT: alert, awake, oriented to person, oriented to place , oriented to time, oriented to situation Psychiatric exam: PRESENT: appropriate affect Skin exam: PRESENT: intact, normal color, warm Results Laboratory Results: 06/05/18 08:33 18 08:33 18 06/05/18 08:33 08:33 WBC 9.2 RBC 2.99 L Hgb 9.0 L Hct 26.6 L MCV 89 MCH 30.2 MCHC 34.0 RDW 16.0 H Plt Count 152 Sodium 142.5 Potassium 4.4 Chloride 105 Carbon Dioxide 26 Anion Gap 12 BUN 53 H Creatinine 2.23 H Est GFR ( Amer) 26 L Est GFR (Non-Af Amer) 22 L Glucose 147 H Calcium 9.0 Phosphorus 4.5 Magnesium 2.2 06/05/18 08:33 NT-Pro-B Natriuret Pep 3810 H Status: Imported from PACS Assessment & Plan - Diagnosis (1) Community acquired pneumonia Qualifiers: Laterality: right Is this a current diagnosis for this admission?: Yes Plan: As evidenced by right lower lobe opacity on CXR Blood cultures no growth in 24 hours Nebulizer treatments as needed Mucinex BID Tylenol for fever spirometry at bedside Upgrade to Levaquin IV for better PNA coverage in a COPD patient (2) UTI (urinary tract infection) Qualifiers: Urinary tract infection type: site unspecified Hematuria presence: without hematuria Qualified Code(s): N39.0 - Urinary tract infection, site not specified Is this a current diagnosis for this admission?: Yes Plan: Urinalysis indicative of UTI patient complaining of urinary frequency upon presentation to the ED Urine culture positive for E.coli, sensitive to Levaquin Monitor for symptoms of dysuria (3) Chronic respiratory failure Qualifiers: Respiratory failure complication: hypoxia Qualified Code(s): J96.11 - Chronic respiratory failure with hypoxia Is this a current diagnosis for this admission?: Yes Plan: Chronic respiratory failure secondary to COPD, she wears 2 L nasal cannula O2 at home She is without exacerbation As needed nebulizers (4) COPD (chronic obstructive pulmonary disease) Qualifiers: COPD type: chronic bronchitis Chronic bronchitis type: unspecified Qualified Code(s): J42 - Unspecified chronic bronchitis Is this a current diagnosis for this admission?: Yes Plan: History of COPD, currently without exacerbation No wheezing on exam Nebulizer treatments PRN Supplemental oxygen to maintain SPO2 > 88% (5) Chronic diastolic CHF (congestive heart failure) Is this a current diagnosis for this admission?: Yes Plan: Patient endorses history of heart failure BNP elevated from 999-> 3810 Generalized trace peripheral edema and mild periorbital edema Resume home dose lasix today Statin therapy - allergic to aspirin Home dose anti-HTN medications: Coreg, hydralazine (6) Weakness Is this a current diagnosis for this admission?: Yes Plan: Likely secondary to multiple infections Escalate antibiotic regimen to Levaquin Encourage PO intake OOB to chair at least once daily Incentive spirometry at bedside (7) Morbid obesity Is this a current diagnosis for this admission?: Yes Plan: Cardiac/diabetic diet Encourage weight loss - Time Time Spent with patient: 15-24 minutes Medications reviewed and adjusted accordingly: Yes Anticipated discharge: Home - Inpatient Certification Based on my medical assessment, after consideration of the patient's comorbidities, presenting symptoms, or acuity I expect that the services needed warrant INPATIENT care.: Yes I certify that my determination is in accordance with my understanding of Medicare's requirements for reasonable and necessary INPATIENT services [42 CFR 412.3e].: Yes Medical Necessity: Need For Continuous Telemetry Monitoring, Need for IV Antibiotics, Risk of Complication if Not Cared For in Hospital - Plan Summary Plan Summary: CHANGE ABX REGIMEN FROM ROCEPHIN/AZITHROMYCIN TO LEVAQUIN. INITIATE HOME DOSE LASIX.
[2018-06-05] MEDS: GUAIFENESIN 600 MG TABLET.SA PO SCH (22:39)
[2018-06-05] MEDS: CEFTRIAXONE SODIUM 1,000 MG in NORMAL SALINE 50 ML IV SCH (22:40)
[2018-06-05] MEDS: BENAZEPRIL HCL 20 MG TABLET PO SCH (23:43)
[2018-06-05] MEDS: AZITHROMYCIN 500 MG in DEXTROSE 5%-WATER 250 ML IV SCH (23:44)
[2018-06-06] MEDS: HYDRALAZINE HCL 25 MG TABLET PO SCH ×2 (06:25→13:45)
[2018-06-06] MEDS: LANSOPRAZOLE 15 MG TAB.RAP.DR PO SCH (06:25)
[2018-06-06] MEDS: LEVOTHYROXINE SODIUM 0.075 MG TABLET PO SCH (06:25)
[2018-06-06] MEDS: FENOFIBRATE NANOCRYSTALLIZED 48 MG TABLET PO SCH (09:52)
[2018-06-06] MEDS: GUAIFENESIN 600 MG TABLET.SA PO SCH ×2 (09:52→23:44)
[2018-06-06] MEDS: FUROSEMIDE 20 MG TABLET PO SCH ×2 (09:52→17:02)
[2018-06-06] MEDS: GABAPENTIN 400 MG CAPSULE PO SCH ×2 (09:53→23:43)
[2018-06-06] MEDS: CARVEDILOL 3.125 MG TABLET PO SCH (09:53)
[2018-06-06 11:29] LABS: HEMATOCRIT 25.7 % (36.0-47.0); HEMOGLOBIN 8.7 g/dL (12.0-15.5); MEAN CORPUSCULAR HEMOGLOBIN 30.2 pg (27.0-33.4); MEAN CORPUSCULAR HGB CONC 33.7 g/dL (32.0-36.0); MEAN CORPUSCULAR VOLUME 90 fl (80-97); PLATELET COUNT 183 10^3/uL (150-450); RED BLOOD COUNT 2.87 10^6/uL (3.72-5.28); WHITE BLOOD COUNT 7.2 10^3/uL (4.0-10.5)
[2018-06-06 11:53] LABS: ANION GAP 12 (5-19); BLOOD UREA NITROGEN 54 mg/dL (7-20); CALCIUM 8.5 mg/dL (8.4-10.2); CARBON DIOXIDE 25 mmol/L (22-30); CHLORIDE 103 mmol/L (98-107); GLUCOSE 201 mg/dL (75-110); PHOSPHORUS 3.9 mg/dL (2.5-4.5); POTASSIUM 4.4 mmol/L (3.6-5.0); SODIUM 139.7 mmol/L (137-145)
[2018-06-06] MEDS: INSULIN LISPRO 100 UNIT/ML 3 ML VIAL SUBCUT PRN ×2 (13:44→23:46)
[2018-06-06] MEDS ORDERED: IPRATROPIUM/ALBUTEROL 0.5-2.5 MG/3 ML AMPUL NEB PRN (18:08)
--- NOTE | 2018-06-06 18:13 | PDOC PROGRESS REPORT ---
Subjective Progress Note for:: 06/06/18 Subjective:: 73 y.o. F with a PMH of chronic respiratory failure on 2 L home oxygen, CHF, CAD , IA, HLD, HTN, COPD, bronchitis, asthma, pneumonia, history of tuberculosis, seizures, diabetes, thyroid disorder, CKD, GERD. She presented to the emergency department 06/04/2018 for generalized weakness and shortness of breath. Admit to hospitalist service for community-acquired pneumonia and UTI. Patient was seen this morning on rounds she is resting comfortably in bed on supplemental oxygen via nasal cannula. The patient states she feels much better today. She has not been out of bed, only to get up to bedside commode. She states she feels well enough to walk in the hallways (with a walker and her O2). The patient is awake, alert and oriented x 3. Upon assessment, lungs are clear to auscultation bilaterally. S1-S2 with systolic murmur. Generalized trace edema. + Mild periorbital edema. Palpable pulses in the upper and lower extremities. Plan to continue current treatment, add Cipro PO x 3 days for better UTI treatment. BNP decreased from 3810->2880. Reason For Visit: CAP/UTI Physical Exam Vital Signs: Temp Pulse Resp BP Pulse Ox 97.7 F 73 18 131/49 H 99 06/06/18 04:02 06/06/18 14:00 06/06/18 04:02 06/06/18 06:27 06/06/18 04:02 Intake & Output 06/05/18 06/06/18 06/07/18 06:59 06:59 06:59 Intake Total 2338 1526 Output Total 900 300 Balance 1438 1226 Weight 95.8 kg 95.2 kg General appearance: PRESENT: no acute distress, obese Eye exam: PRESENT: conjunctiva pink, PERRLA Mouth exam: PRESENT: moist Teeth exam: PRESENT: poor dentation Neck exam: PRESENT: full ROM Respiratory exam: PRESENT: clear to auscultation apollo, symmetrical, unlabored Cardiovascular exam: PRESENT: +S1, +S2 Pulses: PRESENT: normal radial pulses, normal dorsalis pedis pul GI/Abdominal exam: PRESENT: soft. ABSENT: tenderness Rectal exam: PRESENT: deferred Extremities exam: PRESENT: full ROM, +1 edema - generalized Musculoskeletal exam: PRESENT: ambulatory, full ROM Neurological exam: PRESENT: alert, awake, oriented to person, oriented to place , oriented to time, oriented to situation Psychiatric exam: PRESENT: appropriate affect Skin exam: PRESENT: dry, intact, warm Results Laboratory Results: 06/06/18 11:12 06/06/18 11:12 06/06/18 06/06/18 11:12 11:12 WBC 7.2 RBC 2.87 L Hgb 8.7 L Hct 25.7 L MCV 90 MCH 30.2 MCHC 33.7 RDW 16.0 H Plt Count 183 Sodium 139.7 Potassium 4.4 Chloride 103 Carbon Dioxide 25 Anion Gap 12 BUN 54 H Creatinine 2.20 H Est GFR ( Amer) 27 L Est GFR (Non-Af Amer) 22 L Glucose 201 H Calcium 8.5 Phosphorus 3.9 Magnesium 2.2 06/05/18 06/06/18 08:33 11:12 NT-Pro-B Natriuret Pep 3810 H 2880 H Status: Imported from PACS Assessment & Plan - Diagnosis (1) Community acquired pneumonia Qualifiers: Laterality: right Is this a current diagnosis for this admission?: Yes Plan: As evidenced by right lower lobe opacity on CXR Blood cultures no growth in 48 hours Nebulizer treatments as needed Mucinex BID Tylenol for fever spirometry at bedside Rocephin IV and Azithromycin IV for empiric coverage of CAP in a COPD patient (2) UTI (urinary tract infection) Qualifiers: Urinary tract infection type: site unspecified Hematuria presence: without hematuria Qualified Code(s): N39.0 - Urinary tract infection, site not specified Is this a current diagnosis for this admission?: Yes Plan: Urinalysis indicative of UTI patient complaining of urinary frequency upon presentation to the ED Urine culture positive for pansensitive E.coli Monitor for symptoms of dysuria (3) Chronic respiratory failure Qualifiers: Respiratory failure complication: hypoxia Qualified Code(s): J96.11 - Chronic respiratory failure with hypoxia Is this a current diagnosis for this admission?: Yes Plan: Chronic respiratory failure secondary to COPD, she wears 2 L nasal cannula O2 at home She is without exacerbation As needed nebulizers (4) COPD (chronic obstructive pulmonary disease) Qualifiers: COPD type: chronic bronchitis Chronic bronchitis type: unspecified Qualified Code(s): J42 - Unspecified chronic bronchitis Is this a current diagnosis for this admission?: Yes Plan: History of COPD, currently without exacerbation No wheezing on exam Nebulizer treatments PRN Supplemental oxygen to maintain SPO2 > 88% (5) Chronic diastolic CHF (congestive heart failure) Is this a current diagnosis for this admission?: Yes Plan: Patient endorses history of heart failure BNP improving 3810->2880 Generalized trace peripheral edema and mild periorbital edema Continue home dose lasix Statin therapy - allergic to aspirin Home dose anti-HTN medications: Coreg, hydralazine (6) Weakness Is this a current diagnosis for this admission?: Yes Plan: Likely secondary to multiple infections Encourage PO intake OOB to chair at least once daily Ambulate in hallway with walker and O2 if patient can tolerate, if not, consider PT/OT evaluation Incentive spirometry at bedside (7) Morbid obesity Is this a current diagnosis for this admission?: Yes Plan: Cardiac/diabetic diet Encourage weight loss - Time Time Spent with patient: 15-24 minutes Medications reviewed and adjusted accordingly: Yes Anticipated discharge: Home - Inpatient Certification Based on my medical assessment, after consideration of the patient's comorbidities, presenting symptoms, or acuity I expect that the services needed warrant INPATIENT care.: Yes I certify that my determination is in accordance with my understanding of Medicare's requirements for reasonable and necessary INPATIENT services [42 CFR 412.3e].: Yes Medical Necessity: Need for IV Antibiotics, Risk of Complication if Not Cared For in Hospital - Plan Summary Plan Summary: IV AND PO ANTIBIOTICS. AMBULATE DAILY. LIKELY D/C HOME WITHIN 48 HOURS
[2018-06-06] MEDS: ACETAMINOPHEN 325 MG TABLET PO PRN (19:53)
[2018-06-06] MEDS: CIPROFLOXACIN HCL 500 MG TABLET PO SCH (23:44)
[2018-06-06] MEDS: CEFTRIAXONE SODIUM 1,000 MG in NORMAL SALINE 50 ML IV SCH (23:58)
[2018-06-07] MEDS: AZITHROMYCIN 500 MG in DEXTROSE 5%-WATER 250 ML IV SCH (00:49)
[2018-06-07] MEDS: ACETAMINOPHEN 325 MG TABLET PO PRN ×3 (02:47→19:44)
[2018-06-07 06:15] LABS: HEMATOCRIT 25.4 % (36.0-47.0); HEMOGLOBIN 8.5 g/dL (12.0-15.5); MEAN CORPUSCULAR HGB CONC 33.6 g/dL (32.0-36.0); MEAN CORPUSCULAR VOLUME 89 fl (80-97); PLATELET COUNT 182 10^3/uL (150-450); RED BLOOD COUNT 2.85 10^6/uL (3.72-5.28); RED CELL DISTRIBUTION WIDTH 15.9 % (11.5-14.0); WHITE BLOOD COUNT 4.7 10^3/uL (4.0-10.5)
[2018-06-07] MEDS: HYDRALAZINE HCL 25 MG TABLET PO SCH ×4 (06:21→21:34)
[2018-06-07] MEDS: CARVEDILOL 3.125 MG TABLET PO SCH ×3 (06:21→21:34)
[2018-06-07] MEDS: BENAZEPRIL HCL 20 MG TABLET PO SCH ×2 (06:21→21:35)
[2018-06-07] MEDS: LEVOTHYROXINE SODIUM 0.075 MG TABLET PO SCH (06:22)
[2018-06-07] MEDS: LANSOPRAZOLE 15 MG TAB.RAP.DR PO SCH (06:22)
[2018-06-07 06:30] LABS: ANION GAP 11 (5-19); BLOOD UREA NITROGEN 53 mg/dL (7-20); CALCIUM 8.4 mg/dL (8.4-10.2); CARBON DIOXIDE 26 mmol/L (22-30); CHLORIDE 105 mmol/L (98-107); GLUCOSE 93 mg/dL (75-110); PHOSPHORUS 4.3 mg/dL (2.5-4.5); POTASSIUM 4.4 mmol/L (3.6-5.0); SODIUM 141.9 mmol/L (137-145)
[2018-06-07] MEDS: CIPROFLOXACIN HCL 500 MG TABLET PO SCH ×2 (09:13→21:35)
[2018-06-07] MEDS: FUROSEMIDE 20 MG TABLET PO SCH ×2 (09:14→17:17)
[2018-06-07] MEDS: GUAIFENESIN 600 MG TABLET.SA PO SCH ×2 (09:15→21:35)
[2018-06-07] MEDS: GABAPENTIN 400 MG CAPSULE PO SCH ×2 (09:15→21:35)
[2018-06-07] MEDS: FENOFIBRATE NANOCRYSTALLIZED 48 MG TABLET PO SCH (09:15)
[2018-06-07] MEDS ORDERED: AZITHROMYCIN 250 MG TABLET PO SCH (10:00)
--- NOTE | 2018-06-07 17:14 | PDOC PROGRESS REPORT ---
Subjective Progress Note for:: 06/07/18 Subjective:: 73 y.o. F with a PMH of chronic respiratory failure on 2 L home oxygen, CHF, CAD , ND, HLD, HTN, COPD, bronchitis, asthma, pneumonia, history of tuberculosis, seizures, diabetes, thyroid disorder, CKD, GERD. She presented to the emergency department 06/04/2018 for generalized weakness and shortness of breath. Admit to hospitalist service for community-acquired pneumonia and UTI. The patient is seen on morning rounds ND: She is found resting in bed comfortably on supplemental oxygen at 3 L/min. Her baseline oxygen requirement is 2 L/min. The patient ambulated in the hallway with nursing earlier today while on supplemental oxygen; per nursing the patient did well without worsening dyspnea on exertion, but did experience severe fatigue which preempted in early and their walk. The patient endorses continued fatigue, reporting that she has had "incapacitating" fatigue for the last several months. She denies concurrent history of worsening dyspnea on exertion, orthopnea, increased peripheral edema. She relates her fatigue to her chronic anemia for which Dr. Champion has been providing iron infusions. However, she does comment that it has been nearly a year since her last cardiology follow-up or echocardiogram. She reports that her suprapubic abdominal pain, dysuria, and urinary frequency have all improved since being on antibiotics and believes that her urinary tract infection has now resolved. She denies fever, chills, body aches, chest pain, palpitations, cough, abdominal pain, nausea and vomiting. She has no new questions or concerns today. She is agreeable to discharge home , however, do not believe that she is ready for self-care as the patient is independent for most hours of the day while her family members are at work. No concerns per nursing. Reason For Visit: CAP/UTI Physical Exam Vital Signs: Temp Pulse Resp BP Pulse Ox 97.6 F 71 16 147/52 H 100 06/07/18 15:25 06/07/18 15:25 06/07/18 15:25 06/07/18 15:25 06/07/18 15:25 Intake & Output 06/06/18 06/07/18 06/08/18 06:59 06:59 06:59 Intake Total 1526 1307 537 Output Total 300 Balance 1226 1307 537 Weight 95.2 kg 94.2 kg General appearance: PRESENT: no acute distress, cooperative - Very pleasant, obese, well-developed, well-nourished, other - Fatigued, ill-appearing Head exam: PRESENT: atraumatic, normocephalic Eye exam: PRESENT: conjunctiva pink, EOMI, PERRLA. ABSENT: scleral icterus Ear exam: PRESENT: normal external ear exam Mouth exam: PRESENT: moist, tongue midline Neck exam: ABSENT: carotid bruit, JVD, lymphadenopathy, thyromegaly Respiratory exam: PRESENT: crackles - Fine, bibasilar, L>R, decreased breath sounds - Bibasilar, symmetrical, unlabored, other - Supplemental oxygen at 3 L/ min. ABSENT: rales, rhonchi, wheezes Cardiovascular exam: PRESENT: RRR, systolic murmur - Harsh, 3/6. ABSENT: diastolic murmur, rubs Pulses: PRESENT: normal dorsalis pedis pul Vascular exam: PRESENT: normal capillary refill GI/Abdominal exam: PRESENT: normal bowel sounds, soft. ABSENT: distended, guarding, mass, organolmegaly, rebound, tenderness Rectal exam: PRESENT: deferred Extremities exam: PRESENT: full ROM. ABSENT: calf tenderness, clubbing, pedal edema Neurological exam: PRESENT: alert, awake, oriented to person, oriented to place , oriented to time, oriented to situation, CN II-XII grossly intact. ABSENT: motor sensory deficit Psychiatric exam: PRESENT: appropriate affect, normal mood. ABSENT: homicidal ideation, suicidal ideation Skin exam: PRESENT: dry, intact, pallor, warm. ABSENT: cyanosis, rash Results Laboratory Results: 06/07/18 05:43 06/07/18 05:43 06/07/18 06/07/18 05:43 05:43 WBC 4.7 RBC 2.85 L Hgb 8.5 L Hct 25.4 L MCV 89 MCH 30.0 MCHC 33.6 RDW 15.9 H Plt Count 182 Sodium 141.9 Potassium 4.4 Chloride 105 Carbon Dioxide 26 Anion Gap 11 BUN 53 H Creatinine 2.34 H Est GFR ( Amer) 25 L Est GFR (Non-Af Amer) 20 L Glucose 93 Calcium 8.4 Phosphorus 4.3 Magnesium 2.2 06/05/18 06/06/18 06/07/18 08:33 11:12 05:43 NT-Pro-B Natriuret Pep 3810 H 2880 H 2780 H Assessment & Plan - Diagnosis (1) Community acquired pneumonia Qualifiers: Laterality: right Is this a current diagnosis for this admission?: Yes Plan: Gradual improvement; patient is now requiring 3 L/min supplemental oxygen (2 L/ min at baseline), with reduced dyspnea on exertion and cough. On exam today, she has diminished breath sounds bibasilarly with fine crackles noted to the left. Right lower lobe infiltrate on chest x-ray at admission. Blood cultures are negative at 72 hours. Sputum culture is pending; does not appear to have been obtained. Patient no longer producing sputum. Patient is admitted to the medical floor on continuous cardiac telemetry. She was empirically placed on IV Rocephin and azithromycin for CAP; IV Rocephin has been discontinued and azithromycin transition to p.o. Mucinex twice daily. Tylenol as needed for fever or discomfort. Incentive spirometry to bedside. Supplemental oxygen as needed to maintain oxygen saturations greater than 88%. As needed nebulizer treatments are available. (2) Acute and chronic respiratory failure with hypoxia Is this a current diagnosis for this admission?: Yes Plan: Slight improvement. The patient has chronic respiratory failure secondary to COPD and CHF. She wears 2 L via nasal cannula while at home. Plan as above. (3) Acute on chronic diastolic (congestive) heart failure Is this a current diagnosis for this admission?: Yes Plan: The patient endorses a history of CHF; last visit with technical product manager in August 2017. ProBNP initially 999, peaked at 3810, now slightly improved at 2780. These numbers are similar to August 2017. Echocardiogram from same timeframe revealed LVEF 60% with normal diastolic function, mild aortic stenosis, mild tricuspid regurgitation, and mild pulmonary hypertension. Repeat echocardiogram is pending. The patient is on renally dose benazepril, carvedilol, hydralazine, and furosemide. We did briefly discuss Entresto as an option, however, the patient reports that she frequently finds herself in the medication [place] at the end of the year for her prescriptions. I do not believe that this medication would be one that the patient could continue without financial difficulties in the immediate future. (4) Acute on chronic kidney failure Qualifiers: Acute renal failure type: unspecified Chronic kidney disease stage: stage 4 (severe) Qualified Code(s): N17.9 - Acute kidney failure, unspecified; N18.4 - Chronic kidney disease, stage 4 (severe); N18.4 - Chronic kidney disease , stage 4 (severe); N18.4 - Chronic kidney disease, stage 4 (severe); N18.4 - Chronic kidney disease, stage 4 (severe) Is this a current diagnosis for this admission?: Yes Plan: The patient presented with acute worsening of chronic renal insufficiency; creatinine 3.25 upon admission and has trended down to 2.34. We will continue to avoid nephrotoxic medications as able. Antibiotics are renally dosed. We will continue to monitor with daily chemistries. (5) COPD (chronic obstructive pulmonary disease) Qualifiers: COPD type: chronic bronchitis Chronic bronchitis type: unspecified Qualified Code(s): J42 - Unspecified chronic bronchitis Is this a current diagnosis for this admission?: Yes Plan: History of COPD; without exacerbation. Nebulizer treatments are available as needed. Supplemental oxygen to maintain SPO2 > 88%. No indications for steroids at this time. Cultures and antibiotics as above. (6) Type 2 diabetes mellitus Qualifiers: Diabetes mellitus complication status: with unspecified complications Is this a current diagnosis for this admission?: Yes Plan: Holding oral antidiabetic's while inpatient. Patient is placed on a consistent carb diet. Accu-Cheks before meals and at bedtime with Humalog for sliding scale coverage. (7) UTI (urinary tract infection) Qualifiers: Urinary tract infection type: site unspecified Hematuria presence: without hematuria Qualified Code(s): N39.0 - Urinary tract infection, site not specified Is this a current diagnosis for this admission?: Yes Plan: The patient endorses a history of recent suprapubic abdominal pain with voids and frequent urination. Urinalysis indicative of UTI. Urine cultures positive for pansensitive E. coli. The patient is placed on renally dosed ciprofloxacin. She did receive IV Rocephin 2. Will reassess urinalysis in the morning; if clear may consider early discontinuation of ciprofloxacin. (8) Weakness Is this a current diagnosis for this admission?: Yes Plan: Multifactorial secondary to CHF, COPD, chronic anemia, age/weight, and multiple active infections. The patient does complain of severe fatigue for the last several months. Echocardiogram is pending. We will check TSH and B12 with a.m. labs. Should also consider poor sleep and depression; will plan on discussing low- dose SSRI with patient tomorrow. PT/OT evaluations are ordered. Encourage out of bed for meals and ambulating in the hallway at least once daily. - Time Time Spent with patient: 25-34 minutes Medications reviewed and adjusted accordingly: Yes Anticipated discharge: Home Within: within 48 hours
[2018-06-08 05:23] LABS: HEMATOCRIT 24.9 % (36.0-47.0); HEMOGLOBIN 8.5 g/dL (12.0-15.5); MEAN CORPUSCULAR HEMOGLOBIN 30.4 pg (27.0-33.4); MEAN CORPUSCULAR HGB CONC 34.2 g/dL (32.0-36.0); MEAN CORPUSCULAR VOLUME 89 fl (80-97); PLATELET COUNT 213 10^3/uL (150-450); RED CELL DISTRIBUTION WIDTH 15.7 % (11.5-14.0); WHITE BLOOD COUNT 5.1 10^3/uL (4.0-10.5)
[2018-06-08] MEDS: LANSOPRAZOLE 15 MG TAB.RAP.DR PO SCH (05:39)
[2018-06-08] MEDS: HYDRALAZINE HCL 25 MG TABLET PO SCH ×2 (05:39→14:50)
[2018-06-08] MEDS: LEVOTHYROXINE SODIUM 0.075 MG TABLET PO SCH (05:40)
[2018-06-08 05:44] LABS: ANION GAP 12 (5-19); BLOOD UREA NITROGEN 53 mg/dL (7-20); CALCIUM 8.7 mg/dL (8.4-10.2); CARBON DIOXIDE 27 mmol/L (22-30); CHLORIDE 104 mmol/L (98-107); GLUCOSE 106 mg/dL (75-110); PHOSPHORUS 4.2 mg/dL (2.5-4.5); POTASSIUM 4.6 mmol/L (3.6-5.0); SODIUM 142.6 mmol/L (137-145)
[2018-06-08 05:58] LABS: FREE T4 (FREE THYROXINE) 1.26 ng/dL (0.78-2.19)
[2018-06-08 06:11] LABS: THYROID STIMULATING HORMONE 3.83 uIU/mL (0.47-4.68)
[2018-06-08 08:51] LABS: APPEARANCE,URINE CLEAR; BILIRUBIN,URINE NEGATIVE (NEGATIVE); COLOR,URINE YELLOW; GLUCOSE, URINE NEGATIVE (NEGATIVE); KETONES,URINE NEGATIVE (NEGATIVE); LEUKOCYTE ESTERASE,URINE NEGATIVE (NEGATIVE); NITRITE,URINE NEGATIVE (NEGATIVE); PROTEIN,URINE NEGATIVE (NEGATIVE); URINE SPECIFIC GRAVITY 1.015; UROBILINOGEN,URINE NEGATIVE mg/dL (<2.0)
[2018-06-08] MEDS: GABAPENTIN 400 MG CAPSULE PO SCH (10:37)
[2018-06-08] MEDS: GUAIFENESIN 600 MG TABLET.SA PO SCH (10:37)
[2018-06-08] MEDS: FUROSEMIDE 20 MG TABLET PO SCH ×2 (10:37→17:01)
[2018-06-08] MEDS: FENOFIBRATE NANOCRYSTALLIZED 48 MG TABLET PO SCH (10:37)
[2018-06-08] MEDS: CARVEDILOL 3.125 MG TABLET PO SCH (10:38)
[2018-06-08] MEDS: CIPROFLOXACIN HCL 500 MG TABLET PO SCH (10:38)
[2018-06-08 16:09] VITALS: BP 123/49
[2018-06-09] MEDS ORDERED: ESCITALOPRAM OXALATE 10 MG TABLET PO SCH (10:00)
--- NOTE | 2018-06-09 19:05 | XCELERA REPORT ---
[address] [address] Transthoracic Echocardiogram Report Name: WANG LAWSON Age: 73 yrs Gender: Female : 1945 Patient Status: Inpatient Patient Location: [address] [place] [address] Study Date: 06/08/2018 11:34 AM Procedure: A two-dimensional transthoracic echocardiogram with color flow Doppler was performed. Study Quality: Technically suboptimal. The study was technically difficult with many images being suboptimal in quality. Images were not obtained from all of the standard acoustic windows due to the limited scope of the study. Reason For Study: CHF History: CHF. Ordering Physician: CAROLINA RUDD Performed By: Ayla Marin Interpretation Summary Not all wall segments were well visualized. No True apical 2 chamber views obtained.Hence cannot comment on the apical anterior , the basal anterior, the basal inferior and apical inferior dawkins.The mid anterior , the mid inferior and the rest of the LV dawkins contract normally. .Normal LVEF at 65% in the limited views. Probably normal LA size. Mitral valve not well visualised. There is no mitral valve stenosis. There is no mitral regurgitation noted. There is mild aortic stenosis There is a peak gradient of 26.3 mm of Hg. No aortic regurgitation is present. There is no tricuspid stenosis. No tricuspid regurgitation. annot calculate RVSP due to lack of TR jet. There is no pericardial effusion. MMode/2D Measurements & Calculations RVDd: 2.9 cm LVIDd: 5.8 cm FS: 36.2 % Ao root diam: 2.4 cm IVSd: 0.57 cm LVIDs: 3.7 cm EDV(Teich): 167.8 ml Ao root area: 4.7 cm2 LVPWd: 0.77 cm ESV(Teich): 58.6 ml EF(Teich): 65.1 % Doppler Measurements & Calculations MV E max kuldeep: MV dec slope: Ao V2 max: LV V1 max P.6 cm/sec 253.6 cm/sec 6.0 mmHg MV A max kuldeep: 585.6 cm/sec2 Ao max PG: LV V1 mean P.3 cm/sec MV dec time: 26.3 mmHg 3.5 mmHg MV E/A: 1.1 0.20 sec Ao V2 mean: LV V1 max: 177.2 cm/sec 122.9 cm/sec Ao mean PG: LV V1 mean: 14.3 mmHg 89.4 cm/sec Ao V2 VTI: 53.7 cm LV V1 VTI: 27.1 cm PA V2 max: 120.3 cm/sec PA max P.8 mmHg Left Ventricle The left ventricle is grossly normal size. There is normal left ventricular wall thickness. Doppler measurements suggest normal left ventricular diastolic function. Not all wall segments were well visualized. No True apical 2 chamber views obtained.Hence cannot comment on the apical anterior , the basal anterior, the basal inferior and apical inferior dawkins.The mid anterior , the mid inferior and the rest of the LV dawkins contract normally. .Normal LVEF at 65% in the limited views. Right Ventricle The right ventricle is not well visualized secondary to technical limitations. Atria Right atrium not well visualized secondary to technical limitations. Probably normal LA size. Mitral Valve Mitral valve not well visualised. There is no mitral valve stenosis. There is no mitral regurgitation noted. Aortic Valve There is mild aortic stenosis. There is a peak gradient of 26.3 mm of Hg. No aortic regurgitation is present. Tricuspid Valve There is no tricuspid stenosis. No tricuspid regurgitation. annot calculate RVSP due to lack of TR jet. Pulmonic Valve The pulmonic valve is not well visualized. Great Vessels The aortic root is not well visualized. Effusions There is no pericardial effusion. : CAROLINA RUDD > Ana Villasenor
--- NOTE | 2018-06-11 14:44 | PDOC DISCHARGE SUMMARY ---
General - Admit/Disc Date/PCP Admission Date/Primary Care Provider: 06/04/18 02:54 REEDQiana ADAM Discharge Date: 06/08/18 - Discharge Diagnosis (1) Community acquired pneumonia Is this a current diagnosis for this admission?: Yes (2) Acute and chronic respiratory failure with hypoxia Is this a current diagnosis for this admission?: Yes (3) Acute on chronic diastolic (congestive) heart failure Is this a current diagnosis for this admission?: Yes (4) Acute on chronic kidney failure Is this a current diagnosis for this admission?: Yes (5) COPD (chronic obstructive pulmonary disease) Is this a current diagnosis for this admission?: Yes (6) Type 2 diabetes mellitus Is this a current diagnosis for this admission?: Yes (7) UTI (urinary tract infection) Is this a current diagnosis for this admission?: Yes (8) Weakness Is this a current diagnosis for this admission?: Yes - Additional Information Discharge Diet: Cardiac, Diabetic Discharge Activity: Activity As Tolerated, Balance Activity w/Rest, Weigh Daily Prescriptions: Ciprofloxacin HCl [Cipro 500 mg Tablet] 250 mg PO Q12 #10 tablet Escitalopram Oxalate [Lexapro 10 mg Tablet] 5 mg PO DAILY #30 tablet Home Medications: Benazepril HCl [Lotensin 20 mg Tablet] 20 mg PO QHS 12/30/17 Carvedilol [Coreg 3.125 mg Tablet] 3.125 mg PO Q12 12/30/17 Glimepiride [Amaryl 4 mg Tablet] 4 mg PO BID 12/30/17 Hydralazine HCl [Apresoline 25 mg Tablet] 50 mg PO Q8 12/30/17 Omeprazole 20 mg PO ACBRKFST 12/30/17 Oxycodone HCl/Acetaminophen [Percocet 7.5-325 mg Tablet] 1 tab PO BIDP PRN 12/30 Fenofibrate 54mg Tablet 54 mg PO DAILY 06/04/18 Furosemide [Lasix 20 mg Tablet] 20 mg PO BID 06/04/18 Gabapentin [Neurontin 400 mg Capsule] 400 mg PO DAILY 06/04/18 Gabapentin [Neurontin 400 mg Capsule] 800 mg PO QHS 06/04/18 Levothyroxine Sodium [Synthroid 0.075 mg Tablet] 0.075 mg PO Q6AM 06/04/18 Acetaminophen [Tylenol 325 mg Tablet] 650 mg PO Q4HP PRN tablet 06/08/18 Ciprofloxacin HCl [Cipro 500 mg Tablet] 250 mg PO Q12 #10 tablet 06/08/18 Escitalopram Oxalate [Lexapro 10 mg Tablet] 5 mg PO DAILY #30 tablet 06/08/18 History of Present Illness History of Present Illness: Per H&P by Dr. Whitten: WANG LAWSON is a 73 year old female with chronic respiratory failure on 2 L oxygen at home. Patient tells me that Wednesday morning she was feeling good, in the afternoon she was sitting on the chair and she could not get up to go to the bathroom, her granddaughter help her but she was extremely weak, also noticed worsening shortness of breath, denies wheezing , cough, phlegm, new chest pain/tells me she has old ache chest pain. Temperature was 99 at home, denies chills, nausea, vomiting, abdominal pain, diarrhea, dysuria, hematuria but noticed frequency. Chest x-ray in the ED shows right lower lobe opacity and urinalysis came back positive. Acute renal failure. Hospital Course Hospital Course: The patient was admitted with acute on chronic respiratory failure with hypoxia secondary to acute CHF exacerbation and community-acquired pneumonia. The patient was admitted to the medical floor on continuous cardiac telemetry. She was empirically placed on IV Rocephin and azithromycin for CAP; she received a full course of antibiotic therapy for CAP while inpatient. The Rocephin was discontinued and patient was placed on renally dosed ciprofloxacin based upon urine culture revealing E. coli; she was provided a prescription for Cipro at discharge to complete a full course of antibiotic therapy. While admitted, the patient did experience an acute worsening of her diastolic CHF. ProBNP initially 999, peaked at 3810, and improved to 2900 at discharge. These numbers are similar to August 2017. Echocardiogram from same timeframe revealed LVEF 60% with normal diastolic function, mild aortic stenosis, mild tricuspid regurgitation, and mild pulmonary hypertension. Repeat echocardiogram this admission confirmed preserved ejection fraction. The patient presented with acute worsening of chronic renal insufficiency; creatinine 3.25 upon admission and has trended down to 2.29 with optimization of her CHF and hypertensive medications. The patient did complain of severe and persistent fatigue for the last several months. This is likely multifactorial secondary to CHF, COPD, chronic anemia, age/weight, and multiple active infections. Her TSH and B12 were evaluated; both normal. We did discuss her comorbidities as a likely cause for some of her fatigue. We also discussed possible depression, which the patient endorsed. She was agreeable to trial of low-dose Lexapro. Discharge planning was consulted and provided the patient with information on improving her social isolation through utilization of the local senior center. At time of discharge, the patient was in stable condition, maintaining oxygen saturations on her baseline oxygen status, and ambulatory without assistance. She was discharged home with self-care and advised to follow-up with her primary care provider within 1 week. Physical Exam Vital Signs: Temp Pulse Resp BP Pulse Ox 98.5 F 78 16 131/49 H 97 06/08/18 15:59 06/08/18 16:22 06/08/18 16:22 06/08/18 15:59 06/08/18 16:22 General appearance: PRESENT: no acute distress, cooperative, obese, well- developed, well-nourished Head exam: PRESENT: atraumatic, normocephalic Eye exam: PRESENT: conjunctiva pink, EOMI, PERRLA. ABSENT: scleral icterus Ear exam: PRESENT: normal external ear exam Mouth exam: PRESENT: moist, tongue midline Neck exam: ABSENT: carotid bruit, JVD, lymphadenopathy, thyromegaly Respiratory exam: PRESENT: decreased breath sounds - Bibasilar, symmetrical, unlabored, other - Baseline oxygen requirement. ABSENT: rales, rhonchi, wheezes Cardiovascular exam: PRESENT: RRR, systolic murmur. ABSENT: diastolic murmur, rubs Pulses: PRESENT: normal dorsalis pedis pul Vascular exam: PRESENT: normal capillary refill GI/Abdominal exam: PRESENT: normal bowel sounds, soft. ABSENT: distended, guarding, mass, organolmegaly, rebound, tenderness Rectal exam: PRESENT: deferred Extremities exam: PRESENT: full ROM. ABSENT: calf tenderness, clubbing, pedal edema Neurological exam: PRESENT: alert, awake, oriented to person, oriented to place , oriented to time, oriented to situation, CN II-XII grossly intact. ABSENT: motor sensory deficit Psychiatric exam: PRESENT: appropriate affect, normal mood. ABSENT: homicidal ideation, suicidal ideation Skin exam: PRESENT: dry, intact, warm. ABSENT: cyanosis, rash Results Laboratory Results: 06/08/18 04:04 06/08/18 04:04 0806/06/18 06/07/18 08:33 11:12 05:43 NT-Pro-B Natriuret Pep 3810 H 2880 H 2780 H 06/08/18 04:04 NT-Pro-B Natriuret Pep 2900 H Qualifiers - * PATIENT BEING DISCHARGED WITH ANY OF THE FOLLOWING DIAGNOSIS: Heart Failure HF Pt being discharged on ACEI for LVEF less than 40%?: Yes Reason(s) for not prescribing ACEI:: Drug declined by patient HF Pt being discharged on ARBS for LVEF less than 40%?: No Reason(s) for not prescribing ARBS:: Medical Contraindication - on NATACHA HF Pt with Afib discharged with Warfarin?: No Reason(s) for not prescribing Warfarin:: Not indicated - No afib HF Pt discharged on evidence-based Beta Carolyn:: Yes Plan Discharge Plan: Follow up with primary care provider within 1 week. Follow up with Dr. Champion as scheduled. Follow up with Dr. Paulson within 4-6 weeks. Time Spent: Less than 30 Minutes
== END 2018-06-08 17:20 | disposition home health service (06) | DRG 193 ==
LOC: ER 23:07 → EH 06-04 02:54 → 4S 06-04 07:37
PROVIDERS: ADMIT Internal Medicine; ATTEND Internal Medicine
DX: J18.9 Pneumonia, unspecified organism (principal); I50.33 Acute on chronic diastolic (congestive) heart failure; J96.21 Acute and chronic respiratory failure with hypoxia; I13.0 Hypertensive heart and chronic kidney disease with heart failure and stage 1 through stage 4 chronic kidney disease, or unspecified chronic kidney disease; N39.0 Urinary tract infection, site not specified; N17.9 Acute kidney failure, unspecified; N18.4 Chronic kidney disease, stage 4 (severe); J42 Unspecified chronic bronchitis; E11.22 Type 2 diabetes mellitus with diabetic chronic kidney disease; B96.20 Unspecified Escherichia coli [E. coli] as the cause of diseases classified elsewhere; E66.01 Morbid (severe) obesity due to excess calories; Z99.81 Dependence on supplemental oxygen; Z79.52 Long term (current) use of systemic steroids; Z79.899 Other long term (current) drug therapy; Z68.37 Body mass index [BMI] 37.0-37.9, adult
CPT/HCPCS: 36415; 71046; 80048; 80053; 81001; 82607; 82803; 82962; 83605; 83690; 83735; 83880; 84100; 84439; 84443; 84484; 85025; 85027; 85610; 87040; 87086; 87088; 87186; 93005; 93010; 93306; 94799; 96365; 96366; 96368; 99285; G8978-GP; G8979-GP; J0456; J0696; J1815; J3490; J7030; J7060; J7120

== ENCOUNTER → 2018-06-14 | Outpatient (CLI) | payer MEDICARE ==
--- NOTE | 2018-06-14 14:05 | WOMENS IMAGING REPORT ---
EXAM DESCRIPTION: BONE DENSITY HIP/SPINE COMPLETED DATE/TIME: 06/14/2018 1:52 pm REASON FOR STUDY: ROUTINE SCREENING Z12.31 M81.1 AGE RELATED OSTEOPOROSIS Z12.31 ENCNTR SCREEN MAMM OGRAM FOR MALIGNANT NEOPLASM OF JOSE MANUEL M81.0 AGE-RELATED OSTEOPOROSIS W/O CURRENT PATHOLOGICAL FRAC COMPARISON: None. TECHNIQUE: Dual-Energy X-ray Absorptiometry (DEXA) of the AP Spine and Hip. LIMITATIONS: None. FINDINGS: LUMBAR SPINE: The bone mineral density (BMD) measured from L1-L4 in the AP projection correlates with a T-score of -0.4, which is within normal limits as defined by the World Health Organization. HIP: The bone mineral density (BMD) measured in the left femoral neck at the hip correlates with a T-score of -1.5, which is osteopenic as defined by the World Health Organization. IMPRESSION: 1. LUMBAR SPINE: Within normal limits 2. HIP: Osteopenic COMMENT: The World Health Organization defines low BMD as follows: T-score: Normal: Greater than -1.0 Osteopenia: Between -1.0 and -2.5 Osteoporosis: Less than -2.5 without fractures Established osteoporosis: Less than -2.5 with fractures In general, you may wish to consider: Diagnosis Treatment Follow-up DEXA Normal BMD Prevention 2-3 years Osteopenia Prevention/Therapy 1-2 years Osteoporosis Therapy Yearly TECHNICAL DOCUMENTATION: JOB ID: [id number]- All Rights Reserved Reading location - IP/workstation name: [email or web address]
--- NOTE | 2018-06-14 14:06 | WOMENS IMAGING REPORT ---
EXAM DESCRIPTION: BILAT SCREENING MAMMO W/CAD COMPLETED DATE/TIME: 06/14/2018 1:52 pm REASON FOR STUDY: ROUTINE SCREENING Z12.31 Z12.31 ENCNTR SCREEN MAMMOGRAM FOR MALIGNANT NEOPLASM OF JOSE MANUEL M81.0 AGE-RELATED OSTEOPOROSIS W/O CURRENT PATHOLOGICAL FRAC COMPARISON: Multiple since 2009 TECHNIQUE: Standard craniocaudal and mediolateral oblique views of each breast recorded using digita l acquisition. LIMITATIONS: None. FINDINGS: Findings present which are benign by mammographic criteria. No suspicious masses, calcifi cations or architectural distortion. Pertinent benign findings: Multiple benign breast parenchymal calcifications bilaterally. Read with the assistance of CAD. .[facility] - R2 Cenova Version 1.3 .[facility] - R2 Cenova Version 1.3 .[facility] - R2 Cenova Version 2.4 .[facility] - R2 Cenova Version 2.4 .[facility] - R2 Route Rider Version 9.2 Benign mammographic findings may include one or more of the following: Smooth masses, popcorn/rim/co arse calcifications, asymmetries, post-procedure changes, and lesions with long-standing stability. IMPRESSION: BENIGN MAMMOGRAPHIC FINDINGS. BIRADS 2 BREAST DENSITY: b. There are scattered areas of fibroglandular density. BIRAD: 2 BENIGN FINDING(S) RECOMMENDATION: ROUTINE SCREENING Please continue yearly bilateral screening mammography/tomosynthesis in May 2019 COMMENT: The patient has been notified of the results by letter per MQSA requirements. Additional no tification policies are in place for contacting patient with suspicious or incomplete findings. Quality ID #[id number]: The [employer] recommends an annual screening mammogram for women aged 40 years or over. This facility utilizes a reminder system to ensure that all patients receive reminder letters, and/or direct phone calls for appointments. This includes reminders for routine scr eening mammograms, diagnostic mammograms, or other Breast Imaging Interventions when appropriate. Th is patient will be placed in the appropriate reminder system. The [employer] (ACR) has developed recommendations for screening MRI of the breast s in certain patient populations, to be used in conjunction with mammography. Breast MRI surveillanc e may be appropriate for women with more than 20% lifetime risk of developing breast cancer as deter mined by genetic testing, significant family history of the disease, or history of mantle radiation f or Hodgkins Disease. ACR Practice Guidelines 2008. TECHNICAL DOCUMENTATION: FINDING NUMBER: (1) ASSESSMENT: (1) JOB ID: [id number] [employer]- All Rights Reserved Reading location - IP/workstation name: [email or web address]
== END ==
LOC: WI 13:22
PROVIDERS: ATTEND Family Medicine
DX: Z12.31 Encounter for screening mammogram for malignant neoplasm of breast (principal); M81.0 Age-related osteoporosis without current pathological fracture
CPT/HCPCS: 77067; 77080

== ENCOUNTER → 2018-11-07 | Outpatient (CLI) | payer MEDICARE ==
[2018-11-07 14:13] LABS: ALANINE AMINOTRANSFERASE 18 U/L (9-52); ALBUMIN 4.3 g/dL (3.5-5.0); ALKALINE PHOSPHATASE 62 U/L (38-126); ANION GAP 10 (5-19); ASPARTATE AMINO TRANSFERASE 24 U/L (14-36); BILIRUBIN,DIRECT 0.5 mg/dL (0.0-0.4); BILIRUBIN,TOTAL 0.5 mg/dL (0.2-1.3); BLOOD UREA NITROGEN 80 mg/dL (7-20); CARBON DIOXIDE 28 mmol/L (22-30); CHLORIDE 100 mmol/L (98-107); GLUCOSE 192 mg/dL (75-110); SODIUM 138.3 mmol/L (137-145); TOTAL PROTEIN 7.1 g/dL (6.3-8.2)
[2018-11-07 18:55] LABS: FREE T4 (FREE THYROXINE) 1.92 ng/dL (0.78-2.19)
[2018-11-07 19:09] LABS: THYROID STIMULATING HORMONE 4.21 uIU/mL (0.47-4.68)
== END ==
LOC: OD 12:37
PROVIDERS: ATTEND Family Medicine
DX: E07.9 Disorder of thyroid, unspecified (principal); E78.2 Mixed hyperlipidemia
CPT/HCPCS: 36415; 80053; 84439; 84443

== ENCOUNTER → 2018-11-09 | Outpatient (CLI) | payer MEDICARE ==
[2018-11-09 12:51] LABS: CHOLESTEROL 214.62 mg/dL (0-200); TRIGLYCERIDES 195 mg/dL (<150)
[2018-11-09 13:02] LABS: DIRECT LDL 118 mg/dL (<100)
== END ==
LOC: OD 11:30
PROVIDERS: ATTEND Family Medicine
DX: E78.2 Mixed hyperlipidemia (principal)
CPT/HCPCS: 36415; 80061

== ENCOUNTER 2018-11-18 23:24 | Emergency (ER) | payer MEDICARE ==
[2018-11-19] MEDS ORDERED: ACETAMINOPHEN 325 MG TABLET PO ONE (01:49)
--- NOTE | 2018-11-19 01:52 | ER Document Report ---
ED Medical Screen (RME) - General Chief Complaint: General Weakness Stated Complaint: COLD SYMPTOMS Time Seen by Provider: 11/19/18 01:49 Primary Care Provider: REED ADAM MD [Primary Care Provider] - Follow up as needed Notes: 73-year-old female with a history of asthma/COPD, on as needed home oxygen, chief complaint of 3 days of worsening sick symptoms including worsening cough and fever today. Temperature of 100.6 on arrival. Denies chest pain, nausea or vomiting, or any other complaints. Has not had the influenza vaccine. Remaining medical history includes type 2 diabetes and chronic kidney disease. TRAVEL OUTSIDE OF THE [place] IN LAST 30 DAYS: No - Related Data Allergies/Adverse Reactions: Sulfa (Sulfonamide Antibiotics) Allergy (Unknown, Verified 06/03/18 23:31) heparin Allergy (Verified 06/03/18 23:31) levofloxacin [From Levaquin] Allergy (Verified 06/03/18 23:31) prednisone Allergy (Verified 06/03/18 23:31) morphine [Morphine] Adverse Reaction (Severe, Verified 06/03/18 23:31) aspirin Adverse Reaction (Verified 06/03/18 23:31) Past Medical History - Past Medical History Cardiac Medical History: Reports: Hx Congestive Heart Failure, Hx Coronary Artery Disease, Hx Heart Attack, Hx Hypercholesterolemia, Hx Hypertension, Hx Heart Murmur Pulmonary Medical History: Reports: Hx Asthma, Hx Bronchitis, Hx COPD, Hx Pneumonia, Hx Tuberculosis Neurological Medical History: Reports: Hx Seizures. Denies: Hx Cerebrovascular Accident Endocrine Medical History: Reports: Hx Diabetes Mellitus Type 1, Hx Diabetes Mellitus Type 2, Hx Hyperthyroidism, Hx Hypothyroidism Renal/ Medical History: Reports: Hx End Stage Renal Disease, Hx Renal Insufficiency. Denies: Hx Peritoneal Dialysis GI Medical History: Reports: Hx Cirrhosis, Hx Gastroesophageal Reflux Disease, Hx Hepatitis Musculoskeltal Medical History: Reports Hx Arthritis Skin Medical History: Reports Hx Eczema Psychiatric Medical History: Denies: Hx Depression Infectious Medical History: Reports: Hx Hepatitis Past Surgical History: Reports: Hx Appendectomy, Hx Hysterectomy, Hx Orthopedic Surgery - b.l feet and right elbow surgery, Hx Pacemaker, Other - Bilat cataract and ankle surgery. - Immunizations Hx Diphtheria, Pertussis, Tetanus Vaccination: No History of Influenza Vaccine for 07/2017 - 12/2017 Season: Yes Influenza Administration Date for 07/2017 - 12/2017 Season: 08/25/17 Physical Exam - Vital signs Vitals: Temp Pulse Resp BP Pulse Ox 100.6 F H 63 22 H 114/55 L 94 11/19/18 00:30 11/19/18 00:30 11/19/18 00:30 11/19/18 00:30 11/19/18 00:30 - Respiratory Breath sounds: Other - Scattered rhonchi, no tachypnea, no distress Course - Re-evaluation Re-evalutation: Patient febrile, however she is not tachycardic, on oxygen she is comfortable, speaking in full sentences, not toxic in appearance. Workup pending. - Vital Signs Vital signs: Temp Pulse Resp BP Pulse Ox 100.6 F H 63 22 H 114/55 L 94 11/19/18 00:30 11/19/18 00:30 11/19/18 00:30 11/19/18 00:30 11/19/18 00:30 Doctor's Discharge - Discharge Referrals: REED ADAM MD [Primary Care Provider] - Follow up as needed
[2018-11-19 02:27] LABS: ABSOLUTE BASOPHILS # (AUTO) 0.1 10^3/uL (0.0-0.2); ABSOLUTE EOSINOPHILS # (AUTO) 0.2 10^3/uL (0.0-0.6); ABSOLUTE LYMPHOCYTES (AUTO) 0.9 10^3/uL (0.5-4.7); ABSOLUTE MONOCYTES (AUTO) 0.5 10^3/uL (0.1-1.4); ABSOLUTE NEUT (AUTO) 7.4 10^3/uL (1.7-8.2); BASOPHILS % (AUTO) 1.1 % (0-2); EOSINOPHILS % (AUTO) 2.1 % (0-6); HEMATOCRIT 30.7 % (36.0-47.0); HEMOGLOBIN 10.5 g/dL (12.0-15.5); LYMPHOCYTES % (AUTO) 9.5 % (13-45); MEAN CORPUSCULAR HEMOGLOBIN 32.3 pg (27.0-33.4); MEAN CORPUSCULAR HGB CONC 34.3 g/dL (32.0-36.0); MEAN CORPUSCULAR VOLUME 94 fl (80-97); MONOCYTES % (AUTO) 5.2 % (3-13); PLATELET COUNT 214 10^3/uL (150-450); RED BLOOD COUNT 3.26 10^6/uL (3.72-5.28); RED CELL DISTRIBUTION WIDTH 12.9 % (11.5-14.0); SEGMENTED NEUTROPHILS % (AUTO) 82.1 % (42-78); TOTAL CELLS COUNTED % (AUTO) 100 %
[2018-11-19 02:43] LABS: ALANINE AMINOTRANSFERASE 12 U/L (9-52); ALBUMIN 4.6 g/dL (3.5-5.0); ALKALINE PHOSPHATASE 55 U/L (38-126); ANION GAP 10 (5-19); ASPARTATE AMINO TRANSFERASE 28 U/L (14-36); BILIRUBIN,DIRECT 0.7 mg/dL (0.0-0.4); BILIRUBIN,TOTAL 0.8 mg/dL (0.2-1.3); BLOOD UREA NITROGEN 67 mg/dL (7-20); CALCIUM 8.8 mg/dL (8.4-10.2); CARBON DIOXIDE 27 mmol/L (22-30); CHLORIDE 103 mmol/L (98-107); GLUCOSE 233 mg/dL (75-110); POTASSIUM 4.4 mmol/L (3.6-5.0); SODIUM 139.9 mmol/L (137-145); TOTAL PROTEIN 7.7 g/dL (6.3-8.2)
--- NOTE | 2018-11-19 03:18 | ER Document Report ---
ED General - General Chief Complaint: General Weakness Stated Complaint: COLD SYMPTOMS Time Seen by Provider: 11/19/18 01:49 Primary Care Provider: REED ADAM MD [Primary Care Provider] - Follow up as needed Notes: Patient is a 73-year-old female with a past medical history of asthma/COPD, on as needed home oxygen, that comes to the emergency department with chief complaint of 3 days of worsening sick symptoms including worsening productive cough and a fever that developed today. Temperature of 100.6 on arrival. Patient denies chest pain, abdominal pain, nausea or vomiting. Denies headache. She has not had the influenza vaccine. Past medical history also includes hypertension, chronic kidney disease, type 2 diabetes, CHF. Family member at bedside. TRAVEL OUTSIDE OF THE [place] IN LAST 30 DAYS: No - Related Data Allergies/Adverse Reactions: Sulfa (Sulfonamide Antibiotics) Allergy (Unknown, Verified 06/03/18 23:31) heparin Allergy (Verified 06/03/18 23:31) levofloxacin [From Levaquin] Allergy (Verified 06/03/18 23:31) prednisone Allergy (Verified 06/03/18 23:31) morphine [Morphine] Adverse Reaction (Severe, Verified 06/03/18 23:31) aspirin Adverse Reaction (Verified 06/03/18 23:31) Past Medical History - General Information source: Patient, Relative - Social History Smoking Status: Former Smoker Frequency of alcohol use: None Drug Abuse: None Lives with: Family Family History: Hypertension, Other - Aneurysm in the mother, lung cancer in the father - Past Medical History Cardiac Medical History: Reports: Hx Congestive Heart Failure, Hx Coronary Artery Disease, Hx Heart Attack, Hx Hypercholesterolemia, Hx Hypertension, Hx Heart Murmur Pulmonary Medical History: Reports: Hx Asthma, Hx Bronchitis, Hx COPD, Hx Pneumonia, Hx Tuberculosis Neurological Medical History: Reports: Hx Seizures. Denies: Hx Cerebrovascular Accident Endocrine Medical History: Reports: Hx Diabetes Mellitus Type 2, Hx Hyperthyroidism, Hx Hypothyroidism Renal/ Medical History: Reports: Hx End Stage Renal Disease, Hx Renal Insufficiency. Denies: Hx Peritoneal Dialysis GI Medical History: Reports: Hx Cirrhosis, Hx Gastroesophageal Reflux Disease, Hx Hepatitis Musculoskeletal Medical History: Reports Hx Arthritis Skin Medical History: Reports Hx Eczema Psychiatric Medical History: Denies: Hx Depression Infectious Medical History: Reports: Hx Hepatitis Past Surgical History: Reports: Hx Appendectomy, Hx Hysterectomy, Hx Orthopedic Surgery - b.l feet and right elbow surgery, Hx Pacemaker, Other - Bilat cataract and ankle surgery. - Immunizations Hx Diphtheria, Pertussis, Tetanus Vaccination: No Review of Systems - Review of Systems Constitutional: See HPI EENT: No symptoms reported Cardiovascular: No symptoms reported Respiratory: See HPI Gastrointestinal: No symptoms reported Genitourinary: No symptoms reported Female Genitourinary: No symptoms reported Musculoskeletal: No symptoms reported Skin: No symptoms reported Hematologic/Lymphatic: No symptoms reported Neurological/Psychological: No symptoms reported Physical Exam - Vital signs Vitals: Temp Pulse Resp BP Pulse Ox 100.6 F H 63 22 H 114/55 L 94 11/19/18 00:30 11/19/18 00:30 11/19/18 00:30 11/19/18 00:30 11/19/18 00:30 - Notes Notes: GENERAL: Alert, interacts well. No acute distress. HEAD: Normocephalic, atraumatic. EYES: Pupils equal, round, and reactive to light. Extraocular movements intact. ENT: Oral mucosa moist, tongue midline. Oropharynx unremarkable. Airway patent. Nares patent, no nasal septal hematoma, TM's intact. NECK: Full range of motion. Supple. Trachea midline. LUNGS: A few scattered rhonchi, occasional congested cough. No tachypnea, labored breathing, or signs of distress. HEART: Regular rate and rhythm. Loud murmur heard throughout, systolic. ABDOMEN: Soft, non-tender. Non-distended. Bowel sounds present in all 4 quadrants. GENITOURINARY: Deferred EXTREMITIES: Moves all 4 extremities spontaneously. No edema, normal radial and dorsalis pedis pulses bilaterally. No cyanosis. BACK: no cervical, thoracic, lumbar midline tenderness. No saddle anesthesia, normal distal neurovascular exam. NEUROLOGICAL: Alert and oriented x3. Normal speech. [cranial nerves II through XII grossly intact]. PSYCH: Normal affect, normal mood. SKIN: Warm, dry, normal turgor. No rashes or lesions noted. Course - Re-evaluation Re-evalutation: Despite fever, age, reported symptoms, comorbidities, patient is acting normally and is very well-appearing. She is smiling, talkative, has no tachypnea, has mild occasional congested cough and a few scattered rhonchi on exam but otherwise is very well-appearing. Soft unremarkable abdomen. No headache. Patient patient has no complaints. Chest x-ray is unremarkable. CBC nonspecific. Chemistry shows chronic kidney disease. Urinalysis does indicate infection, culture was placed. Blood cultures pending. Lactic acid is not elevated. Patient is not tachycardic, hypoxic, or hypotensive. Given Rocephin, doxycycline. Discussed with patient. Because of her respiratory symptoms I suspect possible underlying pneumonia, urine does suggest infection, discussed treatment options. Patient is requesting to go home, daughter also requesting to go home. Patient will have close follow-up with primary care, be placed on antibiotics, and will observe strict return precautions which were discussed with patient and daughter. They state understanding and agreement. Stable at time of discharge. - Vital Signs Vital signs: Temp Pulse Resp BP Pulse Ox 98.3 F 63 14 130/60 H 99 11/19/18 05:35 11/19/18 00:30 11/19/18 05:02 11/19/18 05:02 11/19/18 05:02 - Laboratory Result Diagrams: 11/19/18 02:20 11/19/18 02:20 Laboratory results interpreted by me: 11/19/18 11/19/18 11/19/18 02:20 02:20 03:20 RBC 3.26 L Hgb 10.5 L Hct 30.7 L Seg Neutrophils % 82.1 H Lymphocytes % 9.5 L BUN 67 H Creatinine 2.88 H Est GFR ( Amer) 20 L Est GFR (Non-Af Amer) 16 L Glucose 233 H Lactic Acid 0.6 L Direct Bilirubin 0.7 H Urine Protein Ur Leukocyte Esterase 11/19/18 03:20 RBC Hgb Hct Seg Neutrophils % Lymphocytes % BUN Creatinine Est GFR ( Amer) Est GFR (Non-Af Amer) Glucose Lactic Acid Direct Bilirubin Urine Protein 30 H Ur Leukocyte Esterase SMALL H Discharge - Discharge Clinical Impression: Cough Fever Qualifiers: Fever type: unspecified Qualified Code(s): R50.9 - Fever, unspecified Condition: Stable Disposition: HOME, SELF-CARE Additional Instructions: Your workup indicates a urinary tract infection. However your evaluation is suggestive of pneumonia as well. Your influenza test is negative. We are treating you with doxycycline, we have blood and urine cultures pending. Follow-up closely with your primary care provider within the next 2-3 days for a recheck, take antibiotics as prescribed, take Tylenol if needed for fever, rest. Return if you worsen in any way including difficulty breathing, abdominal pain, vomiting, confusion, or any other concerning or worsening symptoms. Prescriptions: Doxycycline Hyclate 100 mg PO BID #14 capsule Referrals: REED ADAM MD [Primary Care Provider] - Follow up as needed
--- NOTE | 2018-11-19 03:46 | RADIOLOGY REPORT (SQ) ---
EXAM DESCRIPTION: XR CHEST 1 VIEW COMPLETED DATE/TME: 11/19/2018 01:50 CLINICAL HISTORY: 73 years, Female, fever, productive cough COMPARISON: December 30, 2017 NUMBER OF VIEWS: One TECHNIQUE: AP view of the chest LIMITATIONS: None. FINDINGS: Minimal right basilar parenchymal scarring otherwise the lungs are clear. There are no pleural abnormalities. The cardiac silhouette and pulmonary vessels are normal. IMPRESSION: No acute cardiopulmonary disease. copyright 2010 [employer]- All Rights Reserved
[2018-11-19 04:01] LABS: VENOUS BLOOD BASE EXCESS 1.4 mmol/L; VENOUS BLOOD HCO3 27.5 mmol/L (20-32); VENOUS BLOOD PCO2 50.3 mmHg (35-63); VENOUS BLOOD PH 7.36 (7.30-7.42)
[2018-11-19 04:06] LABS: APPEARANCE,URINE SLIGHTLY-CLOUDY; BILIRUBIN,URINE NEGATIVE (NEGATIVE); COLOR,URINE YELLOW; GLUCOSE, URINE NEGATIVE (NEGATIVE); KETONES,URINE NEGATIVE (NEGATIVE); LEUKOCYTE ESTERASE,URINE SMALL (NEGATIVE); NITRITE,URINE NEGATIVE (NEGATIVE); PROTEIN,URINE 30 mg/dL (NEGATIVE); URINE SPECIFIC GRAVITY 1.017; UROBILINOGEN,URINE NEGATIVE mg/dL (<2.0)
[2018-11-19 04:24] LABS: A TYPE INFLUENZA AG NEGATIVE (NEGATIVE); B INFLUENZA AG NEGATIVE (NEGATIVE)
[2018-11-19] MEDS ORDERED: DOXYCYCLINE HYCLATE 100 MG TABLET PO ONE (04:28)
[2018-11-19] MEDS ORDERED: CEFTRIAXONE 1 GM/D5W RTU 1 GM/50 ML RTUPB IV ONE (04:28)
[2018-11-19 05:37] VITALS: BP 130/60
== END 2018-11-19 05:35 | disposition home or self-care (01) ==
LOC: ER 23:24
DX: R05 Cough (principal); R53.1 Weakness; R50.9 Fever, unspecified; J44.9 Chronic obstructive pulmonary disease, unspecified; E11.22 Type 2 diabetes mellitus with diabetic chronic kidney disease; I13.0 Hypertensive heart and chronic kidney disease with heart failure and stage 1 through stage 4 chronic kidney disease, or unspecified chronic kidney disease; N18.9 Chronic kidney disease, unspecified; Z88.2 Allergy status to sulfonamides; Z99.81 Dependence on supplemental oxygen; I25.2 Old myocardial infarction; Z90.710 Acquired absence of both cervix and uterus
CPT/HCPCS: 99283; 96365; 36415; 87040; 87086; 85025; 87088; 80053; 81001; 87186; 82803; 83605; 87804; 71045; A9270 ×2; J0696

== ENCOUNTER → 2018-11-30 | Outpatient (CLI) | payer MEDICARE ==
[2018-11-30 16:54] LABS: ABSOLUTE BASOPHILS # (AUTO) 0.1 10^3/uL (0.0-0.2); ABSOLUTE EOSINOPHILS # (AUTO) 0.2 10^3/uL (0.0-0.6); ABSOLUTE LYMPHOCYTES (AUTO) 1.8 10^3/uL (0.5-4.7); ABSOLUTE MONOCYTES (AUTO) 0.3 10^3/uL (0.1-1.4); ABSOLUTE NEUT (AUTO) 4.1 10^3/uL (1.7-8.2); BASOPHILS % (AUTO) 1.3 % (0-2); EOSINOPHILS % (AUTO) 2.7 % (0-6); HEMATOCRIT 31.4 % (36.0-47.0); HEMOGLOBIN 10.7 g/dL (12.0-15.5); LYMPHOCYTES % (AUTO) 27.1 % (13-45); MEAN CORPUSCULAR HEMOGLOBIN 31.8 pg (27.0-33.4); MEAN CORPUSCULAR VOLUME 94 fl (80-97); MONOCYTES % (AUTO) 5.3 % (3-13); PLATELET COUNT 167 10^3/uL (150-450); RED BLOOD COUNT 3.36 10^6/uL (3.72-5.28); RED CELL DISTRIBUTION WIDTH 12.5 % (11.5-14.0); SEGMENTED NEUTROPHILS % (AUTO) 63.6 % (42-78); TOTAL CELLS COUNTED % (AUTO) 100 %; WHITE BLOOD COUNT 6.5 10^3/uL (4.0-10.5)
[2018-11-30 17:19] LABS: APPEARANCE,URINE CLEAR; BILIRUBIN,URINE NEGATIVE (NEGATIVE); COLOR,URINE YELLOW; GLUCOSE, URINE NEGATIVE (NEGATIVE); KETONES,URINE NEGATIVE (NEGATIVE); LEUKOCYTE ESTERASE,URINE TRACE (NEGATIVE); NITRITE,URINE NEGATIVE (NEGATIVE); PROTEIN,URINE NEGATIVE (NEGATIVE); URINE SPECIFIC GRAVITY 1.009; UROBILINOGEN,URINE NEGATIVE mg/dL (<2.0)
[2018-11-30 17:29] LABS: ALANINE AMINOTRANSFERASE 7 U/L (9-52); ALBUMIN 4.5 g/dL (3.5-5.0); ALKALINE PHOSPHATASE 63 U/L (38-126); ANION GAP 11 (5-19); ASPARTATE AMINO TRANSFERASE 25 U/L (14-36); BILIRUBIN,DIRECT 0.5 mg/dL (0.0-0.4); BILIRUBIN,TOTAL 0.5 mg/dL (0.2-1.3); BLOOD UREA NITROGEN 80 mg/dL (7-20); CALCIUM 9.2 mg/dL (8.4-10.2); CARBON DIOXIDE 30 mmol/L (22-30); CHLORIDE 101 mmol/L (98-107); GLUCOSE 134 mg/dL (75-110); IRON(TIBC) 112.4 ug/dL (37-170); PHOSPHORUS 4.7 mg/dL (2.5-4.5); POTASSIUM 5.1 mmol/L (3.6-5.0); SODIUM 141.6 mmol/L (137-145); TOTAL PROTEIN 7.4 g/dL (6.3-8.2)
== END ==
LOC: OD 16:10
PROVIDERS: ATTEND Internal Medicine Nephrology
DX: E11.22 Type 2 diabetes mellitus with diabetic chronic kidney disease (principal); N18.4 Chronic kidney disease, stage 4 (severe); I50.9 Heart failure, unspecified; E83.42 Hypomagnesemia
CPT/HCPCS: 36415; 80053; 81001; 82728; 83540; 83550; 83735; 83970; 84100; 85025

== ENCOUNTER → 2019-01-27 | Outpatient (CLI) | payer MEDICARE ==
[2019-01-27 14:18] LABS: APPEARANCE,URINE SLIGHTLY-CLOUDY; BILIRUBIN,URINE NEGATIVE (NEGATIVE); COLOR,URINE YELLOW; GLUCOSE, URINE >=500 mg/dL (NEGATIVE); KETONES,URINE NEGATIVE (NEGATIVE); LEUKOCYTE ESTERASE,URINE SMALL (NEGATIVE); NITRITE,URINE POSITIVE (NEGATIVE); PROTEIN,URINE NEGATIVE (NEGATIVE); UROBILINOGEN,URINE NEGATIVE mg/dL (<2.0)
[2019-01-27 14:24] LABS: HEMATOCRIT 31.2 % (36.0-47.0); HEMOGLOBIN 10.9 g/dL (12.0-15.5); MEAN CORPUSCULAR HEMOGLOBIN 32.1 pg (27.0-33.4); MEAN CORPUSCULAR HGB CONC 34.9 g/dL (32.0-36.0); MEAN CORPUSCULAR VOLUME 92 fl (80-97); PLATELET COUNT 202 10^3/uL (150-450); RED CELL DISTRIBUTION WIDTH 12.3 % (11.5-14.0); WHITE BLOOD COUNT 4.9 10^3/uL (4.0-10.5)
[2019-01-27 14:29] LABS: ANION GAP 11 (5-19); BLOOD UREA NITROGEN 62 mg/dL (7-20); CALCIUM 9.1 mg/dL (8.4-10.2); CARBON DIOXIDE 26 mmol/L (22-30); CHLORIDE 99 mmol/L (98-107); GLUCOSE 351 mg/dL (75-110); PHOSPHORUS 3.8 mg/dL (2.5-4.5); POTASSIUM 3.9 mmol/L (3.6-5.0); SODIUM 136.2 mmol/L (137-145)
== END ==
LOC: OD 13:38
PROVIDERS: ATTEND Physician Assistant Medical
DX: N18.4 Chronic kidney disease, stage 4 (severe) (principal); E11.9 Type 2 diabetes mellitus without complications; E83.42 Hypomagnesemia; E87.5 Hyperkalemia
CPT/HCPCS: 36415; 80048; 81001; 83970; 84100; 85027

== ENCOUNTER 2019-03-15 09:01 | Emergency (ER) | payer MEDICARE ==
[2019-03-15] MEDS ORDERED: HYDROCODONE/ACETAMINOPHEN 5-325 MG TABLET PO ONE (10:58)
[2019-03-15] MEDS ORDERED: DOCUSATE SODIUM 100 MG CAPSULE PO ONE (10:58)
--- NOTE | 2019-03-15 10:58 | ER Document Report ---
ED Fall - General Chief Complaint: Fall Stated Complaint: FALL/LOWER BACK PAIN Time Seen by Provider: 03/15/19 10:52 Primary Care Provider: REED ADAM MD [Primary Care Provider] - Follow up as needed Notes: 74-year-old female patient fell onto her bottom today. Not a syncopal episode. Did not look get knocked out. Having some pain in her low back area at about L2-L3 L3-L4. Some pain in her buttocks as well. No loss of conscious. No chest pain. No fever. No other major issues at this time. Patient has multiple medical problems. On oxygen. TRAVEL OUTSIDE OF THE [place] IN LAST 30 DAYS: No - HPI Occurred: Just prior to arrival Where: Home Context: Lost balance Associated symptoms: None - Related data Allergies/Adverse Reactions: Sulfa (Sulfonamide Antibiotics) Allergy (Unknown, Verified 03/15/19 09:19) heparin Allergy (Verified 03/15/19 09:19) levofloxacin [From Levaquin] Allergy (Verified 03/15/19 09:19) prednisone Allergy (Verified 03/15/19 09:19) morphine [Morphine] Adverse Reaction (Severe, Verified 03/15/19 09:19) aspirin Adverse Reaction (Verified 03/15/19 09:19) Past Medical History - General Information source: Patient, [facility] Records - Social History Smoking Status: Unknown if Ever Smoked Frequency of alcohol use: None Drug Abuse: None - Function and Family History: Hypertension, Other - Aneurysm in the mother, lung cancer in the father Patient has suicidal ideation: No Patient has homicidal ideation: No - Past Medical History Cardiac Medical History: Reports: Hx Congestive Heart Failure, Hx Coronary Artery Disease, Hx Heart Attack, Hx Hypercholesterolemia, Hx Hypertension, Hx Heart Murmur Pulmonary Medical History: Reports: Hx Asthma, Hx Bronchitis, Hx COPD, Hx Pneumonia, Hx Tuberculosis Neurological Medical History: Reports: Hx Seizures. Denies: Hx Cerebrovascular Accident Endocrine Medical History: Reports: Hx Diabetes Mellitus Type 1, Hx Diabetes Mellitus Type 2, Hx Hyperthyroidism, Hx Hypothyroidism Renal/ Medical History: Reports: Hx End Stage Renal Disease, Hx Renal Insufficiency. Denies: Hx Peritoneal Dialysis GI Medical History: Reports: Hx Cirrhosis, Hx Gastroesophageal Reflux Disease, Hx Hepatitis Musculoskeletal Medical History: Reports Hx Arthritis Skin Medical History: Reports Hx Eczema Psychiatric Medical History: Denies: Hx Depression Infectious Medical History: Reports: Hx Hepatitis Past Surgical History: Reports: Hx Appendectomy, Hx Hysterectomy, Hx Orthopedic Surgery - b.l feet and right elbow surgery, Hx Pacemaker, Other - Bilat cataract and ankle surgery. - Immunizations Hx Diphtheria, Pertussis, Tetanus Vaccination: No Review of Systems - Review of Systems Notes: Constitutional: denies: Chills, Diaphoresis, Fever, Malaise, Weakness EENT: denies: Eye discharge, Blurred vision, Tearing, Double vision, Nose congestion, Nose discharge, Throat swelling, Mouth pain Cardiovascular: denies: Palpitations, Heart racing, Orthopnea, Dyspnea, Chest pain Respiratory: denies: Cough, Hurts to breathe, Wheezing, Shortness of breath Gastrointestinal: denies: Abdominal pain, Diarrhea, Nausea, Vomiting, Black stools, bright red blood in stool Genitourinary: denies: Burning, Dysuria, Discharge, Frequency, Flank pain, Hematuria Musculoskeletal: denies: Joint pain, Joint swelling, Muscle pain, Muscle stiffness, +back pain Hematologic/Lymphatic: denies: Anemia, Easy bleeding, Easy bruising, Blood clots Neurological/Psychological: denies: Confusion, Dementia, Depression, Loss of consciousness Skin: No lesions, no masses, no skin breakdown, no abscesses Physical Exam - Vital signs Vitals: Temp Pulse Resp BP Pulse Ox 98.4 F 71 18 154/56 H 96 03/15/19 09:33 03/15/19 09:33 03/15/19 09:33 03/15/19 09:33 03/15/19 09:33 Interpretation: Normal - General General appearance: Appears well, Alert - HEENT Head: Normocephalic, Atraumatic Eyes: Normal Pupils: PERRL - Respiratory Respiratory status: No respiratory distress Chest status: Nontender Breath sounds: Normal Chest palpation: Normal - Cardiovascular Rhythm: Regular Heart sounds: Normal auscultation Murmur: Yes Systolic murmur grade 1-6: 2 - Abdominal Inspection: Normal Distension: No distension Bowel sounds: Normal Tenderness: Nontender Organomegaly: No organomegaly - Back Back: Normal, Tender - L3-L4 midline. Sacrum. - Extremities General upper extremity: Normal inspection, Nontender, Normal color, Normal ROM, Normal temperature General lower extremity: Normal inspection, Nontender, Normal color, Normal ROM, Normal temperature, Other - There is no pelvis instability. There is no pain in the hip bilaterally. Full range of motion of the hips while lying flat.. No: Abimael's sign - Neurological Neuro grossly intact: Yes Cognition: Normal Orientation: AAOx4 Cristin Coma Scale Eye Opening: Spontaneous [place] Coma Scale Verbal: Oriented Cristin Coma Scale Motor: Obeys Commands [place] Coma Scale Total: 15 Speech: Normal Motor strength normal: LUE, RUE, LLE, RLE Sensory: Normal - Psychological Associated symptoms: Normal affect, Normal mood - Skin Skin Temperature: Warm Skin Moisture: Dry Skin Color: Normal Course - Re-evaluation Re-evalutation: 03/15/19 12:14 CT scan of the lumbar spine performed due to concern for osteopenia and acute compression fracture. There appears to be a nonacute compression fracture at the superior endplate of L1. No significant deformities however. At this time more likely this is some soft soft tissue musculoskeletal pain and strain. Unlikely this represents a syncopal episode or other unstable condition as patient does report a mechanical fall. I have given her one hydrocodone tablet here. Probably not a great candidate for NSAIDs as she has some end-stage renal disease. Apparently allergic to aspirin as well. Rising her to follow back up with her primary care doctor for pain management. Will discharge shortly. 03/15/19 12:15 - Vital Signs Vital signs: Temp Pulse Resp BP Pulse Ox 98.4 F 71 18 154/56 H 96 03/15/19 09:33 03/15/19 09:33 03/15/19 09:33 03/15/19 09:33 03/15/19 09:33 Discharge - Discharge Clinical Impression: Fall Qualifiers: Encounter type: initial encounter Qualified Code(s): W19.XXXA - Unspecified fall, initial encounter Low back pain Qualifiers: Chronicity: acute Back pain laterality: midline Sciatica presence: without sciatica Qualified Code(s): M54.5 - Low back pain Condition: Good Disposition: HOME, SELF-CARE Instructions: Low Back Pain ([facility]) Prescriptions: Tramadol HCl [Ultram 50 mg Tablet] 50 mg PO Q6HP PRN #20 tab PRN Reason: For Pain Referrals: REED ADAM MD [Primary Care Provider] - Follow up tomorrow
--- NOTE | 2019-03-15 12:00 | RADIOLOGY REPORT (SQ) ---
EXAM DESCRIPTION: CT LUMBAR SPINE WITHOUT COMPLETED DATE/TIME: 03/15/2019 11:47 am REASON FOR STUDY: fall onto butttocks COMPARISON: None. TECHNIQUE: Axial images acquired through the lumbar spine without intravenous contrast. Images revi ewed with lung, soft tissue and bone windows. Reconstructed coronal and sagittal MPR images reviewed . All images stored on PACS. All CT scanners at this facility use dose modulation, iterative reconstruction, and/or weight based d osing when appropriate to reduce radiation dose to as low as reasonably achievable (ALARA). [facility]: Dose Right [facility]: CareDose [facility]: Dose Right [facility]: Teradose 4D [facility]: Smart Zero Locus RADIATION DOSE: mGy. LIMITATIONS: Patient movement. FINDINGS: Bones are osteopenic. Depression superior endplate L1 with sclerotic margins. No acute c ompression fracture. Multilevel spondylosis and facet arthropathy. No obvious acute disc herniation . No paraspinal hematoma. IMPRESSION: No acute findings. TECHNICAL DOCUMENTATION: JOB ID: [id number] Quality ID # [id number]: Final reports with documentation of one or more dose reduction techniques (e.g., Au tomated exposure control, adjustment of the mA and/or kV according to patient size, use of iterative reconstruction technique) 2010 [employer]- All Rights Reserved Reading location - IP/workstation name: [email or web address]
[2019-03-15 13:33] LABS: APPEARANCE,URINE SLIGHTLY-CLOUDY; BILIRUBIN,URINE NEGATIVE (NEGATIVE); COLOR,URINE YELLOW; GLUCOSE, URINE NEGATIVE (NEGATIVE); KETONES,URINE NEGATIVE (NEGATIVE); LEUKOCYTE ESTERASE,URINE TRACE (NEGATIVE); NITRITE,URINE POSITIVE (NEGATIVE); PROTEIN,URINE NEGATIVE (NEGATIVE); URINE SPECIFIC GRAVITY 1.013; UROBILINOGEN,URINE NEGATIVE mg/dL (<2.0)
[2019-03-15] MEDS ORDERED: CEPHALEXIN 500 MG CAPSULE PO ONE (13:50)
[2019-03-15 14:06] LABS: ABSOLUTE EOSINOPHILS # (AUTO) 0.1 10^3/uL (0.0-0.6); ABSOLUTE LYMPHOCYTES (AUTO) 0.5 10^3/uL (0.5-4.7); ABSOLUTE MONOCYTES (AUTO) 0.2 10^3/uL (0.1-1.4); ABSOLUTE NEUT (AUTO) 5.8 10^3/uL (1.7-8.2); BASOPHILS % (AUTO) 0.3 % (0-2); HEMATOCRIT 27.4 % (36.0-47.0); HEMOGLOBIN 9.2 g/dL (12.0-15.5); MEAN CORPUSCULAR HGB CONC 33.6 g/dL (32.0-36.0); MEAN CORPUSCULAR VOLUME 92 fl (80-97); MONOCYTES % (AUTO) 2.8 % (3-13); PLATELET COUNT 213 10^3/uL (150-450); RED BLOOD COUNT 2.98 10^6/uL (3.72-5.28); RED CELL DISTRIBUTION WIDTH 13.6 % (11.5-14.0); SEGMENTED NEUTROPHILS % (AUTO) 87.9 % (42-78); TOTAL CELLS COUNTED % (AUTO) 100 %; WHITE BLOOD COUNT 6.6 10^3/uL (4.0-10.5)
[2019-03-15 14:28] LABS: ALANINE AMINOTRANSFERASE 15 U/L (9-52); ALBUMIN 3.8 g/dL (3.5-5.0); ALKALINE PHOSPHATASE 56 U/L (38-126); ANION GAP 9 (5-19); ASPARTATE AMINO TRANSFERASE 29 U/L (14-36); BILIRUBIN,DIRECT 0.6 mg/dL (0.0-0.4); BILIRUBIN,TOTAL 0.6 mg/dL (0.2-1.3); BLOOD UREA NITROGEN 78 mg/dL (7-20); CALCIUM 9.6 mg/dL (8.4-10.2); CARBON DIOXIDE 34 mmol/L (22-30); CHLORIDE 101 mmol/L (98-107); GLUCOSE 111 mg/dL (75-110); POTASSIUM 4.3 mmol/L (3.6-5.0); SODIUM 144.3 mmol/L (137-145); TOTAL PROTEIN 7.5 g/dL (6.3-8.2)
[2019-03-15 15:40] VITALS: BP 152/83
--- NOTE | 2019-03-15 23:40 | EKG REPORT ---
SEVERITY:- BORDERLINE ECG - SINUS RHYTHM LEFT AXIS DEVIATION BORDERLINE PROLONGED QT INTERVAL : Confirmed by: Hetal Pat 15-Mar-2019 23:39:47
== END 2019-03-15 15:59 | disposition home or self-care (01) ==
LOC: ER 09:01
DX: N30.00 Acute cystitis without hematuria (principal); M54.5 Low back pain; W19.XXXA Unspecified fall, initial encounter; I50.9 Heart failure, unspecified; I25.10 Atherosclerotic heart disease of native coronary artery without angina pectoris; I11.0 Hypertensive heart disease with heart failure; J44.9 Chronic obstructive pulmonary disease, unspecified
CPT/HCPCS: 93005; 99284; 36415; 87086; 84443; 85025; 87088; 80053; 81001; 87186; 72131; 93010; A9270 ×3

== ENCOUNTER 2019-03-17 21:12 | Observation (INO) | payer MEDICARE ==
--- NOTE | 2019-03-17 22:06 | ER Document Report ---
ED General - General Chief Complaint: Weakness Stated Complaint: GENERAL WEAKNESS Time Seen by Provider: 03/17/19 22:01 Notes: Patient is a 74-year-old female who presents with complaint of generalized weakness. This been ongoing for a week but has worsened along the last few days. She was seen here 2 days ago after her legs gave out she fell. She does walk with a walker and sometimes uses a wheelchair. She was placed on Ultram at that time was also found to have a UTI. She says she has been taking antibiotics. She said the Ultram she is also been taking. Paramedics arrived she did have an O2 saturation in the 80s at the house despite being on her 2 L of oxygen. Apparently when she arrived here at the hospital her oxygen satur ation was in the 60s but the report from the nurses was that the paramedics oxygen tank and ran out in route and they did not realize this. Patient's oxygen saturation is now 95% on 3 L. She says that she has had some intermittent chest pain left side of her chest for a few days. She has a little low back pain that from the previous fall however she says this is improving. Patient is just been extremely drowsy and weak and has not been eating or drinking more much per the family. She does have history of congestive heart failure. No history of SD. She does have history of chronic kidney disease. She says some constipation. No diarrhea. Some nausea. No fevers. She says she still having some dysuria. TRAVEL OUTSIDE OF THE [place] IN LAST 30 DAYS: No - Related Data Allergies/Adverse Reactions: Sulfa (Sulfonamide Antibiotics) Allergy (Unknown, Verified 03/15/19 09:19) heparin Allergy (Verified 03/15/19 09:19) levofloxacin [From Levaquin] Allergy (Verified 03/15/19 09:19) prednisone Allergy (Verified 03/15/19 09:19) morphine [Morphine] Adverse Reaction (Severe, Verified 03/15/19 09:19) aspirin Adverse Reaction (Verified 03/15/19 09:19) Past Medical History - Social History Smoking Status: Never Smoker Frequency of alcohol use: None Drug Abuse: None Family History: Hypertension, Other - Aneurysm in the mother, lung cancer in the father - Past Medical History Cardiac Medical History: Reports: Hx Congestive Heart Failure, Hx Coronary Artery Disease, Hx Heart Attack, Hx Hypercholesterolemia, Hx Hypertension, Hx H eart Murmur Pulmonary Medical History: Reports: Hx Asthma, Hx Bronchitis, Hx COPD, Hx Pneumonia, Hx Tuberculosis Neurological Medical History: Reports: Hx Seizures. Denies: Hx Cerebrovascular Accident Endocrine Medical History: Reports: Hx Diabetes Mellitus Type 1, Hx Diabetes Mellitus Type 2, Hx Hyperthyroidism, Hx Hypothyroidism Renal/ Medical History: Reports: Hx End Stage Renal Disease, Hx Renal Insufficiency. Denies: Hx Peritoneal Dialysis GI Medical History: Reports: Hx Cirrhosis, Hx Gastroesophageal Reflux Disease, Hx Hepatitis Musculoskeletal Medical History: Reports Hx Arthritis Skin Medical History: Reports Hx Eczema Psychiatric Medical History: Denies: Hx Depression Infectious Medical History: Reports: Hx Hepatitis Past Surgical History: Reports: Hx Appendectomy, Hx Hysterectomy, Hx Orthopedic Surgery - b.l feet and right elbow surgery, Hx Pacemaker, Other - Bilat cataract and ankle surgery. - Immunizations Hx Diphtheria, Pertussis, Tetanus Vaccination: No Review of Systems - Review of Systems Notes: My Normal Review Basic REVIEW OF SYSTEMS: CONSTITUTIONAL : Denies fever, chills, or sweats. Generalized weakness EENT: Denies eye, ear, throat, or mouth pain or symptoms. Denies nasal or sinus congestion. CARDIOVASCULAR: Intermittent left-sided chest pain RESPIRATORY: Denies cough, cold, or chest congestion. Denies shortness of breath, difficulty breathing, or wheezing. GASTROINTESTINAL: Denies abdominal pain. Nausea but no vomiting GENITOURINARY: Denies difficulty urinating, painful urination, burning, frequency, or blood in urine. MUSCULOSKELETAL: Denies neck or back pain or joint pain or swelling. SKIN: Denies rash or skin lesions. NEUROLOGICAL: Denies altered mental status or loss of consciousness. Denies headache. No focal weakness. Denies problems with gait or speech. Denies sensory or motor loss. ALL OTHER SYSTEMS REVIEWED AND NEGATIVE. Physical Exam - Vital signs Vitals: Resp Pulse Ox 29 H 63 L 03/17/19 21:13 03/17/19 21:13 - Notes Notes: General Appearance: Well nourished, somnolent, cooperative, no acute distress, no obvious discomfort. Vitals: reviewed, See vital signs table. Head: no swelling or tenderness to the head Eyes: PERRL, EOMI, Conjuctiva clear Mouth: No decreasd moisture Throat: No tonsillar inflammation, No airway obstruction, No lymphadenopathy Neck: Supple, no neck tenderness Lungs: No wheezing, No rales, No rhonci, No accessory muscle use, good air exchange bilaterally. Heart: Normal rate, Regular rythm, systolic murmur which patient says is chronic Abdomen: Normal BS, soft, No rigidity, No abdominal tenderness, No guarding, no rebound Extremities: strength 5/5 in all extremities, good pulses in all extremities, no swelling or tenderness in the extremities, no edema. Skin: warm, dry, appropriate color, no rash Neuro: Patient is somnolent but answers all questions without difficulty. She is very weak appearing. She at times has a hard time keeping her eyes open. She is able to move all extremities without difficulty. Distal sensation intact. Symmetric facial movement. No focal neurologic deficits on exam. Course - Re-evaluation Re-evalutation: 03/18/19 06:07 Patient's venous blood gas does show that she is hypercarbic. This probably is contributing to her weakness. I suspect weakness is also partially being caused by the fact that she was recent placed on Ultram. She does not have a UTI at this time. She is afebrile. She otherwise looks well. No pneumonia on chest x-ray. She is on BiPAP now because of hypercarbia. I did speak with the hospitalist, Dr. Damon, who agrees to wait the patient due to her weakness and respiratory acidosis. Dictation of this chart was performed using voice recognition software; the refore, there may be some unintended grammatical errors. - Vital Signs Vital signs: Temp Pulse Resp BP Pulse Ox 97.4 F 69 18 158/50 H 93 03/18/19 03:40 03/18/19 04:32 03/18/19 03:40 03/18/19 03:40 03/18/19 03:40 - Laboratory Result Diagrams: 03/18/19 03:27 03/18/19 03:27 Laboratory results interpreted by me: 03/17/19 03/17/19 03/17/19 22:01 22:45 22:45 RBC 2.73 L Hgb 8.4 L Hct 25.4 L Seg Neutrophils % 78.1 H Lymphocytes % 12.9 L VBG pH VBG pCO2 Chloride 96 L BUN 90 H Creatinine 3.50 H Est GFR ( Amer) 16 L Est GFR (Non-Af Amer) 13 L Glucose 125 H Direct Bilirubin 0.8 H TSH 7.98 H 03/17/19 23:24 RBC Hgb Hct Seg Neutrophils % Lymphocytes % VBG pH 7.29 L VBG pCO2 65.2 H* Chloride BUN Creatinine Est GFR ( Amer) Est GFR (Non-Af Amer) Glucose Direct Bilirubin TSH - EKG Interpretation by Me Additional EKG results interpreted by me: 03/17/19 22:04 EKG is reviewed and interpreted by me. EKG shows NSR with a rate of [address] segment elevation or depression. Pr interval, QRS duration, and QTc intervals are within normal range. Discharge - Discharge Clinical Impression: Weakness, Respiratory acidosis Condition: Stable Disposition: ADMITTED OBSERVATION Admitting Provider: Nelson (Hospitalist) Unit Admitted: Telemetry
--- NOTE | 2019-03-17 22:14 | RADIOLOGY REPORT (SQ) ---
EXAM DESCRIPTION: XR CHEST 1 VIEW COMPLETED DATE/TME: 03/17/2019 21:41 CLINICAL HISTORY: 74 years, Female, chest pain COMPARISON: Prior study from 12/30/2017 NUMBER OF VIEWS: One TECHNIQUE: Single frontal view of the chest was obtained portably LIMITATIONS: None. FINDINGS: Cardiopericardial silhouette is enlarged, unchanged. Bandlike opacity is noted about the right lung base, indicating atelectasis or scar. However, this now demonstrates a somewhat nodular component. Lungs are otherwise clear. No pleural effusion or pneumothorax. IMPRESSION: No acute disease. Bandlike opacity about the right lung base corresponding to chronic scar. However, this appears to demonstrate a somewhat more nodular component which is new. Correlate with nonemergent CT of the chest. Stable cardiomegaly. copyright 2010 [employer]- All Rights Reserved
[2019-03-17 22:50] LABS: ALANINE AMINOTRANSFERASE 17 U/L (9-52); ALKALINE PHOSPHATASE 49 U/L (38-126); ANION GAP 13 (5-19); ASPARTATE AMINO TRANSFERASE 31 U/L (14-36); BILIRUBIN,DIRECT 0.8 mg/dL (0.0-0.4); BILIRUBIN,TOTAL 0.8 mg/dL (0.2-1.3); BLOOD UREA NITROGEN 90 mg/dL (7-20); CALCIUM 8.7 mg/dL (8.4-10.2); CARBON DIOXIDE 29 mmol/L (22-30); CHLORIDE 96 mmol/L (98-107); GLUCOSE 125 mg/dL (75-110); POTASSIUM 4.6 mmol/L (3.6-5.0); SODIUM 138.2 mmol/L (137-145); TOTAL PROTEIN 7.6 g/dL (6.3-8.2)
[2019-03-17 23:16] LABS: ABSOLUTE EOSINOPHILS # (AUTO) 0.2 10^3/uL (0.0-0.6); ABSOLUTE LYMPHOCYTES (AUTO) 0.7 10^3/uL (0.5-4.7); ABSOLUTE MONOCYTES (AUTO) 0.3 10^3/uL (0.1-1.4); ABSOLUTE NEUT (AUTO) 4.2 10^3/uL (1.7-8.2); APPEARANCE,URINE CLEAR; BASOPHILS % (AUTO) 0.9 % (0-2); BILIRUBIN,URINE NEGATIVE (NEGATIVE); COLOR,URINE YELLOW; EOSINOPHILS % (AUTO) 3.2 % (0-6); GLUCOSE, URINE NEGATIVE (NEGATIVE); HEMATOCRIT 25.4 % (36.0-47.0); HEMOGLOBIN 8.4 g/dL (12.0-15.5); KETONES,URINE NEGATIVE (NEGATIVE); LEUKOCYTE ESTERASE,URINE NEGATIVE (NEGATIVE); LYMPHOCYTES % (AUTO) 12.9 % (13-45); MEAN CORPUSCULAR HEMOGLOBIN 30.7 pg (27.0-33.4); MEAN CORPUSCULAR HGB CONC 32.9 g/dL (32.0-36.0); MEAN CORPUSCULAR VOLUME 93 fl (80-97); MONOCYTES % (AUTO) 4.9 % (3-13); NITRITE,URINE NEGATIVE (NEGATIVE); PLATELET COUNT 217 10^3/uL (150-450); PROTEIN,URINE NEGATIVE (NEGATIVE); RED BLOOD COUNT 2.73 10^6/uL (3.72-5.28); SEGMENTED NEUTROPHILS % (AUTO) 78.1 % (42-78); TOTAL CELLS COUNTED % (AUTO) 100 %; URINE SPECIFIC GRAVITY 1.012; UROBILINOGEN,URINE NEGATIVE mg/dL (<2.0); WHITE BLOOD COUNT 5.4 10^3/uL (4.0-10.5)
[2019-03-17 23:37] LABS: VENOUS BLOOD BASE EXCESS 2.7 mmol/L; VENOUS BLOOD HCO3 30.4 mmol/L (20-32); VENOUS BLOOD PH 7.29 (7.30-7.42)
[2019-03-17 23:39] LABS: VENOUS BLOOD PCO2 65.2 mmHg (35-63)
[2019-03-17 23:46] LABS: FREE T4 (FREE THYROXINE) 1.6 ng/dL (0.78-2.19)
[2019-03-18] LABS: THYROID STIMULATING HORMONE 7.98 uIU/mL (0.47-4.68)
[2019-03-18] MEDS ORDERED: HYDRALAZINE HCL INJ/PF 20 MG/1 ML SDV IV PRN (01:07)
[2019-03-18] MEDS ORDERED: IPRATROPIUM/ALBUTEROL 0.5-2.5 MG/3 ML AMPUL NEB PRN (01:07)
[2019-03-18] MEDS ORDERED: AMLODIPINE BESYLATE 10 MG TABLET PO ONE ×2 (01:16→04:00)
[2019-03-18] MEDS ORDERED: NORMAL SALINE 1000 ML 1,000 ML IV ONE (01:17)
[2019-03-18] MEDS ORDERED: NITROGLYCERIN 5 MG (0.2 MG/HR) PATCH.TD24 TD ONE (01:18)
[2019-03-18] MEDS: PREDNISONE 20 MG TABLET PO SCH ×2 (02:15→12:05)
[2019-03-18] MEDS ORDERED: AZITHROMYCIN INJ 500 MG VIAL IV ONE (03:08)
[2019-03-18] MEDS ORDERED: FLUTICASONE NASAL SPRAY 50 MCG/SPRY 120 SPRAY/16 GM ONE (03:08)
--- NOTE | 2019-03-18 03:33 | PDOC H&P ---
History of Present Illness Admission Date/PCP: 03/18/19 01:12 REED ADAM Patient complains of: Generalized weakness History of Present Illness: WANG LAWSON is a 74 year old female with a past medical history of home oxygen dependent chronic respiratory failure, obstructive sleep apnea with BiPAP noncompliance morbid obesity, chronic constipation, insulin-dependent diabetes, GERD and CKD 4. She presents with 3 days of low back pain prompting her to seek evaluation in the emergency department 2 days ago she is placed on Ultram. Over the last 48 hours family complains of drowsiness and poor p.o. intake prompting EMS call finding her with oxygen saturations in the 60s. She is placed on oxygen, reevaluation in the emergency room where she is found to have significant anemia with a drop of hemoglobin from 11-8.5 over 6 weeks. She complains of abdominal distention and constipation. She receives albuterol, Atrovent, BiPAP and oxygen and referred to the hospitalist for admission. Past Medical History Cardiac Medical History: Reports: Coronary Artery Disease, Myocardial Infarction, Hyperlipidema, Hypertension, Heart Murmur Pulmonary Medical History: Reports: Asthma, Bronchitis, Chronic Obstructive Pulmonary Disease (COPD), Pneumonia, Tuberculosis Neurological Medical History: Reports: Seizures Endocrine Medical History: Reports: Diabetes Mellitus Type 1, Diabetes Mellitus Type 2, Hyperthyroidism, Hypothyroidism Renal/ Medical History: Reports: End Stage Renal Disease GI Medical History: Reports: Cirrhosis, Gastroesophageal Reflux Disease, Hepatitis Musculoskeltal Medical History: Reports: Arthritis Skin Medical History: Reports: Eczema Psychiatric Medical History: Denies: Depression Hematology: Reports: Anemia Past Surgical History Past Surgical History: Reports: Appendectomy, Hysterectomy, Orthopedic Surgery - b.l feet and right elbow surgery, Pacemaker, Other - Bilat cataract and ankle surgery. Social History Information Source: Patient Lives with: Family Smoking Status: Never Smoker Frequency of Alcohol Use: None Hx Recreational Drug Use: No Drugs: None Hx Prescription Drug Abuse: No - Advance Directive Resuscitation Status: Full Code Family History Family History: Hypertension, Other - Aneurysm in the mother, lung cancer in the father Parental Family History Reviewed: Yes Children Family History Reviewed: Yes Sibling(s) Family History Reviewed.: Yes Medication/Allergy Home Medications: Benazepril HCl [Lotensin 20 mg Tablet] 20 mg PO QHS 12/30/17 Carvedilol [Coreg 3.125 mg Tablet] 3.125 mg PO Q12 12/30/17 Glimepiride [Amaryl 4 mg Tablet] 4 mg PO BID 12/30/17 Hydralazine HCl [Apresoline 25 mg Tablet] 50 mg PO Q8 12/30/17 Omeprazole 20 mg PO ACBRKFST 12/30/17 Oxycodone HCl/Acetaminophen [Percocet 7.5-325 mg Tablet] 1 tab PO BIDP PRN 12/30/17 Fenofibrate 54mg Tablet 54 mg PO DAILY 06/04/18 Furosemide [Lasix 20 mg Tablet] 20 mg PO BID 06/04/18 Gabapentin [Neurontin 400 mg Capsule] 400 mg PO DAILY 06/04/18 Gabapentin [Neurontin 400 mg Capsule] 800 mg PO QHS 06/04/18 Levothyroxine Sodium [Synthroid 0.075 mg Tablet] 0.075 mg PO Q6AM 06/04/18 Acetaminophen [Tylenol 325 mg Tablet] 650 mg PO Q4HP PRN tablet 06/08/18 Ciprofloxacin HCl [Cipro 500 mg Tablet] 250 mg PO Q12 #10 tablet 06/08/18 Escitalopram Oxalate [Lexapro 10 mg Tablet] 5 mg PO DAILY #30 tablet 06/08/18 Doxycycline Hyclate 100 mg PO BID #14 capsule 11/19/18 Cephalexin Monohydrate [Keflex 500 mg Capsule] 500 mg PO Q6H 5 Days capsule 03/15/19 Tramadol HCl [Ultram 50 mg Tablet] 50 mg PO Q6HP PRN #20 tab 03/15/19 Allergies/Adverse Reactions: Sulfa (Sulfonamide Antibiotics) Allergy (Unknown, Verified 03/15/19 09:19) heparin Allergy (Verified 03/15/19 09:19) levofloxacin [From Levaquin] Allergy (Verified 03/15/19 09:19) prednisone Allergy (Verified 03/15/19 09:19) morphine [Morphine] Adverse Reaction (Severe, Verified 03/15/19 09:19) aspirin Adverse Reaction (Verified 03/15/19 09:19) Review of Systems Constitutional: PRESENT: as per HPI, anorexia, fatigue, weakness. ABSENT: chills Eyes: ABSENT: visual disturbances Ears: ABSENT: hearing changes Cardiovascular: PRESENT: as per HPI, dyspnea on exertion. ABSENT: chest pain, edema Respiratory: PRESENT: as per HPI, dyspnea. ABSENT: hemoptysis Gastrointestinal: PRESENT: as per HPI, bloating, constipation, nausea. ABSENT: abdominal pain, diarrhea, vomiting Genitourinary: ABSENT: dysuria, hematuria Musculoskeletal: ABSENT: joint swelling Integumentary: ABSENT: rash, wounds Neurological: ABSENT: abnormal gait, abnormal speech, confusion, dizziness, focal weakness, syncope Psychiatric: ABSENT: anxiety, depression, homidical ideation, suicidal ideation Endocrine: ABSENT: cold intolerance, heat intolerance, polydipsia, polyuria Hematologic/Lymphatic: ABSENT: easy bleeding, easy bruising Physical Exam Vital Signs: Temp Pulse Resp BP Pulse Ox 12 133/59 H 96 03/18/19 02:02 03/18/19 02:02 03/18/19 02:02 Intake & Output 03/16/19 03/17/19 03/18/19 11:59 11:59 11:59 Weight 108.1 kg General appearance: PRESENT: cooperative, mild distress, morbidly obese Head exam: PRESENT: atraumatic, normocephalic Eye exam: PRESENT: conjunctiva pink, EOMI, PERRLA. ABSENT: scleral icterus Ear exam: PRESENT: normal external ear exam Mouth exam: PRESENT: dry mucosa, tongue midline Neck exam: ABSENT: carotid bruit, JVD, lymphadenopathy, thyromegaly Respiratory exam: PRESENT: accessory muscle use, clear to auscultation apollo, crackles, prolonged expiratory phas, tachypnea. ABSENT: rales, rhonchi, wheezes Cardiovascular exam: PRESENT: RRR, +S1, +S2, systolic murmur, other. ABSENT: gallop Pulses: PRESENT: normal dorsalis pedis pul Vascular exam: PRESENT: normal capillary refill GI/Abdominal exam: PRESENT: distended, hypoactive bowel sounds, normal bowel sounds, soft. ABSENT: guarding, mass, organolmegaly, rebound, tenderness Rectal exam: PRESENT: deferred Extremities exam: PRESENT: full ROM. ABSENT: calf tenderness, clubbing, pedal edema Neurological exam: PRESENT: alert, awake, oriented to person, oriented to place, oriented to time, oriented to situation, CN II-XII grossly intact. ABSENT: motor sensory deficit Psychiatric exam: PRESENT: appropriate affect, normal mood. ABSENT: homicidal ideation, suicidal ideation Skin exam: PRESENT: dry, intact, warm. ABSENT: cyanosis, rash Results Laboratory Results: 03/17/19 22:45 03/17/19 22:01 03/17/19 03/17/19 03/17/19 22:01 22:01 22:45 WBC Cancelled RBC Cancelled Hgb Cancelled Hct Cancelled MCV Cancelled MCH Cancelled MCHC Cancelled RDW Cancelled Plt Count Cancelled Seg Neutrophils % Cancelled Lymphocytes % Cancelled Monocytes % Cancelled Eosinophils % Cancelled Basophils % Cancelled Absolute Neutrophils Cancelled Absolute Lymphocytes Cancelled Absolute Monocytes Cancelled Absolute Eosinophils Cancelled Absolute Basophils Cancelled VBG pH Cancelled VBG pCO2 Cancelled VBG HCO3 Cancelled VBG Base Excess Cancelled Sodium 138.2 Potassium 4.6 Chloride 96 L Carbon Dioxide 29 Anion Gap 13 BUN 90 H Creatinine 3.50 H Est GFR ( Amer) 16 L Est GFR (Non-Af Amer) 13 L Glucose 125 H Calcium 8.7 Total Bilirubin 0.8 AST 31 ALT 17 Alkaline Phosphatase 49 Total Protein 7.6 Albumin 4.0 TSH Free T4 Urine Color Urine Appearance Urine pH Ur Specific Leonard Urine Protein Urine Glucose (UA) Urine Ketones Urine Blood Urine Nitrite Ur Leukocyte Esterase Urine WBC (Auto) Urine RBC (Auto) 03/17/19 03/17/19 03/17/19 22:45 22:45 22:45 WBC 5.4 RBC 2.73 L Hgb 8.4 L Hct 25.4 L MCV 93 MCH 30.7 MCHC 32.9 RDW 14.0 Plt Count 217 Seg Neutrophils % 78.1 H Lymphocytes % 12.9 L Monocytes % 4.9 Eosinophils % 3.2 Basophils % 0.9 Absolute Neutrophils 4.2 Absolute Lymphocytes 0.7 Absolute Monocytes 0.3 Absolute Eosinophils 0.2 Absolute Basophils 0.0 VBG pH VBG pCO2 VBG HCO3 VBG Base Excess Sodium Potassium Chloride Carbon Dioxide Anion Gap BUN Creatinine Est GFR ( Amer) Est GFR (Non-Af Amer) Glucose Calcium Total Bilirubin AST ALT Alkaline Phosphatase Total Protein Albumin TSH 7.98 H Free T4 1.60 Urine Color YELLOW Urine Appearance CLEAR Urine pH 5.0 Ur Specific Leonard 1.012 Urine Protein NEGATIVE Urine Glucose (UA) NEGATIVE Urine Ketones NEGATIVE Urine Blood NEGATIVE Urine Nitrite NEGATIVE Ur Leukocyte Esterase NEGATIVE Urine WBC (Auto) 1 Urine RBC (Auto) 2 03/17/19 23:24 WBC RBC Hgb Hct MCV MCH MCHC RDW Plt Count Seg Neutrophils % Lymphocytes % Monocytes % Eosinophils % Basophils % Absolute Neutrophils Absolute Lymphocytes Absolute Monocytes Absolute Eosinophils Absolute Basophils VBG pH 7.29 L VBG pCO2 65.2 H* VBG HCO3 30.4 VBG Base Excess 2.7 Sodium Potassium Chloride Carbon Dioxide Anion Gap BUN Creatinine Est GFR ( Amer) Est GFR (Non-Af Amer) Glucose Calcium Total Bilirubin AST ALT Alkaline Phosphatase Total Protein Albumin TSH Free T4 Urine Color Urine Appearance Urine pH Ur Specific Leonard Urine Protein Urine Glucose (UA) Urine Ketones Urine Blood Urine Nitrite Ur Leukocyte Esterase Urine WBC (Auto) Urine RBC (Auto) 03/17/19 22:01 Troponin I < 0.012 Impressions: Chest X-Ray 03/17/19 21:41 IMPRESSION: No acute disease. Bandlike opacity about the right lung base corresponding to chronic scar. However, this appears to demonstrate a somewhat more nodular component which is new. Correlate with nonemergent CT of the chest. Stable cardiomegaly. copyright 2010 [employer]- All Rights Reserved Assessment and Plan - Diagnosis (1) Acute and chronic respiratory failure with hypoxia Is this a current diagnosis for this admission?: Yes Plan: Multifactorial respiratory failure secondary to COPD, noncompliance with BiPAP and obstructive sleep apnea, anemia, suspected pulmonary hypertension, follow-up echo (2) Acute renal failure superimposed on stage 4 chronic kidney disease Is this a current diagnosis for this admission?: Yes Plan: Patient appears prerenal, IV fluid challenge. Follow-up chemistry, avoid nephrotoxic meds and doses. (3) Morbid obesity with BMI of 45.0-49.9, adult Is this a current diagnosis for this admission?: Yes Plan: Follow-up TSH (4) CESILIA on CPAP Is this a current diagnosis for this admission?: Yes Plan: BiPAP and education (6) Anemia in chronic kidney disease (CKD) Qualifiers: Chronic kidney disease stage: stage 3 (moderate) Qualified Code(s): N18.3 - Chronic kidney disease, stage 3 (moderate); D63.1 - Anemia in chronic kidney disease; D63.1 - Anemia in chronic kidney disease Is this a current diagnosis for this admission?: Yes Plan: Unclear cause, follow-up anemia work-up. - Time Time Spent with patient: 35 or more minutes - Inpatient Certification Medical Necessity: Need Close Monitoring Due to Risk of Patient Decompensation
[2019-03-18 03:39] LABS: ABSOLUTE BASOPHILS # (AUTO) 0.1 10^3/uL (0.0-0.2); ABSOLUTE EOSINOPHILS # (AUTO) 0.1 10^3/uL (0.0-0.6); ABSOLUTE LYMPHOCYTES (AUTO) 0.9 10^3/uL (0.5-4.7); ABSOLUTE MONOCYTES (AUTO) 0.3 10^3/uL (0.1-1.4); ABSOLUTE NEUT (AUTO) 3.3 10^3/uL (1.7-8.2); BASOPHILS % (AUTO) 1.2 % (0-2); EOSINOPHILS % (AUTO) 3.2 % (0-6); HEMATOCRIT 24.4 % (36.0-47.0); LYMPHOCYTES % (AUTO) 18.9 % (13-45); MEAN CORPUSCULAR HEMOGLOBIN 30.3 pg (27.0-33.4); MEAN CORPUSCULAR HGB CONC 32.8 g/dL (32.0-36.0); MEAN CORPUSCULAR VOLUME 92 fl (80-97); MONOCYTES % (AUTO) 6.1 % (3-13); PLATELET COUNT 193 10^3/uL (150-450); RED BLOOD COUNT 2.64 10^6/uL (3.72-5.28); RED CELL DISTRIBUTION WIDTH 13.7 % (11.5-14.0); SEGMENTED NEUTROPHILS % (AUTO) 70.6 % (42-78); TOTAL CELLS COUNTED % (AUTO) 100 %; WHITE BLOOD COUNT 4.7 10^3/uL (4.0-10.5)
[2019-03-18 03:43] LABS: ABSOLUTE RETICS # 0.066 10^6/uL (0.028-0.122); RETICULOCYTE COUNT (AUTO) 2.52 % (0.66-2.85)
[2019-03-18] MEDS: AZITHROMYCIN 500 MG in DEXTROSE 5%-WATER 250 ML IV SCH ×2 (03:44→21:40)
[2019-03-18] MEDS: FLUTICASONE NASAL SPRAY 50 MCG/SPRY 120 SPRAY/16 GM NASL SCH ×3 (03:45→21:37)
[2019-03-18] MEDS: IPRATROPIUM/ALBUTEROL 0.5-2.5 MG/3 ML AMPUL NEB SCH ×4 (04:02→20:05)
[2019-03-18 04:04] LABS: IRON(TIBC) 49.1 ug/dL (37-170)
[2019-03-18 04:05] LABS: ANION GAP 12 (5-19); BLOOD UREA NITROGEN 94 mg/dL (7-20); CALCIUM 8.5 mg/dL (8.4-10.2); CARBON DIOXIDE 29 mmol/L (22-30); CHLORIDE 100 mmol/L (98-107); GLUCOSE 121 mg/dL (75-110); POTASSIUM 4.3 mmol/L (3.6-5.0)
[2019-03-18] MEDS: HEPARIN SOD (PORCINE) 5,000 UNIT/ML 1 ML SYRINGE SUBCUT SCH ×3 (06:01→21:40)
[2019-03-18] MEDS: HYDRALAZINE HCL 25 MG TABLET PO SCH ×3 (06:02→21:39)
[2019-03-18] MEDS ORDERED: LEVOTHYROXINE SODIUM 0.075 MG TABLET ONE (06:27)
[2019-03-18] MEDS: LEVOTHYROXINE SODIUM 0.075 MG TABLET PO SCH (08:02)
--- NOTE | 2019-03-18 09:42 | RADIOLOGY REPORT (SQ) ---
EXAM DESCRIPTION: CT CHEST WITHOUT COMPLETED DATE/TIME: 03/18/2019 9:18 am REASON FOR STUDY: hypoxia, new nodule? D46.4 REFRACTORY ANEMIA, UNSPECIFIED B17.10 ACUTE HEPATITIS C WITHOUT HEPATIC COMA R91.1 SOLITARY PULMONARY NODULE COMPARISON: 02/16/2018 TECHNIQUE: CT scan performed of the chest without intravenous contrast. Images reviewed with lung, soft tissue and bone windows. Reconstructed coronal and sagittal MPR images reviewed. All images st ored on PACS. All CT scanners at this facility use dose modulation, iterative reconstruction, and/or weight based d osing when appropriate to reduce radiation dose to as low as reasonably achievable (ALARA). [facility]: Dose Right [facility]: CareDose [facility]: Dose Right [facility]: Teradose 4D [facility]: [employer] RADIATION DOSE: CT Rad equipment meets quality standard of care and radiation dose reduction techniq ues were employed. CTDIvol: 16.7 mGy. DLP: 626 mGy-cm. mGy. LIMITATIONS: No technical limitations. FINDINGS: LUNGS AND PLEURA: Patchy areas of ground-glass attenuation along the major fissures in in the lower lobes bilaterally. No consolidation. No suspicious nodules. No effusions. HILAR AND MEDIASTINAL STRUCTURES: No identified masses or abnormal nodes. No obvious aneurysm. HEART AND VASCULAR STRUCTURES: No aneurysm. No pericardial effusion. UPPER ABDOMEN: No significant findings. Limited exam. THYROID AND OTHER SOFT TISSUES: No masses. No adenopathy. BONES: Nothing acute. HARDWARE: None in the chest. OTHER: No other significant findings. IMPRESSION: No suspicious nodules. Patchy ground-glass attenuation in both lungs nonspecific, most likely infectious or inflammatory. TECHNICAL DOCUMENTATION: JOB ID: [id number] Quality ID # [id number]: Final reports with documentation of one or more dose reduction techniques (e.g., Au tomated exposure control, adjustment of the mA and/or kV according to patient size, use of iterative reconstruction technique) 2010 [employer]- All Rights Reserved Reading location - IP/workstation name: [email or web address]
[2019-03-18] MEDS: CARVEDILOL 3.125 MG TABLET PO SCH ×2 (12:05→21:39)
[2019-03-18] MEDS: GABAPENTIN 400 MG CAPSULE PO SCH (12:05)
[2019-03-18] MEDS: ACETAMINOPHEN 325 MG TABLET PO PRN (12:13)
--- NOTE | 2019-03-18 12:42 | EKG REPORT ---
SEVERITY:- OTHERWISE NORMAL ECG - SINUS RHYTHM BORDERLINE LEFT AXIS DEVIATION : Confirmed by: Hetal Pat 18-Mar-2019 12:41:32
--- NOTE | 2019-03-18 16:16 | PDOC PROGRESS REPORT ---
Subjective Progress Note for:: 03/18/19 Subjective:: This a 74 year old female with a past medical history of chronic respiratory failure, obstructive sleep apnea with BiPAP noncompliance, morbid obesity, chronic constipation, insulin-dependent diabetes, GERD and CKD 4 who was brought in due drowsiness and weakness. She was reported to be hypoxic by EMS although it was reported her O2 tank was depleted. She was found to have significant hypercarbia in the ER and was admitted due to hypercapnic respiratory failure li irene from COPD and CESILIA. No acute event overnight. This morning, she appears comfortable and is satu rating well on BIPAP. Denies chest pain. Family apparently has expressed they are planning to transition her to hospice. Reason For Visit: COPD EXACERBATION ACUTE BRONCHITIS CKD Physical Exam Vital Signs: Temp Pulse Resp BP Pulse Ox 97.6 F 68 14 118/42 L 95 03/18/19 11:30 03/18/19 14:00 03/18/19 14:00 03/18/19 11:30 03/18/19 14:00 Intake & Output 03/17/19 03/18/19 03/19/19 06:59 06:59 06:59 Intake Total 1250 Output Total 125 Balance 1125 Weight 218 lb 14.704 oz General appearance: PRESENT: no acute distress, well-developed, well-nourished Head exam: PRESENT: atraumatic, normocephalic Eye exam: PRESENT: conjunctiva pink, EOMI, PERRLA. ABSENT: scleral icterus Ear exam: PRESENT: normal external ear exam Mouth exam: PRESENT: moist, tongue midline Neck exam: ABSENT: carotid bruit, JVD, lymphadenopathy, thyromegaly Respiratory exam: PRESENT: rhonchi. ABSENT: rales, wheezes Cardiovascular exam: PRESENT: RRR, systolic murmur. ABSENT: rubs Pulses: PRESENT: normal dorsalis pedis pul GI/Abdominal exam: PRESENT: normal bowel sounds, soft. ABSENT: distended, guarding, mass, organolmegaly, rebound, tenderness Rectal exam: PRESENT: deferred Neurological exam: PRESENT: awake, CN II-XII grossly intact. ABSENT: motor sensory deficit Results Laboratory Results: 03/18/19 03:27 03/18/19 03:27 03/17/19 03/17/19 03/17/19 22:01 22:01 22:45 WBC Cancelled RBC Cancelled Hgb Cancelled Hct Cancelled MCV Cancelled MCH Cancelled MCHC Cancelled RDW Cancelled Plt Count Cancelled Seg Neutrophils % Cancelled Lymphocytes % Cancelled Monocytes % Cancelled Eosinophils % Cancelled Basophils % Cancelled Absolute Neutrophils Cancelled Absolute Lymphocytes Cancelled Absolute Monocytes Cancelled Absolute Eosinophils Cancelled Absolute Basophils Cancelled Retic Count (auto) Absolute Retic VBG pH Cancelled VBG pCO2 Cancelled VBG HCO3 Cancelled VBG Base Excess Cancelled Sodium 138.2 Potassium 4.6 Chloride 96 L Carbon Dioxide 29 Anion Gap 13 BUN 90 H Creatinine 3.50 H Est GFR ( Amer) 16 L Est GFR (Non-Af Amer) 13 L Glucose 125 H Calcium 8.7 Iron TIBC % Saturation Ferritin Total Bilirubin 0.8 AST 31 ALT 17 Alkaline Phosphatase 49 Total Protein 7.6 Albumin 4.0 Vitamin B12 Folate TSH Free T4 Urine Color Urine Appearance Urine pH Ur Specific [place] Urine Protein Urine Glucose (UA) Urine Ketones Urine Blood Urine Nitrite Ur Leukocyte Esterase Urine WBC (Auto) Urine RBC (Auto) 03/17/19 03/17/19 03/17/19 22:45 22:45 22:45 WBC 5.4 RBC 2.73 L Hgb 8.4 L Hct 25.4 L MCV 93 MCH 30.7 MCHC 32.9 RDW 14.0 Plt Count 217 Seg Neutrophils % 78.1 H Lymphocytes % 12.9 L Monocytes % 4.9 Eosinophils % 3.2 Basophils % 0.9 Absolute Neutrophils 4.2 Absolute Lymphocytes 0.7 Absolute Monocytes 0.3 Absolute Eosinophils 0.2 Absolute Basophils 0.0 Retic Count (auto) Absolute Retic VBG pH VBG pCO2 VBG HCO3 VBG Base Excess Sodium Potassium Chloride Carbon Dioxide Anion Gap BUN Creatinine Est GFR ( Amer) Est GFR (Non-Af Amer) Glucose Calcium Iron TIBC % Saturation Ferritin Total Bilirubin AST ALT Alkaline Phosphatase Total Protein Albumin Vitamin B12 Folate TSH 7.98 H Free T4 1.60 Urine Color YELLOW Urine Appearance CLEAR Urine pH 5.0 Ur Specific [place] 1.012 Urine Protein NEGATIVE Urine Glucose (UA) NEGATIVE Urine Ketones NEGATIVE Urine Blood NEGATIVE Urine Nitrite NEGATIVE Ur Leukocyte Esterase NEGATIVE Urine WBC (Auto) 1 Urine RBC (Auto) 2 03/17/19 03/18/19 03/18/19 23:24 03:27 03:27 WBC 4.7 RBC 2.64 L Hgb 8.0 L Hct 24.4 L MCV 92 MCH 30.3 MCHC 32.8 RDW 13.7 Plt Count 193 Seg Neutrophils % 70.6 Lymphocytes % 18.9 Monocytes % 6.1 Eosinophils % 3.2 Basophils % 1.2 Absolute Neutrophils 3.3 Absolute Lymphocytes 0.9 Absolute Monocytes 0.3 Absolute Eosinophils 0.1 Absolute Basophils 0.1 Retic Count (auto) Absolute Retic VBG pH 7.29 L VBG pCO2 65.2 H* VBG HCO3 30.4 VBG Base Excess 2.7 Sodium 141.0 Potassium 4.3 Chloride 100 Carbon Dioxide 29 Anion Gap 12 BUN 94 H Creatinine 3.63 H Est GFR ( Amer) 15 L Est GFR (Non-Af Amer) 12 L Glucose 121 H Calcium 8.5 Iron TIBC % Saturation Ferritin Total Bilirubin AST ALT Alkaline Phosphatase Total Protein Albumin Vitamin B12 Folate TSH Free T4 Urine Color Urine Appearance Urine pH Ur Specific [place] Urine Protein Urine Glucose (UA) Urine Ketones Urine Blood Urine Nitrite Ur Leukocyte Esterase Urine WBC (Auto) Urine RBC (Auto) 03/18/19 03/18/19 03:27 03:27 WBC RBC Hgb Hct MCV MCH MCHC RDW Plt Count Seg Neutrophils % Lymphocytes % Monocytes % Eosinophils % Basophils % Absolute Neutrophils Absolute Lymphocytes Absolute Monocytes Absolute Eosinophils Absolute Basophils Retic Count (auto) 2.52 Absolute Retic 0.066 VBG pH VBG pCO2 VBG HCO3 VBG Base Excess Sodium Potassium Chloride Carbon Dioxide Anion Gap BUN Creatinine Est GFR ( Amer) Est GFR (Non-Af Amer) Glucose Calcium Iron 49.1 TIBC 324 % Saturation 15 Ferritin 265.00 H Total Bilirubin AST ALT Alkaline Phosphatase Total Protein Albumin Vitamin B12 232.0 L Folate 10.00 TSH Free T4 Urine Color Urine Appearance Urine pH Ur Specific [place] Urine Protein Urine Glucose (UA) Urine Ketones Urine Blood Urine Nitrite Ur Leukocyte Esterase Urine WBC (Auto) Urine RBC (Auto) 03/17/19 03/18/19 22:01 03:27 Troponin I < 0.012 < 0.012 Impressions: Chest X-Ray 03/17/19 21:41 IMPRESSION: No acute disease. Bandlike opacity about the right lung base corresponding to chronic scar. However, this appears to demonstrate a somewhat more nodular component which is new. Correlate with nonemergent CT of the chest. Stable cardiomegaly. copyright 2011 [employer]- All Rights Reserved Chest CT 03/18/19 00:00 IMPRESSION: No suspicious nodules. Patchy ground-glass attenuation in both lungs nonspecific, most likely infectious or inflammatory. Assessment and Plan - Diagnosis (1) Acute on chronic respiratory failure with hypoxia and hypercapnia Is this a current diagnosis for this admission?: Yes Plan: Likely from COPD and CESILIA/obesity hypoventilation. Improved on BIPAP. Will try to wean off BIPAP but will be placed on BIPAP at night or during sleep. (2) Anemia in chronic kidney disease (CKD) Qualifiers: Chronic kidney disease stage: stage 3 (moderate) Qualified Code(s): N18.3 - Chronic kidney disease, stage 3 (moderate); D63.1 - Anemia in chronic kidney disease; D63.1 - Anemia in chronic kidney disease Is this a current diagnosis for this admission?: Yes Plan: Hemoglobin appear to be stable on review of previous Hb levels. (3) COPD (chronic obstructive pulmonary disease) Qualifiers: COPD type: chronic bronchitis Chronic bronchitis type: unspecified Qualified Code(s): J42 - Unspecified chronic bronchitis Is this a current diagnosis for this admission?: Yes Plan: Continue steroids and breathing treatments. - Time Time Spent with patient: 15-24 minutes
[2019-03-18] MEDS: BENAZEPRIL HCL 20 MG TABLET PO SCH (21:38)
[2019-03-18] MEDS: METHYLPREDNISOLONE INJ 40 MG/1 ML SDV IV SCH (21:38)
[2019-03-19] MEDS: IPRATROPIUM/ALBUTEROL 0.5-2.5 MG/3 ML AMPUL NEB SCH ×4 (01:38→21:06)
[2019-03-19] MEDS: HYDRALAZINE HCL 25 MG TABLET PO SCH ×3 (05:19→21:46)
[2019-03-19 05:27] LABS: ABSOLUTE LYMPHOCYTES (AUTO) 0.5 10^3/uL (0.5-4.7); ABSOLUTE MONOCYTES (AUTO) 0.1 10^3/uL (0.1-1.4); ABSOLUTE NEUT (AUTO) 3.4 10^3/uL (1.7-8.2); BASOPHILS % (AUTO) 0.2 % (0-2); EOSINOPHILS % (AUTO) 0.1 % (0-6); HEMATOCRIT 21.9 % (36.0-47.0); LYMPHOCYTES % (AUTO) 12.1 % (13-45); MEAN CORPUSCULAR HEMOGLOBIN 30.4 pg (27.0-33.4); MEAN CORPUSCULAR HGB CONC 33.4 g/dL (32.0-36.0); MEAN CORPUSCULAR VOLUME 91 fl (80-97); MONOCYTES % (AUTO) 2.6 % (3-13); PLATELET COUNT 185 10^3/uL (150-450); RED BLOOD COUNT 2.41 10^6/uL (3.72-5.28); RED CELL DISTRIBUTION WIDTH 13.5 % (11.5-14.0); TOTAL CELLS COUNTED % (AUTO) 100 %
[2019-03-19 05:28] LABS: HEMOGLOBIN 7.3 g/dL (12.0-15.5)
[2019-03-19] MEDS: LEVOTHYROXINE SODIUM 0.075 MG TABLET PO SCH (05:32)
[2019-03-19] MEDS: HEPARIN SOD (PORCINE) 5,000 UNIT/ML 1 ML SYRINGE SUBCUT SCH ×3 (05:33→21:46)
[2019-03-19] MEDS: ACETAMINOPHEN 325 MG TABLET PO PRN ×3 (05:36→23:25)
[2019-03-19 05:46] LABS: ANION GAP 12 (5-19); BLOOD UREA NITROGEN 90 mg/dL (7-20); CALCIUM 7.9 mg/dL (8.4-10.2); CARBON DIOXIDE 28 mmol/L (22-30); CHLORIDE 97 mmol/L (98-107); GLUCOSE 249 mg/dL (75-110); POTASSIUM 4.6 mmol/L (3.6-5.0); SODIUM 136.6 mmol/L (137-145)
[2019-03-19] MEDS: CARVEDILOL 3.125 MG TABLET PO SCH ×2 (10:00→21:46)
[2019-03-19] MEDS ORDERED: CEFTRIAXONE 1 GM/D5W RTU 1 GM/50 ML RTUPB IV SCH (10:00)
[2019-03-19] MEDS: METHYLPREDNISOLONE INJ 40 MG/1 ML SDV IV SCH ×2 (10:30→21:46)
[2019-03-19] MEDS: CEFTRIAXONE SODIUM 1,000 MG in DEXTROSE 5%-WATER 50 ML IV SCH (10:31)
[2019-03-19] MEDS: FLUTICASONE NASAL SPRAY 50 MCG/SPRY 120 SPRAY/16 GM NASL SCH ×2 (10:31→21:47)
[2019-03-19] MEDS: GABAPENTIN 400 MG CAPSULE PO SCH (10:31)
--- NOTE | 2019-03-19 14:10 | PDOC PROGRESS REPORT ---
Subjective Progress Note for:: 03/19/19 Subjective:: This a 74 year old female with a past medical history of chronic respiratory failure, obstructive sleep apnea with BiPAP noncompliance, morbid obesity, chronic constipation, insulin-dependent diabetes, GERD and CKD 4 who was brought in due drowsiness and weakness. She was reported to be hypoxic by EMS although it was reported her O2 tank was depleted. She was found to have significant hypercarbia in the ER and was admitted due to hypercapnic respiratory failure li irene from COPD and CESILIA. This morning, she appears comfortable and is saturating well on BIPAP. Denies chest pain. Family apparently has expressed they are planning to transition her to hospice. 03/19: No acute event overnight. Discussed with patient and daughter. Patient affirms she is a DNR/DNI and shows her personal brace which does indicate this. Also discussed with patient and daughter that they want to proceed with home hospice. Reason For Visit: COPD EXACERBATION ACUTE BRONCHITIS CKD Physical Exam Vital Signs: Temp Pulse Resp BP Pulse Ox 98.3 F 63 16 137/47 H 95 03/19/19 11:55 03/19/19 13:34 03/19/19 13:34 03/19/19 11:55 03/19/19 13:34 Intake & Output 03/18/19 03/19/19 03/20/19 06:59 06:59 06:59 Intake Total 1250 678 Output Total 125 200 Balance 1125 478 Weight 218 lb 14.704 oz 222 lb 10.67 oz General appearance: PRESENT: no acute distress, well-developed, well-nourished Head exam: PRESENT: atraumatic, normocephalic Eye exam: PRESENT: conjunctiva pink, EOMI, PERRLA. ABSENT: scleral icterus Ear exam: PRESENT: normal external ear exam Mouth exam: PRESENT: moist, tongue midline Neck exam: ABSENT: carotid bruit, JVD, lymphadenopathy, thyromegaly Respiratory exam: PRESENT: clear to auscultation apollo. ABSENT: rales, rhonchi, wheezes Cardiovascular exam: PRESENT: RRR. ABSENT: diastolic murmur, rubs, systolic murmur Pulses: PRESENT: normal dorsalis pedis pul GI/Abdominal exam: PRESENT: normal bowel sounds, soft. ABSENT: distended, guarding, mass, organolmegaly, rebound, tenderness Rectal exam: PRESENT: deferred Neurological exam: PRESENT: alert, awake, oriented to person, oriented to place, oriented to situation, CN II-XII grossly intact. ABSENT: motor sensory deficit Results Laboratory Results: 03/19/19 04:54 03/19/19 04:54 03/19/19 03/19/19 04:54 04:54 WBC 4.0 RBC 2.41 L Hgb 7.3 L Hct 21.9 L MCV 91 MCH 30.4 MCHC 33.4 RDW 13.5 Plt Count 185 Seg Neutrophils % 85.0 H Lymphocytes % 12.1 L Monocytes % 2.6 L Eosinophils % 0.1 Basophils % 0.2 Absolute Neutrophils 3.4 Absolute Lymphocytes 0.5 Absolute Monocytes 0.1 Absolute Eosinophils 0.0 Absolute Basophils 0.0 Sodium 136.6 L Potassium 4.6 Chloride 97 L Carbon Dioxide 28 Anion Gap 12 BUN 90 H Creatinine 3.15 H Est GFR ( Amer) 18 L Est GFR (Non-Af Amer) 14 L Glucose 249 H Calcium 7.9 L 03/17/19 03/18/19 03/19/19 22:01 03:27 04:54 Troponin I < 0.012 < 0.012 < 0.012 Impressions: Chest X-Ray 03/17/19 21:41 IMPRESSION: No acute disease. Bandlike opacity about the right lung base corresponding to chronic scar. However, this appears to demonstrate a somewhat more nodular component which is new. Correlate with nonemergent CT of the chest. Stable cardiomegaly. copyright 2010 [employer]- All Rights Reserved Chest CT 03/18/19 00:00 IMPRESSION: No suspicious nodules. Patchy ground-glass attenuation in both lungs nonspecific, most likely infectious or inflammatory. Assessment and Plan - Diagnosis (1) Acute on chronic respiratory failure with hypoxia and hypercapnia Is this a current diagnosis for this admission?: Yes Plan: Likely from COPD and CESILIA/obesity hypoventilation. Improved on BIPAP. Will try to wean off BIPAP but will be placed on BIPAP at night or during sleep. 03/19: Saturating well on nasal cannula. (2) Anemia in chronic kidney disease (CKD) Qualifiers: Chronic kidney disease stage: stage 3 (moderate) Qualified Code(s): N18.3 - Chronic kidney disease, stage 3 (moderate); D63.1 - Anemia in chronic kidney disease; D63.1 - Anemia in chronic kidney disease Is this a current diagnosis for this admission?: Yes Plan: Hemoglobin appear to be stable on review of previous Hb levels. 03/19: Hb dropped to 7.3 today. No clinical signs or symptoms of bleeding. FOBT was ordered although will not likely pursue further invasive testing as patient and daughter has expressed they want to proceed with home hospice. (3) COPD (chronic obstructive pulmonary disease) Qualifiers: COPD type: chronic bronchitis Chronic bronchitis type: unspecified Qualified Code(s): J42 - Unspecified chronic bronchitis Is this a current diagnosis for this admission?: Yes Plan: Continue steroids and breathing treatments. - Time Time Spent with patient: 25-34 minutes
--- NOTE | 2019-03-19 14:11 | ADVANCED CARE ---
- Diagnosis (1) Acute on chronic respiratory failure with hypoxia and hypercapnia Diagnosis Current: Yes (2) Anemia in chronic kidney disease (CKD) Diagnosis Current: Yes (3) COPD (chronic obstructive pulmonary disease) Diagnosis Current: Yes Resuscitation Status: Do Not Resuscitate Discussion: 03/19: Discussed with patient and daughter. Patient affirms she is a DNR/DNI and shows her personal brace which does indicate this. Also discussed with patient and daughter who expressed that they want to proceed with home hospice.
[2019-03-19] MEDS: BENAZEPRIL HCL 20 MG TABLET PO SCH (21:47)
[2019-03-19] MEDS: AZITHROMYCIN 500 MG in DEXTROSE 5%-WATER 250 ML IV SCH (21:48)
[2019-03-20] MEDS: IPRATROPIUM/ALBUTEROL 0.5-2.5 MG/3 ML AMPUL NEB SCH ×3 (02:08→14:20)
[2019-03-20] MEDS: HEPARIN SOD (PORCINE) 5,000 UNIT/ML 1 ML SYRINGE SUBCUT SCH ×2 (05:07→15:43)
[2019-03-20] MEDS: LEVOTHYROXINE SODIUM 0.075 MG TABLET PO SCH (05:49)
[2019-03-20] MEDS: HYDRALAZINE HCL 25 MG TABLET PO SCH ×2 (05:50→16:44)
[2019-03-20 06:06] LABS: ANION GAP 11 (5-19); BLOOD UREA NITROGEN 86 mg/dL (7-20); CALCIUM 8.3 mg/dL (8.4-10.2); CARBON DIOXIDE 28 mmol/L (22-30); CHLORIDE 98 mmol/L (98-107); POTASSIUM 4.5 mmol/L (3.6-5.0); SODIUM 137.1 mmol/L (137-145)
[2019-03-20 06:19] LABS: GLUCOSE 436 mg/dL (75-110)
[2019-03-20] MEDS ORDERED: GLUCAGON,HUMAN RECOMB 1 MG INJ IM PRN (09:30)
[2019-03-20] MEDS ORDERED: DEXTROSE 40% GEL 15 GM TUBE X 2 PO PRN (09:30)
[2019-03-20] MEDS ORDERED: DEXTROSE 40% GEL 15 GM TUBE PO PRN (09:30)
[2019-03-20] MEDS ORDERED: DEXTROSE 50%-WATER SYRINGE 12.5 GM/25 ML DOSE IV PRN (09:30)
[2019-03-20] MEDS ORDERED: DEXTROSE 50%-WATER SYRINGE 25 GM/50 ML DOSE IV PRN (09:30)
[2019-03-20] MEDS ORDERED: INSULIN GLARGINE,HUM.REC.ANLOG 1,000 UNIT/10 ML VIAL SUBCUT SCH (10:00)
[2019-03-20] MEDS: INSULIN REG, HUMAN 100 UNIT/ML 3 ML VIAL (PYX) SUBCUT SCH ×2 (11:08→16:44)
[2019-03-20] MEDS: GABAPENTIN 400 MG CAPSULE PO SCH (11:09)
[2019-03-20] MEDS: CARVEDILOL 3.125 MG TABLET PO SCH (11:10)
[2019-03-20] MEDS: FLUTICASONE NASAL SPRAY 50 MCG/SPRY 120 SPRAY/16 GM NASL SCH (11:10)
[2019-03-20] MEDS: METHYLPREDNISOLONE INJ 40 MG/1 ML SDV IV SCH (11:10)
[2019-03-20] MEDS: CEFTRIAXONE SODIUM 1,000 MG in DEXTROSE 5%-WATER 50 ML IV SCH (11:10)
[2019-03-20 17:03] VITALS: BP 148/52
--- NOTE | 2019-03-20 17:15 | PDOC DISCHARGE SUMMARY ---
General - Admit/Disc Date/PCP Admission Date/Primary Care Provider: 03/18/19 01:12 REED ADAM Discharge Date: 03/20/19 - Discharge Diagnosis (1) Acute on chronic respiratory failure with hypoxia and hypercapnia Is this a current diagnosis for this admission?: Yes (2) Anemia in chronic kidney disease (CKD) Is this a current diagnosis for this admission?: Yes (3) COPD (chronic obstructive pulmonary disease) Is this a current diagnosis for this admission?: Yes - Additional Information Resuscitation Status: Do Not Resuscitate Discharge Diet: As Tolerated Discharge Activity: Activity As Tolerated, Balance Activity w/Rest Home Medications: Carvedilol [Coreg 3.125 mg Tablet] 3.125 mg PO Q12 12/30/17 Glimepiride [Amaryl 4 mg Tablet] 4 mg PO BID 12/30/17 Hydralazine HCl [Apresoline 25 mg Tablet] 50 mg PO Q8 12/30/17 Omeprazole 20 mg PO DAILY 12/30/17 Oxycodone HCl/Acetaminophen [Percocet 7.5-325 mg Tablet] 1 tab PO BIDP PRN 12/30/17 Fenofibrate 54mg Tablet 54 mg PO DAILY 06/04/18 Furosemide [Lasix 20 mg Tablet] 20 mg PO BID 06/04/18 Gabapentin [Neurontin 400 mg Capsule] 400 mg PO BID 06/04/18 Levothyroxine Sodium [Synthroid 0.075 mg Tablet] 0.075 mg PO Q6AM 06/04/18 Insulin Detemir [Levemir] 20 unit SQ DAILY 03/18/19 History of Present Illness History of Present Illness: WANG LAWSON is a 74 year old female Hospital Course Hospital Course: This a 74 year old female with a past medical history of chronic respiratory failure, obstructive sleep apnea with BiPAP noncompliance, morbid obesity, chr onic constipation, insulin-dependent diabetes, GERD and CKD 4 who was brought in due drowsiness and weakness. She was reported to be hypoxic by EMS although it was reported her O2 tank was depleted. She was found to have significant hypercarbia in the ER and was admitted due to hypercapnic respiratory failure likely from COPD and CESILIA. 03/19: Discussed with patient and daughter/DPOA. Patient affirms she is a DNR/DNI and shows her personal brace which does indicate this. Also discussed with patient and daughter that they want to proceed with home hospice. 03/20: No acute event overnight. She is at her baseline. Updated patient and daughter on rounds. She does have regular chronic anemia but they do not want to any work-up for this. Apparently, patient and daughter prefers a hospice company that does not have a contract with [facility] and hence is not able to do the transition inpatient. Patient will be discharged today and daughter says hospice company will transition patient upon discharge from the hospital. Physical Exam Vital Signs: Temp Pulse Resp BP Pulse Ox 97.9 F 88 17 148/52 H 94 03/20/19 17:00 03/20/19 17:00 03/20/19 17:00 03/20/19 17:00 03/20/19 17:00 Intake & Output 03/19/19 03/20/19 03/21/19 06:59 06:59 06:59 Intake Total 678 1670 861 Output Total 200 950 400 Balance 478 720 461 Weight 222 lb 10.67 oz 226 lb 3.108 oz General appearance: PRESENT: no acute distress, well-developed, well-nourished Head exam: PRESENT: atraumatic, normocephalic Eye exam: PRESENT: conjunctiva pink, EOMI, PERRLA. ABSENT: scleral icterus Ear exam: PRESENT: normal external ear exam Mouth exam: PRESENT: moist, tongue midline Neck exam: ABSENT: carotid bruit, JVD, lymphadenopathy, thyromegaly Respiratory exam: PRESENT: clear to auscultation apollo. ABSENT: rales, rhonchi, wheezes Cardiovascular exam: PRESENT: RRR. ABSENT: diastolic murmur, rubs, systolic murmur Pulses: PRESENT: normal dorsalis pedis pul GI/Abdominal exam: PRESENT: normal bowel sounds, soft. ABSENT: distended, guarding, mass, organolmegaly, rebound, tenderness Rectal exam: PRESENT: deferred Neurological exam: PRESENT: alert, awake, oriented to person, oriented to place, oriented to situation, CN II-XII grossly intact. ABSENT: motor sensory deficit Results Laboratory Results: 03/19/19 04:54 03/20/19 05:17 03/20/19 05:17 Sodium 137.1 Potassium 4.5 Chloride 98 Carbon Dioxide 28 Anion Gap 11 BUN 86 H Creatinine 2.53 H Est GFR ( Amer) 23 L Est GFR (Non-Af Amer) 19 L Glucose 436 H* Calcium 8.3 L 03/17/19 03/18/19 03/19/19 22:01 03:27 04:54 Troponin I < 0.012 < 0.012 < 0.012 Impressions: Chest X-Ray 03/17/19 21:41 IMPRESSION: No acute disease. Bandlike opacity about the right lung base corresponding to chronic scar. However, this appears to demonstrate a somewhat more nodular component which is new. Correlate with nonemergent CT of the chest. Stable cardiomegaly. copyright 2011 [employer]- All Rights Reserved Chest CT 03/18/19 00:00 IMPRESSION: No suspicious nodules. Patchy ground-glass attenuation in both lungs nonspecific, most likely infectious or inflammatory. Qualifiers - * PATIENT BEING DISCHARGED WITH ANY OF THE FOLLOWING DIAGNOSIS: No Acute Heart Failure Is this a Heart Failure Patient?: No
[2019-03-20 17:36] LABS: HEPATITIS A AB IGM Negative (Negative); HEPATITIS B CORE AB IGM Negative (Negative); HEPATITS B SURFACE ANTIGEN Negative (Negative)
[2019-03-21 11:32] LABS: HEPATITIS C VIRUS ANTIBODY <0.1 s/co ratio (0.0-0.9)
== END 2019-03-20 19:27 | disposition hospice, home (50) ==
LOC: ER 21:12 → EH 03-18 01:12 → 4S 03-18 03:35
PROVIDERS: ADMIT Internal Medicine; ATTEND Internal Medicine
DX: J96.22 Acute and chronic respiratory failure with hypercapnia (principal); J96.21 Acute and chronic respiratory failure with hypoxia; N17.9 Acute kidney failure, unspecified; N18.4 Chronic kidney disease, stage 4 (severe); D63.1 Anemia in chronic kidney disease; E11.22 Type 2 diabetes mellitus with diabetic chronic kidney disease; I12.9 Hypertensive chronic kidney disease with stage 1 through stage 4 chronic kidney disease, or unspecified chronic kidney disease; J42 Unspecified chronic bronchitis; E66.01 Morbid (severe) obesity due to excess calories; R53.1 Weakness; I25.10 Atherosclerotic heart disease of native coronary artery without angina pectoris; R63.0 Anorexia; G47.33 Obstructive sleep apnea (adult) (pediatric); M54.5 Low back pain; K59.00 Constipation, unspecified; R40.0 Somnolence; R30.0 Dysuria; Z79.4 Long term (current) use of insulin; I25.2 Old myocardial infarction; Z68.42 Body mass index [BMI] 45.0-49.9, adult; Z66 Do not resuscitate; Z79.899 Other long term (current) drug therapy; Z91.14 Patient's other noncompliance with medication regimen; Z90.49 Acquired absence of other specified parts of digestive tract; Z80.1 Family history of malignant neoplasm of trachea, bronchus and lung
CPT/HCPCS: 93005; 99285; 96360; 51701; 36415 ×4; 87040; 84439; 82962; 82607; 82728; 82746; 83540; 83550; 84443; 85025 ×3; 85045; 80048 ×3; 80053; 81001; 84484 ×3; 82803; 80074; 71045; 71250; 94799; 93010; 94660 ×3; 94667; 94668 ×2; 94640 ×3; 97163; G0378 ×4; A9270 ×24; J1644 ×2; J2920 ×3; J3490 ×4; J0696 ×2; J7060 ×4; J7030; J0456 ×2; J1815; J7512; J7620